=== PATIENT | female | born 1945 | race Caucasian/White ===

== ENCOUNTER 2018-10-17 18:51 | Inpatient (IN) | payer OTHER, MEDICARE ==
--- NOTE | 2018-10-17 19:03 | PDOC ---
Rapid Medical Evaluation Chief Complaint: Shortness of Breath Time Seen by Provider: 10/17/18 18:58 Medical Evaluation: Allergies Allergy/AdvReac Type Severity Reaction Status Date / Time buspirone HCl [From BuSpar] Allergy Verified 03/03/16 18:29 carbamazepine [From Tegretol] Allergy Verified 03/03/16 18:29 celecoxib [From Celebrex] Allergy Verified 03/03/16 18:29 hydralazine Allergy Verified 03/03/16 18:29 Penicillins Allergy Verified 03/03/16 18:29 valsartan [From Diovan] Allergy Verified 03/03/16 18:29 10/17/18 18:58 I have performed a brief in-person evaluation of this patient. The patient presents with a chief complaint of:worsening of SOBthis week, sent from Dr Ng office for admission baseline pulse Ox 94%, this week pulse ox 85%. Pertinent physical exam findings: Tachypneic, taking Zithromycin started yesterday Pale, . I have ordered the following: CXR, The patient will proceed to the ED for further evaluation. Discharge Disposition - Diagnosis SOB (shortness of breath) - Referrals Referrals: Ryan Grande MD [Primary Care Provider] - - Patient Instructions - Post Discharge Activity
--- NOTE | 2018-10-17 21:24 | PDOC ---
History of Present Illness - General Chief Complaint: Shortness of Breath Stated Complaint: Shortness of Breath Time Seen by Provider: 10/17/18 18:58 History Source: Patient Exam Limitations: No Limitations Past History - Past Medical History Allergies/Adverse Reactions: Allergies Allergy/AdvReac Type Severity Reaction Status Date / Time buspirone HCl [From BuSpar] Allergy Verified 03/03/16 18:29 carbamazepine [From Tegretol] Allergy Verified 03/03/16 18:29 celecoxib [From Celebrex] Allergy Verified 03/03/16 18:29 hydralazine Allergy Verified 03/03/16 18:29 Penicillins Allergy Verified 03/03/16 18:29 valsartan [From Diovan] Allergy Verified 03/03/16 18:29 Home Medications: Ambulatory Orders Acetaminophen/Caffeine/Butalb [Fioricet -] 1 tab PO Q4H PRN 03/03/16 Aspirin Coated [Ecotrin -] 325 mg PO DAILY 03/03/16 Atenolol [Tenormin -] 50 mg PO BID 03/03/16 Budesonide/Formeterol Fumarate [SYMBICORT 160/4.5mcg -] 1 inh PO BID 03/03/16 Citalopram Hydrobromide [Citalopram HBr] 20 mg PO TID 03/03/16 Codeine Sulfate - 30 mg PO Q6H PRN 03/03/16 Nortriptyline HCl [Pamelor -] 50 mg PO BID 03/03/16 Omeprazole [Prilosec] 40 mg PO DAILY 03/03/16 Rosuvastatin [Crestor -] 10 mg PO DAILY 03/03/16 Tiotropium [place] [Spiriva] 1 inh PO DAILY 03/03/16 Triamterene/Hydrochlorothiazid [Triamterene-Hctz 37.5-25 mg Tb] 1 each PO DAILY 03/03/16 Allopurinol [Zyloprim -] 100 mg PO DAILY 03/04/16 Levothyroxine [Synthroid -] 112 mcg PO DAILY 03/04/16 Enoxaparin [Lovenox -] 40 mg SQ DAILY disp.syrin 03/06/16 Lactulose (Oral Use) [Cephulac -] 20 gm PO DAILY udc 03/06/16 Polyethylene Glycol 3350 [Miralax 119 gm Btl -] 17 gm PO BID bottle 03/06/16 Cardiac Disorders: Yes (2005) COPD: Yes Dementia: No Diabetes: No Hypercholesterolemia: Yes Seizures: No Thyroid Disease: Yes (overactive goiter removed) - Surgical History Lung Surgery: Yes (rt pneumo thorax thoracotomy) - Immunization History Immunization Up to Date: Yes - Suicide/Smoking/Psychosocial Hx Smoking History: Former smoker Have you smoked in the past 12 months: No Information on smoking cessation initiated: No Hx Alcohol Use: No Drug/Substance Use Hx: No Substance Use Type: None Hx Substance Use Treatment: No *Physical Exam - Vital Signs Last Vital Signs Temp Pulse Resp BP Pulse Ox 97.9 F 68 20 136/73 93 L 10/17/18 18:58 10/17/18 18:58 10/17/18 18:58 10/17/18 18:58 10/17/18 18:58 - Physical Exam General Appearance: No: Apparent Distress Respiratory/Chest: positive: Lungs Clear, Decreased Breath Sounds (Slightly decreased breath sounds along R side compared to left). negative: Respiratory Distress, Rales, Rhonchi, Stridor, Wheezing Cardiovascular: positive: Regular Rhythm, Regular Rate, S1, S2. negative: Murmur Gastrointestinal/Abdominal: positive: Normal Bowel Sounds, Soft. negative: Tender, Distended, Guarding, Rebound Extremity: positive: Pedal Edema (Mild 1+ pedal edema noted), Erythema (Some erythema noted along dorsal surface of R foot and L saldana, slight skin tear to L saldana with slight weeping, no purulent drainage, no open wound, no warmth to site ). negative: Calf Tenderness Neurologic: positive: Fully Oriented, Alert, Normal Mood/Affect Moderate Sedation - Procedure Monitoring Vital Signs: Procedure Monitoring Vital Signs Temperature 97.9 F 10/17/18 18:58 Pulse Rate 68 10/17/18 18:58 Respiratory Rate 20 10/17/18 18:58 Blood Pressure 136/73 10/17/18 18:58 O2 Sat by Pulse Oximetry (%) 93 L 10/17/18 18:58 ED Treatment Course - LABORATORY CBC & Chemistry Diagram: 10/17/18 21:41 10/17/18 21:41 - RADIOLOGY Radiology Studies Ordered: Category Date Time Status CHEST X-RAY PORTABLE* [RAD] Stat Radiology 10/17/18 20:32 Taken Medical Decision Making - Medical Decision Making 72 y/o F hx of emphysema (former smoker, 20 pack year, quit 1983), R lung PTX s/ p RUL lobectomy 1983, [place] 2005 (on ASA, no PCI or CABG done), L femur fx 2015 s/ p ORIF, hypothyroidism, gout, depression presents due to worsening SOB over 2 weeks. Patient has pulse oximeter at home and states pulse ox has been ranging from 77-90% at times; usually she is around 95%. Patient is not oxygen dependent. Spoke to her PCP who advised her to come to ED for admission. Also mentions having chronic dry cough for years, which worsened last week for which her PCP started her on Azithromycin, which she started taking yesterday. Also mentions noting some redness along her lower legs 2 weeks ago for which her PCP started her on Clindamycin initially for concern for infection; however, the redness did not improve. She had an arterial ultrasound done of her lower legs yesterday, which she was told was normal. Denies fever, chest pain, abd pain, n/ v/d, recent travel. SOB Consider worsening emphysema, ?CHF (mild pedal edema on exam), ?PE, ?PNA, ACS EKG #1: NSR at 66 bpm, TWI lead III (unchanged from prior 02/2016) Plan: CBC, BMP, trop, BNP, coags, VBG, lactate, CXR, CTA chest (if normal creatinine) Patient placed on 2L oxygen 10/17/18 21:25 Labs reviewed Trop neg BNP elevated CT chest shows LLL PNA; no evidence of PE noted Though BNP elevated, no pleural or pericardial effusion noted on imaging; less likely acute CHF Patient with no recent hospital admissions so will treat as CAP Patient is penicillin allergic so will treat with Levaquin Will admit patient for further care. 10/18/18 01:41 *DC/Admit/Observation/Transfer Diagnosis at time of Disposition: SOB (shortness of breath) Pneumonia Qualifiers: Pneumonia type: due to unspecified organism Laterality: left Lung location: lower lobe of lung Qualified Code(s): J18.1 - Lobar pneumonia, unspecified organism - Discharge Dispostion Condition at time of disposition: Stable Decision to Admit order: Yes - Referrals Referrals: Ryan Grande MD [Primary Care Provider] - - Patient Instructions - Post Discharge Activity
[2018-10-17 21:51] LABS: BASO % 0.4 % (0-2.0); EOS % 1.3 % (0-4.5); HEMATOCRIT 35.5 % (32.4-45.2); HEMOGLOBIN 12.1 GM/dL (10.7-15.3); LYMPH % 9.6 % (8-40); MCH 28.2 pg (25.7-33.7); MEAN CELL VOLUME 82.9 fl (80-96); MONO % 6.9 % (3.8-10.2); NEUT % 81.8 % (42.8-82.8); PLATELET COUNT 310 K/MM3 (134-434); RBC 4.28 M/mm3 (3.60-5.2); WHITE BLOOD COUNT 9.7 K/mm3 (4.0-10.0)
[2018-10-17 21:52] LABS: VENOUS PC02 57.3 mmHg (38-52); VENOUS PH 7.37 (7.32-7.42); VENOUS PO2 23.1 mmHg (28-48)
[2018-10-17 22:06] LABS: INR 1.02 (0.83-1.09)
[2018-10-17 22:09] LABS: ACTIVATED PTT 28.1 SECONDS (25.2-36.5)
[2018-10-17] MEDS ORDERED: ACETAMINOPHEN 325 MG TABLET (FP) ONE (22:09)
[2018-10-17] MEDS ORDERED: ACETAMINOPHEN 325 MG TABLET (FP) PO ONE (22:09)
[2018-10-17 22:15] LABS: ANION GAP 10 MMOL/L (8-16); BLOOD UREA NITROGEN 16 mg/dL (7-18); CALCIUM 9.4 mg/dL (8.5-10.1); CHLORIDE 95 mmol/L (98-107); CO2 30 mmol/L (21-32); CREATININE 0.8 mg/dL (0.55-1.3); GLUCOSE,RANDOM 90 mg/dL (74-106); N-TERMINAL BNP 1100.5 pg/ml (5-125); POTASSIUM 3.9 mmol/L (3.5-5.1); SODIUM 135 mmol/L (136-145)
--- NOTE | 2018-10-17 22:39 | PDOC ---
*Physical Exam - Vital Signs Last Vital Signs Temp Pulse Resp BP Pulse Ox 97.9 F 68 20 136/73 93 L 10/17/18 18:58 10/17/18 18:58 10/17/18 18:58 10/17/18 18:58 10/17/18 18:58 ED Treatment Course - LABORATORY CBC & Chemistry Diagram: 10/17/18 21:41 10/17/18 21:41 - ADDITIONAL ORDERS Additional order review: Laboratory Results 10/17/18 10/17/18 10/17/18 21:41 21:41 21:41 PT with INR 12.00 INR 1.02 PTT (Actin FS) 28.1 VBG pH POC VBG pCO2 POC VBG pO2 Mixed VBG HCO3 Sodium 135 L Potassium 3.9 Chloride 95 L Carbon Dioxide 30 Anion Gap 10 BUN 16 Creatinine 0.8 Creat Clearance w eGFR > 60 Random Glucose 90 Lactic Acid 1.0 Calcium 9.4 Troponin I < 0.02 B-Natriuretic Peptide 1100.5 H 10/17/18 21:41 PT with INR INR PTT (Actin FS) VBG pH 7.37 POC VBG pCO2 57.3 H POC VBG pO2 23.1 L Mixed VBG HCO3 32.4 H Sodium Potassium Chloride Carbon Dioxide Anion Gap BUN Creatinine Creat Clearance w eGFR Random Glucose Lactic Acid Calcium Troponin I B-Natriuretic Peptide 10/17/18 21:41 RBC 4.28 MCV 82.9 MCHC 34.0 RDW 16.0 H MPV 7.0 L Neutrophils % 81.8 Lymphocytes % 9.6 D Monocytes % 6.9 Eosinophils % 1.3 Basophils % 0.4 - Medications Given in the ED: ED Medications Discontinued Medications Generic Name Dose Route Start Last Admin Trade Name Biq PRN Reason Stop Dose Admin Acetaminophen 650 mg 10/17/18 22:09 10/17/18 22:25 Tylenol - PO 10/17/18 22:10 650 mg ONCE ONE Administration Medical Decision Making - Medical Decision Making 10/17/18 22:34 Ms Samuels is a 72 yo F h/o emphysema h/o pneumothorax s/p RUL lobectomy She noted a decrease in he O2 (using a home pulse oximetry monitor) She was seen by her PMD yesterday and started on Azithromycin Pt continue to cough and is short of breath PMD recommended that she come to the ER due to persistent hypoxia EKG - NSR rate of 66 bpm, axis nml, intervals nml, no st elevation or depressions, t wave inversion III, aVF Pt seen by Midlevel Provider under my direct supervision Pt interviewed and examined Ancillary studies reviewed CTA - Will admit I agree with plan as outlined by Midlevel Provider *DC/Admit/Observation/Transfer Diagnosis at time of Disposition: SOB (shortness of breath) - Referrals Referrals: Ryan Grande MD [Primary Care Provider] - - Patient Instructions - Post Discharge Activity
[2018-10-18] MEDS ORDERED: AZITHROMYCIN 500 MG TABLET PO ONE (01:27)
[2018-10-18] MEDS ORDERED: levoFLOXacin 750 MG TABLET PO ONE (01:29)
[2018-10-18] MEDS ORDERED: ACETAMINOPHEN 325 MG TABLET (FP) PO PRN (03:09)
--- NOTE | 2018-10-18 03:09 | HP ---
CHIEF COMPLAINT: SOB PCP: Dr. Grande HISTORY OF PRESENT ILLNESS: The patient is a 72 yo f w/ PMH COPD (not on home O2), Right lung spontaneous pneumothorax s/p RUL lobectomy 1983, CAD who comes into the ED c/o a 2 week history of progressive SOB and cough. on Tuesday, the patient noted worsening nonproductive cough and went to see her PCP, who placed her on azithromycin 250mg daily, which she took daily since. The patient states that she has a pulse oximiter at home and noted tonight that her saturation has been ranging from 77% to 90%. Patient's baseline in 95%. The patient called her PCP, who sent her to the ED for evaluation. Patient denies CP, abdominal pain, fevers, chills or sick contacts. ER course was notable for: (1) levaquin 750mg, azithromycin 250 mg PO (2) Tylenol (3) CXR, CTA showing PRERNA consolidation Recent Travel: none PAST MEDICAL HISTORY: COPD right lung pneumo s/p RUL lobectomy [place] 2005 (on ASA, no stenting) LT femur fx s/p fall s/p ORIF Hypothyroidism gout depression PAST SURGICAL HISTORY: Lt femur ORIF RUL lobectomy Social History: Smoking: former smoker, quit in 1983 Alcohol: social Drugs: none Family History: non-contributory Allergies buspirone HCl [From BuSpar] Allergy (Verified 03/03/16 18:29) carbamazepine [From Tegretol] Allergy (Verified 03/03/16 18:29) celecoxib [From Celebrex] Allergy (Verified 03/03/16 18:29) hydralazine Allergy (Verified 03/03/16 18:29) Penicillins Allergy (Verified 03/03/16 18:29) valsartan [From Diovan] Allergy (Verified 03/03/16 18:29) HOME MEDICATIONS: Home Medications Medication Instructions Recorded Acetaminophen/Caffeine/Butalb 1 tab PO Q4H PRN 03/03/16 [Fioricet -] Aspirin Coated [Ecotrin -] 325 mg PO DAILY 03/03/16 Atenolol [Tenormin -] 50 mg PO BID 03/03/16 Budesonide/Formeterol Fumarate 1 inh PO BID 03/03/16 [SYMBICORT 160/4.5mcg -] Citalopram Hydrobromide 20 mg PO TID 03/03/16 [Citalopram HBr] Codeine Sulfate - 30 mg PO Q6H PRN 03/03/16 Nortriptyline HCl [Pamelor -] 50 mg PO BID 03/03/16 Omeprazole [Prilosec] 40 mg PO DAILY 03/03/16 Rosuvastatin [Crestor -] 10 mg PO DAILY 03/03/16 Tiotropium [place] [Spiriva] 1 inh PO DAILY 03/03/16 Triamterene/Hydrochlorothiazid 1 each PO DAILY 03/03/16 [Triamterene-Hctz 37.5-25 mg Tb] Allopurinol [Zyloprim -] 100 mg PO DAILY 03/04/16 Levothyroxine [Synthroid -] 112 mcg PO DAILY 03/04/16 Enoxaparin [Lovenox -] 40 mg SQ DAILY disp.syrin 03/06/16 Lactulose (Oral Use) [Cephulac -] 20 gm PO DAILY udc 03/06/16 Polyethylene Glycol 3350 [Miralax 17 gm PO BID bottle 03/06/16 119 gm Btl -] REVIEW OF SYSTEMS CONSTITUTIONAL: Absent: fever, chills, diaphoresis, generalized weakness, malaise, loss of appetite, weight change HEENT: Absent: rhinorrhea, nasal congestion, throat pain, throat swelling, difficulty swallowing, mouth swelling, ear pain, eye pain, visual changes CARDIOVASCULAR: Absent: chest pain, syncope, palpitations, irregular heart rate, lightheadedness , peripheral edema RESPIRATORY: Absent: orthopnea, stridor, hemoptysis GASTROINTESTINAL: Absent: abdominal pain, abdominal distension, nausea, vomiting, diarrhea, constipation, melena, hematochezia GENITOURINARY: Absent: dysuria, frequency, urgency, hesitancy, hematuria, flank pain, genital pain MUSCULOSKELETAL: Absent: myalgia, arthralgia, joint swelling, back pain, neck pain SKIN: Absent: rash, itching, pallor HEMATOLOGIC/IMMUNOLOGIC: Absent: easy bleeding, easy bruising, lymphadenopathy, frequent infections ENDOCRINE: Absent: unexplained weight gain, unexplained weight loss, heat intolerance, cold intolerance NEUROLOGIC: Absent: headache, focal weakness or paresthesias, dizziness, unsteady gait, seizure, mental status changes, bladder or bowel incontinence PSYCHIATRIC: Absent: anxiety, depression, suicidal or homicidal ideation, hallucinations. PHYSICAL EXAMINATION Vital Signs - 24 hr 10/17/18 18:58 Temperature 97.9 F Pulse Rate 68 Respiratory 20 Rate Blood Pressure 136/73 O2 Sat by Pulse 93 L Oximetry (%) GENERAL: Awake, alert, and fully oriented, in no acute distress. HEAD: Normal with no signs of trauma. EYES: Pupils equal, round and reactive to light, extraocular movements intact, sclera anicteric, conjunctiva clear. No lid lag. EARS, NOSE, THROAT: Ears normal, nares patent, oropharynx clear without exudates. Moist mucous membranes. NECK: Normal range of motion, supple without lymphadenopathy, JVD, or masses. LUNGS: decreased breath shounds on the left with ronchi at the bases b/l. No accessory muscle use. HEART: Regular rate and rhythm, normal S1 and S2 without murmur, rub or gallop. ABDOMEN: Soft, nontender, not distended, normoactive bowel sounds, no guarding, no rebound, no masses. No hepatomegaly or splenomegaly. LOWER EXTREMITIES: 2+ pulses, warm, well-perfused. No calf tenderness. 2+ peripheral edema. There is an area of erythema on the left lower extremity measuring approx. 4cm in diameter. the area is tender to palpation, but is not swolllen, indurated or warm to the touch. The patch of skin in the center of this lesion is slightly macerated. No drainage observed. center lesions are covered with bandages. NEUROLOGICAL: Cranial nerves II-X intact. Normal speech. PSYCHIATRIC: Cooperative. Good eye contact. Appropriate mood and affect. SKIN: Warm, dry, normal turgor, no rashes or lesions noted, normal capillary refill. Laboratory Results - last 24 hr 10/17/18 10/17/18 10/17/18 21:41 21:41 21:41 WBC 9.7 RBC 4.28 Hgb 12.1 Hct 35.5 MCV 82.9 MCH 28.2 MCHC 34.0 RDW 16.0 H Plt Count 310 MPV 7.0 L Absolute Neuts (auto) 7.9 Neutrophils % 81.8 Lymphocytes % 9.6 D Monocytes % 6.9 Eosinophils % 1.3 Basophils % 0.4 Nucleated RBC % 0 PT with INR 12.00 INR 1.02 PTT (Actin FS) 28.1 VBG pH 7.37 POC VBG pCO2 57.3 H POC VBG pO2 23.1 L Mixed VBG HCO3 32.4 H Sodium Potassium Chloride Carbon Dioxide Anion Gap BUN Creatinine Creat Clearance w eGFR Random Glucose Lactic Acid Calcium Troponin I B-Natriuretic Peptide 10/17/18 10/17/18 21:41 21:41 WBC RBC Hgb Hct MCV MCH MCHC RDW Plt Count MPV Absolute Neuts (auto) Neutrophils % Lymphocytes % Monocytes % Eosinophils % Basophils % Nucleated RBC % PT with INR INR PTT (Actin FS) VBG pH POC VBG pCO2 POC VBG pO2 Mixed VBG HCO3 Sodium 135 L Potassium 3.9 Chloride 95 L Carbon Dioxide 30 Anion Gap 10 BUN 16 Creatinine 0.8 Creat Clearance w eGFR > 60 Random Glucose 90 Lactic Acid 1.0 Calcium 9.4 Troponin I < 0.02 B-Natriuretic Peptide 1100.5 H ASSESSMENT/PLAN: The patient is a 72 yo f w/ PMH COPD who comes into the ED c/o SOB and cough found to have PRERNA PNA on CT. #SOB and cough 2/2 PRERNA CAP -s/p levaquin/ azithro in ED -c/w Levaquin and Azithro IV; QTc in 400's on admission EKG -Patient is on above medications and citalopram, all of which prolong QTc. Caution with further QT prolonging agents. -EKG in AM to monitor QTc -urine for PNA antigens -c/w home symbicort and spiriva -albuterol nebs PRN q4H -solu-medrol 40mg q8h IV -will resume the remainder of home medications -holding home narcotics to preserve respiratory drive -tylenol 650 PRN fever #FEN -no fluids indicated -lytes WNL -sodium controlled diet #prophy -lovenox 40mg SQ daily #dispo -admit med surg Visit type - Emergency Visit Emergency Visit: Yes Care time: The patient presented to the Emergency Department on the above date and was hospitalized for further evaluation of their emergent condition. - New Patient This patient is new to me today: Yes Date on this admission: 10/18/18 - Critical Care Critical Care patient: No
[2018-10-18] MEDS ORDERED: methylPREDNISolone NA SUCC 40 MG/1 ML VIAL ONE (03:32)
[2018-10-18] MEDS: methylPREDNISolone NA SUCC 40 MG/1 ML VIAL IVPUSH SCH ×3 (03:37→18:10)
[2018-10-18] MEDS ORDERED: AZITHROMYCIN IVPB 500 MG/250 ML BAG IVPB SCH (03:45)
[2018-10-18] MEDS ORDERED: AZITHROMYCIN IVPB 500 MG/250 ML BAG IVPB ONE (03:54)
[2018-10-18] MEDS ORDERED: ALBUTEROL SO4 0.042% IH SOL 1.25 MG/3 ML VIAL.NEB NEB PRN (04:25)
--- NOTE | 2018-10-18 04:32 | PN ---
Teaching Attending Note Name of Resident: Pravin Lucas ATTENDING PHYSICIAN STATEMENT I saw and evaluated the patient. I reviewed the resident's note and discussed the case with the resident. I agree with the resident's findings and plan as documented. SUBJECTIVE: Patient is a 72 year old woman with PMH of COPD (not on home O2), Right lung spontaneous pneumothorax s/p RUL lobectomy 1983, CAD who comes into the ED c/o a 2 week history of progressive SOB and cough. on Tuesday, the patient noted worsening nonproductive cough and went to see her PCP, who placed her on azithromycin 250mg daily, which she took daily since. The patient states that she has a pulse oximiter at home and noted tonight that her saturation has been ranging from 77% to 90%. Patient's baseline in 95%. The patient called her PCP, who sent her to the ED for evaluation. Patient denies CP, abdominal pain, fevers , chills or sick contacts. OBJECTIVE: Alert Vital Signs Period Temp Pulse Resp BP Sys/Miranda Pulse Ox Last 24 Hr 97.9 F-97.9 F 68-78 20-20 134-155/72-91 93-98 HEENT: No Jaundice, eye redness or discharge, PERRLA, EOMI. Normocephalic, atraumatic. External ears are normal and hearing is grossly intact. No nasal discharge. Neck: Supple, nontender. No palpable adenopathy or thyromegaly. No JVD Chest: Good effort. Diminished breath sounds. Heart: Regular. No S3, rub or murmur Abdomen: Not distended, soft, nontender and no HSM. No rebound or guarding. Normoactive bowel sounds. Ext: Peripheral pulses intact. No leg edema. Left saldana cellulitis. Skin: Warm and dry. No petechiae, rash or ecchymosis. Neuro: Alert. Oriented x3. CN 2-12 grossly intact. Sensation grossly intact in all four extremities and DTR are symmetric. Current Medications Generic Name Dose Route Start Last Admin Trade Name Freq PRN Reason Stop Dose Admin Acetaminophen 650 mg 10/18/18 03:09 Tylenol - PO Q6H PRN FEVER Albuterol Sulfate 1 amp 10/18/18 04:25 Ventolin 0.042trength) - NEB Q4H PRN SHORT OF BREATH/WHEEZING Allopurinol 100 mg 10/18/18 22:00 Zyloprim - PO HS [facility] Amlodipine Besylate 10 mg 10/18/18 10:00 Norvasc - PO DAILY [facility] Aspirin 325 mg 10/18/18 10:00 Ecotrin - PO DAILY [facility] Budesonide/Formoterol Fumarate 1 puff 10/18/18 10:00 Symbicort 160/4.5mcg - IH BID [facility] Citalopram Hydrobromide 20 mg 10/18/18 06:00 Celexa - PO TID [facility] Enoxaparin Sodium 40 mg 10/18/18 10:00 Lovenox - SQ DAILY [facility] Azithromycin 500 mg in 250 mls @ 250 mls/hr 10/18/18 03:45 10/18/18 03:55 Zithromax 500mg Ivpb (Pre-Docked) IVPB 250 mls/hr DAILY [facility] Administration Levofloxacin 500 mg in 100 mls @ 100 mls/hr 10/18/18 04:00 10/18/18 03:52 Levaquin 500 Mg Premixed Ivpb - IVPB Not Given DAILY [facility] Protocol Levothyroxine Sodium 112 mcg 10/18/18 07:00 Synthroid - PO DAILY@0700 [facility] Methylprednisolone Sodium Succinate 40 mg 10/18/18 03:30 10/18/18 03:37 Solu-Medrol - IVPUSH 40 mg Q8H-IV [facility] Administration Nortriptyline HCl 50 mg 10/18/18 22:00 Pamelor - PO HS [facility] Pantoprazole Sodium 40 mg 10/18/18 10:00 Protonix - PO DAILY [facility] Pramipexole Dihydrochloride 0.25 mg 10/18/18 06:00 Mirapex - PO TID [facility] Rosuvastatin Calcium 10 mg 10/18/18 22:00 Crestor - PO HS [facility] Tiotropium [place] 2 puff 10/18/18 10:00 Spiriva Respimat IH DAILY [facility] Triamterene/HCTZ 1 cap 10/18/18 10:00 Dyazide 25/37.5mg PO DAILY [facility] Home Medications Medication Instructions Recorded Acetaminophen/Caffeine/Butalb 1 tab PO Q4H PRN 03/03/16 [Fioricet -] Aspirin Coated [Ecotrin -] 325 mg PO DAILY 03/03/16 Budesonide/Formeterol Fumarate 1 inh PO BID 03/03/16 [SYMBICORT 160/4.5mcg -] Citalopram Hydrobromide 20 mg PO TID 03/03/16 [Citalopram HBr] Codeine Sulfate - 30 mg PO Q6H PRN 03/03/16 Nortriptyline HCl [Pamelor -] 50 mg PO HS 03/03/16 Omeprazole [Prilosec] 40 mg PO DAILY 03/03/16 Rosuvastatin [Crestor -] 10 mg PO DAILY 03/03/16 Tiotropium [place] [Spiriva] 1 inh PO DAILY 03/03/16 Triamterene/Hydrochlorothiazid 1 each PO DAILY 03/03/16 [Triamterene-Hctz 37.5-25 mg Tb] Allopurinol [Zyloprim -] 100 mg PO HS 03/04/16 Levothyroxine [Synthroid -] 112 mcg PO DAILY 03/04/16 Amlodipine Besylate 10 mg PO DAILY 10/18/18 Pramipexole Dihydrochloride 0.25 mg PO TID 10/18/18 [Mirapex -] Abnormal Lab Results 10/17/18 10/17/18 10/17/18 21:41 21:41 21:41 RDW 16.0 H MPV 7.0 L POC VBG pCO2 57.3 H POC VBG pO2 23.1 L Mixed VBG HCO3 32.4 H Sodium 135 L Chloride 95 L B-Natriuretic Peptide 1100.5 H ASSESSMENT AND PLAN: 1. Pneumonia/COPD exacerbation - CXR shows increased interstitial markings but CTA showed PRERNA infiltrate. Will treat with rocephin, azithromycin, solumedrol, duoneb and symbicort. Urine for legionella antigen. 2. DVT prophylaxis - Lovenox 40 mg SQ q 24 hours. 3. Advance directives - Full code
[2018-10-18 05:10] LABS: HEMATOCRIT 37.6 % (32.4-45.2); HEMOGLOBIN 12.1 GM/dL (10.7-15.3); MCH 26.8 pg (25.7-33.7); MCHC 32.1 g/dl (32.0-36.0); MEAN CELL VOLUME 83.4 fl (80-96); MEAN PLT VOLUME 6.8 fl (7.5-11.1); PLATELET COUNT 284 K/MM3 (134-434); RDW 15.9 % (11.6-15.6); WHITE BLOOD COUNT 8.8 K/mm3 (4.0-10.0)
[2018-10-18 05:26] LABS: INR 1.02 (0.83-1.09)
[2018-10-18 05:29] LABS: ACTIVATED PTT 29.4 SECONDS (25.2-36.5)
[2018-10-18 05:49] LABS: ANION GAP 10 MMOL/L (8-16); BLOOD UREA NITROGEN 11 mg/dL (7-18); CALCIUM 9.1 mg/dL (8.5-10.1); CHLORIDE 94 mmol/L (98-107); CO2 30 mmol/L (21-32); CREATININE 0.8 mg/dL (0.55-1.3); GLUCOSE,RANDOM 123 mg/dL (74-106); MAGNESIUM 2.1 mg/dL (1.8-2.4); PHOSPHOROUS 3.3 mg/dL (2.5-4.9); POTASSIUM 3.5 mmol/L (3.5-5.1); SODIUM 134 mmol/L (136-145)
[2018-10-18] MEDS: PRAMIPEXOLE DIHYDROCHLORIDE 0.25 MG TABLET PO SCH ×3 (06:15→22:11)
[2018-10-18] MEDS: CITALOPRAM HYDROBROMIDE 20 MG TABLET (FP) PO SCH ×3 (06:16→21:59)
[2018-10-18] MEDS: LEVOTHYROXINE NA 112 MCG TABLET (FP) PO SCH (06:16)
[2018-10-18] MEDS ORDERED: guaiFENesin/CODEINE 10 ML UNIT-DOSE CUPS PO PRN (08:13)
--- NOTE | 2018-10-18 08:13 | PN ---
Progress Note, Physician Chief Complaint: 72 y.o F WITH CHRONIC copd, rul LOBECTOMY IN 1983 FOR ptx, presented yesterday to the office with respiratory distress, hYPOXEMIA, o2sat ra 86% AND WAS SENT TO [facility] FOR FURTHER MANAGEMENT. 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 Severe COPD, chronic cough on codeine suppression 1983 RUUL lobectomy for spontaneous PTX [place] 2005 Left femoral fx 2015 Hypothyroidism Gout HTN Migraine Depression/anxiety A1C 6.2 this [id number]-MS - Current Medication List Current Medications: Active Medications Acetaminophen (Tylenol -) 650 mg PO Q6H PRN PRN Reason: FEVER Albuterol Sulfate (Ventolin 0.042trength) -) 1 amp NEB Q4H PRN PRN Reason: SHORT OF BREATH/WHEEZING Allopurinol (Zyloprim -) 100 mg PO HS [facility] Amlodipine Besylate (Norvasc -) 10 mg PO DAILY [facility] Aspirin (Ecotrin -) 325 mg PO DAILY [facility] Budesonide/Formoterol Fumarate (Symbicort 160/4.5mcg -) 1 puff IH BID [facility] Citalopram Hydrobromide (Celexa -) 20 mg PO TID [facility] Last Admin: 10/18/18 06:16 Dose: 20 mg Enoxaparin Sodium (Lovenox -) 40 mg SQ DAILY [facility] Levofloxacin (Levaquin 500 Mg Premixed Ivpb -) 500 mg in 100 mls @ 100 mls/hr IVPB DAILY [facility]; Protocol Last Admin: 10/18/18 03:52 Dose: Not Given Levothyroxine Sodium (Synthroid -) 112 mcg PO DAILY@0700 [facility] Last Admin: 10/18/18 06:16 Dose: 112 mcg Methylprednisolone Sodium Succinate (Solu-Medrol -) 40 mg IVPUSH Q8H-IV [facility] Last Admin: 10/18/18 03:37 Dose: 40 mg Metoprolol Tartrate (Lopressor -) 100 mg PO BID [facility] Nortriptyline HCl (Pamelor -) 50 mg PO HS [facility] Pantoprazole Sodium (Protonix -) 40 mg PO DAILY [facility] Pramipexole Dihydrochloride (Mirapex -) 0.25 mg PO TID [facility] Last Admin: 10/18/18 06:15 Dose: 0.25 mg Rosuvastatin Calcium (Crestor -) 10 mg PO HS [facility] Tiotropium [place] (Spiriva Respimat) 2 puff IH DAILY [facility] Triamterene/HCTZ (Dyazide 25/37.5mg) 1 cap PO DAILY [facility] - Objective Vital Signs: Vital Signs Temperature 98.4 F 10/18/18 05:45 Pulse Rate 85 10/18/18 05:45 Respiratory Rate 18 10/18/18 05:45 Blood Pressure 138/86 10/18/18 05:45 O2 Sat by Pulse Oximetry (%) 99 10/18/18 05:45 Constitutional: Yes: Anxious, Moderate Distress Eyes: Yes: Conjunctiva Clear HENT: Yes: Atraumatic, Normocephalic. No: Drooling Neck: Yes: Supple, Trachea Midline Cardiovascular: No: Other Respiratory: Yes: Regular, Cough, Diminished (RUL), On Nasal O2, Rhonchi, SOB, SOB on Exertion. No: Accessory Muscle Use, Stridor Gastrointestinal: Yes: Normal Bowel Sounds, Soft Genitourinary: No: Anuria Extremities: Yes: Erythema (both feet) Edema: No Peripheral Pulses WNL: No Wound/Incision: Yes: Clean/Dry (left anterior saldana) Neurological: Yes: Alert. No: Aphasia, Asterix[place] ...Motor Strength: WNL Psychiatric: Yes: WNL Labs: CBC, BMP 10/18/18 05:05 10/18/18 05:05 INR, PTT INR 1.02 (0.83-1.09) 10/18/18 05:05 - ....Imaging Chest X-ray: Image Reviewed Cat Scan: Image Reviewed Problem List - Problems (1) CAD (coronary artery disease), [place] coronary artery Assessment/Plan: Continue ASA, Statins Code(s): I25.10 - ATHSCL HEART DISEASE OF [place] CORONARY ARTERY W/O ANG PCTRS Qualifiers: [place] vs. transplanted heart: [place] heart Associated angina: without angina Qualified Code(s): I25.10 - Atherosclerotic heart disease of [place] coronary artery without angina pectoris (2) COPD (chronic obstructive pulmonary disease) with emphysema Assessment/Plan: Nebs with Proventyl, O2NC, IV Solumedrol Code(s): J43.9 - EMPHYSEMA, UNSPECIFIED Qualifiers: Emphysema type: other Qualified Code(s): J43.8 - Other emphysema (3) Pneumonia Assessment/Plan: IV Levaquin given to PT Code(s): J18.9 - PNEUMONIA, UNSPECIFIED ORGANISM Qualifiers: Pneumonia type: due to unspecified organism Laterality: left Lung location: lower lobe of lung Qualified Code(s): J18.1 - Lobar pneumonia, unspecified organism
[2018-10-18 09:43] LABS: ARTERIAL BLD GAS O2 SATURATION 90.7 % (90-98.9); ARTERIAL BLOOD GAS BASE EXCESS 4.9 meq/l (-2-2); ARTERIAL BLOOD GAS PCO2 37.2 mmHg (35-45); ARTERIAL BLOOD GAS PO2 58.9 mmHg (70-100); ARTERIAL BLOOD GAS pH 7.49 (7.35-7.45)
[2018-10-18 09:46] LABS: ALLENS TEST POSITIVE
[2018-10-18] MEDS ORDERED: PANTOPRAZOLE 40 MG TABLET (FP) PO SCH (10:00)
[2018-10-18] MEDS ORDERED: BUDESONIDE/FORMETEROL FUMARATE 160/4.5 mcg INHALER IH SCH (10:00)
[2018-10-18] MEDS ORDERED: PT OWN MED DRAWER 7, Y5N ONE ×4 (10:09→21:48)
[2018-10-18] MEDS: amLODIPine BESYLATE 10 MG TABLET (FP) PO SCH (10:17)
[2018-10-18] MEDS: TIOTROPIUM BROMIDE 2.5 MCG (SPIRIVA) RESPIMAT INHALER IH SCH (10:17)
[2018-10-18] MEDS: ENOXAPARIN NA (PORCINE) 40 MG/0.4 ML DISP.SYRIN SQ SCH (10:18)
[2018-10-18] MEDS: ASPIRIN 325 MG ENTERIC COATED TABLET (FP) PO SCH (10:18)
[2018-10-18] MEDS: METOPROLOL TARTRATE 50 MG TABLET (FP) PO SCH ×2 (10:18→22:01)
[2018-10-18] MEDS: TRIAMTERENE AND HCTZ - 37.5 MG/25 MG CAPSULE PO SCH (10:18)
[2018-10-18] MEDS: POLYETHYLENE GLYCOL 3350 119 GM BTL PO SCH ×2 (10:19→22:11)
--- NOTE | 2018-10-18 12:36 | EKG ---
Test Reason : Blood Pressure : / mmHG Vent. Rate : 066 BPM Atrial Rate : 066 BPM P-R Int : 168 ms QRS Dur : 100 ms QT Int : 408 ms P-R-T Axes : 034 030 000 degrees QTc Int : 427 ms NORMAL SINUS RHYTHM INFERIOR INFARCT (CITED ON OR BEFORE 26-AUG-2006) ABNORMAL ECG WHEN COMPARED WITH ECG OF 03-MAR-2016 21:17, NO SIGNIFICANT CHANGE WAS FOUND Confirmed by ELAINE QUINTANILLA, LESLIE ([id number]) on 10/18/2018 12:36:11 PM Referred By: Confirmed By:LESLIE HENRY MD
[2018-10-18] MEDS: RANITIDINE HCL 150 MG TABLET (FP) PO SCH ×2 (13:13→21:59)
[2018-10-18] MEDS: ONDANSETRON 4 MG TABLET PO PRN (13:13)
--- NOTE | 2018-10-18 13:18 | CONSULT ---
Consult - History of Present Illness History of Present Illness: 72 year old woman admitted with severe COPD. She has a 2 week history of redness in both lower legs and feet with some pain relieved by lowering her feet to the floor. She denies a history of PAD and is a former smoker. She has also developed a small wound on the left saldana which is draining serous fluid. No history of DVT. An arterial Doppler study was done on Tuesday which was normal. CTA of chest shows no aortic aneurysm or plaque to the diaphragm. There is a PRERNA mass. - History Source History Provided By: Patient, Medical Record Limitations to Obtaining History: No Limitations - Past Medical History MENTAL HEALTH PROFESSIONAL: Yes: Migraine Cardio/Vascular: Yes: CAD, HTN, AL (IWMI) Pulmonary: Yes: COPD, Other (RUL lobectomy after PTX). No: O2 Dependent Gastrointestinal: Yes: Constipation, Diverticulitis Renal/: Yes: Renal Inusuff ...: No Psych: Yes: Anxiety Rheumatology: Yes: Gout Endocrine: Yes: Hypothyroidism - Alcohol/Substance Use Hx Alcohol Use: No - Smoking History Smoking history: Former smoker Have you smoked in the past 12 months: No If you are a former smoker, when did you quit?: 1983 - Social History History of Recent Travel: No Home Medications - Allergies Allergies/Adverse Reactions: Allergies Allergy/AdvReac Type Severity Reaction Status Date / Time buspirone HCl [From BuSpar] Allergy Verified 10/18/18 04:45 carbamazepine [From Tegretol] Allergy Verified 10/18/18 04:45 celecoxib [From Celebrex] Allergy Verified 10/18/18 04:45 hydralazine Allergy Verified 10/18/18 04:45 Penicillins Allergy Verified 10/18/18 04:45 valsartan [From Diovan] Allergy Verified 10/18/18 04:45 - Home Medications Home Medications: Ambulatory Orders Acetaminophen/Caffeine/Butalb [Fioricet -] 1 tab PO Q4H PRN 03/03/16 Aspirin Coated [Ecotrin -] 325 mg PO DAILY 03/03/16 Budesonide/Formeterol Fumarate [SYMBICORT 160/4.5mcg -] 1 inh PO BID 03/03/16 Citalopram Hydrobromide [Citalopram HBr] 20 mg PO TID 03/03/16 Codeine Sulfate - 30 mg PO Q6H PRN 03/03/16 Nortriptyline HCl [Pamelor -] 50 mg PO HS 03/03/16 Omeprazole [Prilosec] 40 mg PO DAILY 03/03/16 Rosuvastatin [Crestor -] 10 mg PO DAILY 03/03/16 Tiotropium [place] [Spiriva] 1 inh PO DAILY 03/03/16 Triamterene/Hydrochlorothiazid [Triamterene-Hctz 37.5-25 mg Tb] 1 each PO DAILY 03/03/16 Allopurinol [Zyloprim -] 100 mg PO HS 03/04/16 Levothyroxine [Synthroid -] 112 mcg PO DAILY 03/04/16 Amlodipine Besylate 10 mg PO DAILY 10/18/18 Metoprolol Tartrate 100 mg PO BID 10/18/18 Pramipexole Dihydrochloride [Mirapex -] 0.25 mg PO TID 10/18/18 Family Disease History - Family Disease History Family Disease History: Other: Sister (Hip fx) Physical Exam Vital Signs: Vital Signs Temperature 98.6 F 10/18/18 09:06 Pulse Rate 98 H 10/18/18 09:06 Respiratory Rate 22 H 10/18/18 09:06 Blood Pressure 135/76 10/18/18 09:06 O2 Sat by Pulse Oximetry (%) 99 10/18/18 05:45 Constitutional: Yes: Thin Eyes: Yes: WNL HENT: Yes: WNL Gastrointestinal: Yes: Soft. No: Pulsatile Mass Extremities: Yes: Erythema (both distal calves, ankles and feet. Small excoriations on left saldana, small amount drainage.) Peripheral Pulses WNL: No (pedal pulses difficult to feel) Labs: CBC, BMP 10/18/18 05:05 10/18/18 05:05 Imaging - Results Other: Other (Arterial Doppler shows normal NUSRAT and PVR throughout both legs and feet.) Problem List - Problems (1) Dermatitis of lower extremity Assessment/Plan: Bilateral lower extremity erythema without evidence for venous stasis or arterial compromise. This would appear to be a dermatitis of unclear etiology. Local care with topical steroids and moisturizers for now. A Dermatology evaluation may be helpful as an outpatient. Code(s): L30.9 - DERMATITIS, UNSPECIFIED
--- NOTE | 2018-10-18 13:26 | PN ---
Progress Note (short form) - Note Progress Note: PULMONARY CONSULTATION DICTATED 10/18/18 IMP ACUTE HYPOXEMIC RESPIRATORY FAILURE COPD EXACERBATION L MID LUNG CONSOLIDATION ? PNEUMONIA,?ATELECTASIS,?NEOPLASM LIKELY PULMONARY HTN H/O RUL LOBECTOMY ASHD S/P TN HYPOTHYROID PLAN IV ABX INHALED BRONCHODILATORS MEDROL O2 F/U CHEST CT 4-6 WKS TO DOCUMENT RESOLUTION PRERNA PROCESS IF NO CHANGE CONSIDER PET AMBULATORY O2 SAT ON RA PRIOR TO DISCHARGE TO DETERMINE IF PT IS A CANDIDATE FOR HOME O2 ECHO DR PUENTE Problem List - Problems (1) Acute hypoxemic respiratory failure Code(s): J96.01 - ACUTE RESPIRATORY FAILURE WITH HYPOXIA (2) CAD (coronary artery disease), [place] coronary artery Code(s): I25.10 - ATHSCL HEART DISEASE OF [place] CORONARY ARTERY W/O ANG PCTRS Qualifiers: [place] vs. transplanted heart: [place] heart Associated angina: without angina Qualified Code(s): I25.10 - Atherosclerotic heart disease of [place] coronary artery without angina pectoris (3) COPD (chronic obstructive pulmonary disease) with emphysema Code(s): J43.9 - EMPHYSEMA, UNSPECIFIED Qualifiers: Emphysema type: other Qualified Code(s): J43.8 - Other emphysema (4) SOB (shortness of breath) Code(s): R06.02 - SHORTNESS OF BREATH (5) Lung consolidation Code(s): J18.1 - LOBAR PNEUMONIA, UNSPECIFIED ORGANISM (6) COPD exacerbation Code(s): J44.1 - CHRONIC OBSTRUCTIVE PULMONARY DISEASE W (ACUTE) EXACERBATION
--- NOTE | 2018-10-18 14:00 | CONS ---
DATE OF CONSULTATION: 10/18/2018 PULMONARY CONSULTATION REFERRING PHYSICIAN: Ryan Grande MD HISTORY OF PRESENT ILLNESS: Patient is a 72-year-old white female with past medical history of advanced COPD, not on home O2, history of right lung spontaneous pneumothorax, status post right upper lobe lobectomy in 1983, ASHD status post [place], history of left femoral fracture status post fall, status post ORIF, hypothyroidism, gout, depression, admitted to [facility] with complaint of 2- week history of progressive shortness of breath, dyspnea on exertion, and cough. Patient denied complaint of chest pain, nausea, vomiting, diaphoresis, denied any fever or chills. Apparently, the cough has been worsening over the past couple of weeks. She went to see her PMD who placed her on Zithromax. Despite these measures, she has persistent cough. She states that she normally takes her pulse oximetry at home and last night her O2 saturations were ranging between 77% and 90%, apparently her baseline is 95%, at which time she was advised to go to the emergency room. In the emergency room, she had a chest CT performed which revealed left upper lobe consolidation. She was admitted to the floor and started on antibiotic therapy, inhaled bronchodilators. Patient denies any history of recent travel. There is no history of DVT or PE in the past. There is no history of occupational exposure to chemicals or fumes. PAST MEDICAL HISTORY: Again includes advanced COPD, not on home O2, history of right upper lobe lobectomy secondary to pneumothorax, history of left femoral fracture , hypothyroidism, gout, depression. REVIEW OF SYSTEMS: Positive for dyspnea. Positive orthopnea. Positive cough, nonproductive. No hemoptysis. No chest pain. No palpitations. Bilateral lower foot pain. CURRENT MEDICATIONS: Include Zofran, Symbicort, Solu-Medrol, Tylenol, Mylanta, Levaquin, Lovenox, Celexa, Pamelor, Zyloprim, Spiriva, Robitussin AC, albuterol, Lopressor, MiraLAX, Norvasc, Mirapex, Crestor, Ecotrin, dioxide, Synthroid. PHYSICAL EXAMINATION: General: Patient is a thin, white female, wide awake, alert, in no acute distress. Vital Signs: She is currently afebrile, blood pressure is 135/76, respiratory rate is 22, and O2 saturation is 96% on 2 L. HEENT: Exam is normocephalic, atraumatic. Neck: Supple. Heart: Regular, S1, S2. Chest: Diminished breath sounds bilaterally. Abdomen: Soft. Bowel sounds positive. Extremities: Erythema bilateral lower extremities. LABORATORIES: Blood gas pH 7.49, PCO2 of 37, PO2 of 58, bicarbonate 28, saturation of 90. WBC is 8.8, hemoglobin 12.1, hematocrit 37.6, platelet count 284,000. Chemistry: BUN 11, creatinine 0.8. BNP is 1100. Chest CTA: No evidence of pulmonary emboli. There is a fully defined left mid lung mass possibly consolidation, atelectasis, and/or pneumonia possible neoplasm. IMPRESSION: Acute hypoxemic respiratory failure secondary to: 1. Chronic obstructive pulmonary disease exacerbation. 2. Left upper lobe consolidation, etiology to be determined and cannot exclude possible pneumonia, consider possible atelectasis and/or history of possible lung mass if she had longstanding history of tobacco use. 3. History of right thoracotomy with right upper lobe lobectomy secondary to pneumothorax. 4. Hypothyroidism. 5. Atherosclerotic heart disease status post myocardial infarction. PLAN: Antibiotic therapy. Supplemental O2. Inhaled bronchodilators. Short course of steroids. Would obtain followup chest CT in 4-6 weeks to document resolution of consolidations. If not improvement, consider PET scan.Ambulatory O2sat prior to discharge. ROLANDO PUENTE M.D. [id number] MTDD
--- NOTE | 2018-10-18 15:47 | EKG ---
Test Reason : Blood Pressure : / mmHG Vent. Rate : 074 BPM Atrial Rate : 074 BPM P-R Int : 144 ms QRS Dur : 102 ms QT Int : 392 ms P-R-T Axes : 009 020 -05 degrees QTc Int : 435 ms NORMAL SINUS RHYTHM MODERATE VOLTAGE CRITERIA FOR LVH, MAY BE NORMAL VARIANT INFERIOR INFARCT (CITED ON OR BEFORE 26-AUG-2006) ABNORMAL ECG WHEN COMPARED WITH ECG OF 17-OCT-2018 20:51, NO SIGNIFICANT CHANGE WAS FOUND Confirmed by LESLIE HENRY MD ([id number]) on 10/18/2018 3:47:08 PM Referred By: KELLEY YUEN DR Confirmed By:LESLIE HENRY MD
[2018-10-18] MEDS: AMMONIUM LACTATE 12% LOTION 225 GM BOTTLE TP SCH (16:54)
[2018-10-18] MEDS: MUPIROCIN 2% TOPICAL OINTMENT 22 GM TUBE TP SCH ×2 (16:54→21:59)
[2018-10-18] MEDS: FLUOCINONIDE 0.05% CREAM (15 GM TUBE) TP SCH ×2 (16:55→22:01)
[2018-10-18] MEDS: ARFORMOTEROL TARTRATE 15 MCG/2 ML VIAL NEB SCH (20:32)
[2018-10-18] MEDS: ALLOPURINOL 100 MG TABLET (FP) PO SCH (21:59)
[2018-10-18] MEDS: ROSUVASTATIN CA 10 MG TABLET (FP) PO SCH (21:59)
[2018-10-18] MEDS: NORTRIPTYLINE HCL 25 MG CAPSULE PO SCH (22:01)
[2018-10-18] MEDS: MAG HYDROX/AL HYDROX/SIMETH 30 ML UNIT-DOSE CUP PO PRN (22:11)
[2018-10-19] MEDS: methylPREDNISolone NA SUCC 40 MG/1 ML VIAL IVPUSH SCH ×3 (01:30→17:34)
[2018-10-19] MEDS: MAG HYDROX/AL HYDROX/SIMETH 30 ML UNIT-DOSE CUP PO PRN ×3 (03:29→22:09)
[2018-10-19] MEDS ORDERED: PT OWN MED DRAWER 7, Y5N ONE ×2 (06:07→09:48)
[2018-10-19] MEDS: CITALOPRAM HYDROBROMIDE 20 MG TABLET (FP) PO SCH ×3 (06:15→22:12)
[2018-10-19] MEDS: LEVOTHYROXINE NA 112 MCG TABLET (FP) PO SCH (06:15)
[2018-10-19] MEDS: PRAMIPEXOLE DIHYDROCHLORIDE 0.25 MG TABLET PO SCH ×3 (06:15→22:12)
[2018-10-19] MEDS: ARFORMOTEROL TARTRATE 15 MCG/2 ML VIAL NEB SCH ×2 (07:51→20:45)
[2018-10-19 08:05] LABS: BASO % 0.2 % (0-2.0); HEMATOCRIT 37.1 % (32.4-45.2); HEMOGLOBIN 11.7 GM/dL (10.7-15.3); LYMPH % 6.6 % (8-40); MCH 26.2 pg (25.7-33.7); MCHC 31.5 g/dl (32.0-36.0); MEAN CELL VOLUME 83.3 fl (80-96); MEAN PLT VOLUME 7.2 fl (7.5-11.1); MONO % 3.4 % (3.8-10.2); NEUT % 89.8 % (42.8-82.8); PLATELET COUNT 306 K/MM3 (134-434); RBC 4.46 M/mm3 (3.60-5.2); RDW 16.2 % (11.6-15.6); WHITE BLOOD COUNT 11.1 K/mm3 (4.0-10.0)
[2018-10-19 08:18] LABS: ALBUMIN 3.4 g/dl (3.4-5.0); ALK PHOS 257 U/L (45-117); ANION GAP 9 MMOL/L (8-16); BILIRUBIN,TOTAL 0.4 mg/dL (0.2-1); BLOOD UREA NITROGEN 16 mg/dL (7-18); CALCIUM 9.1 mg/dL (8.5-10.1); CHLORIDE 91 mmol/L (98-107); CO2 31 mmol/L (21-32); CREATININE 0.7 mg/dL (0.55-1.3); GLUCOSE,RANDOM 116 mg/dL (74-106); POTASSIUM 4.4 mmol/L (3.5-5.1); SGOT/AST 90 U/L (15-37); SGPT/ALT 63 U/L (13-61); SODIUM 131 mmol/L (136-145); TOT PROT 7.1 g/dl (6.4-8.2)
--- NOTE | 2018-10-19 08:24 | PN ---
Progress Note, Physician Chief Complaint: 72 y.o F WITH CHRONIC copd, rul LOBECTOMY IN 1983 FOR ptx, presented initially to the office with respiratory distress, hYPOXEMIA, o2sat ra 86% AND WAS SENT TO [facility] FOR FURTHER MANAGEMENT. More comfortable last night. Seen by Dr Rosario, Dr Davenport, consults read and appreciated. 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 Severe COPD, chronic cough on codeine suppression 1983 RUUL lobectomy for spontaneous PTX [place] 2005 Left femoral fx 2015 Hypothyroidism Gout HTN Migraine Depression/anxiety A1C 6.2 this pnyji-pun-UG - Current Medication List Current Medications: Active Medications Acetaminophen (Tylenol -) 650 mg PO Q6H PRN PRN Reason: FEVER Last Admin: 10/18/18 22:04 Dose: 650 mg Al Hydroxide/Mg Hydroxide (Mylanta Oral Suspension -) 5 ml PO Q4H PRN PRN Reason: INDIGESTION Last Admin: 10/19/18 03:29 Dose: 5 ml Albuterol Sulfate (Ventolin 0.042trength) -) 1 amp NEB Q4H PRN PRN Reason: SHORT OF BREATH/WHEEZING Last Admin: 10/18/18 16:56 Dose: 1 amp Allopurinol (Zyloprim -) 100 mg PO HS [facility] Last Admin: 10/18/18 21:59 Dose: 100 mg Amlodipine Besylate (Norvasc -) 10 mg PO DAILY [facility] Last Admin: 10/18/18 10:17 Dose: 10 mg Arformoterol Tartrate ([place] (Restricted To Pulmonology/Resp) -) 1 amp NEB RBID [facility] Last Admin: 10/18/18 20:32 Dose: 1 amp Aspirin (Ecotrin -) 325 mg PO DAILY [facility] Last Admin: 10/18/18 10:18 Dose: 325 mg Citalopram Hydrobromide (Celexa -) 20 mg PO TID [facility] Last Admin: 10/19/18 06:15 Dose: 20 mg Enoxaparin Sodium (Lovenox -) 40 mg SQ DAILY [facility] Last Admin: 10/18/18 10:18 Dose: 40 mg Fluocinonide (Lidex 0.05% Cream -) 1 applic TP BID [facility] Last Admin: 10/18/18 22:01 Dose: 1 applic Guaifenesin/Codeine Phosphate (Robitussin Ac -) 10 ml PO Q8H PRN PRN Reason: COUGH Last Admin: 10/18/18 22:11 Dose: 10 ml Levofloxacin (Levaquin 500 Mg Premixed Ivpb -) 500 mg in 100 mls @ 100 mls/hr IVPB DAILY [facility]; Protocol Last Admin: 10/18/18 03:52 Dose: Not Given Lactic Acid (Lac-Hydrin 12) 1 applic TP DAILY [facility] Last Admin: 10/18/18 16:54 Dose: 1 applic Levothyroxine Sodium (Synthroid -) 112 mcg PO DAILY@0700 [facility] Last Admin: 10/19/18 06:15 Dose: 112 mcg Methylprednisolone Sodium Succinate (Solu-Medrol -) 40 mg IVPUSH Q8H-IV [facility] Last Admin: 10/19/18 01:30 Dose: 40 mg Metoprolol Tartrate (Lopressor -) 100 mg PO BID [facility] Last Admin: 10/18/18 22:01 Dose: 100 mg Mupirocin (Bactroban 2% Ointment -) 1 applic TP BID [facility] Last Admin: 10/18/18 21:59 Dose: 1 applic Nortriptyline HCl (Pamelor -) 50 mg PO HS [facility] Last Admin: 10/18/18 22:01 Dose: 50 mg Ondansetron HCl (Zofran -) 4 mg PO BID PRN PRN Reason: NAUSEA AND/OR VOMITING Last Admin: 10/18/18 13:13 Dose: 4 mg Polyethylene Glycol (Miralax (For Daily Use) -) 17 gm PO BID [facility] Last Admin: 10/18/18 22:11 Dose: 17 gm Pramipexole Dihydrochloride (Mirapex -) 0.25 mg PO TID [facility] Last Admin: 10/19/18 06:15 Dose: 0.25 mg Ranitidine HCl (Zantac -) 150 mg PO BID [facility] Last Admin: 10/18/18 21:59 Dose: 150 mg Rosuvastatin Calcium (Crestor -) 10 mg PO HS [facility] Last Admin: 10/18/18 21:59 Dose: 10 mg Tiotropium [place] (Spiriva Respimat) 2 puff IH DAILY [facility] Last Admin: 10/18/18 10:17 Dose: 2 puff Triamterene/HCTZ (Dyazide 25/37.5mg) 1 cap PO DAILY [facility] Last Admin: 10/18/18 10:18 Dose: 1 cap - Objective Vital Signs: Vital Signs Temperature 98.7 F 10/19/18 06:00 Pulse Rate 68 10/19/18 06:00 Respiratory Rate 18 10/19/18 06:00 Blood Pressure 142/62 10/19/18 06:00 O2 Sat by Pulse Oximetry (%) 97 10/18/18 21:00 Constitutional: Yes: Anxious, Moderate Distress Eyes: Yes: Conjunctiva Clear, EOM Intact HENT: Yes: Atraumatic, Normocephalic. No: Drooling Neck: Yes: Supple, Trachea Midline. No: Decreased ROM, Lymphadenopathy Cardiovascular: Yes: Regular Rate and Rhythm, S1, S2 Respiratory: Yes: Diminished (RUL), On Nasal O2, Rhonchi, SOB, SOB on Exertion Gastrointestinal: Yes: Normal Bowel Sounds, Soft. No: Abdomen, Obese, Ascites, Palpable Mass, Pulsatile Mass ...Rectal Exam: Yes: Deferred Genitourinary: No: Anuria, Bladder Distention Breast(s): Yes: WNL Extremities: Yes: Erythema (Erythema both feet), Other (Anterior saldana wound with dressing) Peripheral Pulses WNL: Yes Neurological: Yes: Tingling (both feet) ...Motor Strength: WNL Psychiatric: Yes: WNL Labs: CBC, BMP 10/19/18 06:30 10/19/18 06:30 INR, PTT INR 1.02 (0.83-1.09) 10/18/18 05:05 Laboratory Results - last 24 hr 10/18/18 10/19/18 10/19/18 09:30 06:30 06:30 WBC 11.1 H RBC 4.46 Hgb 11.7 Hct 37.1 MCV 83.3 MCH 26.2 MCHC 31.5 L RDW 16.2 H Plt Count 306 MPV 7.2 L Absolute Neuts (auto) 10.0 H Neutrophils % 89.8 H Lymphocytes % 6.6 L D Monocytes % 3.4 L Eosinophils % 0.0 D Basophils % 0.2 Nucleated RBC % 0 Puncture Site Left radial ABG pH 7.49 H ABG pCO2 at Pt Temp 37.2 ABG pO2 at Pt Temp 58.9 L ABG HCO3 28.0 H ABG O2 Sat (Measured) 90.7 ABG O2 Content 15.2 ABG Base Excess 4.9 H Abebe Test Positive Oxygen Flow Rate No Sodium 131 L Potassium 4.4 Chloride 91 L Carbon Dioxide 31 Anion Gap 9 BUN 16 Creatinine 0.7 Creat Clearance w eGFR > 60 Random Glucose 116 H Calcium 9.1 Total Bilirubin 0.4 AST 90 H ALT 63 H Alkaline Phosphatase 257 H Total Protein 7.1 Albumin 3.4 - ....Imaging Cat Scan: Report Reviewed Problem List - Problems (1) CAD (coronary artery disease), [place] coronary artery Assessment/Plan: Continue ASA, Statins Code(s): I25.10 - ATHSCL HEART DISEASE OF [place] CORONARY ARTERY W/O ANG PCTRS Qualifiers: [place] vs. transplanted heart: [place] heart Associated angina: without angina Qualified Code(s): I25.10 - Atherosclerotic heart disease of [place] coronary artery without angina pectoris (2) COPD (chronic obstructive pulmonary disease) with emphysema Assessment/Plan: Nebs with Proventyl, O2NC, IV Solumedrol Code(s): J43.9 - EMPHYSEMA, UNSPECIFIED Qualifiers: Emphysema type: other Qualified Code(s): J43.8 - Other emphysema (3) Pneumonia Assessment/Plan: IV Levaquin given to PT Repeat chest CT re-poorly defined mass on CT PAH class 3 WHO Code(s): J18.9 - PNEUMONIA, UNSPECIFIED ORGANISM Qualifiers: Pneumonia type: due to unspecified organism Laterality: left Lung location: lower lobe of lung Qualified Code(s): J18.1 - Lobar pneumonia, unspecified organism
[2018-10-19] MEDS: AMMONIUM LACTATE 12% LOTION 225 GM BOTTLE TP SCH (10:12)
[2018-10-19] MEDS: ENOXAPARIN NA (PORCINE) 40 MG/0.4 ML DISP.SYRIN SQ SCH (10:16)
[2018-10-19] MEDS: FLUOCINONIDE 0.05% CREAM (15 GM TUBE) TP SCH ×2 (10:17→22:11)
[2018-10-19] MEDS: amLODIPine BESYLATE 10 MG TABLET (FP) PO SCH (10:17)
[2018-10-19] MEDS: MUPIROCIN 2% TOPICAL OINTMENT 22 GM TUBE TP SCH ×2 (10:17→22:11)
[2018-10-19] MEDS: METOPROLOL TARTRATE 50 MG TABLET (FP) PO SCH ×2 (10:17→22:12)
[2018-10-19] MEDS: RANITIDINE HCL 150 MG TABLET (FP) PO SCH ×2 (10:17→22:12)
[2018-10-19] MEDS: TRIAMTERENE AND HCTZ - 37.5 MG/25 MG CAPSULE PO SCH (10:19)
[2018-10-19] MEDS: POLYETHYLENE GLYCOL 3350 119 GM BTL PO SCH ×2 (10:19→22:13)
[2018-10-19] MEDS: ASPIRIN 325 MG ENTERIC COATED TABLET (FP) PO SCH (10:19)
[2018-10-19] MEDS: TIOTROPIUM BROMIDE 2.5 MCG (SPIRIVA) RESPIMAT INHALER IH SCH (10:20)
[2018-10-19] MEDS: ONDANSETRON 4 MG TABLET PO PRN ×2 (10:38→23:06)
[2018-10-19 12:26] VITALS: BMI 19.5
--- NOTE | 2018-10-19 12:42 | PN ---
Progress Note (short form) - Note Progress Note: PULMONARY Still with shortness of breath, nonproductive cough and wheezing. Feels slightly looser though. Vital Signs Period Temp Pulse Resp BP Sys/Miranda Pulse Ox Last 24 Hr 97.8 F-98.7 F 66-80 18-19 138-142/62-88 97-97 Gen: NAD at rest Heart: RRR Lung: scattered rhonchi, wheezes, distant breath sounds Abd: soft, nontender Ext: no edema CBC, BMP 10/19/18 06:30 10/19/18 06:30 Active Medications Acetaminophen (Tylenol -) 650 mg PO Q6H PRN PRN Reason: FEVER Last Admin: 10/18/18 22:04 Dose: 650 mg Al Hydroxide/Mg Hydroxide (Mylanta Oral Suspension -) 5 ml PO Q4H PRN PRN Reason: INDIGESTION Last Admin: 10/19/18 03:29 Dose: 5 ml Albuterol Sulfate (Ventolin 0.042trength) -) 1 amp NEB Q4H PRN PRN Reason: SHORT OF BREATH/WHEEZING Last Admin: 10/18/18 16:56 Dose: 1 amp Allopurinol (Zyloprim -) 100 mg PO HS [facility] Last Admin: 10/18/18 21:59 Dose: 100 mg Amlodipine Besylate (Norvasc -) 10 mg PO DAILY [facility] Last Admin: 10/19/18 10:17 Dose: 10 mg Arformoterol Tartrate (Brovana (Restricted To Pulmonology/Resp) -) 1 amp NEB RBID [facility] Last Admin: 10/19/18 07:51 Dose: 1 amp Aspirin (Ecotrin -) 325 mg PO DAILY [facility] Last Admin: 10/19/18 10:19 Dose: 325 mg Citalopram Hydrobromide (Celexa -) 20 mg PO TID [facility] Last Admin: 10/19/18 06:15 Dose: 20 mg Enoxaparin Sodium (Lovenox -) 40 mg SQ DAILY [facility] Last Admin: 10/19/18 10:16 Dose: 40 mg Fluocinonide (Lidex 0.05% Cream -) 1 applic TP BID [facility] Last Admin: 10/19/18 10:17 Dose: 1 applic Guaifenesin/Codeine Phosphate (Robitussin Ac -) 10 ml PO Q8H PRN PRN Reason: COUGH Last Admin: 10/18/18 22:11 Dose: 10 ml Levofloxacin (Levaquin 500 Mg Premixed Ivpb -) 500 mg in 100 mls @ 100 mls/hr IVPB DAILY [facility]; Protocol Last Admin: 10/19/18 10:18 Dose: 100 mls/hr Lactic Acid (Lac-Hydrin 12) 1 applic TP DAILY [facility] Last Admin: 10/19/18 10:12 Dose: 1 applic Levothyroxine Sodium (Synthroid -) 112 mcg PO DAILY@0700 [facility] Last Admin: 10/19/18 06:15 Dose: 112 mcg Methylprednisolone Sodium Succinate (Solu-Medrol -) 40 mg IVPUSH Q8H-IV [facility] Last Admin: 10/19/18 10:17 Dose: 40 mg Metoprolol Tartrate (Lopressor -) 100 mg PO BID [facility] Last Admin: 10/19/18 10:17 Dose: 100 mg Mupirocin (Bactroban 2% Ointment -) 1 applic TP BID [facility] Last Admin: 10/19/18 10:17 Dose: 1 applic Nortriptyline HCl (Pamelor -) 50 mg PO HS [facility] Last Admin: 10/18/18 22:01 Dose: 50 mg Ondansetron HCl (Zofran -) 4 mg PO BID PRN PRN Reason: NAUSEA AND/OR VOMITING Last Admin: 10/19/18 10:38 Dose: 4 mg Polyethylene Glycol (Miralax (For Daily Use) -) 17 gm PO BID [facility] Last Admin: 10/19/18 10:19 Dose: 17 gm Pramipexole Dihydrochloride (Mirapex -) 0.25 mg PO TID [facility] Last Admin: 10/19/18 06:15 Dose: 0.25 mg Ranitidine HCl (Zantac -) 150 mg PO BID [facility] Last Admin: 10/19/18 10:17 Dose: 150 mg Rosuvastatin Calcium (Crestor -) 10 mg PO HS [facility] Last Admin: 10/18/18 21:59 Dose: 10 mg Tiotropium [place] (Spiriva Respimat) 2 puff IH DAILY [facility] Last Admin: 10/19/18 10:20 Dose: 2 puff Triamterene/HCTZ (Dyazide 25/37.5mg) 1 cap PO DAILY [facility] Last Admin: 10/19/18 10:19 Dose: 1 cap A/P Acute COPD Exacerbation Left Lung Nodule r/o Pneumonia CAD h/o RUL lobectomy - continue antibiotics - continue medrol at current dose - inhaled bronchodilators standing and PRN - O2 to keep SpO2 >90% - will need to check ambulatory SpO2 on room air to assess for home O2 when ready for discharge - outpt f/u of chest imaging in 4-6 weeks and PET scan if nodule persists - outpt PFTs and f/u - DVT prophylaxis
[2018-10-19] MEDS: ACETAMINOPHEN/CAFFEINE/BUTALBITAL 1 TAB PO PRN ×2 (14:14→23:06)
[2018-10-19] MEDS: ALLOPURINOL 100 MG TABLET (FP) PO SCH (22:12)
[2018-10-19] MEDS: ROSUVASTATIN CA 10 MG TABLET (FP) PO SCH (22:12)
[2018-10-19] MEDS: NORTRIPTYLINE HCL 25 MG CAPSULE PO SCH (22:15)
[2018-10-20] MEDS: methylPREDNISolone NA SUCC 40 MG/1 ML VIAL IVPUSH SCH ×4 (03:02→21:30)
[2018-10-20] MEDS: MAG HYDROX/AL HYDROX/SIMETH 30 ML UNIT-DOSE CUP PO PRN ×5 (03:02→21:30)
[2018-10-20] MEDS: PRAMIPEXOLE DIHYDROCHLORIDE 0.25 MG TABLET PO SCH ×3 (07:01→21:32)
[2018-10-20] MEDS: CITALOPRAM HYDROBROMIDE 20 MG TABLET (FP) PO SCH ×3 (07:01→21:31)
[2018-10-20] MEDS: LEVOTHYROXINE NA 112 MCG TABLET (FP) PO SCH (07:01)
[2018-10-20] MEDS: ARFORMOTEROL TARTRATE 15 MCG/2 ML VIAL NEB SCH ×2 (07:10→20:30)
[2018-10-20] MEDS ORDERED: PT OWN MED DRAWER 7, Y5N ONE (08:55)
[2018-10-20] MEDS: ACETAMINOPHEN/CAFFEINE/BUTALBITAL 1 TAB PO PRN ×2 (09:04→21:31)
[2018-10-20] MEDS: METOPROLOL TARTRATE 50 MG TABLET (FP) PO SCH ×2 (09:05→21:31)
[2018-10-20] MEDS: ONDANSETRON 4 MG TABLET PO PRN ×2 (09:05→21:31)
[2018-10-20] MEDS: RANITIDINE HCL 150 MG TABLET (FP) PO SCH ×2 (09:05→21:31)
[2018-10-20] MEDS: amLODIPine BESYLATE 10 MG TABLET (FP) PO SCH (09:05)
[2018-10-20] MEDS: TRIAMTERENE AND HCTZ - 37.5 MG/25 MG CAPSULE PO SCH (09:06)
[2018-10-20] MEDS: FLUOCINONIDE 0.05% CREAM (15 GM TUBE) TP SCH ×2 (09:06→21:30)
[2018-10-20] MEDS: MUPIROCIN 2% TOPICAL OINTMENT 22 GM TUBE TP SCH ×2 (09:06→21:30)
[2018-10-20] MEDS: ASPIRIN 325 MG ENTERIC COATED TABLET (FP) PO SCH (09:06)
[2018-10-20] MEDS: POLYETHYLENE GLYCOL 3350 119 GM BTL PO SCH ×2 (09:07→21:33)
[2018-10-20] MEDS: TIOTROPIUM BROMIDE 2.5 MCG (SPIRIVA) RESPIMAT INHALER IH SCH (09:07)
[2018-10-20] MEDS: ENOXAPARIN NA (PORCINE) 40 MG/0.4 ML DISP.SYRIN SQ SCH (09:07)
[2018-10-20] MEDS: AMMONIUM LACTATE 12% LOTION 225 GM BOTTLE TP SCH (09:08)
--- NOTE | 2018-10-20 09:57 | PN ---
Progress Note, Physician Chief Complaint: Desaturation during walking to 86% noted, Pt had severe epigastric dyscomfort, "reflux" Elevation of LFT noted. 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 Severe COPD, chronic cough on codeine suppression 1983 RUUL lobectomy for spontaneous PTX [place] 2006 Left femoral fx 2015 Hypothyroidism Gout HTN Migraine Depression/anxiety A1C 6.2 this [id number] - Current Medication List Current Medications: Active Medications Acetaminophen (Tylenol -) 650 mg PO Q6H PRN PRN Reason: FEVER Last Admin: 10/18/18 22:04 Dose: 650 mg Acetaminophen/Butalbital/Caffeine (Fioricet -) 1 tablet PO TID PRN PRN Reason: PAIN SCALE 5-10 Last Admin: 10/20/18 09:04 Dose: 1 tablet Al Hydroxide/Mg Hydroxide (Mylanta Oral Suspension -) 5 ml PO Q4H PRN PRN Reason: INDIGESTION Last Admin: 10/20/18 09:05 Dose: 5 ml Albuterol Sulfate (Ventolin 0.042trength) -) 1 amp NEB Q4H PRN PRN Reason: SHORT OF BREATH/WHEEZING Last Admin: 10/18/18 16:56 Dose: 1 amp Allopurinol (Zyloprim -) 100 mg PO HS [facility] Last Admin: 10/19/18 22:12 Dose: 100 mg Amlodipine Besylate (Norvasc -) 10 mg PO DAILY [facility] Last Admin: 10/20/18 09:05 Dose: 10 mg Arformoterol Tartrate (Brovana (Restricted To Pulmonology/Resp) -) 1 amp NEB RBID [facility] Last Admin: 10/20/18 07:10 Dose: 1 amp Aspirin (Ecotrin -) 325 mg PO DAILY [facility] Last Admin: 10/20/18 09:06 Dose: 325 mg Citalopram Hydrobromide (Celexa -) 20 mg PO TID [facility] Last Admin: 10/20/18 07:01 Dose: 20 mg Enoxaparin Sodium (Lovenox -) 40 mg SQ DAILY [facility] Last Admin: 10/20/18 09:07 Dose: 40 mg Fluocinonide (Lidex 0.05% Cream -) 1 applic TP BID [facility] Last Admin: 10/20/18 09:06 Dose: 1 applic Levofloxacin (Levaquin 500 Mg Premixed Ivpb -) 500 mg in 100 mls @ 100 mls/hr IVPB DAILY [facility]; Protocol Last Admin: 10/20/18 09:05 Dose: 100 mls/hr Lactic Acid (Lac-Hydrin 12) 1 applic TP DAILY [facility] Last Admin: 10/20/18 09:08 Dose: 1 applic Levothyroxine Sodium (Synthroid -) 112 mcg PO DAILY@0700 [facility] Last Admin: 10/20/18 07:01 Dose: 112 mcg Methylprednisolone Sodium Succinate (Solu-Medrol -) 40 mg IVPUSH BID [facility] Metoprolol Tartrate (Lopressor -) 100 mg PO BID [facility] Last Admin: 10/20/18 09:05 Dose: 100 mg Mupirocin (Bactroban 2% Ointment -) 1 applic TP BID [facility] Last Admin: 10/20/18 09:06 Dose: 1 applic Nortriptyline HCl (Pamelor -) [address] [facility] Last Admin: 10/19/18 22:15 Dose: 50 mg Ondansetron HCl (Zofran -) 4 mg PO BID PRN PRN Reason: NAUSEA AND/OR VOMITING Last Admin: 10/20/18 09:05 Dose: 4 mg Polyethylene Glycol (Miralax (For Daily Use) -) 17 gm PO BID [facility] Last Admin: 10/20/18 09:07 Dose: Not Given Pramipexole Dihydrochloride (Mirapex -) 0.25 mg PO TID [facility] Last Admin: 10/20/18 07:01 Dose: 0.25 mg Ranitidine HCl (Zantac -) 150 mg PO BID [facility] Last Admin: 10/20/18 09:05 Dose: 150 mg Rosuvastatin Calcium (Crestor -) 10 mg PO HS [facility] Last Admin: 10/19/18 22:12 Dose: 10 mg Tiotropium [place] (Spiriva Respimat) 2 puff IH DAILY [facility] Last Admin: 10/20/18 09:07 Dose: 2 puff Triamterene/HCTZ (Dyazide 25/37.5mg) 1 cap PO DAILY [facility] Last Admin: 10/20/18 09:06 Dose: 1 cap - Objective Vital Signs: Vital Signs Temperature 98.3 F 10/20/18 06:07 Pulse Rate 67 10/20/18 06:07 Respiratory Rate 20 10/20/18 06:07 Blood Pressure 147/87 10/20/18 06:07 O2 Sat by Pulse Oximetry (%) 97 10/19/18 21:00 Constitutional: Yes: Anxious, Moderate Distress Eyes: Yes: Conjunctiva Clear, EOM Intact HENT: Yes: Atraumatic, Normocephalic Neck: Yes: Supple, Trachea Midline. No: Decreased ROM, Lymphadenopathy Cardiovascular: Yes: Regular Rate and Rhythm, S1, S2. No: Tachycardia, Bruit, JVD, Gallop, Rub Respiratory: Yes: Diminished (RUL), On Nasal O2, Rales (LLL), Rhonchi (LLL), SOB , SOB on Exertion. No: Stridor, Tachypnea Gastrointestinal: Yes: Normal Bowel Sounds, Soft. No: Abdomen, Obese, Ascites ...Rectal Exam: Yes: Deferred Genitourinary: No: Anuria, Bladder Distention, CVA Tenderness - Left, CVA Tenderness - Right Breast(s): Yes: WNL Extremities: Yes: Erythema (feet) Edema: No Peripheral Pulses WNL: No Integumentary: Yes: Other (eruthema LE) Neurological: Yes: Tingling (both feet) Psychiatric: Yes: Alert, Oriented. No: Agitated, Suicidal Ideation Labs: CBC, BMP 10/19/18 06:30 10/19/18 06:30 INR, PTT INR 1.02 (0.83-1.09) 10/18/18 05:05 Problem List - Problems (1) CAD (coronary artery disease), [place] coronary artery Assessment/Plan: Continue ASA, Statins Code(s): I25.10 - ATHSCL HEART DISEASE OF [place] CORONARY ARTERY W/O ANG PCTRS Qualifiers: [place] vs. transplanted heart: [place] heart Associated angina: without angina Qualified Code(s): I25.10 - Atherosclerotic heart disease of [place] coronary artery without angina pectoris (2) COPD (chronic obstructive pulmonary disease) with emphysema Assessment/Plan: Nebs with Proventyl, O2NC, IV Solumedrol Code(s): J43.9 - EMPHYSEMA, UNSPECIFIED Qualifiers: Emphysema type: other Qualified Code(s): J43.8 - Other emphysema (3) Pneumonia Assessment/Plan: IV Levaquin given to PT Repeat chest CT re-poorly defined mass on CT PAH class 3 WHO Code(s): J18.9 - PNEUMONIA, UNSPECIFIED ORGANISM Qualifiers: Pneumonia type: due to unspecified organism Laterality: left Lung location: lower lobe of lung Qualified Code(s): J18.1 - Lobar pneumonia, unspecified organism (4) LFT elevation Assessment/Plan: R/O acute [place]olin, gallstones Continue Levaquin [facility] [place], [place] Code(s): R94.5 - ABNORMAL RESULTS OF LIVER FUNCTION STUDIES (5) Dermatitis of lower extremity Code(s): L30.9 - DERMATITIS, UNSPECIFIED
--- NOTE | 2018-10-20 14:05 | PN ---
Progress Note, Physician History of Present Illness: PULMONARY ALERT,FEELING BETTER,LESS DYSPNEIC - Current Medication List Current Medications: Active Medications Acetaminophen (Tylenol -) 650 mg PO Q6H PRN PRN Reason: FEVER Last Admin: 10/18/18 22:04 Dose: 650 mg Acetaminophen/Butalbital/Caffeine (Fioricet -) 1 tablet PO TID PRN PRN Reason: PAIN SCALE 5-10 Last Admin: 10/20/18 09:04 Dose: 1 tablet Al Hydroxide/Mg Hydroxide (Mylanta Oral Suspension -) 30 ml PO Q4H PRN PRN Reason: INDIGESTION Last Admin: 10/20/18 13:00 Dose: 30 ml Albuterol Sulfate (Ventolin 0.042trength) -) 1 amp NEB Q4H PRN PRN Reason: SHORT OF BREATH/WHEEZING Last Admin: 10/18/18 16:56 Dose: 1 amp Allopurinol (Zyloprim -) 100 mg PO HS [facility] Last Admin: 10/19/18 22:12 Dose: 100 mg Amlodipine Besylate (Norvasc -) 10 mg PO DAILY [facility] Last Admin: 10/20/18 09:05 Dose: 10 mg Arformoterol Tartrate (Brovana (Restricted To Pulmonology/Resp) -) 1 amp NEB RBID [facility] Last Admin: 10/20/18 07:10 Dose: 1 amp Aspirin (Ecotrin -) 325 mg PO DAILY [facility] Last Admin: 10/20/18 09:06 Dose: 325 mg Citalopram Hydrobromide (Celexa -) 20 mg PO TID [facility] Last Admin: 10/20/18 07:01 Dose: 20 mg Enoxaparin Sodium (Lovenox -) 40 mg SQ DAILY [facility] Last Admin: 10/20/18 09:07 Dose: 40 mg Fluocinonide (Lidex 0.05% Cream -) 1 applic TP BID [facility] Last Admin: 10/20/18 09:06 Dose: 1 applic Levofloxacin (Levaquin 500 Mg Premixed Ivpb -) 500 mg in 100 mls @ 100 mls/hr IVPB DAILY [facility]; Protocol Last Admin: 10/20/18 09:05 Dose: 100 mls/hr Lactic Acid (Lac-Hydrin 12) 1 applic TP DAILY [facility] Last Admin: 10/20/18 09:08 Dose: 1 applic Levothyroxine Sodium (Synthroid -) 112 mcg PO DAILY@0700 [facility] Last Admin: 10/20/18 07:01 Dose: 112 mcg Methylprednisolone Sodium Succinate (Solu-Medrol -) 40 mg IVPUSH BID [facility] Last Admin: 10/20/18 09:06 Dose: 40 mg Metoprolol Tartrate (Lopressor -) 100 mg PO BID [facility] Last Admin: 10/20/18 09:05 Dose: 100 mg Mupirocin (Bactroban 2% Ointment -) 1 applic TP BID [facility] Last Admin: 10/20/18 09:06 Dose: 1 applic Nortriptyline HCl (Pamelor -) 50 mg PO [facility] Last Admin: 10/19/18 22:15 Dose: 50 mg Ondansetron HCl (Zofran -) 4 mg PO BID PRN PRN Reason: NAUSEA AND/OR VOMITING Last Admin: 10/20/18 09:05 Dose: 4 mg Polyethylene Glycol (Miralax (For Daily Use) -) 17 gm PO BID [facility] Last Admin: 10/20/18 09:07 Dose: Not Given Pramipexole Dihydrochloride (Mirapex -) 0.25 mg PO TID [facility] Last Admin: 10/20/18 07:01 Dose: 0.25 mg Ranitidine HCl (Zantac -) 150 mg PO BID [facility] Last Admin: 10/20/18 09:05 Dose: 150 mg Rosuvastatin Calcium (Crestor -) 10 mg PO HS [facility] Last Admin: 10/19/18 22:12 Dose: 10 mg Tiotropium [place] (Spiriva Respimat) 2 puff IH DAILY [facility] Last Admin: 10/20/18 09:07 Dose: 2 puff Triamterene/HCTZ (Dyazide 25/37.5mg) 1 cap PO DAILY [facility] Last Admin: 10/20/18 09:06 Dose: 1 cap - Objective Vital Signs: Vital Signs Temperature 98.0 F 10/20/18 09:00 Pulse Rate 79 10/20/18 09:00 Respiratory Rate 18 10/20/18 09:00 Blood Pressure 126/83 10/20/18 09:00 O2 Sat by Pulse Oximetry (%) 97 10/19/18 21:00 Constitutional: Yes: Calm, Thin Eyes: Yes: WNL HENT: Yes: WNL Neck: Yes: WNL Cardiovascular: Yes: Regular Rate and Rhythm, S1, S2 Respiratory: Yes: Diminished, Rhonchi, Wheezes (FEW SCATTERED WHHEZES AND RHONCHI) Gastrointestinal: Yes: Normal Bowel Sounds, Soft Extremities: Yes: WNL Edema: No Problem List - Problems (1) Acute hypoxemic respiratory failure Code(s): J96.01 - ACUTE RESPIRATORY FAILURE WITH HYPOXIA (2) CAD (coronary artery disease), [place] coronary artery Code(s): I25.10 - ATHSCL HEART DISEASE OF [place] CORONARY ARTERY W/O ANG PCTRS Qualifiers: [place] vs. transplanted heart: [place] heart Associated angina: without angina Qualified Code(s): I25.10 - Atherosclerotic heart disease of [place] coronary artery without angina pectoris (3) COPD (chronic obstructive pulmonary disease) with emphysema Code(s): J43.9 - EMPHYSEMA, UNSPECIFIED Qualifiers: Emphysema type: other Qualified Code(s): J43.8 - Other emphysema (4) SOB (shortness of breath) Code(s): R06.02 - SHORTNESS OF BREATH (5) Lung consolidation Code(s): J18.1 - LOBAR PNEUMONIA, UNSPECIFIED ORGANISM (6) COPD exacerbation Code(s): J44.1 - CHRONIC OBSTRUCTIVE PULMONARY DISEASE W (ACUTE) EXACERBATION Assessment/Plan IMP ACUTE HYPOXEMIC RESPIRATORY FAILURE COPD EXACERBATION L MID LUNG CONSOLIDATION ? PNEUMONIA,?ATELECTASIS,?NEOPLASM LIKELY PULMONARY HTN H/O RUL LOBECTOMY ASHD S/P [place] HYPOTHYROID PLAN IV ABX INHALED BRONCHODILATORS MEDROL O2 F/U CHEST CT 4-6 WKS TO DOCUMENT RESOLUTION PRERNA PROCESS IF NO CHANGE CONSIDER PET AMBULATORY O2 SAT ON RA PRIOR TO DISCHARGE TO DETERMINE IF PT IS A CANDIDATE FOR HOME O2 ECHO DR PUENTE Problem List - Problems (1) Acute hypoxemic respiratory failure Code(s): J96.01 - ACUTE RESPIRATORY FAILURE WITH HYPOXIA (2) CAD (coronary artery disease), [place] coronary artery Code(s): I25.10 - ATHSCL HEART DISEASE OF [place] CORONARY ARTERY W/O ANG PCTRS Qualifiers: [place] vs. transplanted heart: [place] heart Associated angina: without angina Qualified Code(s): I25.10 - Atherosclerotic heart disease of [place] coronary artery without angina pectoris (3) COPD (chronic obstructive pulmonary disease) with emphysema Code(s): J43.9 - EMPHYSEMA, UNSPECIFIED Qualifiers: Emphysema type: other Qualified Code(s): J43.8 - Other emphysema (4) SOB (shortness of breath) Code(s): R06.02 - SHORTNESS OF BREATH (5) Lung consolidation Code(s): J18.1 - LOBAR PNEUMONIA, UNSPECIFIED ORGANISM (6) COPD exacerbation Code(s): J44.1 - CHRONIC OBSTRUCTIVE PULMONARY DISEASE W (ACUTE) EXACERBATION
[2018-10-20] MEDS: ROSUVASTATIN CA 10 MG TABLET (FP) PO SCH (21:31)
[2018-10-20] MEDS: ALLOPURINOL 100 MG TABLET (FP) PO SCH (21:31)
[2018-10-20] MEDS: NORTRIPTYLINE HCL 25 MG CAPSULE PO SCH (21:33)
[2018-10-21] MEDS: LEVOTHYROXINE NA 112 MCG TABLET (FP) PO SCH (06:51)
[2018-10-21] MEDS: PRAMIPEXOLE DIHYDROCHLORIDE 0.25 MG TABLET PO SCH ×3 (06:51→22:47)
[2018-10-21] MEDS: CITALOPRAM HYDROBROMIDE 20 MG TABLET (FP) PO SCH ×3 (06:51→22:45)
[2018-10-21] MEDS ORDERED: INSULIN (LEVEMIR) 100 UNITS/ML UNITS SQ ONE (07:20)
[2018-10-21] MEDS ORDERED: INSULIN (NOVOLOG) ASPART 100 UNITS/ML 10ML VIAL ONE (07:20)
[2018-10-21 08:42] LABS: BASO % 0.2 % (0-2.0); HEMATOCRIT 39.1 % (32.4-45.2); HEMOGLOBIN 13.3 GM/dL (10.7-15.3); MEAN CELL VOLUME 82.4 fl (80-96); MEAN PLT VOLUME 7.6 fl (7.5-11.1); MONO % 7.4 % (3.8-10.2); NEUT % 83.4 % (42.8-82.8); PLATELET COUNT 352 K/MM3 (134-434); RBC 4.75 M/mm3 (3.60-5.2); RDW 15.4 % (11.6-15.6); WHITE BLOOD COUNT 13.9 K/mm3 (4.0-10.0)
[2018-10-21] MEDS: ARFORMOTEROL TARTRATE 15 MCG/2 ML VIAL NEB SCH ×2 (08:50→20:40)
[2018-10-21] MEDS ORDERED: PT OWN MED DRAWER 7, Y5N ONE ×2 (09:56→13:54)
[2018-10-21] MEDS: ASPIRIN 325 MG ENTERIC COATED TABLET (FP) PO SCH (10:06)
[2018-10-21] MEDS: TRIAMTERENE AND HCTZ - 37.5 MG/25 MG CAPSULE PO SCH (10:07)
[2018-10-21] MEDS: METOPROLOL TARTRATE 50 MG TABLET (FP) PO SCH ×2 (10:07→22:44)
[2018-10-21] MEDS: ENOXAPARIN NA (PORCINE) 40 MG/0.4 ML DISP.SYRIN SQ SCH (10:07)
[2018-10-21] MEDS: RANITIDINE HCL 150 MG TABLET (FP) PO SCH ×2 (10:08→22:45)
[2018-10-21] MEDS: ONDANSETRON 4 MG TABLET PO PRN ×2 (10:08→17:43)
[2018-10-21] MEDS: MAG HYDROX/AL HYDROX/SIMETH 30 ML UNIT-DOSE CUP PO PRN (10:08)
[2018-10-21] MEDS: amLODIPine BESYLATE 10 MG TABLET (FP) PO SCH (10:08)
[2018-10-21] MEDS: TIOTROPIUM BROMIDE 2.5 MCG (SPIRIVA) RESPIMAT INHALER IH SCH (10:09)
[2018-10-21] MEDS: methylPREDNISolone NA SUCC 40 MG/1 ML VIAL IVPUSH SCH ×2 (10:09→22:45)
[2018-10-21] MEDS: MUPIROCIN 2% TOPICAL OINTMENT 22 GM TUBE TP SCH ×2 (10:18→22:35)
[2018-10-21] MEDS: FLUOCINONIDE 0.05% CREAM (15 GM TUBE) TP SCH ×2 (10:19→22:40)
[2018-10-21] MEDS: AMMONIUM LACTATE 12% LOTION 225 GM BOTTLE TP SCH (10:19)
[2018-10-21] MEDS: POLYETHYLENE GLYCOL 3350 119 GM BTL PO SCH ×2 (10:19→22:38)
[2018-10-21] MEDS: ACETAMINOPHEN/CAFFEINE/BUTALBITAL 1 TAB PO PRN ×3 (10:22→22:44)
[2018-10-21 11:11] LABS: ALBUMIN 3.8 g/dl (3.4-5.0); ALK PHOS 248 U/L (45-117); ANION GAP 16 MMOL/L (8-16); BILIRUBIN,TOTAL 0.3 mg/dL (0.2-1); BLOOD UREA NITROGEN 37 mg/dL (7-18); CALCIUM 9.2 mg/dL (8.5-10.1); CHLORIDE 88 mmol/L (98-107); CO2 26 mmol/L (21-32); GLUCOSE,RANDOM 96 mg/dL (74-106); POTASSIUM 4.8 mmol/L (3.5-5.1); SGOT/AST 100 U/L (15-37); SGPT/ALT 81 U/L (13-61); SODIUM 129 mmol/L (136-145); TOT PROT 7.6 g/dl (6.4-8.2)
--- NOTE | 2018-10-21 11:46 | PN ---
Progress Note (short form) - Note Progress Note: Breathing feels a little better. Dry cough. No CP. No hemoptysis. Intake & Output 10/18/18 10/19/18 10/20/18 10/21/18 23:59 23:59 23:59 23:59 Intake Total 100 500 Output Total 2 Balance 100 498 Weight 114 lb 12.8 oz 114 lb Last Vital Signs Temp Pulse Resp BP Pulse Ox 98.7 F 65 20 130/75 96 10/21/18 06:00 10/21/18 06:00 10/21/18 06:00 10/21/18 06:00 10/20/18 21:00 Active Medications Acetaminophen (Tylenol -) 650 mg PO Q6H PRN PRN Reason: FEVER Last Admin: 10/18/18 22:04 Dose: 650 mg Acetaminophen/Butalbital/Caffeine (Fioricet -) 1 tablet PO TID PRN PRN Reason: PAIN SCALE 5-10 Last Admin: 10/21/18 10:22 Dose: 1 tablet Al Hydroxide/Mg Hydroxide (Mylanta Oral Suspension -) 30 ml PO Q4H PRN PRN Reason: INDIGESTION Last Admin: 10/21/18 10:08 Dose: 30 ml Albuterol Sulfate (Ventolin 0.042trength) -) 1 amp NEB Q4H PRN PRN Reason: SHORT OF BREATH/WHEEZING Last Admin: 10/18/18 16:56 Dose: 1 amp Allopurinol (Zyloprim -) 100 mg PO HS [facility] Last Admin: 10/20/18 21:31 Dose: 100 mg Amlodipine Besylate (Norvasc -) 10 mg PO DAILY [facility] Last Admin: 10/21/18 10:08 Dose: 10 mg Arformoterol Tartrate (Brovana (Restricted To Pulmonology/Resp) -) 1 amp NEB RBID [facility] Last Admin: 10/21/18 08:50 Dose: 1 amp Aspirin (Ecotrin -) 325 mg PO DAILY [facility] Last Admin: 10/21/18 10:06 Dose: 325 mg Citalopram Hydrobromide (Celexa -) 20 mg PO TID [facility] Last Admin: 10/21/18 06:51 Dose: 20 mg Enoxaparin Sodium (Lovenox -) 40 mg SQ DAILY [facility] Last Admin: 10/21/18 10:07 Dose: 40 mg Fluocinonide (Lidex 0.05% Cream -) 1 applic TP BID [facility] Last Admin: 10/21/18 10:19 Dose: 1 applic Levofloxacin (Levaquin 500 Mg Premixed Ivpb -) 500 mg in 100 mls @ 100 mls/hr IVPB DAILY [facility]; Protocol Last Admin: 10/21/18 10:06 Dose: 100 mls/hr Lactic Acid (Lac-Hydrin 12) 1 applic TP DAILY [facility] Last Admin: 10/21/18 10:19 Dose: 1 applic Levothyroxine Sodium (Synthroid -) 112 mcg PO DAILY@0700 [facility] Last Admin: 10/21/18 06:51 Dose: 112 mcg Methylprednisolone Sodium Succinate (Solu-Medrol -) 40 mg IVPUSH BID [facility] Last Admin: 10/21/18 10:09 Dose: 40 mg Metoprolol Tartrate (Lopressor -) 100 mg PO BID [facility] Last Admin: 10/21/18 10:07 Dose: 100 mg Mupirocin (Bactroban 2% Ointment -) 1 applic TP BID [facility] Last Admin: 10/21/18 10:18 Dose: 1 applic Nortriptyline HCl (Pamelor -) [address] [facility] Last Admin: 10/20/18 21:33 Dose: 50 mg Ondansetron HCl (Zofran -) 4 mg PO BID PRN PRN Reason: NAUSEA AND/OR VOMITING Last Admin: 10/21/18 10:08 Dose: 4 mg Polyethylene Glycol (Miralax (For Daily Use) -) 17 gm PO BID [facility] Last Admin: 10/21/18 10:19 Dose: Not Given Pramipexole Dihydrochloride (Mirapex -) 0.25 mg PO TID [facility] Last Admin: 10/21/18 06:51 Dose: 0.25 mg Ranitidine HCl (Zantac -) 150 mg PO BID [facility] Last Admin: 10/21/18 10:08 Dose: 150 mg Rosuvastatin Calcium (Crestor -) 10 mg PO HS [facility] Last Admin: 10/20/18 21:31 Dose: 10 mg Tiotropium [place] (Spiriva Respimat) 2 puff IH DAILY [facility] Last Admin: 10/21/18 10:09 Dose: 2 puff Triamterene/HCTZ (Dyazide 25/37.5mg) 1 cap PO DAILY [facility] Last Admin: 10/21/18 10:07 Dose: 1 cap Constitutional: Yes: Calm, Thin Eyes: Yes: WNL HENT: Yes: WNL Neck: Yes: WNL Cardiovascular: Yes: Regular Rate and Rhythm, S1, S2 Respiratory: Yes: Diminished, Rhonchi, Few scattered Wheezes Gastrointestinal: Yes: Normal Bowel Sounds, Soft Extremities: Yes: WNL Edema: No Laboratory Results - last 24 hr 10/21/18 10/21/18 07:00 07:00 WBC 13.9 H RBC 4.75 Hgb 13.3 Hct 39.1 MCV 82.4 MCH 28.0 MCHC 34.0 RDW 15.4 Plt Count 352 MPV 7.6 Absolute Neuts (auto) 11.6 H Neutrophils % 83.4 H Lymphocytes % 9.0 D Monocytes % 7.4 D Eosinophils % 0.0 Basophils % 0.2 Nucleated RBC % 0 Sodium 129 L Potassium 4.8 Chloride 88 L Carbon Dioxide 26 Anion Gap 16 BUN 37 H Creatinine 1.0 Creat Clearance w eGFR 54.50 Random Glucose 96 Calcium 9.2 Total Bilirubin 0.3 AST 100 H ALT 81 H Alkaline Phosphatase 248 H Total Protein 7.6 Albumin 3.8 Problem List - Problems (1) Acute hypoxemic respiratory failure Code(s): J96.01 - ACUTE RESPIRATORY FAILURE WITH HYPOXIA (2) CAD (coronary artery disease), [place] coronary artery Code(s): I25.10 - ATHSCL HEART DISEASE OF [place] CORONARY ARTERY W/O ANG PCTRS Qualifiers: [place] vs. transplanted heart: [place] heart Associated angina: without angina Qualified Code(s): I25.10 - Atherosclerotic heart disease of [place] coronary artery without angina pectoris (3) COPD (chronic obstructive pulmonary disease) with emphysema Code(s): J43.9 - EMPHYSEMA, UNSPECIFIED Qualifiers: Emphysema type: other Qualified Code(s): J43.8 - Other emphysema (4) SOB (shortness of breath) Code(s): R06.02 - SHORTNESS OF BREATH (5) Lung consolidation Code(s): J18.1 - LOBAR PNEUMONIA, UNSPECIFIED ORGANISM (6) COPD exacerbation Code(s): J44.1 - CHRONIC OBSTRUCTIVE PULMONARY DISEASE W (ACUTE) EXACERBATION Assessment/Plan IMP ACUTE HYPOXEMIC RESPIRATORY FAILURE COPD EXACERBATION L MID LUNG CONSOLIDATION ? PNEUMONIA,?ATELECTASIS,?NEOPLASM LIKELY PULMONARY HTN H/O RUL LOBECTOMY ASHD S/P [place] HYPOTHYROID PLAN IV ABX INHALED BRONCHODILATORS MEDROL O2 F/U CHEST CT 4-6 WKS TO DOCUMENT RESOLUTION PRERNA PROCESS IF NO CHANGE CONSIDER PET AMBULATORY O2 SAT ON RA PRIOR TO DISCHARGE TO DETERMINE IF PT IS A CANDIDATE FOR HOME O2 Dr Chaves
--- NOTE | 2018-10-21 13:00 | PN ---
Physical Exam: SUBJECTIVE: Patient seen and examined. She reports continued GERD symptoms, difficulty sleeping, constipation and cough. OBJECTIVE: Vital Signs Period Temp Pulse Resp BP Sys/Miranda Pulse Ox Last 24 Hr 98.0 F-98.7 F 65-77 20-20 122-152/64-83 96 GENERAL: The patient is awake, alert, and fully oriented, in no acute distress. HEAD: Normal with no signs of trauma. EYES: PERRL, extraocular movements intact, sclera anicteric, conjunctiva clear. No ptosis. ENT: Ears normal, nares patent, oropharynx clear without exudates, moist mucous membranes. NECK: Trachea midline, full range of motion, supple. LUNGS: Diminished breath sounds, expiratory wheeze, normal respiratory effort accessory muscle use. HEART: Regular rate and rhythm, S1, S2 without murmur, rub or gallop. ABDOMEN: Soft, nontender, nondistended, normoactive bowel sounds, no guarding, no rebound, no hepatosplenomegaly, no masses. EXTREMITIES: 2+ pulses, warm, well-perfused, no edema. NEUROLOGICAL: Cranial nerves II through XII grossly intact. Normal speech, gait not observed. PSYCH: Normal mood, normal affect. SKIN: Warm, dry, normal turgor, no rashes or lesions noted Laboratory Results - last 24 hr 10/21/18 10/21/18 07:00 07:00 WBC 13.9 H RBC 4.75 Hgb 13.3 Hct 39.1 MCV 82.4 MCH 28.0 MCHC 34.0 RDW 15.4 Plt Count 352 MPV 7.6 Absolute Neuts (auto) 11.6 H Neutrophils % 83.4 H Lymphocytes % 9.0 D Monocytes % 7.4 D Eosinophils % 0.0 Basophils % 0.2 Nucleated RBC % 0 Sodium 129 L Potassium 4.8 Chloride 88 L Carbon Dioxide 26 Anion Gap 16 BUN 37 H Creatinine 1.0 Creat Clearance w eGFR 54.50 Random Glucose 96 Calcium 9.2 Total Bilirubin 0.3 AST 100 H ALT 81 H Alkaline Phosphatase 248 H Total Protein 7.6 Albumin 3.8 Active Medications Generic Name Dose Route Start Last Admin Trade Name Freq PRN Reason Stop Dose Admin Acetaminophen 650 mg 10/18/18 03:09 10/18/18 22:04 Tylenol - PO 650 mg Q6H PRN Administration FEVER Acetaminophen/Butalbital/Caffeine 1 tablet 12/06/18 12:52 10/21/18 10:22 Fioricet - PO 1 tablet TID PRN Administration PAIN SCALE 5-10 Al Hydroxide/Mg Hydroxide 30 ml 10/20/18 12:40 10/21/18 10:08 Mylanta Oral Suspension - PO 30 ml Q4H PRN Administration INDIGESTION Albuterol Sulfate 1 amp 10/18/18 04:25 10/18/18 16:56 Ventolin 0.042trength) - NEB 1 amp Q4H PRN Administration SHORT OF BREATH/WHEEZING Allopurinol 100 mg 10/18/18 22:00 10/20/18 21:31 Zyloprim - PO 100 mg HS MASSIEL Administration Amlodipine Besylate 10 mg 10/18/18 10:00 10/21/18 10:08 Norvasc - PO 10 mg DAILY MASSIEL Administration Arformoterol Tartrate 1 amp 10/18/18 20:00 10/21/18 08:50 Brovana (Restricted To Pulmonology/Resp) - NEB 1 amp RBID MASSIEL Administration Aspirin 325 mg 10/18/18 10:00 10/21/18 10:06 Ecotrin - PO 325 mg DAILY MASSIEL Administration Citalopram Hydrobromide 20 mg 10/18/18 06:00 10/21/18 06:51 Celexa - PO 20 mg TID MASSIEL Administration Enoxaparin Sodium 40 mg 10/18/18 10:00 10/21/18 10:07 Lovenox - SQ 40 mg DAILY MASSIEL Administration Fluocinonide 1 applic 10/18/18 13:30 10/21/18 10:19 Lidex 0.05% Cream - TP 1 applic BID MASSIEL Administration Levofloxacin 500 mg in 100 mls @ 100 mls/hr 10/18/18 04:00 10/21/18 10:06 Levaquin 500 Mg Premixed Ivpb - IVPB 100 mls/hr DAILY MASSIEL Administration Protocol Lactic Acid 1 applic 10/18/18 13:30 10/21/18 10:19 Lac-Hydrin 12 TP 1 applic DAILY MASSIEL Administration Levothyroxine Sodium 112 mcg 10/18/18 07:00 10/21/18 06:51 Synthroid - PO 112 mcg DAILY@0700 MASSIEL Administration Methylprednisolone Sodium Succinate 40 mg 10/20/18 10:00 10/21/18 10:09 Solu-Medrol - IVPUSH 40 mg BID MASSIEL Administration Metoprolol Tartrate 100 mg 10/18/18 10:00 10/21/18 10:07 Lopressor - PO 100 mg BID MASSIEL Administration Mupirocin 1 applic 10/18/18 13:30 10/21/18 10:18 Bactroban 2% Ointment - TP 1 applic BID MASSIEL Administration Nortriptyline HCl 50 mg 10/18/18 22:00 10/20/18 21:33 Pamelor - PO 50 mg HS MASSIEL Administration Ondansetron HCl 4 mg 10/18/18 12:52 10/21/18 10:08 Zofran - PO 4 mg BID PRN Administration NAUSEA AND/OR VOMITING Polyethylene Glycol 17 gm 10/18/18 10:00 10/21/18 10:19 Miralax (For Daily Use) - PO Not Given BID MASSIEL Pramipexole Dihydrochloride 0.25 mg 10/18/18 06:00 10/21/18 06:51 Mirapex - PO 0.25 mg TID MASSIEL Administration Ranitidine HCl 150 mg 10/18/18 13:00 10/21/18 10:08 Zantac - PO 150 mg BID MASSIEL Administration Rosuvastatin Calcium 10 mg 10/18/18 22:00 10/20/18 21:31 Crestor - PO 10 mg HS MASSIEL Administration Tiotropium [place] 2 puff 10/18/18 10:00 10/21/18 10:09 Spiriva Respimat IH 2 puff DAILY MASSIEL Administration Triamterene/HCTZ 1 cap 10/18/18 10:00 10/21/18 10:07 Dyazide 25/37.5mg PO 1 cap DAILY MASSIEL Administration ASSESSMENT/PLAN: 72 year old female with a PMH significant for COPD presented to the ED c/o SOB and cough found to have PRERNA PNA on CT. She was admitted and started on IV Levaquin and Solu-medrol. COPD - Exacerbated/Acute hypoxemic repiratory failure - CTA showing PRERNA consolidation - Right lung spontaneous pneumothorax s/p RUL lobectomy 1983 - Increased leukocytosis to 11.1 -> 13.9 today, afebrile - Will order ID consult - Levaquin 500 mg IV qday - Solu-Medrol 40 mg IV BID - Spiriva and Symbicort qday - Ventolin nebs PRN - O2 via NC - Followed by pulmonology - Recommends f/u chest CT in 4-6 weeks to document resolution to PRERNA process - If no change, consider PET - Evaluate patient for home O2 prior to DC CAD - S/P SD 2005 - Asa 325 PO qday Gout - Allopurinol 100 mg PO QHS Migraine - Fioricet PRN Hypothyroidism - Synthroid 112 mcg qday HTN - Metoprolol Tartrate 100 mg PO BID - HCZT/Triamterene 25/37.7 mg PO qday HLD - Crestor 10 mg PO QHS Transaminitis - LFTs AST: 100, ALT: 81, Alk phos 248 - Abdominal US from yesterday - cholelithiasis without cholecystitis, mild CBD dilation of 0.9 - GI consult ordered - Start Carfate 1 g PO BID as patient does not like mint flavor of Mylanta - Miralax BID - Mylanta PRN - Zofran 4 mg PO PRN Depression/anxiety - Celexa 20 mg PO qday - Nortriptylie 50 mg PO QHS A1C 6.2 this [id number] Prophylaxis - DVT: Lovenox 40 mg SQ qday - GI: Zantac 150 mg PO BID FEN - PO intake adequate - Replete as needed - Sodium restricted diet Disp: Patient requires further inpatient monitoring Visit type - Emergency Visit Emergency Visit: No - New Patient This patient is new to me today: Yes Date on this admission: 10/22/18 - Critical Care Critical Care patient: No
[2018-10-21] MEDS: SUCRALFATE 1 GM/10 ML UNIT DOSE CUPS PO SCH ×2 (14:01→22:44)
--- NOTE | 2018-10-21 15:37 | CON.ID ---
Consult - History of Present Illness History of Present Illness: 72 y.o. female with PMH of COPD, an ex-smoker, hypothyroidism, spontaneous pneumothorax s/p thoracotomy and RUL lobectomy, ASHD s/p IN, Lt femur fracture s /p ORIF presented with progressive SOB and dry cough over a 2 wk period. As an outpatient pt was started on Zithromax but symptoms did not improve. In the ER she was noted to be tachypneic with 85 % O2 saturation. Chest CT revealed a PRERNA consolidation. She has been on Levaquin and reports some improvement in shortness of breath, able to walk to the bathroom, but still with a dry cough with deep inhalation. She remains afebrile. Also with chronic LLE erythema > 1 month but denies specific tenderness or warmth. Pt denies other complaints. 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 No: O2 Dependent Gastrointestinal: Yes: Constipation, Diverticulitis Renal/: Yes: Renal Inusuff ...: No Psych: Yes: Anxiety Rheumatology: Yes: Gout Endocrine: Yes: Hypothyroidism - Past Surgical History Past Surgical History: Yes: Thoracotomy - Alcohol/Substance Use Hx Alcohol Use: No - Smoking History Smoking history: Former smoker Have you smoked in the past 12 months: No If you are a former smoker, when did you quit?: 1983 - Social History History of Recent Travel: No Home Medications - Allergies Allergies/Adverse Reactions: Allergies Allergy/AdvReac Type Severity Reaction Status Date / Time buspirone HCl [From BuSpar] Allergy Verified 10/18/18 04:45 carbamazepine [From Tegretol] Allergy Verified 10/18/18 04:45 celecoxib [From Celebrex] Allergy Verified 10/18/18 04:45 hydralazine Allergy Verified 10/18/18 04:45 Penicillins Allergy Verified 10/18/18 04:45 valsartan [From Diovan] Allergy Verified 10/18/18 04:45 - Home Medications Home Medications: Ambulatory Orders Acetaminophen/Caffeine/Butalb [Fioricet -] 1 tab PO Q4H PRN 03/03/16 Aspirin Coated [Ecotrin -] 325 mg PO DAILY 03/03/16 Budesonide/Formeterol Fumarate [SYMBICORT 160/4.5mcg -] 1 inh PO BID 03/03/16 Citalopram Hydrobromide [Citalopram HBr] 20 mg PO TID 03/03/16 Codeine Sulfate - 30 mg PO Q6H PRN 03/03/16 Nortriptyline HCl [Pamelor -] 50 mg PO HS 03/03/16 Omeprazole [Prilosec] 40 mg PO DAILY 03/03/16 Rosuvastatin [Crestor -] 10 mg PO DAILY 03/03/16 Tiotropium [place] [Spiriva] 1 inh PO DAILY 03/03/16 Triamterene/Hydrochlorothiazid [Triamterene-Hctz 37.5-25 mg Tb] 1 each PO DAILY 03/03/16 Allopurinol [Zyloprim -] 100 mg PO HS 03/04/16 Levothyroxine [Synthroid -] 112 mcg PO DAILY 03/04/16 Amlodipine Besylate 10 mg PO DAILY 10/18/18 Metoprolol Tartrate 100 mg PO BID 10/18/18 Pramipexole Dihydrochloride [Mirapex -] 0.25 mg PO TID 10/18/18 Family Disease History - Family Disease History Family Disease History: Other: Sister (Hip fx) Review of Systems - Review of Systems Constitutional: reports: No Symptoms. denies: Chills, Diaphoresis, Fever, Lethargy, Loss of Appetite, Malaise, Night Sweats, Unintentional Wgt. Loss, Weakness, Other Eyes: reports: No Symptoms. denies: Blind Spots, Blurred Vision, Double Vision , Eye Pain, Floaters, Photophobia, Recent Change in Vision, Other HENT: reports: No Symptoms. denies: Difficult Swallowing, Ear Discharge, Ear Pain, Epistaxis, Gingival Bleeding, Hearing Loss, Mouth Swelling, Nasal Congestion, Ocular Prosthesis, Throat Pain, Toothache, Ringing in Ears, Other Neck: reports: No Symptoms. denies: Decreased ROM, Lumps, Pain on Movement, Stiffness, Swollen Glands, Tenderness, Other Cardiovascular: reports: No Symptoms. denies: Chest Pain, Edema, Palpitations, Shortness of Breath, Other Respiratory: reports: Cough, SOB on Exertion. denies: No Symptoms, Exercise Intolerance, Hemoptysis, Orthopnea, PND, Snoring, SOB, Wheezing, Other Gastrointestinal: reports: Constipation. denies: No Symptoms, Abdominal Pain, Bloating, Diarrhea, Dysphagia, Indigestion, Melena, Nausea, Rectal Bleeding, Vomiting, Vomiting Blood, Other Genitourinary: reports: No Symptoms. denies: Burning, Discharge, Dysuria, Flank Pain, Frequency, Hematuria, Incontinence, Lesions, Menses, Pain, Testicular Mass, Testicular Pain, Testicular Swelling, Urgency, Vaginal Bleeding , Other Musculoskeletal: reports: No Symptoms. denies: Back Pain, Crepitus, Decreased ROM, Extremity Pain, Joint Pain, Joint Swelling, Muscle Pain, Muscle Cramps, Muscle Weakness, Other Integumentary: reports: Erythema (chronic RLE) Neurological: denies: No Symptoms, Change in LOC, Change in Speech, Confusion, Dizziness, Headache, Incoordination, Numbness, Parasthesia, Pre-Existing Deficit , Seizure, Syncope, Tremors, Unsteady Gait, Weakness, Other Endocrine: reports: No Symptoms. denies: Excessive Sweating, Flushing, Increased Hunger, Increased Thirst, Intolerance to Cold, Intolerance to Heat, Unexplained Weight Gain, Unexplained Weight Loss, Other Psychiatric: reports: No Symptoms. denies: Altered Sleep Pattern, Anxiety, Depression, Hallucinations, Panic, Paranoia, Suicidal, Other Physical Exam Vital Signs: Vital Signs Temperature 98.1 F 10/21/18 13:39 Pulse Rate 71 10/21/18 13:39 Respiratory Rate 19 10/21/18 13:39 Blood Pressure 93/57 L 10/21/18 13:39 O2 Sat by Pulse Oximetry (%) 96 10/20/18 21:00 Constitutional: Yes: No Distress, Calm Eyes: Yes: Conjunctiva Clear HENT: Yes: Atraumatic Neck: Yes: Supple Cardiovascular: Yes: Regular Rate and Rhythm Respiratory: Yes: Wheezes (inspiratory) Gastrointestinal: Yes: Normal Bowel Sounds, Soft Renal/: Yes: WNL Musculoskeletal: Yes: WNL Extremities: Yes: Erythema (LLE, no warmth/edema/tenderness) Edema: No Neurological: Yes: Alert Labs: CBC, BMP 10/21/18 07:00 10/21/18 07:00 Microbiology 10/18/18 03:35 Urine For Antigen Detection Legionella Antigen - Final 10/18/18 03:35 Urine For Antigen Detection Streptococcus pneumoniae Antigen (M - Final Laboratory Tests 10/17/18 10/17/18 10/17/18 21:41 21:41 21:41 WBC 9.7 RBC 4.28 Hgb 12.1 Hct 35.5 MCV 82.9 MCH 28.2 MCHC 34.0 RDW 16.0 H Plt Count 310 MPV 7.0 L Absolute Neuts (auto) 7.9 Neutrophils % 81.8 Lymphocytes % 9.6 D Monocytes % 6.9 Eosinophils % 1.3 Basophils % 0.4 Nucleated RBC % 0 PT with INR 12.00 INR 1.02 PTT (Actin FS) 28.1 Puncture Site ABG pH ABG pCO2 at Pt Temp ABG pO2 at Pt Temp ABG HCO3 ABG O2 Sat (Measured) ABG O2 Content ABG Base Excess Abebe Test VBG pH 7.37 POC VBG pCO2 57.3 H POC VBG pO2 23.1 L Mixed VBG HCO3 32.4 H Oxygen Flow Rate Sodium Potassium Chloride Carbon Dioxide Anion Gap BUN Creatinine Creat Clearance w eGFR Random Glucose Lactic Acid Calcium Phosphorus Magnesium Total Bilirubin AST ALT Alkaline Phosphatase Troponin I B-Natriuretic Peptide Total Protein Albumin 10/17/18 10/17/18 10/18/18 21:41 21:41 05:05 WBC 8.8 RBC 4.50 Hgb 12.1 Hct 37.6 MCV 83.4 MCH 26.8 MCHC 32.1 RDW 15.9 H Plt Count 284 MPV 6.8 L Absolute Neuts (auto) Neutrophils % Lymphocytes % Monocytes % Eosinophils % Basophils % Nucleated RBC % PT with INR INR PTT (Actin FS) Puncture Site ABG pH ABG pCO2 at Pt Temp ABG pO2 at Pt Temp ABG HCO3 ABG O2 Sat (Measured) ABG O2 Content ABG Base Excess [place]be Test VBG pH POC VBG pCO2 POC VBG pO2 Mixed VBG HCO3 Oxygen Flow Rate Sodium 135 L Potassium 3.9 Chloride 95 L Carbon Dioxide 30 Anion Gap 10 BUN 16 Creatinine 0.8 Creat Clearance w eGFR > 60 Random Glucose 90 Lactic Acid 1.0 Calcium 9.4 Phosphorus Magnesium Total Bilirubin AST ALT Alkaline Phosphatase Troponin I < 0.02 B-Natriuretic Peptide 1100.5 H Total Protein Albumin 10/18/18 10/18/18 10/18/18 05:05 05:05 09:30 WBC RBC Hgb Hct MCV MCH MCHC RDW Plt Count MPV Absolute Neuts (auto) Neutrophils % Lymphocytes % Monocytes % Eosinophils % Basophils % Nucleated RBC % PT with INR 12.00 INR 1.02 PTT (Actin FS) 29.4 Puncture Site Left radial ABG pH 7.49 H ABG pCO2 at Pt Temp 37.2 ABG pO2 at Pt Temp 58.9 L ABG HCO3 28.0 H ABG O2 Sat (Measured) 90.7 ABG O2 Content 15.2 ABG Base Excess 4.9 H Abebe Test Positive VBG pH POC VBG pCO2 POC VBG pO2 Mixed VBG HCO3 Oxygen Flow Rate No Sodium 134 L Potassium 3.5 Chloride 94 L Carbon Dioxide 30 Anion Gap 10 BUN 11 Creatinine 0.8 Creat Clearance w eGFR > 60 Random Glucose 123 H Lactic Acid Calcium 9.1 Phosphorus 3.3 Magnesium 2.1 Total Bilirubin AST ALT Alkaline Phosphatase Troponin I B-Natriuretic Peptide Total Protein Albumin 10/19/18 10/19/18 10/21/18 06:30 06:30 07:00 WBC 11.1 H 13.9 H RBC 4.46 4.75 Hgb 11.7 13.3 Hct 37.1 39.1 MCV 83.3 82.4 MCH 26.2 28.0 MCHC 31.5 L 34.0 RDW 16.2 H 15.4 Plt Count 306 352 MPV 7.2 L 7.6 Absolute Neuts (auto) 10.0 H 11.6 H Neutrophils % 89.8 H 83.4 H Lymphocytes % 6.6 L D 9.0 D Monocytes % 3.4 L 7.4 D Eosinophils % 0.0 D 0.0 Basophils % 0.2 0.2 Nucleated RBC % 0 0 PT with INR INR PTT (Actin FS) Puncture Site ABG pH ABG pCO2 at Pt Temp ABG pO2 at Pt Temp ABG HCO3 ABG O2 Sat (Measured) ABG O2 Content ABG Base Excess [place]be Test VBG pH POC VBG pCO2 POC VBG pO2 Mixed VBG HCO3 Oxygen Flow Rate Sodium 131 L Potassium 4.4 Chloride 91 L Carbon Dioxide 31 Anion Gap 9 BUN 16 Creatinine 0.7 Creat Clearance w eGFR > 60 Random Glucose 116 H Lactic Acid Calcium 9.1 Phosphorus Magnesium Total Bilirubin 0.4 AST 90 H ALT 63 H Alkaline Phosphatase 257 H Troponin I B-Natriuretic Peptide Total Protein 7.1 Albumin 3.4 10/21/18 07:00 WBC RBC Hgb Hct MCV MCH MCHC RDW Plt Count MPV Absolute Neuts (auto) Neutrophils % Lymphocytes % Monocytes % Eosinophils % Basophils % Nucleated RBC % PT with INR INR PTT (Actin FS) Puncture Site ABG pH ABG pCO2 at Pt Temp ABG pO2 at Pt Temp ABG HCO3 ABG O2 Sat (Measured) ABG O2 Content ABG Base Excess [place] Test VBG pH POC VBG pCO2 POC VBG pO2 Mixed VBG HCO3 Oxygen Flow Rate Sodium 129 L Potassium 4.8 Chloride 88 L Carbon Dioxide 26 Anion Gap 16 BUN 37 H Creatinine 1.0 Creat Clearance w eGFR 54.50 Random Glucose 96 Lactic Acid Calcium 9.2 Phosphorus Magnesium Total Bilirubin 0.3 AST 100 H ALT 81 H Alkaline Phosphatase 248 H Troponin I B-Natriuretic Peptide Total Protein 7.6 Albumin 3.8 Imaging - Results Chest X-ray: Report Reviewed Cat Scan: Report Reviewed Problem List - Problems (1) Acute hypoxemic respiratory failure Code(s): J96.01 - ACUTE RESPIRATORY FAILURE WITH HYPOXIA (2) COPD exacerbation Code(s): J44.1 - CHRONIC OBSTRUCTIVE PULMONARY DISEASE W (ACUTE) EXACERBATION (3) Dermatitis of lower extremity Code(s): L30.9 - DERMATITIS, UNSPECIFIED (4) LFT elevation Code(s): R94.5 - ABNORMAL RESULTS OF LIVER FUNCTION STUDIES (5) Lung consolidation Code(s): J18.1 - LOBAR PNEUMONIA, UNSPECIFIED ORGANISM (6) CAD (coronary artery disease), [place] coronary artery Code(s): I25.10 - ATHSCL HEART DISEASE OF [place] CORONARY ARTERY W/O ANG PCTRS Qualifiers: [place] vs. transplanted heart: [place] heart Associated angina: without angina Qualified Code(s): I25.10 - Atherosclerotic heart disease of [place] coronary artery without angina pectoris (7) Closed left hip fracture Code(s): S72.002A - FRACTURE OF UNSP PART OF NECK OF LEFT FEMUR, INIT Qualifiers: Encounter type: initial encounter Qualified Code(s): S72.002A - Fracture of unspecified part of neck of left femur, initial encounter for closed fracture (8) SOB (shortness of breath) Code(s): R06.02 - SHORTNESS OF BREATH Assessment/Plan 72 y.o. female with COPD, former smoker, ASHD s/p IN, Lt femur fracture s/p ORIF , spontaneous pneumothorax s/p RUL lobectomy presenting with progressive SOB and dry cough x 2 wks PRERNA consolidation - possible PNA, r/o mass Acute hypoxemic Respiratory failure COPD s/p RUL lobectomy Chronic LLE erythema/dermatitis -- cont. current antibiotic -- wbc elevated, pt on steroids -- monitor electrolytes/LFT trend -- Pulmonary following pt currently afebrile, reports improvement in SOB will follow Thank you
[2018-10-21] MEDS: ALLOPURINOL 100 MG TABLET (FP) PO SCH (22:44)
[2018-10-21] MEDS: ROSUVASTATIN CA 10 MG TABLET (FP) PO SCH (22:46)
[2018-10-21] MEDS: NORTRIPTYLINE HCL 25 MG CAPSULE PO SCH (22:46)
[2018-10-22] MEDS: PRAMIPEXOLE DIHYDROCHLORIDE 0.25 MG TABLET PO SCH ×3 (06:06→22:12)
[2018-10-22] MEDS: CITALOPRAM HYDROBROMIDE 20 MG TABLET (FP) PO SCH ×3 (06:06→22:11)
[2018-10-22] MEDS: LEVOTHYROXINE NA 112 MCG TABLET (FP) PO SCH (06:06)
[2018-10-22 07:52] LABS: HEMATOCRIT 37.5 % (32.4-45.2); HEMOGLOBIN 12.7 GM/dL (10.7-15.3); MCH 27.7 pg (25.7-33.7); MCHC 33.8 g/dl (32.0-36.0); MEAN CELL VOLUME 82.1 fl (80-96); MEAN PLT VOLUME 7.6 fl (7.5-11.1); PLATELET COUNT 356 K/MM3 (134-434); RBC 4.56 M/mm3 (3.60-5.2); RDW 15.2 % (11.6-15.6); WHITE BLOOD COUNT 11.7 K/mm3 (4.0-10.0)
[2018-10-22] MEDS ORDERED: BENZOCAINE/MENTH/CETYLPYRD CL 1 EACH LOZENGE MM PRN (08:33)
[2018-10-22] MEDS: ARFORMOTEROL TARTRATE 15 MCG/2 ML VIAL NEB SCH ×2 (08:35→20:45)
[2018-10-22 08:37] LABS: ALBUMIN 3.8 g/dl (3.4-5.0); ALK PHOS 224 U/L (45-117); ANION GAP 12 MMOL/L (8-16); BILIRUBIN,TOTAL 0.3 mg/dL (0.2-1); BLOOD UREA NITROGEN 40 mg/dL (7-18); CALCIUM 9.2 mg/dL (8.5-10.1); CHLORIDE 88 mmol/L (98-107); CO2 28 mmol/L (21-32); CREATININE 1.1 mg/dL (0.55-1.3); GLUCOSE,RANDOM 97 mg/dL (74-106); POTASSIUM 5.1 mmol/L (3.5-5.1); SGOT/AST 78 U/L (15-37); SGPT/ALT 76 U/L (13-61); SODIUM 128 mmol/L (136-145); TOT PROT 7.1 g/dl (6.4-8.2)
[2018-10-22 08:52] LABS: AMYLASE 142 U/L (25-115); LIPASE 436 U/L (73-393)
[2018-10-22] MEDS ORDERED: PANTOPRAZOLE SODIUM 80 MG in SODIUM CHLORIDE 100 ML IVPB SCH (09:00)
[2018-10-22] MEDS ORDERED: PT OWN MED DRAWER 7, Y5N ONE ×4 (09:47→21:04)
[2018-10-22] MEDS: SUCRALFATE 1 GM/10 ML UNIT DOSE CUPS PO SCH ×2 (09:53→22:11)
[2018-10-22] MEDS: RANITIDINE HCL 150 MG TABLET (FP) PO SCH (09:54)
[2018-10-22] MEDS: ASPIRIN 325 MG ENTERIC COATED TABLET (FP) PO SCH (09:54)
[2018-10-22] MEDS: amLODIPine BESYLATE 10 MG TABLET (FP) PO SCH (09:54)
[2018-10-22] MEDS: TRIAMTERENE AND HCTZ - 37.5 MG/25 MG CAPSULE PO SCH (09:54)
[2018-10-22] MEDS: METOPROLOL TARTRATE 50 MG TABLET (FP) PO SCH ×2 (09:54→22:10)
[2018-10-22] MEDS: methylPREDNISolone NA SUCC 40 MG/1 ML VIAL IVPUSH SCH (09:55)
[2018-10-22] MEDS: ENOXAPARIN NA (PORCINE) 40 MG/0.4 ML DISP.SYRIN SQ SCH (09:55)
[2018-10-22] MEDS: AMMONIUM LACTATE 12% LOTION 225 GM BOTTLE TP SCH (09:59)
[2018-10-22] MEDS: FLUOCINONIDE 0.05% CREAM (15 GM TUBE) TP SCH ×2 (09:59→22:13)
[2018-10-22] MEDS: POLYETHYLENE GLYCOL 3350 119 GM BTL PO SCH ×2 (09:59→22:11)
[2018-10-22] MEDS: MUPIROCIN 2% TOPICAL OINTMENT 22 GM TUBE TP SCH ×2 (09:59→22:13)
[2018-10-22] MEDS ORDERED: PANTOPRAZOLE SODIUM 40 MG VIAL IVPUSH SCH (10:00)
[2018-10-22] MEDS: ACETAMINOPHEN/CAFFEINE/BUTALBITAL 1 TAB PO PRN ×2 (10:05→17:49)
[2018-10-22] MEDS: TIOTROPIUM BROMIDE 2.5 MCG (SPIRIVA) RESPIMAT INHALER IH SCH (10:05)
[2018-10-22] MEDS ORDERED: SODIUM CHLORIDE 1,000 ML IV SCH (12:00)
--- NOTE | 2018-10-22 12:46 | PN ---
Physical Exam: SUBJECTIVE: Patient seen and examined. Still c/o gerd and cough. C/o left foot pain and tingling which has been going on for several months. OBJECTIVE: Vital Signs Period Temp Pulse Resp BP Sys/Miranda Pulse Ox Last 24 Hr 97.5 F-98.5 F 65-84 18-19 93-125/43-73 100 GENERAL: The patient is awake, alert, and fully oriented, in no acute distress. HEAD: Normal with no signs of trauma. EYES: PERRL, extraocular movements intact, sclera anicteric, conjunctiva clear. No ptosis. ENT: Ears normal, nares patent, oropharynx clear without exudates, moist mucous membranes. NECK: Trachea midline, full range of motion, supple. LUNGS: Diminished breath sounds, expiratory wheeze, normal respiratory effort accessory muscle use. HEART: Regular rate and rhythm, S1, S2 without murmur, rub or gallop. ABDOMEN: Soft, nontender, nondistended, normoactive bowel sounds, no guarding, no rebound, no hepatosplenomegaly, no masses. EXTREMITIES: Erythema to LLE with cluster of scabbed lesion to anterior ankle. 2 + pulses, warm, well-perfused, no edema. NEUROLOGICAL: No facial droop, tongue midline, normal speech, gait not observed. PSYCH: Normal mood, normal affect. SKIN: Warm, dry, normal turgor, no rashes or lesions noted Laboratory Results - last 24 hr 10/22/18 10/22/18 10/22/18 05:30 05:30 05:30 WBC 11.7 H RBC 4.56 Hgb 12.7 Hct 37.5 MCV 82.1 MCH 27.7 MCHC 33.8 RDW 15.2 Plt Count 356 MPV 7.6 Sodium 128 L Potassium 5.1 Chloride 88 L Carbon Dioxide 28 Anion Gap 12 BUN 40 H Creatinine 1.1 Creat Clearance w eGFR 48.82 Random Glucose 97 Calcium 9.2 Magnesium 3.0 H Total Bilirubin 0.3 AST 78 H ALT 76 H Alkaline Phosphatase 224 H Total Protein 7.1 Albumin 3.8 Total Amylase 142 H Lipase 436 H Active Medications Generic Name Dose Route Start Last Admin Trade Name Freq PRN Reason Stop Dose Admin Acetaminophen 650 mg 10/18/18 03:09 10/18/18 22:04 Tylenol - PO 650 mg Q6H PRN Administration FEVER Acetaminophen/Butalbital/Caffeine 1 tablet 10/19/18 12:52 10/22/18 10:05 Fioricet - PO 1 tablet TID PRN Administration PAIN SCALE 5-10 Al Hydroxide/Mg Hydroxide 30 ml 10/20/18 12:40 10/21/18 10:08 Mylanta Oral Suspension - PO 30 ml Q4H PRN Administration INDIGESTION Albuterol Sulfate 1 amp 10/18/18 04:25 10/18/18 16:56 Ventolin 0.042trength) - NEB 1 amp Q4H PRN Administration SHORT OF BREATH/WHEEZING Allopurinol 100 mg 10/18/18 22:00 10/21/18 22:44 Zyloprim - PO 100 mg HS MASSIEL Administration Amlodipine Besylate 10 mg 10/18/18 10:00 10/22/18 09:54 Norvasc - PO 10 mg DAILY MASSIEL Administration Arformoterol Tartrate 1 amp 10/18/18 20:00 10/22/18 08:35 Brovana (Restricted To Pulmonology/Resp) - NEB 1 amp RBID MASSIEL Administration Aspirin 325 mg 10/18/18 10:00 10/22/18 09:54 Ecotrin - PO 325 mg DAILY MASSIEL Administration Benzocaine/Menthol 1 each 10/22/18 08:33 Cepacol Lozenge - MM PRN PRN SORE THROAT Citalopram Hydrobromide 20 mg 10/18/18 06:00 10/22/18 06:06 Celexa - PO 20 mg TID MASSIEL Administration Enoxaparin Sodium 40 mg 10/18/18 10:00 10/22/18 09:55 Lovenox - SQ 40 mg DAILY MASSIEL Administration Fluocinonide 1 applic 10/18/18 13:30 10/22/18 09:59 Lidex 0.05% Cream - TP 1 applic BID MASSIEL Administration Levofloxacin 500 mg in 100 mls @ 100 mls/hr 10/18/18 04:00 10/22/18 09:56 Levaquin 500 Mg Premixed Ivpb - IVPB 100 mls/hr DAILY MASSIEL Administration Protocol Sodium Chloride 1,000 mls @ 75 mls/hr 10/22/18 12:00 Normal Saline - IV ASDIR MASSIEL Lactic Acid 1 applic 10/18/18 13:30 10/22/18 09:59 Lac-Hydrin 12 TP 1 applic DAILY MASSIEL Administration Levothyroxine Sodium 112 mcg 10/18/18 07:00 10/22/18 06:06 Synthroid - PO 112 mcg DAILY@0700 MASSIEL Administration Methylprednisolone Sodium Succinate 40 mg 10/20/18 10:00 10/22/18 09:55 Solu-Medrol - IVPUSH 40 mg BID MASSIEL Administration Metoprolol Tartrate 100 mg 10/18/18 10:00 10/22/18 09:54 Lopressor - PO 100 mg BID MASSIEL Administration Mupirocin 1 applic 10/18/18 13:30 10/22/18 09:59 Bactroban 2% Ointment - TP 1 applic BID MASSIEL Administration Nortriptyline HCl 50 mg 10/18/18 22:00 10/21/18 22:46 Pamelor - PO 50 mg HS MASSIEL Administration Ondansetron HCl 4 mg 10/18/18 12:52 10/21/18 17:43 Zofran - PO 4 mg BID PRN Administration NAUSEA AND/OR VOMITING Pantoprazole Sodium 40 mg 10/22/18 10:00 10/22/18 09:55 Protonix Iv IVPUSH 40 mg BID MASSIEL Administration Polyethylene Glycol 17 gm 10/18/18 10:00 10/22/18 09:59 Miralax (For Daily Use) - PO Not Given BID [facility] Pramipexole Dihydrochloride 0.25 mg 10/18/18 06:00 10/22/18 06:06 Mirapex - PO 0.25 mg TID MASSIEL Administration Ranitidine HCl 150 mg 10/18/18 13:00 10/22/18 09:54 Zantac - PO 150 mg BID MASSIEL Administration Rosuvastatin Calcium 10 mg 10/18/18 22:00 10/21/18 22:46 Crestor - PO 10 mg HS MASSIEL Administration Sucralfate 1 gm 10/21/18 13:00 10/22/18 09:53 Carafate Oral Suspension - PO 1 gm BID [facility] Administration Tiotropium [place] 2 puff 10/18/18 10:00 10/22/18 10:05 Spiriva Respimat IH 2 puff DAILY MASSIEL Administration Triamterene/HCTZ 1 cap 10/18/18 10:00 10/22/18 09:54 Dyazide 25/37.5mg PO 1 cap DAILY MASSIEL Administration ASSESSMENT/PLAN: 72 year old female with a PMH significant for COPD presented to the ED c/o SOB and cough found to have PRERNA PNA on CT. She was admitted and started on IV Levaquin and Solu-medrol. COPD - Exacerbated/Acute hypoxemic repiratory failure - CTA showing PRERNA consolidation - Right lung spontaneous pneumothorax s/p RUL lobectomy 1983 - Leukocytosis to 11.1 -> 13.9 -> 11.7 today, afebrile - Seen by ID -Likely due to steriod use, continue current plan of care - Levaquin 500 mg IV qday - Solu-Medrol 40 mg IV BID - Spiriva and Symbicort qday - Ventolin nebs PRN - O2 via NC - Followed by pulmonology - Recommends f/u chest CT in 4-6 weeks to document resolution to PRERNA process - If no change, consider PET - Evaluate patient for home O2 prior to DC Hyponatremia - 128 today - Start IV NS - Change Na restricted diet to regular diet - Monitor BMP Left foot erythema and pain - Patient reports this has been on-going for several months - Left foot and ankle x-ray ordered - Possibly d/t gout, uric acid level ordered CAD - S/P CA 2005 - Asa 325 PO qday Gout - Allopurinol 100 mg PO QHS Migraine - Fioricet PRN Hypothyroidism - Synthroid 112 mcg qday HTN - Well-controlled - Metoprolol Tartrate 100 mg PO BID - HCZT/Triamterene 25/37.7 mg PO qday HLD - Crestor 10 mg PO QHS Transaminitis - Trending down today LFTs AST: 100 -> 78, ALT: 81 -> 76, Alk phos 248 -> 224 - Abdominal US - cholelithiasis without cholecystitis, mild CBD dilation of 0.9 - GI consult ordered GERD/GI upset - Start Protonix 40 mg IVP BID - Carfate 1 g PO BID - Miralax BID - Mylanta PRN - Zofran 4 mg PO PRN Depression/anxiety - Celexa 20 mg PO qday - Nortriptylie 50 mg PO QHS A1C 6.2 this [id number] Prophylaxis - DVT: Lovenox 40 mg SQ qday - GI: Protonix 40 mg IVP BID FEN - PO intake adequate - Replete as needed - Regular diet Disp: Patient requires further inpatient monitoring Visit type - Emergency Visit Emergency Visit: No - New Patient This patient is new to me today: No - Critical Care Critical Care patient: No
--- NOTE | 2018-10-22 13:54 | PN ---
Progress Note, Physician History of Present Illness: Pt seen and examined. Reports overall improvement in shortness of breath, coughing less. Remains afebrile. Has chronic Lt ankle pain, stating she has a shooting pain from back to LLE. No other complaints. - Current Medication List Current Medications: Active Medications Acetaminophen (Tylenol -) 650 mg PO Q6H PRN PRN Reason: FEVER Last Admin: 10/18/18 22:04 Dose: 650 mg Al Hydroxide/Mg Hydroxide (Mylanta Oral Suspension -) 30 ml PO Q4H PRN PRN Reason: INDIGESTION Last Admin: 10/21/18 10:08 Dose: 30 ml Albuterol Sulfate (Ventolin 0.042trength) -) 1 amp NEB Q4H PRN PRN Reason: SHORT OF BREATH/WHEEZING Last Admin: 10/18/18 16:56 Dose: 1 amp Allopurinol (Zyloprim -) 100 mg PO HS [facility] Last Admin: 10/21/18 22:44 Dose: 100 mg Amlodipine Besylate (Norvasc -) 10 mg PO DAILY [facility] Last Admin: 10/22/18 09:54 Dose: 10 mg Arformoterol Tartrate (Brovana (Restricted To Pulmonology/Resp) -) 1 amp NEB RBID [facility] Last Admin: 10/22/18 08:35 Dose: 1 amp Aspirin (Ecotrin -) 325 mg PO DAILY [facility] Last Admin: 10/22/18 09:54 Dose: 325 mg Benzocaine/Menthol (Cepacol Lozenge -) 1 each MM PRN PRN PRN Reason: SORE THROAT Citalopram Hydrobromide (Celexa -) 20 mg PO TID [facility] Last Admin: 10/22/18 06:06 Dose: 20 mg Enoxaparin Sodium (Lovenox -) 40 mg SQ DAILY [facility] Last Admin: 10/22/18 09:55 Dose: 40 mg Fluocinonide (Lidex 0.05% Cream -) 1 applic TP BID [facility] Last Admin: 10/22/18 09:59 Dose: 1 applic Levofloxacin (Levaquin 500 Mg Premixed Ivpb -) 500 mg in 100 mls @ 100 mls/hr IVPB DAILY [facility]; Protocol Last Admin: 10/22/18 09:56 Dose: 100 mls/hr Sodium Chloride (Normal Saline -) 1,000 mls @ 75 mls/hr IV ASDIR [facility] Lactic Acid (Lac-Hydrin 12) 1 applic TP DAILY [facility] Last Admin: 10/22/18 09:59 Dose: 1 applic Levothyroxine Sodium (Synthroid -) 112 mcg PO DAILY@0700 [facility] Last Admin: 10/22/18 06:06 Dose: 112 mcg Methylprednisolone Sodium Succinate (Solu-Medrol -) 40 mg IVPUSH BID [facility] Last Admin: 10/22/18 09:55 Dose: 40 mg Metoprolol Tartrate (Lopressor -) 100 mg PO BID [facility] Last Admin: 10/22/18 09:54 Dose: 100 mg Mupirocin (Bactroban 2% Ointment -) 1 applic TP BID [facility] Last Admin: 10/22/18 09:59 Dose: 1 applic Nortriptyline HCl (Pamelor -) 50 mg PO [facility] Last Admin: 10/21/18 22:46 Dose: 50 mg Ondansetron HCl (Zofran -) 4 mg PO BID PRN PRN Reason: NAUSEA AND/OR VOMITING Last Admin: 10/21/18 17:43 Dose: 4 mg Pantoprazole Sodium (Protonix Iv) 40 mg IVPUSH BID [facility] Last Admin: 10/22/18 09:55 Dose: 40 mg Polyethylene Glycol (Miralax (For Daily Use) -) 17 gm PO BID [facility] Last Admin: 10/22/18 09:59 Dose: Not Given Pramipexole Dihydrochloride (Mirapex -) 0.25 mg PO TID [facility] Last Admin: 10/22/18 06:06 Dose: 0.25 mg Rosuvastatin Calcium (Crestor -) 10 mg PO [facility] Last Admin: 10/21/18 22:46 Dose: 10 mg Sucralfate (Carafate Oral Suspension -) 1 gm PO BID [facility] Last Admin: 10/22/18 09:53 Dose: 1 gm Tiotropium [place] (Spiriva Respimat) 2 puff IH DAILY [facility] Last Admin: 10/22/18 10:05 Dose: 2 puff Triamterene/HCTZ (Dyazide 25/37.5mg) 1 cap PO DAILY [facility] Last Admin: 10/22/18 09:54 Dose: 1 cap - Objective Vital Signs: Vital Signs Temperature 98.5 F 12/09/18 09:51 Pulse Rate 84 10/22/18 09:51 Respiratory Rate 18 10/22/18 09:51 Blood Pressure 116/73 10/22/18 09:51 O2 Sat by Pulse Oximetry (%) 98 10/22/18 09:00 Constitutional: Yes: No Distress, Calm Cardiovascular: Yes: Regular Rate and Rhythm Respiratory: Yes: Wheezes (mild expiratory) Gastrointestinal: Yes: Normal Bowel Sounds, Soft Musculoskeletal: Yes: WNL Extremities: Yes: WNL, Erythema (chronic LLE erythema, no warmth/edema/ tenderness) Integumentary: Yes: WNL Neurological: Yes: Alert, Oriented Labs: CBC, BMP 10/22/18 05:30 10/22/18 05:30 INR, PTT INR 1.02 (0.83-1.09) 10/18/18 05:05 - ....Imaging X-ray: Report Reviewed (Lt foot/ankle: no fracture or soft tissue swelling) Problem List - Problems (1) Acute hypoxemic respiratory failure Code(s): J96.01 - ACUTE RESPIRATORY FAILURE WITH HYPOXIA (2) COPD exacerbation Code(s): J44.1 - CHRONIC OBSTRUCTIVE PULMONARY DISEASE W (ACUTE) EXACERBATION (3) Dermatitis of lower extremity Code(s): L30.9 - DERMATITIS, UNSPECIFIED (4) LFT elevation Code(s): R94.5 - ABNORMAL RESULTS OF LIVER FUNCTION STUDIES (5) Lung consolidation Code(s): J18.1 - LOBAR PNEUMONIA, UNSPECIFIED ORGANISM (6) CAD (coronary artery disease), [place] coronary artery Code(s): I25.10 - ATHSCL HEART DISEASE OF [place] CORONARY ARTERY W/O ANG PCTRS Qualifiers: [place] vs. transplanted heart: [place] heart Associated angina: without angina Qualified Code(s): I25.10 - Atherosclerotic heart disease of [place] coronary artery without angina pectoris (7) Closed left hip fracture Code(s): S72.002A - FRACTURE OF UNSP PART OF NECK OF LEFT FEMUR, INIT Qualifiers: Encounter type: initial encounter Qualified Code(s): S72.002A - Fracture of unspecified part of neck of left femur, initial encounter for closed fracture (8) SOB (shortness of breath) Code(s): R06.02 - SHORTNESS OF BREATH Assessment/Plan 72 y.o. female with COPD, former smoker, ASHD s/p [place], Lt femur fracture s/p ORIF , spontaneous pneumothorax s/p RUL lobectomy presenting with progressive SOB and dry cough x 2 wks PRERNA consolidation - possible PNA Acute hypoxemic Respiratory failure COPD s/p RUL lobectomy Chronic LLE erythema/dermatitis LFT elevation -- cont. Levaquin -- LFTs trending down from yesterday, GI consult requested -- Pulmonary following pt reports respiratory symptoms improving
--- NOTE | 2018-10-22 13:58 | PN ---
Progress Note (short form) - Note Progress Note: Breathing feels a little better. Dry cough. No CP. No hemoptysis. Intake & Output 10/19/18 10/20/18 10/21/18 10/22/18 23:59 23:59 23:59 23:59 Intake Total 100 500 100 100 Output Total 2 Balance 100 498 100 100 Weight 114 lb Last Vital Signs Temp Pulse Resp BP Pulse Ox 98.5 F 84 18 116/73 98 10/22/18 09:51 10/22/18 09:51 10/22/18 09:51 10/22/18 09:51 10/22/18 09:00 Active Medications Acetaminophen (Tylenol -) 650 mg PO Q6H PRN PRN Reason: FEVER Last Admin: 10/18/18 22:04 Dose: 650 mg Al Hydroxide/Mg Hydroxide (Mylanta Oral Suspension -) 30 ml PO Q4H PRN PRN Reason: INDIGESTION Last Admin: 10/21/18 10:08 Dose: 30 ml Albuterol Sulfate (Ventolin 0.042trength) -) 1 amp NEB Q4H PRN PRN Reason: SHORT OF BREATH/WHEEZING Last Admin: 10/18/18 16:56 Dose: 1 amp Allopurinol (Zyloprim -) 100 mg PO HS [facility] Last Admin: 10/21/18 22:44 Dose: 100 mg Amlodipine Besylate (Norvasc -) 10 mg PO DAILY [facility] Last Admin: 10/22/18 09:54 Dose: 10 mg Arformoterol Tartrate (Brovana (Restricted To Pulmonology/Resp) -) 1 amp NEB RBID [facility] Last Admin: 10/22/18 08:35 Dose: 1 amp Aspirin (Ecotrin -) 325 mg PO DAILY [facility] Last Admin: 10/22/18 09:54 Dose: 325 mg Benzocaine/Menthol (Cepacol Lozenge -) 1 each MM PRN PRN PRN Reason: SORE THROAT Citalopram Hydrobromide (Celexa -) 20 mg PO TID [facility] Last Admin: 10/22/18 06:06 Dose: 20 mg Enoxaparin Sodium (Lovenox -) 40 mg SQ DAILY [facility] Last Admin: 10/22/18 09:55 Dose: 40 mg Fluocinonide (Lidex 0.05% Cream -) 1 applic TP BID [facility] Last Admin: 10/22/18 09:59 Dose: 1 applic Levofloxacin (Levaquin 500 Mg Premixed Ivpb -) 500 mg in 100 mls @ 100 mls/hr IVPB DAILY [facility]; Protocol Last Admin: 10/22/18 09:56 Dose: 100 mls/hr Sodium Chloride (Normal Saline -) 1,000 mls @ 75 mls/hr IV ASDIR [facility] Lactic Acid (Lac-Hydrin 12) 1 applic TP DAILY [facility] Last Admin: 10/22/18 09:59 Dose: 1 applic Levothyroxine Sodium (Synthroid -) 112 mcg PO DAILY@0700 [facility] Last Admin: 10/22/18 06:06 Dose: 112 mcg Methylprednisolone Sodium Succinate (Solu-Medrol -) 40 mg IVPUSH BID [facility] Last Admin: 10/22/18 09:55 Dose: 40 mg Metoprolol Tartrate (Lopressor -) 100 mg PO BID [facility] Last Admin: 10/22/18 09:54 Dose: 100 mg Mupirocin (Bactroban 2% Ointment -) 1 applic TP BID [facility] Last Admin: 10/22/18 09:59 Dose: 1 applic Nortriptyline HCl (Pamelor -) 50 mg PO [facility] Last Admin: 10/21/18 22:46 Dose: 50 mg Ondansetron HCl (Zofran -) 4 mg PO BID PRN PRN Reason: NAUSEA AND/OR VOMITING Last Admin: 10/21/18 17:43 Dose: 4 mg Pantoprazole Sodium (Protonix Iv) 40 mg IVPUSH BID [facility] Last Admin: 10/22/18 09:55 Dose: 40 mg Polyethylene Glycol (Miralax (For Daily Use) -) 17 gm PO BID [facility] Last Admin: 10/22/18 09:59 Dose: Not Given Pramipexole Dihydrochloride (Mirapex -) 0.25 mg PO TID [facility] Last Admin: 10/22/18 06:06 Dose: 0.25 mg Rosuvastatin Calcium (Crestor -) 10 mg PO HS [facility] Last Admin: 10/21/18 22:46 Dose: 10 mg Sucralfate (Carafate Oral Suspension -) 1 gm PO BID [facility] Last Admin: 10/22/18 09:53 Dose: 1 gm Tiotropium [place] (Spiriva Respimat) 2 puff IH DAILY [facility] Last Admin: 10/22/18 10:05 Dose: 2 puff Triamterene/HCTZ (Dyazide 25/37.5mg) 1 cap PO DAILY [facility] Last Admin: 10/22/18 09:54 Dose: 1 cap Constitutional: Yes: Calm, Thin Eyes: Yes: WNL HENT: Yes: WNL Neck: Yes: WNL Cardiovascular: Yes: Regular Rate and Rhythm, S1, S2 Respiratory: Yes: Diminished, Rhonchi, Few scattered Wheezes Gastrointestinal: Yes: Normal Bowel Sounds, Soft Extremities: Yes: WNL Edema: No Laboratory Results - last 24 hr 10/22/18 10/22/18 10/22/18 05:30 05:30 05:30 WBC 11.7 H RBC 4.56 Hgb 12.7 Hct 37.5 MCV 82.1 MCH 27.7 MCHC 33.8 RDW 15.2 Plt Count 356 MPV 7.6 Sodium 128 L Potassium 5.1 Chloride 88 L Carbon Dioxide 28 Anion Gap 12 BUN 40 H Creatinine 1.1 Creat Clearance w eGFR 48.82 Random Glucose 97 Calcium 9.2 Magnesium 3.0 H Total Bilirubin 0.3 AST 78 H ALT 76 H Alkaline Phosphatase 224 H Total Protein 7.1 Albumin 3.8 Total Amylase 142 H Lipase 436 H Problem List - Problems (1) Acute hypoxemic respiratory failure Code(s): J96.01 - ACUTE RESPIRATORY FAILURE WITH HYPOXIA (2) CAD (coronary artery disease), [place] coronary artery Code(s): I25.10 - ATHSCL HEART DISEASE OF [place] CORONARY ARTERY W/O ANG PCTRS Qualifiers: [place] vs. transplanted heart: [place] heart Associated angina: without angina Qualified Code(s): I25.10 - Atherosclerotic heart disease of [place] coronary artery without angina pectoris (3) COPD (chronic obstructive pulmonary disease) with emphysema Code(s): J43.9 - EMPHYSEMA, UNSPECIFIED Qualifiers: Emphysema type: other Qualified Code(s): J43.8 - Other emphysema (4) SOB (shortness of breath) Code(s): R06.02 - SHORTNESS OF BREATH (5) Lung consolidation Code(s): J18.1 - LOBAR PNEUMONIA, UNSPECIFIED ORGANISM (6) COPD exacerbation Code(s): J44.1 - CHRONIC OBSTRUCTIVE PULMONARY DISEASE W (ACUTE) EXACERBATION Assessment/Plan IMP ACUTE HYPOXEMIC RESPIRATORY FAILURE COPD EXACERBATION L MID LUNG CONSOLIDATION ? PNEUMONIA,?ATELECTASIS,?NEOPLASM LIKELY PULMONARY HTN H/O RUL LOBECTOMY ASHD S/P [place] HYPOTHYROID PLAN IV ABX INHALED BRONCHODILATORS CAN LIKELY CHANGE MEDROL TO PREDNISONE IN AM O2 F/U CHEST CT 4-6 WKS TO DOCUMENT RESOLUTION PRERNA PROCESS IF NO CHANGE CONSIDER PET AMBULATORY O2 SAT ON RA PRIOR TO DISCHARGE TO DETERMINE IF PT IS A CANDIDATE FOR HOME O2 Dr Chaves
[2018-10-22] MEDS: MAG HYDROX/AL HYDROX/SIMETH 30 ML UNIT-DOSE CUP PO PRN (14:51)
--- NOTE | 2018-10-22 17:40 | CONS ---
DATE OF CONSULTATION: DATE OF DICTATION: 10/22/2018 The patient is a 72-year-old female, past medical history of COPD, not on home O2, right upper lobe lobectomy for spontaneous pneumothorax, [place] in 2005, left femur fracture status post repair, hypothyroidism, gout, and depression, who presents to the hospital with complaints of progressive shortness of breath and cough. She was on azithromycin as an outpatient; however, she was sent to the hospital for further evaluation of her symptoms. During the course, she was noted to have abnormal liver tests. She denies a history of liver disease, jaundice, new medications, or herbal supplements as an outpatient. She claims to have been on antibiotics intermittently during the past couple of months. She denies any abdominal pain, nausea, vomiting, melena, hematochezia, change in her bowel color or caliber. She states her last upper endoscopy was in the , at which time she was told she had a hiatus hernia. Colonoscopy also in the early also she reports to be within normal limits. PAST MEDICAL AND SURGICAL HISTORY: As listed in the history of present illness. ALLERGIES: CARBAMAZEPINE, HYDRALAZINE, PENICILLIN, VALSARTAN, BUSPIRONE. SOCIAL HISTORY: Does not drink or use intravenous drugs. FAMILY HISTORY: No history of GI or gynecologic malignancy. She is a former smoker, quit in 1983. Home medications were reviewed. PHYSICAL EXAMINATION: Vital Signs: Temperature 98, pulse 72, blood pressure 113/71, pulse oximetry 98% on room air, respiratory rate 12. General: No acute distress. Pleasant female. HEENT: Anicteric sclerae. Cardiovascular: S1, S2, regular rate and rhythm. Lungs: Bilaterally clear to auscultation with scattered wheeze. Abdomen: Soft, nontender. Extremities: No edema. LABORATORY DATA: White blood cell count 11.7, hematocrit 12, hematocrit 37, MCV 82, platelet count 356, INR 1.02, sodium 128, potassium 5.1, chloride 88, BUN 40, creatinine 1.1, total bilirubin 0.3, AST 78, ALT 76, alkaline phosphatase 224. Amylase 142, lipase 436. Abdominal ultrasound revealed slightly course echo texture of the liver that may represent fatty infiltration, atrophic right kidney, left renal simple cyst, multiple small gallstones, and likely sludge again seen layering posteriorly and extending to the gallbladder neck region without wall thickening or pericholecystic fluid, minimal dilation of the CBD. IMPRESSION: Transaminitis, hepatocellular pattern, imaging findings of sludge, and a mildly dilated common bile duct. I doubt she has an obstructive process at this time. She will need to have serology done to exclude chronic and inherited liver disease. Also potentially antibiotics may have led to her transaminitis. RECOMMENDATION: MRCP to further evaluate the biliary tree and rule out choledocholithiasis, serologies for chronic and inherited liver disease should be ordered, including a viral hepatitis panel, CALE, smooth vessel antibody, [id number], iron studies, and ceruloplasmin, avoid hepatotoxic medications, antibiotics, and care of her COPD as per primary medical team. DO SAI DIGGS/[id number]
[2018-10-22] MEDS ORDERED: HYDROCORTISONE 2.5% TOPICAL CREAM 30 GM TUBE PR SCH (22:00)
[2018-10-22] MEDS: ONDANSETRON 4 MG TABLET PO PRN (22:10)
[2018-10-22] MEDS: ROSUVASTATIN CA 10 MG TABLET (FP) PO SCH (22:11)
[2018-10-22] MEDS: PANTOPRAZOLE 40 MG TABLET (FP) PO SCH (22:11)
[2018-10-22] MEDS: NORTRIPTYLINE HCL 25 MG CAPSULE PO SCH (22:12)
[2018-10-22] MEDS: ALLOPURINOL 100 MG TABLET (FP) PO SCH (22:13)
[2018-10-22] MEDS: SODIUM CHLORIDE 1 GM TABLET PO SCH (22:13)
[2018-10-23] MEDS: MAG HYDROX/AL HYDROX/SIMETH 30 ML UNIT-DOSE CUP PO PRN (00:17)
[2018-10-23] MEDS: CITALOPRAM HYDROBROMIDE 20 MG TABLET (FP) PO SCH ×2 (06:13→13:53)
[2018-10-23] MEDS: PRAMIPEXOLE DIHYDROCHLORIDE 0.25 MG TABLET PO SCH ×2 (06:13→13:54)
[2018-10-23] MEDS: LEVOTHYROXINE NA 112 MCG TABLET (FP) PO SCH (06:13)
[2018-10-23 07:44] LABS: ALBUMIN 3.5 g/dl (3.4-5.0); ALK PHOS 213 U/L (45-117); ANION GAP 8 MMOL/L (8-16); BILIRUBIN,TOTAL 0.3 mg/dL (0.2-1); BLOOD UREA NITROGEN 40 mg/dL (7-18); CALCIUM 9.1 mg/dL (8.5-10.1); CHLORIDE 90 mmol/L (98-107); CO2 31 mmol/L (21-32); CREATININE 1.2 mg/dL (0.55-1.3); GLUCOSE,RANDOM 92 mg/dL (74-106); HEMATOCRIT 39.6 % (32.4-45.2); HEMOGLOBIN 12.5 GM/dL (10.7-15.3); MAGNESIUM 3.2 mg/dL (1.8-2.4); MCH 26.3 pg (25.7-33.7); MCHC 31.7 g/dl (32.0-36.0); MEAN CELL VOLUME 82.9 fl (80-96); MEAN PLT VOLUME 7.5 fl (7.5-11.1); PLATELET COUNT 317 K/MM3 (134-434); POTASSIUM 4.3 mmol/L (3.5-5.1); RBC 4.77 M/mm3 (3.60-5.2); RDW 15.3 % (11.6-15.6); SGOT/AST 68 U/L (15-37); SGPT/ALT 71 U/L (13-61); SODIUM 129 mmol/L (136-145); TOT PROT 7.1 g/dl (6.4-8.2); URIC ACID 3.8 mg/dL (2.6-7.2); WHITE BLOOD COUNT 12.1 K/mm3 (4.0-10.0)
--- NOTE | 2018-10-23 08:05 | PN ---
Progress Note, Physician Chief Complaint: C/o dry cough, SOB Abdominal US- galltones, MRCP-P. 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 Severe COPD, chronic cough on codeine suppression 1983 RUUL lobectomy for spontaneous PTX OR 2006 Left femoral fx 2016 Hypothyroidism Gout HTN Migraine Depression/anxiety A1C 6.2 this [id number] - Current Medication List Current Medications: Active Medications Acetaminophen (Tylenol -) 650 mg PO Q6H PRN PRN Reason: FEVER Last Admin: 10/18/18 22:04 Dose: 650 mg Acetaminophen/Butalbital/Caffeine (Fioricet -) 1 tablet PO Q6H PRN PRN Reason: HEADACHE Last Admin: 10/22/18 17:49 Dose: 1 tablet Al Hydroxide/Mg Hydroxide (Mylanta Oral Suspension -) 30 ml PO Q4H PRN PRN Reason: INDIGESTION Last Admin: 10/23/18 00:17 Dose: 30 ml Allopurinol (Zyloprim -) 100 mg PO HS [facility] Last Admin: 10/22/18 22:13 Dose: 100 mg Amlodipine Besylate (Norvasc -) 10 mg PO DAILY [facility] Last Admin: 10/22/18 09:54 Dose: 10 mg Arformoterol Tartrate (Brovana (Restricted To Pulmonology/Resp) -) 1 amp NEB RBID [facility] Last Admin: 10/22/18 20:45 Dose: 1 amp Aspirin (Ecotrin -) 325 mg PO DAILY [facility] Last Admin: 10/22/18 09:54 Dose: 325 mg Benzocaine/Menthol (Cepacol Lozenge -) 1 each MM PRN PRN PRN Reason: SORE THROAT Citalopram Hydrobromide (Celexa -) 20 mg PO TID [facility] Last Admin: 10/23/18 06:13 Dose: 20 mg Enoxaparin Sodium (Lovenox -) 40 mg SQ DAILY [facility] Last Admin: 10/22/18 09:55 Dose: 40 mg Fluocinonide (Lidex 0.05% Cream -) 1 applic TP BID [facility] Last Admin: 10/22/18 22:13 Dose: 1 applic Hydrocortisone (Anusol 2.5% Hc Cream -) 1 applic [place] HS [facility] Last Admin: 10/22/18 22:10 Dose: 1 applic Lactic Acid (Lac-Hydrin 12) 1 applic TP DAILY [facility] Last Admin: 10/22/18 09:59 Dose: 1 applic Levofloxacin (Levaquin -) 250 mg PO DAILY@0600 [facility] Levothyroxine Sodium (Synthroid -) 112 mcg PO DAILY@0700 [facility] Last Admin: 10/23/18 06:13 Dose: 112 mcg Metoprolol Tartrate (Lopressor -) 100 mg PO BID [facility] Last Admin: 10/22/18 22:10 Dose: 100 mg Mupirocin (Bactroban 2% Ointment -) 1 applic TP BID [facility] Last Admin: 10/22/18 22:13 Dose: 1 applic Nortriptyline HCl (Pamelor -) 50 mg PO HS [facility] Last Admin: 10/22/18 22:12 Dose: 50 mg Ondansetron HCl (Zofran -) 4 mg PO BID PRN PRN Reason: NAUSEA AND/OR VOMITING Last Admin: 10/22/18 22:10 Dose: 4 mg Pantoprazole Sodium (Protonix -) 40 mg PO BID [facility] Last Admin: 10/22/18 22:11 Dose: 40 mg Polyethylene Glycol (Miralax (For Daily Use) -) 17 gm PO BID [facility] Last Admin: 10/22/18 22:11 Dose: Not Given Pramipexole Dihydrochloride (Mirapex -) 0.25 mg PO TID [facility] Last Admin: 10/23/18 06:13 Dose: 0.25 mg Prednisone (Deltasone -) 40 mg PO DAILY [facility] Rosuvastatin Calcium (Crestor -) 10 mg PO HS [facility] Last Admin: 10/22/18 22:11 Dose: 10 mg Sodium Chloride (Sodium Chloride Tablet -) 1 gm PO BID [facility] Last Admin: 10/22/18 22:13 Dose: 1 gm Sucralfate (Carafate Oral Suspension -) 1 gm PO BID [facility] Last Admin: 10/22/18 22:11 Dose: 1 gm Tiotropium [place] (Spiriva Respimat) 2 puff IH DAILY [facility] Last Admin: 10/22/18 10:05 Dose: 2 puff Triamterene/HCTZ (Dyazide 25/37.5mg) 1 cap PO DAILY [facility] Last Admin: 10/22/18 09:54 Dose: 1 cap - Objective Vital Signs: Vital Signs Temperature 97.4 F L 10/23/18 06:00 Pulse Rate 62 10/23/18 06:00 Respiratory Rate 20 10/23/18 06:00 Blood Pressure 105/74 10/23/18 06:00 O2 Sat by Pulse Oximetry (%) 98 10/22/18 21:00 Constitutional: Yes: Anxious, Mild Distress Eyes: Yes: Conjunctiva Clear, EOM Intact HENT: Yes: Atraumatic, Normocephalic Neck: Yes: Supple, Trachea Midline Cardiovascular: Yes: Regular Rate and Rhythm, S1, S2. No: Bradycardia, Tachycardia Respiratory: Yes: Regular, Cough, On Nasal O2. No: Accessory Muscle Use Gastrointestinal: Yes: Normal Bowel Sounds, Soft. No: Abdomen, Obese, Ascites ...Rectal Exam: Yes: Deferred Genitourinary: Yes: Other (Atrophic kidney onh US). No: Anuria Musculoskeletal: Yes: WNL, Back Pain Extremities: Yes: Erythema. No: Cold, Cyanosis Peripheral Pulses WNL: No Integumentary: Yes: Erythema Wound/Incision: Yes: Clean/Dry (anterir saldana left) Neurological: Yes: Alert, Oriented. No: Aphasia, Dysarthria ...Motor Strength: WNL Psychiatric: Yes: WNL Labs: CBC, BMP 10/23/18 06:30 INR, PTT INR 1.02 (0.83-1.09) 10/18/18 05:05 Problem List - Problems (1) CAD (coronary artery disease), [place] coronary artery Assessment/Plan: Continue ASA, Statins Code(s): I25.10 - ATHSCL HEART DISEASE OF [place] CORONARY ARTERY W/O ANG PCTRS Qualifiers: [place] vs. transplanted heart: [place] heart Associated angina: without angina Qualified Code(s): I25.10 - Atherosclerotic heart disease of [place] coronary artery without angina pectoris (2) COPD (chronic obstructive pulmonary disease) with emphysema Assessment/Plan: Nebs with Proventyl, O2NC, PO Prednisone Code(s): J43.9 - EMPHYSEMA, UNSPECIFIED Qualifiers: Emphysema type: other Qualified Code(s): J43.8 - Other emphysema (3) Pneumonia Assessment/Plan: PO Levaquin to complete Repeat chest CT re-poorly defined mass on CT in 4-6 wks PAH class 3 WHO Code(s): J18.9 - PNEUMONIA, UNSPECIFIED ORGANISM Qualifiers: Pneumonia type: due to unspecified organism Laterality: left Lung location: lower lobe of lung Qualified Code(s): J18.1 - Lobar pneumonia, unspecified organism (4) LFT elevation Assessment/Plan: Gallstones, fatty liver MRCP-P Code(s): R94.5 - ABNORMAL RESULTS OF LIVER FUNCTION STUDIES (5) Dermatitis of lower extremity Code(s): L30.9 - DERMATITIS, UNSPECIFIED
--- NOTE | 2018-10-23 08:09 | DS ---
Physical Examination Vital Signs: Vital Signs Temperature 97.4 F L 10/23/18 06:00 Pulse Rate 62 10/23/18 06:00 Respiratory Rate 20 10/23/18 06:00 Blood Pressure 105/74 10/23/18 06:00 O2 Sat by Pulse Oximetry (%) 98 10/22/18 21:00 Constitutional: Yes: Anxious, Mild Distress Eyes: Yes: Conjunctiva Clear, EOM Intact HENT: Yes: Atraumatic, Normocephalic Neck: Yes: Supple, Trachea Midline Cardiovascular: Yes: Regular Rate and Rhythm. No: Bradycardia, Tachycardia Respiratory: Yes: Regular, CTA Bilaterally. No: Accessory Muscle Use Gastrointestinal: Yes: Normal Bowel Sounds, Soft. No: Abdomen, Obese ...Rectal Exam: Yes: Deferred Renal/: Yes: Other (right renal atrophy). No: Anuria, Bladder Distention Breast(s): Yes: WNL Musculoskeletal: Yes: Muscle Weakness Extremities: No: Amputation, Calf Tenderness, Cold, Cyanosis Edema: Yes Edema: LLE: Trace, RLE: Trace Peripheral Pulses WNL: No Integumentary: Yes: Erythema (feet) Neurological: Yes: Alert, Oriented. No: Aphasia, Ataxia, Dysarthria ...Motor Strength: WNL Psychiatric: Yes: WNL Labs: CBC, BMP 10/23/18 06:30 Discharge Summary Reason For Visit: PNEUMONIA, COPD, resp failure Current Active Problems Acute hypoxemic respiratory failure (Acute) COPD exacerbation (Acute) Dermatitis of lower extremity (Acute) LFT elevation (Acute) Lung consolidation (Acute) Condition: Stable - Instructions Referrals: Ryan Grande MD [Primary Care Provider] - Disposition: [facility]NS/HOME HEALTH CARE - Home Medications Comprehensive Discharge Medication List: Ambulatory Orders Acetaminophen/Caffeine/Butalb [Fioricet -] 1 tab PO Q4H PRN 03/03/16 Aspirin Coated [Ecotrin -] 325 mg PO DAILY 03/03/16 Budesonide/Formeterol Fumarate [SYMBICORT 160/4.5mcg -] 1 inh PO BID 03/03/16 Citalopram Hydrobromide [Citalopram HBr] 20 mg PO TID 03/03/16 Codeine Sulfate - 30 mg PO Q6H PRN 03/03/16 Nortriptyline HCl [Pamelor -] 50 mg PO HS 03/03/16 Omeprazole [Prilosec] 40 mg PO DAILY 03/03/16 Rosuvastatin [Crestor -] 10 mg PO DAILY 03/03/16 Tiotropium [place] [Spiriva] 1 inh PO DAILY 03/03/16 Triamterene/Hydrochlorothiazid [Triamterene-Hctz 37.5-25 mg Tb] 1 each PO DAILY 03/03/16 Allopurinol [Zyloprim -] 100 mg PO HS 03/04/16 Levothyroxine [Synthroid -] 112 mcg PO DAILY 03/04/16 Amlodipine Besylate 10 mg PO DAILY 10/18/18 Metoprolol Tartrate 100 mg PO BID 10/18/18 Pramipexole Dihydrochloride [Mirapex -] 0.25 mg PO TID 10/18/18
[2018-10-23] MEDS: ARFORMOTEROL TARTRATE 15 MCG/2 ML VIAL NEB SCH (08:20)
[2018-10-23] MEDS: ACETAMINOPHEN/CAFFEINE/BUTALBITAL 1 TAB PO PRN ×2 (09:22→16:16)
[2018-10-23] MEDS: PANTOPRAZOLE 40 MG TABLET (FP) PO SCH (09:24)
[2018-10-23] MEDS: SUCRALFATE 1 GM/10 ML UNIT DOSE CUPS PO SCH (09:24)
[2018-10-23] MEDS: METOPROLOL TARTRATE 50 MG TABLET (FP) PO SCH (09:24)
[2018-10-23] MEDS: amLODIPine BESYLATE 10 MG TABLET (FP) PO SCH (09:24)
[2018-10-23] MEDS: SODIUM CHLORIDE 1 GM TABLET PO SCH (09:25)
[2018-10-23] MEDS: TRIAMTERENE AND HCTZ - 37.5 MG/25 MG CAPSULE PO SCH (09:26)
[2018-10-23] MEDS: ASPIRIN 325 MG ENTERIC COATED TABLET (FP) PO SCH (09:26)
[2018-10-23] MEDS: TIOTROPIUM BROMIDE 2.5 MCG (SPIRIVA) RESPIMAT INHALER IH SCH (09:27)
[2018-10-23] MEDS: POLYETHYLENE GLYCOL 3350 119 GM BTL PO SCH (09:27)
[2018-10-23] MEDS: ENOXAPARIN NA (PORCINE) 40 MG/0.4 ML DISP.SYRIN SQ SCH (09:27)
[2018-10-23] MEDS ORDERED: predniSONE 20 MG TABLET (UD) PO SCH (10:00)
--- NOTE | 2018-10-23 11:57 | PN ---
Progress Note, Physician History of Present Illness: PULMONARY ALERT,NO DISTRESS,-SOB,-COUGH - Current Medication List Current Medications: Active Medications Acetaminophen (Tylenol -) 650 mg PO Q6H PRN PRN Reason: FEVER Last Admin: 10/18/18 22:04 Dose: 650 mg Acetaminophen/Butalbital/Caffeine (Fioricet -) 1 tablet PO Q6H PRN PRN Reason: HEADACHE Last Admin: 10/23/18 09:22 Dose: 1 tablet Al Hydroxide/Mg Hydroxide (Mylanta Oral Suspension -) 30 ml PO Q4H PRN PRN Reason: INDIGESTION Last Admin: 10/23/18 00:17 Dose: 30 ml Allopurinol (Zyloprim -) 100 mg PO HS [facility] Last Admin: 10/22/18 22:13 Dose: 100 mg Amlodipine Besylate (Norvasc -) 10 mg PO DAILY [facility] Last Admin: 10/23/18 09:24 Dose: 10 mg Arformoterol Tartrate (Brovana (Restricted To Pulmonology/Resp) -) 1 amp NEB RBID [facility] Last Admin: 10/23/18 08:20 Dose: 1 amp Aspirin (Ecotrin -) 325 mg PO DAILY [facility] Last Admin: 10/23/18 09:26 Dose: 325 mg Benzocaine/Menthol (Cepacol Lozenge -) 1 each MM PRN PRN PRN Reason: SORE THROAT Citalopram Hydrobromide (Celexa -) 20 mg PO TID [facility] Last Admin: 10/23/18 06:13 Dose: 20 mg Enoxaparin Sodium (Lovenox -) 40 mg SQ DAILY [facility] Last Admin: 10/23/18 09:27 Dose: 40 mg Fluocinonide (Lidex 0.05% Cream -) 1 applic TP BID [facility] Last Admin: 10/22/18 22:13 Dose: 1 applic Hydrocortisone (Anusol 2.5% Hc Cream -) 1 applic [place] HS [facility] Last Admin: 10/22/18 22:10 Dose: 1 applic Lactic Acid (Lac-Hydrin 12) 1 applic TP DAILY [facility] Last Admin: 10/22/18 09:59 Dose: 1 applic Levofloxacin (Levaquin -) 250 mg PO DAILY@0600 [facility] Levothyroxine Sodium (Synthroid -) 112 mcg PO DAILY@0700 [facility] Last Admin: 10/23/18 06:13 Dose: 112 mcg Metoprolol Tartrate (Lopressor -) 100 mg PO BID [facility] Last Admin: 10/23/18 09:24 Dose: 100 mg Mupirocin (Bactroban 2% Ointment -) 1 applic TP BID [facility] Last Admin: 10/22/18 22:13 Dose: 1 applic Nortriptyline HCl (Pamelor -) 50 mg PO HS [facility] Last Admin: 10/22/18 22:12 Dose: 50 mg Ondansetron HCl (Zofran -) 4 mg PO BID PRN PRN Reason: NAUSEA AND/OR VOMITING Last Admin: 10/22/18 22:10 Dose: 4 mg Pantoprazole Sodium (Protonix -) 40 mg PO BID [facility] Last Admin: 10/23/18 09:24 Dose: 40 mg Polyethylene Glycol (Miralax (For Daily Use) -) 17 gm PO BID [facility] Last Admin: 10/23/18 09:27 Dose: Not Given Pramipexole Dihydrochloride (Mirapex -) 0.25 mg PO TID [facility] Last Admin: 10/23/18 06:13 Dose: 0.25 mg Prednisone (Deltasone -) 40 mg PO DAILY [facility] Last Admin: 10/23/18 09:23 Dose: 40 mg Rosuvastatin Calcium (Crestor -) 10 mg PO HS [facility] Last Admin: 10/22/18 22:11 Dose: 10 mg Sodium Chloride (Sodium Chloride Tablet -) 1 gm PO BID [facility] Last Admin: 10/23/18 09:25 Dose: 1 gm Sucralfate (Carafate Oral Suspension -) 1 gm PO BID [facility] Last Admin: 10/23/18 09:24 Dose: 1 gm Tiotropium [place] (Spiriva Respimat) 2 puff IH DAILY [facility] Last Admin: 10/23/18 09:27 Dose: 2 puff Triamterene/HCTZ (Dyazide 25/37.5mg) 1 cap PO DAILY [facility] Last Admin: 10/23/18 09:26 Dose: 1 cap - Objective Vital Signs: Vital Signs Temperature 97.3 F L 10/23/18 10:00 Pulse Rate 78 10/23/18 10:00 Respiratory Rate 20 10/23/18 10:00 Blood Pressure 130/68 10/23/18 10:00 O2 Sat by Pulse Oximetry (%) 90 L 10/23/18 08:11 Constitutional: Yes: Calm, Thin Eyes: Yes: WNL HENT: Yes: WNL Neck: Yes: WNL Cardiovascular: Yes: Regular Rate and Rhythm, S1, S2 Respiratory: Yes: Diminished Gastrointestinal: Yes: Normal Bowel Sounds, Soft Extremities: Yes: WNL Edema: No Labs: CBC, BMP 10/23/18 06:30 10/23/18 06:30 INR, PTT INR 1.02 (0.83-1.09) 10/18/18 05:05 Problem List - Problems (1) Acute hypoxemic respiratory failure Code(s): J96.01 - ACUTE RESPIRATORY FAILURE WITH HYPOXIA (2) CAD (coronary artery disease), [place] coronary artery Code(s): I25.10 - ATHSCL HEART DISEASE OF [place] CORONARY ARTERY W/O ANG PCTRS Qualifiers: [place] vs. transplanted heart: [place] heart Associated angina: without angina Qualified Code(s): I25.10 - Atherosclerotic heart disease of [place] coronary artery without angina pectoris (3) COPD (chronic obstructive pulmonary disease) with emphysema Code(s): J43.9 - EMPHYSEMA, UNSPECIFIED Qualifiers: Emphysema type: other Qualified Code(s): J43.8 - Other emphysema (4) SOB (shortness of breath) Code(s): R06.02 - SHORTNESS OF BREATH (5) Lung consolidation Code(s): J18.1 - LOBAR PNEUMONIA, UNSPECIFIED ORGANISM (6) COPD exacerbation Code(s): J44.1 - CHRONIC OBSTRUCTIVE PULMONARY DISEASE W (ACUTE) EXACERBATION Assessment/Plan IMP ACUTE HYPOXEMIC RESPIRATORY FAILURE IMPROVED COPD EXACERBATIONIMPROVED L MID LUNG CONSOLIDATION ? PNEUMONIA,?ATELECTASIS,?NEOPLASM LIKELY PULMONARY HTN H/O RUL LOBECTOMY ASHD S/P DC HYPOTHYROID PLAN ABX INHALED BRONCHODILATORS PREDNISONE O2 F/U CHEST CT 4-6 WKS TO DOCUMENT RESOLUTION PRERNA PROCESS IF NO CHANGE CONSIDER PET AMBULATORY O2 SAT ON RA PRIOR TO DISCHARGE TO DETERMINE IF PT IS A CANDIDATE FOR HOME O2 DR PUENTE Problem List - Problems (1) Acute hypoxemic respiratory failure Code(s): J96.01 - ACUTE RESPIRATORY FAILURE WITH HYPOXIA (2) CAD (coronary artery disease), [place] coronary artery Code(s): I25.10 - ATHSCL HEART DISEASE OF [place] CORONARY ARTERY W/O ANG PCTRS Qualifiers: [place] vs. transplanted heart: [place] heart Associated angina: without angina Qualified Code(s): I25.10 - Atherosclerotic heart disease of [place] coronary artery without angina pectoris (3) COPD (chronic obstructive pulmonary disease) with emphysema Code(s): J43.9 - EMPHYSEMA, UNSPECIFIED Qualifiers: Emphysema type: other Qualified Code(s): J43.8 - Other emphysema (4) SOB (shortness of breath) Code(s): R06.02 - SHORTNESS OF BREATH (5) Lung consolidation Code(s): J18.1 - LOBAR PNEUMONIA, UNSPECIFIED ORGANISM (6) COPD exacerbation Code(s): J44.1 - CHRONIC OBSTRUCTIVE PULMONARY DISEASE W (ACUTE) EXACERBATION
--- NOTE | 2018-10-23 12:45 | PN ---
Progress Note (short form) - Note Progress Note: GI follow up LFTs improving Patient denies abdominal pain Vitals unremarkable NAD, abdomen benign Labs reviewed, of note, AP 213, AST 68, ALT 71, all improving Serologies pending Impression: mild elevation in transaminases, possibly from suspected pulmonary HTN/right heart failure Follow up MRCP to definitively rule out CBD stone Continue to trend LFTs Marleen Jung MD
[2018-10-23] MEDS: MUPIROCIN 2% TOPICAL OINTMENT 22 GM TUBE TP SCH (13:27)
[2018-10-23] MEDS: AMMONIUM LACTATE 12% LOTION 225 GM BOTTLE TP SCH (13:28)
[2018-10-23] MEDS: FLUOCINONIDE 0.05% CREAM (15 GM TUBE) TP SCH (13:28)
--- NOTE | 2018-10-23 15:25 | PN ---
Progress Note, Physician - Current Medication List Current Medications: Active Medications Acetaminophen (Tylenol -) 650 mg PO Q6H PRN PRN Reason: FEVER Last Admin: 10/18/18 22:04 Dose: 650 mg Acetaminophen/Butalbital/Caffeine (Fioricet -) 1 tablet PO Q6H PRN PRN Reason: HEADACHE Last Admin: 10/23/18 09:22 Dose: 1 tablet Al Hydroxide/Mg Hydroxide (Mylanta Oral Suspension -) 30 ml PO Q4H PRN PRN Reason: INDIGESTION Last Admin: 10/23/18 00:17 Dose: 30 ml Allopurinol (Zyloprim -) 100 mg PO HS [facility] Last Admin: 10/22/18 22:13 Dose: 100 mg Amlodipine Besylate (Norvasc -) 10 mg PO DAILY [facility] Last Admin: 10/23/18 09:24 Dose: 10 mg Arformoterol Tartrate (Brovana (Restricted To Pulmonology/Resp) -) 1 amp NEB RBID [facility] Last Admin: 10/23/18 08:20 Dose: 1 amp Aspirin (Ecotrin -) 325 mg PO DAILY [facility] Last Admin: 10/23/18 09:26 Dose: 325 mg Benzocaine/Menthol (Cepacol Lozenge -) 1 each MM PRN PRN PRN Reason: SORE THROAT Citalopram Hydrobromide (Celexa -) 20 mg PO TID [facility] Last Admin: 10/23/18 13:53 Dose: 20 mg Enoxaparin Sodium (Lovenox -) 40 mg SQ DAILY [facility] Last Admin: 10/23/18 09:27 Dose: 40 mg Fluocinonide (Lidex 0.05% Cream -) 1 applic TP BID [facility] Last Admin: 10/23/18 13:28 Dose: 1 applic Hydrocortisone (Anusol 2.5% Hc Cream -) 1 applic IN HS [facility] Last Admin: 10/22/18 22:10 Dose: 1 applic Lactic Acid (Lac-Hydrin 12) 1 applic TP DAILY [facility] Last Admin: 10/23/18 13:28 Dose: Not Given Levofloxacin (Levaquin -) 250 mg PO DAILY@0600 [facility] Levothyroxine Sodium (Synthroid -) 112 mcg PO DAILY@0700 [facility] Last Admin: 10/23/18 06:13 Dose: 112 mcg Metoprolol Tartrate (Lopressor -) 100 mg PO BID [facility] Last Admin: 10/23/18 09:24 Dose: 100 mg Mupirocin (Bactroban 2% Ointment -) 1 applic TP BID [facility] Last Admin: 10/23/18 13:27 Dose: 1 applic Nortriptyline HCl (Pamelor -) 50 mg PO HS [facility] Last Admin: 10/22/18 22:12 Dose: 50 mg Ondansetron HCl (Zofran -) 4 mg PO BID PRN PRN Reason: NAUSEA AND/OR VOMITING Last Admin: 10/22/18 22:10 Dose: 4 mg Pantoprazole Sodium (Protonix -) 40 mg PO BID [facility] Last Admin: 10/23/18 09:24 Dose: 40 mg Polyethylene Glycol (Miralax (For Daily Use) -) 17 gm PO BID [facility] Last Admin: 10/23/18 09:27 Dose: Not Given Pramipexole Dihydrochloride (Mirapex -) 0.25 mg PO TID [facility] Last Admin: 10/23/18 13:54 Dose: 0.25 mg Prednisone (Deltasone -) 40 mg PO DAILY [facility] Last Admin: 10/23/18 09:23 Dose: 40 mg Rosuvastatin Calcium (Crestor -) 10 mg PO HS [facility] Last Admin: 10/22/18 22:11 Dose: 10 mg Sodium Chloride (Sodium Chloride Tablet -) 1 gm PO BID [facility] Last Admin: 10/23/18 09:25 Dose: 1 gm Sucralfate (Carafate Oral Suspension -) 1 gm PO BID [facility] Last Admin: 10/23/18 09:24 Dose: 1 gm Tiotropium [place] (Spiriva Respimat) 2 puff IH DAILY [facility] Last Admin: 10/23/18 09:27 Dose: 2 puff Triamterene/HCTZ (Dyazide 25/37.5mg) 1 cap PO DAILY [facility] Last Admin: 10/23/18 09:26 Dose: 1 cap - Objective Vital Signs: Vital Signs Temperature 97.3 F L 10/23/18 10:00 Pulse Rate 78 10/23/18 10:00 Respiratory Rate 20 10/23/18 10:00 Blood Pressure 130/68 10/23/18 10:00 O2 Sat by Pulse Oximetry (%) 90 L 10/23/18 08:11 Labs: CBC, BMP 10/23/18 06:30 10/23/18 06:30 INR, PTT INR 1.02 (0.83-1.09) 10/18/18 05:05
[2018-10-23 16:04] VITALS: BP 118/75; PULSE 88; TEMP 98.4
[2018-10-23] MEDS ORDERED: PT OWN MED DRAWER 7, Y5N ONE (16:15)
[2018-10-23] MEDS: ONDANSETRON 4 MG TABLET PO PRN (16:16)
[2018-10-24 04:15] LABS: HEP.C VIRUS AB 0.1 s/co ratio (0.0-0.9)
== END 2018-10-23 17:40 | disposition home health service (06) | DRG 193 ==
LOC: JER 18:51 → JERBED 10-18 01:44 → J5S 10-18 05:33
PROVIDERS: ADMIT Internal Medicine; ATTEND Internal Medicine
DX: J18.9 Pneumonia, unspecified organism (principal); J96.21 Acute and chronic respiratory failure with hypoxia; E87.1 Hypo-osmolality and hyponatremia; M25.572 Pain in left ankle and joints of left foot; J43.9 Emphysema, unspecified; I10 Essential (primary) hypertension; I25.2 Old myocardial infarction; I25.10 Atherosclerotic heart disease of native coronary artery without angina pectoris; Z87.891 Personal history of nicotine dependence; Z88.0 Allergy status to penicillin; Z90.2 Acquired absence of lung [part of]; E89.0 Postprocedural hypothyroidism; M10.9 Gout, unspecified; F32.9 Major depressive disorder, single episode, unspecified; R73.03 Prediabetes; G43.909 Migraine, unspecified, not intractable, without status migrainosus; F41.9 Anxiety disorder, unspecified; R91.8 Other nonspecific abnormal finding of lung field; L30.9 Dermatitis, unspecified; I27.20 Pulmonary hypertension, unspecified; R74.0 Nonspecific elevation of levels of transaminase and lactic acid dehydrogenase [LDH]
CPT/HCPCS: 36415; 36600; 71045-TC-FY; 71275-TC; 73610-TC-LT-FY; 73630-TC-LT; 74181-TC; 76700-TC; 76705-TC; 80048; 80053; 80061; 80074; 82150; 82803; 83036; 83516; 83605; 83690; 83721; 83735; 83880; 84100; 84439; 84443; 84484; 84550; 85025; 85027; 85610; 85730; 86038; 86705; 87899; 93005; 93010; 93923; 94640; 94761; 97116-GP; 97161-GP; 99285-25

== ENCOUNTER 2019-08-04 05:47 | Inpatient (IN) | payer OTHER, MEDICARE ==
--- NOTE | 2019-08-04 05:54 | PDOC ---
History of Present Illness - General Chief Complaint: Shortness of Breath Stated Complaint: SOB,FEVER Time Seen by Provider: 08/04/19 05:53 - History of Present Illness Initial Comments: 08/04/19 06:17 The patient is a 73 year old female with a history of HTN, HLD, CAD, COPD who presents for evaluation of shortness of breath and fever. She is accompanied by family who assist in providing the history. The patient reports that she recent had a URI 1 week ago and awoke this morning experiencing worsening shortness of breath. She notes that she was experiencing chills and "shaking" and reports subjective fever prompting her presentation to the ED for further evaluation. She otherwise denies chest pain, nausea, vomiting, abdominal pain, or changes with urination or bowel movements. Past History - Past Medical History Allergies/Adverse Reactions: Allergies Allergy/AdvReac Type Severity Reaction Status Date / Time buspirone HCl [From BuSpar] Allergy Verified 08/04/19 06:09 carbamazepine [From Tegretol] Allergy Verified 08/04/19 06:09 celecoxib [From Celebrex] Allergy Verified 08/04/19 06:09 hydralazine Allergy Verified 08/04/19 06:09 Penicillins Allergy Verified 08/04/19 06:09 valsartan [From Diovan] Allergy Verified 08/04/19 06:09 Home Medications: Ambulatory Orders Acetaminophen/Caffeine/Butalb [Fioricet -] 1 tab PO Q4H PRN 03/03/16 Aspirin Coated [Ecotrin -] 325 mg PO DAILY 03/03/16 Budesonide/Formeterol Fumarate [SYMBICORT 160/4.5mcg -] 1 inh PO BID 03/03/16 Citalopram Hydrobromide [Citalopram HBr] 20 mg PO TID 03/03/16 Codeine Sulfate - 30 mg PO Q6H PRN 03/03/16 Nortriptyline HCl [Pamelor -] 50 mg PO HS 03/03/16 Omeprazole [Prilosec] 40 mg PO DAILY 03/03/16 Rosuvastatin [Crestor -] 10 mg PO DAILY 03/03/16 Tiotropium [place] [Spiriva] 1 inh PO DAILY 03/03/16 Triamterene/Hydrochlorothiazid [Triamterene-Hctz 37.5-25 mg Tb] 1 each PO DAILY 03/03/16 Allopurinol [Zyloprim -] 100 mg PO HS 03/04/16 Levothyroxine [Synthroid -] 112 mcg PO DAILY 03/04/16 Amlodipine Besylate 10 mg PO DAILY 10/18/18 Metoprolol Tartrate 100 mg PO BID 10/18/18 Pramipexole Dihydrochloride [Mirapex -] 0.25 mg PO TID 10/18/18 levoFLOXacin [Levaquin -] 250 mg PO DAILY@0600 #5 tablet 10/23/18 predniSONE [Deltasone -] 40 mg PO DAILY #60 tablet 10/23/18 Cardiac Disorders: Yes (2005) COPD: Yes Dementia: No Diabetes: No HTN: Yes Hypercholesterolemia: Yes Seizures: No Thyroid Disease: Yes (overactive goiter removed) - Surgical History Lung Surgery: Yes (rt pneumo thorax thoracotomy) - Immunization History Immunization Up to Date: Yes - Suicide/Smoking/Psychosocial Hx Smoking History: Former smoker Have you smoked in the past 12 months: No If you are a former smoker, when did you quit?: 1983 Hx Alcohol Use: No Drug/Substance Use Hx: No Substance Use Type: None Hx Substance Use Treatment: No Review of Systems - Review of Systems Comments:: 08/04/19 06:20 Constitutional: Fevers, Chills, No fatigue, malaise HEENT: No Rhinorrhea, nasal congestion, visual changes Cardiovascular: No chest pain, syncope, palpitations, lightheadedness Respiratory: SOB. No Hemoptysis, Gastrointestinal: No Abdominal pain, Nausea, Vomiting, Constipation, Diarrhea, Melena Genitourinary: No Dysuria, Frequency, Urgency, Hesitancy, Hematuria, Flank pain Musculoskeletal: No Myalgia, arthralgia Skin: No rashes, itching, bruising, pallor Neurologic: Headache. No Dizziness, Numbness, Weakness, or Tingling Psychiatric: No Hallucinations. No SI or HI *Physical Exam - Physical Exam Comments: 08/04/19 06:20 General Appearance: Nourished. No Apparent Distress HEENT: EOMI, ROBERT. No Pharyngeal Erythema, Tonsillar Exudate, Tonsillar Erythema Neck: No Cervical Lymphadenopathy Respiratory/Chest: Poor air movement with diffuse wheezing noted on exam. No Crackles, Rales, Rhonchi, Cardiovascular: Regular Rhythm, Regular Rate. No Murmur, Gallops, Rubs Gastrointestinal/Abdominal: Normal Bowel Sounds, Soft. No Guarding, Rebound, Tenderness Musculoskeletal: No CVA Tenderness Extremity: Normal Capillary Refill Integumentary: Normal Color, Dry, Warm Neurologic: Fully Oriented, Alert, Normal Mood/Affect, Normal Response, Medical Decision Making - Medical Decision Making 08/04/19 06:21 The patient is a 73 year old female with a history of HTN, HLD, CAD, COPD who presents for evaluation of shortness of breath and fever. Differential includes but is not limited to: Sepsis, Pneumonia, COPD exacerbation, Infectious , Metabolic Derangement. Given the patient's history and physical exam, we will obtain a cbc, cmp, troponin, ekg, ua, urine culture, chest plain film, blood culture to evaluate further. We will treat with iv fluids, tylenol, duonebs, solu-medrol and continue to monitor and reassess while here in the ED. We will defer antibiotic treatment at this time until a source is identified. 08/04/19 06:49 The patient signed out to Dr. Tobin with the day team pending lab results and dispo. *DC/Admit/Observation/Transfer Diagnosis at time of Disposition: SOB (shortness of breath) - Referrals Referrals: Ryan Grande MD [Primary Care Provider] - - Patient Instructions - Post Discharge Activity
[2019-08-04] MEDS ORDERED: SODIUM CHLORIDE 1,000 ML IV STA (06:05)
[2019-08-04] MEDS ORDERED: methylPREDNISolone NA SUCC 125 MG/2 ML VIAL IVPUSH ONE (06:05)
[2019-08-04] MEDS ORDERED: ALBUTEROL SO4 2.5/IPRATROPIUM 0.5 INH SOL 3 ML VIAL.NEB. NEB ONE ×2 (06:05→06:44)
[2019-08-04] MEDS ORDERED: ACETAMINOPHEN 1000 MG/100 ML VIAL (NON FORMULARY) IVPB ONE (06:05)
--- NOTE | 2019-08-04 06:29 | PDOC ---
Attending Attestation - Resident Resident Name: Harsha Barakat - ED Attending Attestation I have performed the following: I have examined & evaluated the patient, The case was reviewed & discussed with the resident, I agree w/resident's findings & plan - HPI HPI: 08/04/19 20:10 73 year old female with a history of HTN, HLD, CAD, COPD who presents for evaluation of shortness of breath and fever. She recent had a URI 1 week ago and awoke this morning experiencing worsening shortness of breath, chills tremors subjective fever, so she came to the ED for evaluation. No chest pain, nausea, vomiting, abdominal pain, or changes with urination or bowel movements. /family at bedside. - Physicial Exam PE: 08/04/19 20:12 Agree with resident exam. Pt appears well on oxygen NC 2L; she is able to ambulate to and from the bathroom Afebrile in the ER> Pt is thin and appears somewhat dehydrated. Abd soft NT ND; Heart and lungs clear. - Medical Decision Making 08/04/19 20:13 Pt signed out to the day team; they will follow all results and imaging and EKG and they will disposition the patient.
[2019-08-04] MEDS ORDERED: methylPREDNISolone NA SUCC 125 MG/2 ML VIAL ONE (06:44)
--- NOTE | 2019-08-04 07:21 | PDOC ---
*Physical Exam - Vital Signs Last Vital Signs Temp Pulse Resp BP Pulse Ox 99.2 F 87 18 141/78 100 08/04/19 06:02 08/04/19 06:02 08/04/19 06:02 08/04/19 06:02 08/04/19 06:02 ED Treatment Course - LABORATORY CBC & Chemistry Diagram: 08/04/19 07:05 08/04/19 07:05 - Medications Given in the ED: ED Medications Discontinued Medications Generic Name Dose Route Start Last Admin Trade Name Gutierrez PRN Reason Stop Dose Admin Albuterol/Ipratropium 3 amp 08/04/19 06:05 08/04/19 06:55 Duoneb - NEB 08/04/19 06:06 3 amp ONCE ONE Administration Medical Decision Making - Medical Decision Making 08/04/19 07:20 Patient signed out by Dr. Barakat (PGY-3) and Dr. Estrada (Attending) @ 0639 73 y/o female h/o COPD, HTN, HLD, CAD presents for dyspnea and subjective fever. H/o recent viral URI s/p Zithromax + Predisone for presumptive COPD exacerbation. Labs, CXR pending - ? COPD exacerbation vs. PNA, also consider r/ o ACS Patient reassessed @ bedside, on Duo-Nebs, speaking full sentences comfortably, ambulatory to bathroom. 08/04/19 08:28 Reassessed @ bedside s/p Duo-Neb x3, continues to have bibasilar wheezing 08/04/19 08:29 K+ 3.2 - PO replacement CBC significant for Hb 8.9 - FOBT pending My read of CXR shows no infiltrate At this time, I believe patient requires admission for further evaluation of new onset anemia. Patient and patient's at bedside counseled on plan of care - amenable to admission 08/04/19 10:20 Case d/w KELLY Dorantes will admit for anemia w/u in addition to observation for possible COPD exacerbation OTD of Levaquin *DC/Admit/Observation/Transfer Diagnosis at time of Disposition: SOB (shortness of breath) - Referrals - Patient Instructions - Post Discharge Activity
[2019-08-04 07:33] LABS: VENOUS PH 7.36 (7.31-7.41)
[2019-08-04 07:36] LABS: BASO % 0.3 % (0-2.0); HEMOGLOBIN 8.9 GM/dL (10.7-15.3); LYMPH % 4.6 % (8-40); MCH 25.6 pg (25.7-33.7); MCHC 31.9 g/dl (32.0-36.0); MEAN CELL VOLUME 80.3 fl (80-96); MEAN PLT VOLUME 7.2 fl (7.5-11.1); MONO % 8.6 % (3.8-10.2); NEUT % 85.5 % (42.8-82.8); PLATELET COUNT 215 K/MM3 (134-434); RBC 3.49 M/mm3 (3.60-5.2); RDW 18.9 % (11.6-15.6); WHITE BLOOD COUNT 8.2 K/mm3 (4.0-10.0)
[2019-08-04 07:38] LABS: VENOUS PO2 < 49 mmHg (28-48)
[2019-08-04 07:50] LABS: INR 1.16 (0.83-1.09); PROTHROMBIN TIME (PATIENT) 13.7 SEC (9.7-13.0)
[2019-08-04 08:04] LABS: ALBUMIN 3.2 g/dl (3.4-5.0); BILIRUBIN,TOTAL 0.4 mg/dL (0.2-1); BLOOD UREA NITROGEN 20.4 mg/dL (7-18); CREATININE 0.8 mg/dL (0.55-1.3); POTASSIUM 3.2 mmol/L (3.5-5.1); TOT PROT 6.3 g/dl (6.4-8.2)
[2019-08-04] MEDS ORDERED: POTASSIUM CHLORIDE ORAL LIQUID 20 MEQ/15 ML PO ONE (08:29)
[2019-08-04] MEDS ORDERED: POTASSIUM CHLORIDE ORAL LIQUID 20 MEQ/15 ML ONE (09:11)
[2019-08-04 09:22] LABS: HYALINE CASTS 0 /lpf (0-8); PH,URINE 7.5 (5.0-8.0); URINE APPEARANCE CLEAR; URINE BACTERIA 35.9 /hpf (NEGATIVE); URINE BILIRUBIN NEGATIVE (NEGATIVE); URINE COLOR YELLOW; URINE GLUCOSE (UA) NEGATIVE (NEGATIVE); URINE KETONE NEGATIVE (NEGATIVE); URINE LEUK ESTERASE 1+ (NEGATIVE); URINE NITRITE NEGATIVE (NEGATIVE); URINE PROTEIN 1+ (NEGATIVE); URINE RBC 1 /hpf (0-4); URINE UROBILINOGEN 0.2 mg/dL (0.2-1.0); URINE WBC 11 /hpf (0-5)
--- NOTE | 2019-08-04 15:32 | HP ---
CHIEF COMPLAINT: shortness of breath, weakness PCP: Dr. Grande, PCP Dr. Tyler, cardiology HISTORY OF PRESENT ILLNESS: Patient is a 73 year old female with a significant past medical history of COPD (home oxygen dependent at 2 liters), emphysema, right lung spontaneous pneumothorax s/p RUL lobectomy 1983, hypertension, HLD and CAD. She presents for dyspnea for one week with subjective fever and chills. Today her noted that she had worsening non productive cough and shortness of breath which prompted an ED visit. Patient reports recently completed PO antibiotics and prednisone for COPD exacerbation as an outpatient. She is home oxygen dependent at 2 -3 liters and wears it continuously. She has home inhalers for her COPD but did not get any relief from them. She noted that she found herself wheezing more and unable to tolerate any physical activity. Patient denies CP, abdominal pain, or sick contacts. ED labs shows anemia with a hemaglobin of 8.9, on 10/2018, hemaglogin was 12.5. Attempted to draw a guiac, but no stool on vault. Stool for occult blood requested. Will start on protonix PO and consult GI. She is on full strength ASA 325mg daily for CAD. ER course was notable for: (1) levaquin 500mg (2) solumedrol (3) chest xray shows widened mediatinum on the right with clips and gomez, apical pleural thickening on the right, weak inspiration and some scarring or atelectasis in the left mid and lower lung golden. (4) hmg 8.9, decreased from 12.5 on labs 10/2018. Recent Travel: denies PAST MEDICAL HISTORY: COPD (home oxygen dependent at 2 liters), emphysema, right lung spontaneous pneumothorax s/p RUL lobectomy 1983, hypertension, HLD and CAD Social History: Smoking: quit 1984 Alcohol: denies Drugs: denies Allergies buspirone HCl [From BuSpar] Allergy (Verified 08/04/19 06:09) carbamazepine [From Tegretol] Allergy (Verified 08/04/19 06:09) celecoxib [From Celebrex] Allergy (Verified 08/04/19 06:09) hydralazine Allergy (Verified 08/04/19 06:09) Penicillins Allergy (Verified 08/04/19 06:09) valsartan [From Diovan] Allergy (Verified 08/04/19 06:09) HOME MEDICATIONS: Home Medications Medication Instructions Recorded Acetaminophen/Caffeine/Butalb 1 tab PO Q4H PRN 03/03/16 [Fioricet -] Aspirin Coated [Ecotrin -] 325 mg PO DAILY 03/03/16 Budesonide/Formeterol Fumarate 1 inh PO DAILY 03/03/16 [SYMBICORT 160/4.5mcg -] Citalopram Hydrobromide 20 mg PO TID 03/03/16 [Citalopram HBr] Codeine Sulfate - 30 mg PO Q6H PRN 03/03/16 Nortriptyline HCl [Pamelor -] 50 mg PO BID 03/03/16 Omeprazole [Prilosec] 40 mg PO BID 03/03/16 Allopurinol [Zyloprim -] 300 mg PO HS 03/04/16 Levothyroxine [Synthroid -] 112 mcg PO DAILY 03/04/16 Pramipexole Dihydrochloride 0.25 mg PO TID 10/18/18 [Mirapex -] Atorvastatin Ca [Lipitor] 40 mg PO HS 08/04/19 Citalopram Hydrobromide [Celexa -] 20 mg PO DAILY 08/04/19 Metoprolol Tartrate [Lopressor] 100 mg PO BID 08/04/19 Sumatriptan Succinate [Imitrex -] 100 mg PO PRN PRN 08/04/19 Tiotropium [place] [Spiriva 1.25 mg PO DAILY 08/04/19 Respimat] Vital Signs - 24 hr 08/04/19 08/04/19 08/04/19 06:02 06:45 07:49 Temperature 99.2 F Pulse Rate 87 Pulse Rate [ 102 H Right Radial] Respiratory 18 20 Rate Blood Pressure 141/78 Blood Pressure 120/65 [Left Arm] O2 Sat by Pulse 100 100 96 Oximetry (%) 08/04/19 08/04/19 08/04/19 10:00 10:17 11:40 Temperature 98.5 F Pulse Rate Pulse Rate [ 85 Right Radial] Respiratory 17 Rate Blood Pressure Blood Pressure 129/72 [Left Arm] O2 Sat by Pulse 95 98 Oximetry (%) GENERAL: Awake, alert, in mild respiratory distress. HEAD: Normal with no signs of trauma. EYES: Pupils equal, round and reactive to light, extraocular movements intact, sclera anicteric, conjunctiva clear. No lid lag. EARS, NOSE, THROAT: Ears normal, nares patent, oropharynx clear without exudates. Moist mucous membranes. NECK: Normal range of motion, supple without lymphadenopathy, JVD, or masses. LUNGS: wheezing, mild throughout lung golden. HEART: Regular rate and rhythm ABDOMEN: Soft, nontender, not distended, normoactive bowel sounds, no guarding, no rebound, no masses. No hepatomegaly or splenomegaly. MUSCULOSKELETAL: No CVA tenderness. UPPER EXTREMITIES: No peripheral edema. LOWER EXTREMITIES: No peripheral edema. NEUROLOGICAL: Normal speech. PSYCHIATRIC: Cooperative. Good eye contact. Appropriate mood and affect. SKIN: Warm, dry, normal turgor, no rashes or lesions noted, normal capillary refill. Laboratory Results - last 24 hr 08/04/19 08/04/19 08/04/19 07:05 07:05 07:05 WBC 8.2 RBC 3.49 L Hgb 8.9 L Hct 28.0 L D MCV 80.3 MCH 25.6 L MCHC 31.9 L RDW 18.9 H Plt Count 215 D MPV 7.2 L Absolute Neuts (auto) 7.0 Neutrophils % 85.5 H Lymphocytes % 4.6 L D Monocytes % 8.6 Eosinophils % 1.0 D Basophils % 0.3 Nucleated RBC % 0 PT with INR INR PTT (Actin FS) 29.6 VBG pH POC VBG pCO2 POC VBG pO2 VBG HCO3 VBG O2 Sat ([place]) VBG Base Excess Sodium 135 L Potassium 3.2 L Chloride 97 L Carbon Dioxide 31 Anion Gap 7 L BUN 20.4 H Creatinine 0.8 Est GFR (CKD-EPI)AfAm 84.77 Est GFR (CKD-EPI)NonAf 73.14 Random Glucose 93 Lactic Acid Calcium 9.0 Iron 19 L TIBC 349 Iron Saturation 5 L Unsaturated IBC 330 H Ferritin 19.8 Total Bilirubin 0.4 AST 59 H ALT 41 Alkaline Phosphatase 169 H Troponin I 0.03 B-Natriuretic Peptide Total Protein 6.3 L Albumin 3.2 L Urine Color Urine Appearance Urine pH Ur Specific [place] Urine Protein Urine Glucose (UA) Urine Ketones Urine Blood Urine Nitrite Urine Bilirubin Urine Urobilinogen Ur Leukocyte Esterase Urine WBC (Auto) Urine RBC (Auto) Urine Casts (Auto) U Epithel Cells (Auto) U Sm Round Cell (Auto) Urine Bacteria (Auto) 08/04/19 08/04/19 08/04/19 07:05 07:05 07:05 WBC RBC Hgb Hct MCV MCH MCHC RDW Plt Count MPV Absolute Neuts (auto) Neutrophils % Lymphocytes % Monocytes % Eosinophils % Basophils % Nucleated RBC % PT with INR 13.70 H INR 1.16 H PTT (Actin FS) VBG pH 7.36 POC VBG pCO2 56.0 H POC VBG pO2 < 49 H VBG HCO3 30.8 H VBG O2 Sat ([place]) 63.4 L VBG Base Excess 5.0 H Sodium Potassium Chloride Carbon Dioxide Anion Gap BUN Creatinine Est GFR (CKD-EPI)AfAm Est GFR (CKD-EPI)NonAf Random Glucose Lactic Acid Calcium Iron TIBC Iron Saturation Unsaturated IBC Ferritin Total Bilirubin AST ALT Alkaline Phosphatase Troponin I B-Natriuretic Peptide Cancelled Total Protein Albumin Urine Color Urine Appearance Urine pH Ur Specific [place] Urine Protein Urine Glucose (UA) Urine Ketones Urine Blood Urine Nitrite Urine Bilirubin Urine Urobilinogen Ur Leukocyte Esterase Urine WBC (Auto) Urine RBC (Auto) Urine Casts (Auto) U Epithel Cells (Auto) U Sm Round Cell (Auto) Urine Bacteria (Auto) 08/04/19 08/04/19 07:15 08:00 WBC RBC Hgb Hct MCV MCH MCHC RDW Plt Count MPV Absolute Neuts (auto) Neutrophils % Lymphocytes % Monocytes % Eosinophils % Basophils % Nucleated RBC % PT with INR INR PTT (Actin FS) VBG pH POC VBG pCO2 POC VBG pO2 VBG HCO3 VBG O2 Sat ([place]) VBG Base Excess Sodium Potassium Chloride Carbon Dioxide Anion Gap BUN Creatinine Est GFR (CKD-EPI)AfAm Est GFR (CKD-EPI)NonAf Random Glucose Lactic Acid 1.0 Calcium Iron TIBC Iron Saturation Unsaturated IBC Ferritin Total Bilirubin AST ALT Alkaline Phosphatase Troponin I B-Natriuretic Peptide Total Protein Albumin Urine Color Yellow Urine Appearance Clear Urine pH 7.5 D Ur Specific [place] 1.013 Urine Protein 1+ H Urine Glucose (UA) Negative Urine Ketones Negative Urine Blood Negative Urine Nitrite Negative Urine Bilirubin Negative Urine Urobilinogen 0.2 Ur Leukocyte Esterase 1+ H Urine WBC (Auto) 11 Urine RBC (Auto) 1 Urine Casts (Auto) 0 U Epithel Cells (Auto) 5.0 U Sm Round Cell (Auto) None seen Urine Bacteria (Auto) 35.9 ASSESSMENT/PLAN: Family Medical History Family History: Denies Problem List - Problem (1) Acute hypoxemic respiratory failure Assessment/Plan: History of COPD on 2 liters of nasal cannula a home she also has a history of emphysema, right lung spontaneous pneumothorax s/p RUL lobectomy 1983. Presents with worsening shortness of breath from baseline. will perform d dimer, if elevated, then will need a CTA to rule out PE Given Levaquin and solumedrol in the Ed. continue solumedrol, bronchodilators, protonix for GI protection. pulmonary consulted. Code(s): J96.01 - ACUTE RESPIRATORY FAILURE WITH HYPOXIA (2) SOB (shortness of breath) Assessment/Plan: secondary to COPD, but PE needs to be ruled out. Code(s): R06.02 - SHORTNESS OF BREATH (3) Chills with fever Assessment/Plan: subjective fever and chills at home. pancultured. given levaquin 500mg in the ED. consult ID - for further recommendations. blood and urine cultures pending lactic acid within normal limits. Code(s): R50.9 - FEVER, UNSPECIFIED (4) Anemia Assessment/Plan: hmg dropped significantly from 10/2018. Attempted to get guaiac, but no stool in vault. stool for occult blood ordered. She is on ASA 325mg daily (coated) for CAD. will hold ASA and start on protonix. iron studies show iron def anemia, GI consulted for further recommendations. monitor CBC daily Code(s): D64.9 - ANEMIA, UNSPECIFIED (5) CAD (coronary artery disease), [place] coronary artery Assessment/Plan: on ASA 325mg, holding ASA for anemia. consider cardiology consult. CAD w/o stents. Code(s): I25.10 - ATHSCL HEART DISEASE OF [place] CORONARY ARTERY W/O ANG PCTRS Qualifiers: [place] vs. transplanted heart: [place] heart Associated angina: without angina Qualified Code(s): I25.10 - Atherosclerotic heart disease of [place] coronary artery without angina pectoris (6) COPD exacerbation Assessment/Plan: pulmonary consulted. solumedrol oxygen therapy and bronchodilators. Code(s): J44.1 - CHRONIC OBSTRUCTIVE PULMONARY DISEASE W (ACUTE) EXACERBATION (7) Prophylactic measure Assessment/Plan: fen low salt diet monitor electrolytes full code DVT prophy: heparin bid with close monitoring of hmg/hct. Code(s): Z29.9 - ENCOUNTER FOR PROPHYLACTIC MEASURES, UNSPECIFIED Visit type - Emergency Visit Emergency Visit: Yes ED Registration Date: 08/04/19 Care time: The patient presented to the Emergency Department on the above date and was hospitalized for further evaluation of their emergent condition. - New Patient This patient is new to me today: Yes Date on this admission: 08/05/19 - Critical Care Critical Care patient: No
[2019-08-04] MEDS ORDERED: SUMAtriptan SUCCINATE 50 MG TABLET PO PRN (15:36)
[2019-08-04] MEDS ORDERED: PANTOPRAZOLE 40 MG TABLET (FP) PO ONE (16:59)
[2019-08-04] MEDS ORDERED: PANTOPRAZOLE 40 MG TABLET (FP) ONE (17:10)
[2019-08-04] MEDS ORDERED: ACETAMINOPHEN/CAFFEINE/BUTALBITAL 1 TAB ONE (17:15)
[2019-08-04] MEDS: ACETAMINOPHEN/CAFFEINE/BUTALBITAL 1 TAB PO PRN (17:18)
[2019-08-04] MEDS ORDERED: IRON SUCROSE INJECTION 100 MG in SODIUM CHLORIDE 95 ML IVPB ONE (17:59)
[2019-08-04] MEDS ORDERED: methylPREDNISolone NA SUCC 40 MG/1 ML VIAL ONE (18:14)
[2019-08-04] MEDS: methylPREDNISolone NA SUCC 40 MG/1 ML VIAL IVPUSH SCH (18:30)
[2019-08-04] MEDS ORDERED: MAG HYDROX/AL HYDROX/SIMETH 30 ML UNIT-DOSE CUP PO ONE (19:46)
[2019-08-04] MEDS ORDERED: MAG HYDROX/AL HYDROX/SIMETH 30 ML UNIT-DOSE CUP ONE (19:48)
[2019-08-04] MEDS ORDERED: ALBUTEROL SO4 2.5/IPRATROPIUM 0.5 INH SOL 3 ML VIAL.NEB. NEB SCH (20:00)
[2019-08-04] MEDS: ALLOPURINOL 300 MG TABLET (FP) PO SCH (22:00)
[2019-08-04] MEDS: METOPROLOL TARTRATE 50 MG TABLET (FP) PO SCH (22:00)
[2019-08-04] MEDS ORDERED: NORTRIPTYLINE HCL 50 MG CAPSULE PO SCH (22:00)
[2019-08-04] MEDS: NORTRIPTYLINE HCL 25 MG CAPSULE PO SCH (22:01)
[2019-08-04] MEDS: CITALOPRAM HYDROBROMIDE 20 MG TABLET (FP) PO SCH (22:01)
[2019-08-04] MEDS: ATORVASTATIN CA 40 MG TABLET (FP) PO SCH (22:01)
[2019-08-04] MEDS ORDERED: ALBUTEROL SO4 2.5/IPRATROPIUM 0.5 INH SOL 3 ML VIAL.NEB. NEB PRN (22:15)
[2019-08-04 22:39] LABS: ARTERIAL BLD GAS O2 SATURATION 98.1 % (95-98); ARTERIAL BLOOD GAS BASE EXCESS 3.4 meq/l (-2-2); ARTERIAL BLOOD GAS PCO2 44.3 mmHg (35-45); ARTERIAL BLOOD GAS PO2 103 mmHg (80-100); ARTERIAL BLOOD GAS pH 7.42 (7.35-7.45)
[2019-08-05] MEDS: ACETAMINOPHEN/CAFFEINE/BUTALBITAL 1 TAB PO PRN ×3 (00:13→21:23)
[2019-08-05] MEDS: MAG HYDROX/AL HYDROX/SIMETH 30 ML UNIT-DOSE CUP PO PRN (00:13)
[2019-08-05] MEDS: methylPREDNISolone NA SUCC 40 MG/1 ML VIAL IVPUSH SCH ×3 (01:32→17:48)
[2019-08-05] MEDS: LEVOTHYROXINE NA 112 MCG TABLET (FP) PO SCH (06:08)
[2019-08-05] MEDS: CITALOPRAM HYDROBROMIDE 20 MG TABLET (FP) PO SCH ×3 (06:08→21:05)
[2019-08-05 09:54] LABS: BASO % 0.1 % (0-2.0); HEMATOCRIT 29.1 % (32.4-45.2); HEMOGLOBIN 9.3 GM/dL (10.7-15.3); LYMPH % 6.3 % (8-40); MCH 25.6 pg (25.7-33.7); MCHC 31.9 g/dl (32.0-36.0); MEAN CELL VOLUME 80.3 fl (80-96); MEAN PLT VOLUME 7.1 fl (7.5-11.1); MONO % 5.4 % (3.8-10.2); NEUT % 88.2 % (42.8-82.8); PLATELET COUNT 239 K/MM3 (134-434); RBC 3.62 M/mm3 (3.60-5.2); RDW 19.4 % (11.6-15.6); WHITE BLOOD COUNT 9.7 K/mm3 (4.0-10.0)
[2019-08-05 10:19] LABS: ALBUMIN 3.3 g/dl (3.4-5.0); ALK PHOS 162 U/L (45-117); ANION GAP 6 MMOL/L (8-16); BILIRUBIN,TOTAL 0.2 mg/dL (0.2-1); BLOOD UREA NITROGEN 16.2 mg/dL (7-18); CALCIUM 9.3 mg/dL (8.5-10.1); CHLORIDE 102 mmol/L (98-107); CHOLESTEROL 174 mg/dL (50-200); CO2 30 mmol/L (21-32); CREATININE 0.7 mg/dL (0.55-1.3); GLUCOSE,RANDOM 119 mg/dL (74-106); HDL CHOLESTEROL 57 mg/dL (40-60); MAGNESIUM 2.5 mg/dL (1.8-2.4); SGOT/AST 72 U/L (15-37); SGPT/ALT 48 U/L (13-61); SODIUM 138 mmol/L (136-145); TOT PROT 6.5 g/dl (6.4-8.2); TRIGLYCERIDES 65 mg/dL (0-150)
--- NOTE | 2019-08-05 11:32 | PN ---
Progress Note (short form) - Note Progress Note: PULMONARY CONSULTATION DICTATED08/05/19 IMP ADVANCED COPD O2 DEPENDENT WITH ACUTE EXACERBATION BACTEREMIA LIKELY H/O RUL LOBECTOMY 1983 SECONDARY TO COLLAPSED LUNG ASHD S/P HI 1983 GOUT PRERNA CONSOLIDATION CHRONIC HYPOTHYROID ANEMIA PLAN ABX INHALED BRONCHODILATORS O2 CHECK CULTURES MEDROL MONITOR LYPARDEEP PUENTE Problem List - Problems (1) Bacteremia Code(s): R78.81 - BACTEREMIA (2) SOB (shortness of breath) Code(s): R06.02 - SHORTNESS OF BREATH (3) CAD (coronary artery disease), [place] coronary artery Code(s): I25.10 - ATHSCL HEART DISEASE OF [place] CORONARY ARTERY W/O ANG PCTRS Qualifiers: [place] vs. transplanted heart: [place] heart Associated angina: without angina Qualified Code(s): I25.10 - Atherosclerotic heart disease of [place] coronary artery without angina pectoris (4) COPD (chronic obstructive pulmonary disease) with emphysema Code(s): J43.9 - EMPHYSEMA, UNSPECIFIED Qualifiers: Emphysema type: other Qualified Code(s): J43.8 - Other emphysema (5) Lung consolidation Code(s): J18.1 - LOBAR PNEUMONIA, UNSPECIFIED ORGANISM (6) COPD exacerbation Code(s): J44.1 - CHRONIC OBSTRUCTIVE PULMONARY DISEASE W (ACUTE) EXACERBATION
--- NOTE | 2019-08-05 11:48 | CON.ID ---
Consult Consult Specialty:: infectious diseases Referred by:: Deirdre Reason for Consultation:: gm positive bactermia - History of Present Illness Chief Complaint: weak sob,cough,fever and chills History of Present Illness: 73 year old female with a significant past medical history of COPD (home oxygen dependent at 2 liters), emphysema, right lung spontaneous pneumothorax s/p RUL lobectomy 1983, hypertension, HLD and CAD. She presents for dyspnea for one week with subjective fever and chills. Today her noted that she had worsening non productive cough and shortness of breath which prompted an ED visit. Patient reports recently completed PO antibiotics and prednisone for COPD exacerbation as an outpatient. currently patient is feeling a little better patient was worked up and found to have bacteremia as well as uti - History Source History Provided By: Patient Limitations to Obtaining History: No Limitations - Past Medical History MILL OPERATOR: Yes: Migraine Cardio/Vascular: Yes: CAD, HTN, [place] (IWMI) Pulmonary: Yes: COPD, Other (RUL lobectomy after PTX). No: O2 Dependent Gastrointestinal: Yes: Constipation, Diverticulitis Renal/: Yes: Renal Inusuff Psych: Yes: Anxiety Rheumatology: Yes: Gout Endocrine: Yes: Hypothyroidism - Past Surgical History Past Surgical History: Yes: Thoracotomy - Alcohol/Substance Use Hx Alcohol Use: No - Smoking History Smoking history: Former smoker Have you smoked in the past 12 months: No If you are a former smoker, when did you quit?: 1983 - Social History History of Recent Travel: No Home Medications - Allergies Allergies/Adverse Reactions: Allergies Allergy/AdvReac Type Severity Reaction Status Date / Time buspirone HCl [From BuSpar] Allergy Verified 08/04/19 06:09 carbamazepine [From Tegretol] Allergy Verified 08/04/19 06:09 celecoxib [From Celebrex] Allergy Verified 08/04/19 06:09 hydralazine Allergy Verified 08/04/19 06:09 Penicillins Allergy Verified 08/04/19 06:09 valsartan [From Diovan] Allergy Verified 08/04/19 06:09 - Home Medications Home Medications: Ambulatory Orders Acetaminophen/Caffeine/Butalb [Fioricet -] 1 tab PO Q4H PRN 03/03/16 Aspirin Coated [Ecotrin -] 325 mg PO DAILY 03/03/16 Budesonide/Formeterol Fumarate [SYMBICORT 160/4.5mcg -] 1 inh PO DAILY 03/03/16 Citalopram Hydrobromide [Citalopram HBr] 20 mg PO TID 03/03/16 Codeine Sulfate - 30 mg PO Q6H PRN 03/03/16 Nortriptyline HCl [Pamelor -] 50 mg PO BID 03/03/16 Omeprazole [Prilosec] 40 mg PO BID 03/03/16 Allopurinol [Zyloprim -] 300 mg PO HS 03/04/16 Levothyroxine [Synthroid -] 112 mcg PO DAILY 03/04/16 Pramipexole Dihydrochloride [Mirapex -] 0.25 mg PO TID 10/18/18 Atorvastatin Ca [Lipitor] 40 mg PO HS 08/04/19 Citalopram Hydrobromide [Celexa -] 20 mg PO DAILY 08/04/19 Metoprolol Tartrate [Lopressor] 100 mg PO BID 08/04/19 Sumatriptan Succinate [Imitrex -] 100 mg PO PRN PRN 08/04/19 Tiotropium [place] [Spiriva Respimat] 1.25 mg PO DAILY 08/04/19 Review of Systems - Review of Systems Constitutional: reports: Chills, Fever Eyes: reports: No Symptoms HENT: reports: No Symptoms Neck: reports: No Symptoms Cardiovascular: reports: No Symptoms Respiratory: reports: Cough, SOB, SOB on Exertion Gastrointestinal: reports: No Symptoms Genitourinary: reports: No Symptoms Musculoskeletal: reports: No Symptoms Integumentary: reports: No Symptoms Neurological: reports: No Symptoms Endocrine: reports: No Symptoms Hematology/Lymphatic: reports: No Symptoms Psychiatric: reports: No Symptoms Physical Exam Vital Signs: Vital Signs Temperature 97.8 F 08/05/19 06:00 Pulse Rate 64 08/05/19 06:00 Respiratory Rate 20 08/05/19 09:00 Blood Pressure 137/73 08/05/19 06:00 O2 Sat by Pulse Oximetry (%) 99 08/05/19 09:00 Constitutional: Yes: No Distress, Calm, Thin Eyes: Yes: Conjunctiva Clear HENT: Yes: Atraumatic Neck: Yes: Supple, Trachea Midline Cardiovascular: Yes: Regular Rate and Rhythm Respiratory: Yes: On Nasal O2, Poor Air Entry (bases) Gastrointestinal: Yes: Normal Bowel Sounds, Soft Musculoskeletal: Yes: WNL Extremities: Yes: WNL Neurological: Yes: Alert, Oriented Psychiatric: Yes: Alert, Oriented Labs: CBC, BMP 08/05/19 09:33 08/05/19 07:45 Imaging - Results Chest X-ray: Report Reviewed, Image Reviewed Cat Scan: Report Reviewed, Image Reviewed Assessment/Plan Problem List - Problem (1) Anemia Code(s): D64.9 - ANEMIA, UNSPECIFIED (2) SOB (shortness of breath) Code(s): R06.02 - SHORTNESS OF BREATH (3) Acute hypoxemic respiratory failure Code(s): J96.01 - ACUTE RESPIRATORY FAILURE WITH HYPOXIA (4) CAD (coronary artery disease), [place] coronary artery Code(s): I25.10 - ATHSCL HEART DISEASE OF [place] CORONARY ARTERY W/O ANG PCTRS Qualifiers: [place] vs. transplanted heart: [place] heart Associated angina: without angina Qualified Code(s): I25.10 - Atherosclerotic heart disease of [place] coronary artery without angina pectoris (5) COPD exacerbation Code(s): J44.1 - CHRONIC OBSTRUCTIVE PULMONARY DISEASE W (ACUTE) EXACERBATION 6 uti 7 gm negative bacteremia plan will start patient on ceftriaxone await for cx reports rest as per the team repeat blood cx pending
[2019-08-05] MEDS ORDERED: cefTRIAXone SODIUM 1 GM VIAL ONE (12:14)
[2019-08-05] MEDS ORDERED: DEXTROSE 5%-WATER - 50 ML IVPB ONE (12:14)
[2019-08-05] MEDS: METOPROLOL TARTRATE 50 MG TABLET (FP) PO SCH ×2 (12:16→21:06)
[2019-08-05] MEDS: PANTOPRAZOLE 40 MG TABLET (FP) PO SCH (12:16)
[2019-08-05] MEDS: NORTRIPTYLINE HCL 25 MG CAPSULE PO SCH ×2 (12:18→21:10)
[2019-08-05] MEDS: CEFTRIAXONE 1 GM in DEXTROSE 5%-WATER - 50 ML IVPB SCH (12:20)
[2019-08-05] MEDS ORDERED: POLYETHYLENE GLYCOL 3350 119 GM BTL PO ONE (13:20)
[2019-08-05] MEDS ORDERED: CODEINE SO4 30 MG TABLET PO PRN (13:22)
--- NOTE | 2019-08-05 15:01 | PN ---
Progress Note, Physician Chief Complaint: cough History of Present Illness: [employer] coverage for Dr. Grande Patient is a 73 year old female with a significant past medical history of COPD (home oxygen dependent at 2 liters), emphysema, right lung spontaneous pneumothorax s/p RUL lobectomy 1983, hypertension, HLD and CAD. She presents for dyspnea for one week with subjective fever and chills. Today her noted that she had worsening non productive cough and shortness of breath which prompted an ED visit. Patient reports recently completed PO antibiotics and prednisone for COPD exacerbation as an outpatient. She is home oxygen dependent at 2 -3 liters and wears it continuously. She has home inhalers for her COPD but did not get any relief from them. She noted that she found herself wheezing more and unable to tolerate any physical activity. Patient denies CP, abdominal pain, or sick contacts. ED labs shows anemia with a hemaglobin of 8.9, on 10/2018, hemaglogin was 12.5. Attempted to draw a guiac, but no stool on vault. Stool for occult blood requested. Will start on protonix PO and consult GI. She is on full strength ASA 325mg daily for CAD. - Current Medication List Current Medications: Active Medications Acetaminophen/Butalbital/Caffeine (Fioricet -) 1 tablet PO Q6H PRN PRN Reason: HEADACHE Last Admin: 08/05/19 12:15 Dose: 1 tablet Al Hydroxide/Mg Hydroxide (Mylanta Oral Suspension -) 30 ml PO Q6H PRN PRN Reason: DYSPEPSIA Stop: 08/07/19 23:59 Last Admin: 08/05/19 00:13 Dose: 30 ml Allopurinol (Zyloprim -) 300 mg PO HS [facility]SIEL Last Admin: 08/04/19 22:00 Dose: 300 mg Atorvastatin Calcium (Lipitor -) 40 mg PO HS MASSIEL Last Admin: 08/04/19 22:01 Dose: 40 mg Budesonide/Formoterol Fumarate (Symbicort 160/4.5mcg -) 2 puff IH BID [facility] Citalopram Hydrobromide (Celexa -) 20 mg PO TID MASSIEL Last Admin: 08/05/19 06:08 Dose: 20 mg Codeine Sulfate (Codeine Sulfate -) 30 mg PO Q6H PRN PRN Reason: COUGH Heparin Sodium (Porcine) (Heparin -) 5,000 unit SQ BID [facility] Ceftriaxone Sodium 1 gm/ (Dextrose) 50 mls @ 100 mls/hr IVPB DAILY [facility]; Protocol Last Admin: 08/05/19 12:20 Dose: 100 mls/hr Levothyroxine Sodium (Synthroid -) 112 mcg PO AM [facility] Last Admin: 08/05/19 06:08 Dose: 112 mcg Methylprednisolone Sodium Succinate (Solu-Medrol -) 40 mg IVPUSH Q8H-IV [facility] Last Admin: 08/05/19 12:18 Dose: 40 mg Metoprolol Tartrate (Lopressor -) 100 mg PO BID [facility] Last Admin: 08/05/19 12:16 Dose: 100 mg Nortriptyline HCl (Pamelor -) 50 mg PO BID [facility] Last Admin: 08/05/19 12:18 Dose: 50 mg Pantoprazole Sodium (Protonix -) 40 mg PO DAILY [facility] Last Admin: 08/05/19 12:16 Dose: 40 mg Polyethylene Glycol (Miralax (For Daily Use) -) 17 gm PO DAILY [facility] Sumatriptan Succinate (Imitrex -) 100 mg PO PRN PRN PRN Reason: MIGRAINE Tiotropium [place] (Spiriva Respimat) 2 puff IH DAILY [facility] - Objective Vital Signs: Vital Signs Temperature 98 F 08/05/19 12:29 Pulse Rate 86 08/05/19 12:29 Respiratory Rate 20 08/05/19 12:29 Blood Pressure 151/73 08/05/19 12:29 O2 Sat by Pulse Oximetry (%) 99 08/05/19 09:00 Constitutional: Yes: No Distress, Calm Eyes: Yes: WNL HENT: Yes: Atraumatic Neck: Yes: Supple Cardiovascular: Yes: Regular Rate and Rhythm Respiratory: Yes: Diminished, On Nasal O2, Poor Air Entry, SOB, SOB on Exertion , Tachypnea Gastrointestinal: Yes: Normal Bowel Sounds, Soft Genitourinary: Yes: WNL Musculoskeletal: Yes: Other Extremities: Yes: WNL Edema: No Peripheral Pulses WNL: No Integumentary: Yes: WNL Neurological: Yes: Alert, Oriented ...Motor Strength: WNL Psychiatric: Yes: Alert, Oriented Labs: CBC, BMP 08/05/19 09:33 08/05/19 07:45 INR, PTT INR 1.16 (0.83-1.09) H 08/04/19 07:05 Problem List - Problems (1) Acute hypoxemic respiratory failure Assessment/Plan: History of COPD on 2 liters of nasal cannula a home she also has a history of emphysema, right lung spontaneous pneumothorax s/p RUL lobectomy 1983. Presents with worsening shortness of breath from baseline. She is improving with the solumedrol. d dimer in the 900s overnight, CT chest with contrast done and no PE seen. CT chest shows: right lobetomy with displacement of the proximal right pulmonary artery, tortuous dilated right pulmonary artery, air trapping in the lower lobes, mass like opacity seen in the left upper lobe without gross inteval change. pet scan recommended to rule out malignancy. continue solumedrol, bronchodilators, protonix for GI protection. pulmonary consulted and following maintain oxygen sats above 92%, codeine for cough. Code(s): J96.01 - ACUTE RESPIRATORY FAILURE WITH HYPOXIA (2) SOB (shortness of breath) Assessment/Plan: secondary to COPD, negative for PE. Code(s): R06.02 - SHORTNESS OF BREATH (3) Chills with fever Assessment/Plan: subjective fever and chills at home. pancultured. given levaquin 500mg in the ED. consult ID - for further recommendations. blood and urine cultures pending lactic acid within normal limits. Code(s): R50.9 - FEVER, UNSPECIFIED (4) Anemia Assessment/Plan: hmg dropped significantly from 10/2018. Attempted to get guaiac, but no stool in vault. stool for occult blood ordered. She is on ASA 325mg daily (coated) for CAD. will hold ASA and start on protonix. iron studies show iron def anemia, GI consulted for further recommendations. monitor CBC daily Code(s): D64.9 - ANEMIA, UNSPECIFIED (5) CAD (coronary artery disease), [place] coronary artery Assessment/Plan: on ASA 325mg, holding ASA for anemia. cardiology consulted. CAD w/o stents. Code(s): I25.10 - ATHSCL HEART DISEASE OF [place] CORONARY ARTERY W/O ANG PCTRS Qualifiers: [place] vs. transplanted heart: [place] heart Associated angina: without angina Qualified Code(s): I25.10 - Atherosclerotic heart disease of [place] coronary artery without angina pectoris (6) COPD exacerbation Assessment/Plan: pulmonary consulted. solumedrol oxygen therapy and bronchodilators. Code(s): J44.1 - CHRONIC OBSTRUCTIVE PULMONARY DISEASE W (ACUTE) EXACERBATION (7) Prophylactic measure Assessment/Plan: fen low salt diet monitor electrolytes full code DVT prophy: heparin bid with close monitoring of hmg/hct. Code(s): Z29.9 - ENCOUNTER FOR PROPHYLACTIC MEASURES, UNSPECIFIED Visit type - Emergency Visit Emergency Visit: Yes ED Registration Date: 08/04/19 Care time: The patient presented to the Emergency Department on the above date and was hospitalized for further evaluation of their emergent condition. - New Patient This patient is new to me today: No - Critical Care Critical Care patient: No - Discharge Referral Referred to [facility] Med P.C.: No
--- NOTE | 2019-08-05 16:04 | CONS ---
PULMONARY CONSULTATION DATE OF CONSULTATION: 08/05/2019 REFERRING PHYSICIAN: Grisel Bowman NP HISTORY: Patient is a 73-year-old white female known to me from previous hospitalization with past medical history of end-stage COPD, O2 dependent, history of right upper lobe lobectomy secondary to collapsed lung in 1983, ASHD, status post NE in 1983, hypertension, hyperlipidemia, hypothyroidism, gout. Admitted to [facility] on August 04 with shortness of breath, fever, and sweats. Patient had a recent viral URI. At the time, she was prescribed Zithromax and prednisone. Apparently early Tuesday morning, she was noted at nighttime to have night sweats. She woke up with a fever of 102-103 as well as shortness of breath and wheezing at which time she presented to the emergency room. Patient was admitted. She underwent a CTA of the chest, which revealed no evidence of acute PE. Noted to have a left upper lobe consolidation, which was chronic, which was unchanged from previous exam November 2018. She was admitted. Of note, blood cultures are currently positive, and UA is positive for gram negatives. Patient was placed on antibiotic therapy and steroids. Patient has a history of tobacco use. She quit in 1983. She states that since her previous hospitalization in November 2018 she has been maintained on home oxygen therapy. She is chronically short of breath with minimal exertion. She denies any chest pains or palpitations. Denies any hemoptysis. PAST MEDICAL HISTORY: Again includes advanced COPD O2 dependent, hypertension, hyperlipidemia, ASHD, status post NE 1983, gout, history of right upper lobe lobectomy secondary to collapsed lung. Migraines. REVIEW OF SYSTEMS: Positive shortness of breath, positive dyspnea. No chest pain, no palpitations, no cough, no hemoptysis, no abdominal pain. CURRENT MEDICATIONS: Include Symbicort, Solu-Medrol, Fioricet, Celexa, Pamelor, Zyloprim, DuoNeb, Lopressor, Lipitor, Protonix, Imitrex, and Synthroid. PHYSICAL EXAMINATION: General: Patient is a thin white female. Awake, alert in no acute distress. Vital Signs: She is afebrile. Blood pressure 137/73, respiratory rate is 20, O2 saturation is 99% on 2 L nasal cannula. HEENT: Normocephalic, atraumatic. Neck: Supple. Heart: Regular with S1, S2. Chest: A few scattered bilateral wheezes with diminished breath sounds bilaterally. Abdomen: Soft. Bowel sounds are positive. Extremities: No cyanosis or edema. LABORATORIES: WBC 9.7, hemoglobin 9.3, hematocrit 29.1 with a platelet count of 239,000. Blood gas: PH 7.42, PCO2 of 44, PO2 of 103, bicarbonate of 27, saturation of 98.1. BUN 16, creatinine 0.7. Chest CT as noted earlier. No evidence of pulmonary emboli. Chronic lung changes bilaterally. Left upper lobe consolidation that is unchanged from previous. IMPRESSION: 1. Advanced chronic obstructive pulmonary disease O2 dependent with acute exacerbation secondary to upper respiratory infection. 2. Bacteremia likely genitourinary as noted with positive urine cultures. 3. History of right upper lobe lobectomy 1983 secondary to collapsed lung. 4. Arteriosclerotic heart disease status post myocardial infarction in 1983. 5. Gout. 6. History of left upper lobe consolidation, chronic. 7. Hypothyroidism. 8. Anemia. PLAN: IV antibiotics. Inhaled bronchodilators. Supplemental O2. Short course of steroids. Check cultures. Monitor electrolytes. ROLANDO PUENTE M.D. [id number]
[2019-08-05] MEDS: BUDESONIDE/FORMETEROL FUMARATE 160/4.5 mcg INHALER IH SCH ×2 (16:45→21:12)
[2019-08-05] MEDS: TIOTROPIUM BROMIDE 2.5 MCG (SPIRIVA) RESPIMAT INHALER IH SCH (17:49)
--- NOTE | 2019-08-05 19:49 | CON.CARD ---
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 She had a URI 1 week ago and awoke this morning experiencing worsening shortness of breath, chills, tremors subjective fever, so she came to the ED for evaluation. No chest pain, nausea, vomiting, abdominal pain, or changes with urination or bowel movements. - - History Source History Provided By: Patient, Medical Record Limitations to Obtaining History: No Limitations - Past Medical History REGIONAL CRA: Yes: Migraine Cardio/Vascular: Yes: CAD, HTN, [place] (IWMI) Pulmonary: Yes: COPD, Other (RUL lobectomy after PTX). No: O2 Dependent Gastrointestinal: Yes: Constipation, Diverticulitis Renal/: Yes: Renal Inusuff Psych: Yes: Anxiety Rheumatology: Yes: Gout Endocrine: Yes: Hypothyroidism - Past Surgical History Past Surgical History: Yes: Thoracotomy - Alcohol/Substance Use Hx Alcohol Use: No - Smoking History Smoking history: Former smoker Have you smoked in the past 12 months: No If you are a former smoker, when did you quit?: 1983 - Social History Usual Living Arrangement: With Spouse History of Recent Travel: No Home Medications - Allergies Allergies/Adverse Reactions: Allergies Allergy/AdvReac Type Severity Reaction Status Date / Time buspirone HCl [From BuSpar] Allergy Verified 08/04/19 06:09 carbamazepine [From Tegretol] Allergy Verified 08/04/19 06:09 celecoxib [From Celebrex] Allergy Verified 08/04/19 06:09 hydralazine Allergy Verified 08/04/19 06:09 Penicillins Allergy Verified 08/04/19 06:09 valsartan [From Diovan] Allergy Verified 08/04/19 06:09 - Home Medications Home Medications: Ambulatory Orders Acetaminophen/Caffeine/Butalb [Fioricet -] 1 tab PO Q4H PRN 03/03/16 Aspirin Coated [Ecotrin -] 325 mg PO DAILY 03/03/16 Budesonide/Formeterol Fumarate [SYMBICORT 160/4.5mcg -] 1 inh PO DAILY 03/03/16 Citalopram Hydrobromide [Citalopram HBr] 20 mg PO TID 03/03/16 Codeine Sulfate - 30 mg PO Q6H PRN 03/03/16 Nortriptyline HCl [Pamelor -] 50 mg PO BID 03/03/16 Omeprazole [Prilosec] 40 mg PO BID 03/03/16 Allopurinol [Zyloprim -] 300 mg PO HS 03/04/16 Levothyroxine [Synthroid -] 112 mcg PO DAILY 03/04/16 Pramipexole Dihydrochloride [Mirapex -] 0.25 mg PO TID 10/18/18 Atorvastatin Ca [Lipitor] 40 mg PO HS 08/04/19 Citalopram Hydrobromide [Celexa -] 20 mg PO DAILY 08/04/19 Metoprolol Tartrate [Lopressor] 100 mg PO BID 08/04/19 Sumatriptan Succinate [Imitrex -] 100 mg PO PRN PRN 08/04/19 Tiotropium [place] [Spiriva Respimat] 1.25 mg PO DAILY 08/04/19 Family Medical History Family History: Denies Review of Systems - Review of Systems Constitutional: reports: Weakness Eyes: reports: No Symptoms HENT: reports: No Symptoms Neck: reports: No Symptoms Cardiovascular: reports: No Symptoms Respiratory: reports: SOB on Exertion Gastrointestinal: reports: No Symptoms Genitourinary: reports: Dysuria Breasts: reports: No Symptoms Reported Musculoskeletal: reports: Muscle Weakness Integumentary: reports: No Symptoms Neurological: reports: Weakness Endocrine: reports: No Symptoms Hematology/Lymphatic: reports: No Symptoms Psychiatric: reports: No Symptoms - Risk Factors Known Risk Factors: Yes: Age, Hypercholesterolemia, Hypertension, Physical Inactivity, Smoking (former) Vital Signs: Vital Signs Temperature 98.3 F 08/05/19 18:00 Pulse Rate 98 H 08/05/19 18:00 Respiratory Rate 20 08/05/19 18:00 Blood Pressure 150/77 08/05/19 18:00 O2 Sat by Pulse Oximetry (%) 99 08/05/19 09:00 Abnormal Lab Results 08/05/19 08/05/19 07:45 09:33 Hgb 9.3 L Hct 29.1 L MCH 25.6 L MCHC 31.9 L RDW 19.4 H MPV 7.1 L Absolute Neuts (auto) 8.6 H Neutrophils % 88.2 H Lymphocytes % 6.3 L D Anion Gap 6 L Random Glucose 119 H Magnesium 2.5 H AST 72 H Alkaline Phosphatase 162 H Albumin 3.3 L Constitutional: Yes: Calm Eyes: Yes: WNL HENT: Yes: WNL Neck: Yes: WNL Respiratory: Yes: Regular Gastrointestinal: Yes: Soft Renal/: No: Anuria JVD: No Carotid Bruit: No PMI: Non-Displaced Heart Sounds: Yes: S1, S2, S4 Murmur: Yes: Systolic Murmur, Grade 1 Musculoskeletal: Yes: Muscle Weakness Extremities: Yes: Erythema Edema: No Peripheral Pulses WNL: No Integumentary: Yes: WNL Neurological: Yes: Alert, Oriented, Weakness Psychiatric: Yes: Alert, Oriented - Other Data Labs, Other Data: CBC, BMP 08/05/19 09:33 08/05/19 07:45 INR, PTT INR 1.16 (0.83-1.09) H 08/04/19 07:05 Troponin, BNP 08/04/19 08/05/19 19:50 07:45 Troponin I < 0.02 < 0.02 Troponin, BNP 08/04/19 08/05/19 19:50 07:45 Troponin I < 0.02 < 0.02 Abnormal Lab Results 08/05/19 08/05/19 07:45 09:33 Hgb 9.3 L Hct 29.1 L MCH 25.6 L MCHC 31.9 L RDW 19.4 H MPV 7.1 L Absolute Neuts (auto) 8.6 H Neutrophils % 88.2 H Lymphocytes % 6.3 L D Anion Gap 6 L Random Glucose 119 H Magnesium 2.5 H AST 72 H Alkaline Phosphatase 162 H Albumin 3.3 L Echo: Pending Imaging - Results Chest X-ray: Image Reviewed Cat Scan: Report Reviewed (s/p lobectomy; left-sided mass (PET scan recommended) ; no PE; ?dilated pulmonary artery), Image Reviewed EKG: Image Reviewed (NSR; LVH) Problem List - Problems (1) Myocardial infarct, old Assessment/Plan: ?1987-->coronary angiogram at [facility] RCA disease treated medically, per pt) . Pt also [id number] had 2nd coronary angiofram at [facility] aboutr 2 yrs ago. No recent chest pain. TNI < 0.03-->0.02 x 2 Continue ASA (will give 81 mg daily, though pt says she was on 325 mg; hx anemia , "bad hemorrhoids" with intermitten bleeding). Continue atorvastatin. ECHO for LVEF, wall motion, chamber sizes, valve status. Pt's fitness specialist is Dr. Raffaele Tyler. Code(s): I25.2 - OLD MYOCARDIAL INFARCTION (2) Anemia Code(s): D64.9 - ANEMIA, UNSPECIFIED (3) Bacteremia Assessment/Plan: UTI; on antibiotics per ID. Code(s): R78.81 - BACTEREMIA (4) COPD exacerbation Assessment/Plan: F/u solumedrol, O2, bronchodilatorsw (held due to tachycardia) perp associate financial analyst. Code(s): J44.1 - CHRONIC OBSTRUCTIVE PULMONARY DISEASE W (ACUTE) EXACERBATION (5) Chills with fever Code(s): R50.9 - FEVER, UNSPECIFIED (6) History of lobectomy of lung Assessment/Plan: CT chest notes s/p lobectomy; mass in left side (PET scan "again recommended); no PE; ? dilated pulmonary artery. F/u ECHO. Code(s): Z90.2 - ACQUIRED ABSENCE OF LUNG [PART OF]
[2019-08-05] MEDS ORDERED: PT OWN MED DRAWER 7, Y5N ONE (21:04)
[2019-08-05] MEDS: ATORVASTATIN CA 40 MG TABLET (FP) PO SCH (21:07)
[2019-08-05] MEDS: ALLOPURINOL 300 MG TABLET (FP) PO SCH (21:08)
[2019-08-05] MEDS: HEPARIN NA (PORCINE) 5,000 UNITS/ML 1ML VIAL SQ SCH (21:09)
[2019-08-06] MEDS: methylPREDNISolone NA SUCC 40 MG/1 ML VIAL IVPUSH SCH ×2 (02:11→10:39)
[2019-08-06] MEDS: CITALOPRAM HYDROBROMIDE 20 MG TABLET (FP) PO SCH ×3 (06:30→21:53)
[2019-08-06] MEDS: LEVOTHYROXINE NA 112 MCG TABLET (FP) PO SCH (07:02)
--- NOTE | 2019-08-06 08:28 | PN ---
Progress Note, Physician History of Present Illness: stable no new issues - Current Medication List Current Medications: Active Medications Acetaminophen/Butalbital/Caffeine (Fioricet -) 1 tablet PO Q6H PRN PRN Reason: HEADACHE Last Admin: 08/05/19 21:23 Dose: 1 tablet Al Hydroxide/Mg Hydroxide (Mylanta Oral Suspension -) 30 ml PO Q6H PRN PRN Reason: DYSPEPSIA Stop: 08/07/19 23:59 Last Admin: 08/05/19 00:13 Dose: 30 ml Allopurinol (Zyloprim -) 300 mg PO HS [facility] Last Admin: 08/05/19 21:08 Dose: 300 mg Atorvastatin Calcium (Lipitor -) 40 mg PO HS [facility] Last Admin: 08/05/19 21:07 Dose: 40 mg Budesonide/Formoterol Fumarate (Symbicort 160/4.5mcg -) 2 puff IH BID [facility] Last Admin: 08/05/19 21:12 Dose: 2 puff Citalopram Hydrobromide (Celexa -) 20 mg PO TID [facility] Last Admin: 08/06/19 06:30 Dose: 20 mg Codeine Sulfate (Codeine Sulfate -) 30 mg PO Q6H PRN PRN Reason: COUGH Heparin Sodium (Porcine) (Heparin -) 5,000 unit SQ BID [facility] Last Admin: 08/05/19 21:09 Dose: 5,000 unit Ceftriaxone Sodium 1 gm/ (Dextrose) 50 mls @ 100 mls/hr IVPB DAILY [facility]; Protocol Last Admin: 08/05/19 12:20 Dose: 100 mls/hr Levothyroxine Sodium (Synthroid -) 112 mcg PO AM [facility] Last Admin: 08/06/19 07:02 Dose: 112 mcg Methylprednisolone Sodium Succinate (Solu-Medrol -) 40 mg IVPUSH Q8H-IV [facility] Last Admin: 08/06/19 02:11 Dose: 40 mg Metoprolol Tartrate (Lopressor -) 100 mg PO BID [facility] Last Admin: 08/05/19 21:06 Dose: 100 mg Nortriptyline HCl (Pamelor -) 50 mg PO BID [facility] Last Admin: 08/05/19 21:10 Dose: 50 mg Pantoprazole Sodium (Protonix -) 40 mg PO DAILY [facility] Last Admin: 08/05/19 12:16 Dose: 40 mg Polyethylene Glycol (Miralax (For Daily Use) -) 17 gm PO DAILY [facility] Sumatriptan Succinate (Imitrex -) 100 mg PO PRN PRN PRN Reason: MIGRAINE Tiotropium [place] (Spiriva Respimat) 2 puff IH DAILY [facility] Last Admin: 08/05/19 17:49 Dose: 2 puff - Objective Vital Signs: Vital Signs Temperature 98.6 F 08/06/19 05:36 Pulse Rate 59 L 08/06/19 05:36 Respiratory Rate 18 08/06/19 05:36 Blood Pressure 156/75 08/06/19 05:36 O2 Sat by Pulse Oximetry (%) 99 08/05/19 21:00 Constitutional: Yes: No Distress, Calm Cardiovascular: Yes: S1, S2 Respiratory: Yes: Regular, CTA Bilaterally, On Nasal O2 Gastrointestinal: Yes: Normal Bowel Sounds, Soft Musculoskeletal: Yes: Other Extremities: Yes: Other Neurological: Yes: Alert, Oriented Psychiatric: Yes: Alert, Oriented Labs: CBC, BMP 08/05/19 09:33 08/05/19 07:45 INR, PTT INR 1.16 (0.83-1.09) H 08/04/19 07:05 Assessment/Plan Problem List - Problem (1) Anemia Code(s): D64.9 - ANEMIA, UNSPECIFIED (2) SOB (shortness of breath) Code(s): R06.02 - SHORTNESS OF BREATH (3) Acute hypoxemic respiratory failure Code(s): J96.01 - ACUTE RESPIRATORY FAILURE WITH HYPOXIA (4) CAD (coronary artery disease), [place] coronary artery Code(s): I25.10 - ATHSCL HEART DISEASE OF [place] CORONARY ARTERY W/O ANG PCTRS Qualifiers: [place] vs. transplanted heart: [place] heart Associated angina: without angina Qualified Code(s): I25.10 - Atherosclerotic heart disease of [place] coronary artery without angina pectoris (5) COPD exacerbation Code(s): J44.1 - CHRONIC OBSTRUCTIVE PULMONARY DISEASE W (ACUTE) EXACERBATION 6 uti 7 gm negative bacteremia plan ceftriaxone await for cx reports rest as per the team repeat blood cx pending
--- NOTE | 2019-08-06 08:32 | PN ---
Progress Note, Physician Chief Complaint: 73 y.o F well known from the office. Admitted to [facility] after developing rigors, chills and fever up to 102-103F In [facility] UA Cx showed GNB and blood culture preliminary GNB - ID f/u. Started on Ceftriaxone IV and improved. History of Present Illness: Severe COPD, chronic cough on codeine suppression 1983 RUUL lobectomy for spontaneous PTX [place] 2005, cardiac cath x2 Left femoral fx 2015 Hypothyroidism Gout HTN Migraine Depression/anxiety pre-DM - Current Medication List Current Medications: Active Medications Acetaminophen/Butalbital/Caffeine (Fioricet -) 1 tablet PO Q6H PRN PRN Reason: HEADACHE Last Admin: 08/05/19 21:23 Dose: 1 tablet Al Hydroxide/Mg Hydroxide (Mylanta Oral Suspension -) 30 ml PO Q6H PRN PRN Reason: DYSPEPSIA Stop: 08/07/19 23:59 Last Admin: 08/05/19 00:13 Dose: 30 ml Allopurinol (Zyloprim -) 300 mg PO HS [facility] Last Admin: 08/05/19 21:08 Dose: 300 mg Atorvastatin Calcium (Lipitor -) 40 mg PO HS [facility] Last Admin: 08/05/19 21:07 Dose: 40 mg Budesonide/Formoterol Fumarate (Symbicort 160/4.5mcg -) 2 puff IH BID [facility] Last Admin: 08/05/19 21:12 Dose: 2 puff Citalopram Hydrobromide (Celexa -) 20 mg PO TID [facility] Last Admin: 08/06/19 06:30 Dose: 20 mg Codeine Sulfate (Codeine Sulfate -) 30 mg PO Q6H PRN PRN Reason: COUGH Ferrous Gluconate (Fergon -) 324 mg PO DAILY [facility] Heparin Sodium (Porcine) (Heparin -) 5,000 unit SQ BID [facility] Last Admin: 08/05/19 21:09 Dose: 5,000 unit Ceftriaxone Sodium 1 gm/ (Dextrose) 50 mls @ 100 mls/hr IVPB DAILY [facility]; Protocol Last Admin: 08/05/19 12:20 Dose: 100 mls/hr Levothyroxine Sodium (Synthroid -) 112 mcg PO AM [facility] Last Admin: 08/06/19 07:02 Dose: 112 mcg Methylprednisolone Sodium Succinate (Solu-Medrol -) 40 mg IVPUSH Q8H-IV [facility] Last Admin: 08/06/19 02:11 Dose: 40 mg Metoprolol Tartrate (Lopressor -) 100 mg PO BID [facility] Last Admin: 08/05/19 21:06 Dose: 100 mg Nortriptyline HCl (Pamelor -) 50 mg PO BID [facility] Last Admin: 08/05/19 21:10 Dose: 50 mg Pantoprazole Sodium (Protonix -) 40 mg PO DAILY [facility] Last Admin: 08/05/19 12:16 Dose: 40 mg Polyethylene Glycol (Miralax (For Daily Use) -) 17 gm PO DAILY [facility] Sumatriptan Succinate (Imitrex -) 100 mg PO PRN PRN PRN Reason: MIGRAINE Tiotropium [place] (Spiriva Respimat) 2 puff IH DAILY [facility] Last Admin: 08/05/19 17:49 Dose: 2 puff - Objective Vital Signs: Vital Signs Temperature 98.6 F 08/06/19 05:36 Pulse Rate 59 L 08/06/19 05:36 Respiratory Rate 18 08/06/19 05:36 Blood Pressure 156/75 08/06/19 05:36 O2 Sat by Pulse Oximetry (%) 99 08/05/19 21:00 Constitutional: Yes: Anxious, Pallor, Thin Eyes: Yes: Conjunctiva Clear, EOM Intact HENT: Yes: Atraumatic, Normocephalic Neck: Yes: Supple, Trachea Midline Cardiovascular: Yes: Regular Rate and Rhythm, S1, S2. No: Tachycardia, Bruit, JVD Respiratory: Yes: Cough, On Nasal O2, Rhonchi, SOB, SOB on Exertion Gastrointestinal: Yes: Normal Bowel Sounds, Soft. No: Abdomen, Obese ...Rectal Exam: Yes: Deferred Genitourinary: No: Anuria Breast(s): Yes: WNL Musculoskeletal: No: Joint Swelling, Muscle Weakness Extremities: No: Amputation, Calf Tenderness, Cold, Cyanosis Edema: No Integumentary: Yes: WNL Neurological: Yes: WNL ...Motor Strength: WNL Labs: CBC, BMP 08/05/19 09:33 08/05/19 07:45 INR, PTT INR 1.16 (0.83-1.09) H 08/04/19 07:05 Problem List - Problems (1) Anemia Assessment/Plan: Start Iron supplementation PO GI consult when stable. Code(s): D64.9 - ANEMIA, UNSPECIFIED Qualifiers: Anemia type: iron deficiency (2) Bacteremia Assessment/Plan: Ceftriaxone IV , follow final blood culture result Code(s): R78.81 - BACTEREMIA (3) COPD exacerbation Assessment/Plan: Continue [place] O2 LABA/LAMA Decrease Prednisone 40 mg QD Code(s): J44.1 - CHRONIC OBSTRUCTIVE PULMONARY DISEASE W (ACUTE) EXACERBATION (4) Myocardial infarct, old Assessment/Plan: Cardiology consult appreciated. Continue Lipitor, ASA. Code(s): I25.2 - OLD MYOCARDIAL INFARCTION
--- NOTE | 2019-08-06 08:47 | PN ---
Progress Note (short form) - Note Progress Note: Patient will be transferred to service.
[2019-08-06] MEDS ORDERED: cefTRIAXone SODIUM 1 GM VIAL ONE (10:02)
[2019-08-06] MEDS ORDERED: DEXTROSE 5%-WATER - 50 ML IVPB ONE (10:02)
[2019-08-06] MEDS: ACETAMINOPHEN/CAFFEINE/BUTALBITAL 1 TAB PO PRN ×2 (10:35→21:51)
[2019-08-06] MEDS: METOPROLOL TARTRATE 50 MG TABLET (FP) PO SCH ×2 (10:35→21:53)
[2019-08-06] MEDS: PANTOPRAZOLE 40 MG TABLET (FP) PO SCH (10:35)
[2019-08-06] MEDS: FERROUS GLUCONATE 324 MG TAB (FP) PO SCH (10:35)
[2019-08-06] MEDS: HEPARIN NA (PORCINE) 5,000 UNITS/ML 1ML VIAL SQ SCH ×2 (10:37→21:53)
[2019-08-06] MEDS: POLYETHYLENE GLYCOL 3350 119 GM BTL PO SCH (10:38)
[2019-08-06] MEDS: NORTRIPTYLINE HCL 25 MG CAPSULE PO SCH ×2 (10:39→21:54)
[2019-08-06] MEDS: CEFTRIAXONE 1 GM in DEXTROSE 5%-WATER - 50 ML IVPB SCH (10:40)
--- NOTE | 2019-08-06 10:52 | CON.GI ---
Consult Consult Specialty:: Gastroenterology Reason for Consultation:: Anemia - History of Present Illness Chief Complaint: Shortness of breath, fever History of Present Illness: 73yo female h/o appendectomy, COPD (home oxygen dependent at 2 liters), emphysema, right lung spontaneous pneumothorax s/p RUL lobectomy 1983, HTN presents with worsening shortness of breath and fever x 1 week asked to evaluate for anemia. Pt reports shortness of breath and fever prompting hospitalization, found to have gram negative bacteremia on antibiotics. Noted to have worsening anemia therefore GI consulted. Hb ~12 in 10/2018 now Hb 9.3. Pt denies abdominal pain or nausea/vomiting. Occasional heartburn takes omeprazole at home with good relief. Reports mild constipation for years takes miralax as needed, otherwise denies change in bowel pattern. Reports occasional blood on toilet paper when wiping usually associated with hard stools/straining. Denies weight loss. Has been taking ASA 325mg at home, held during hospitalization. Reports EGD and colonoscopy more than 5-10 years ago, details unclear, no recent GI follow up. No known family h/o colon ca. - History Source History Provided By: Patient, Medical Record - Past Medical History SHIRT CLOSER: Yes: Migraine Cardio/Vascular: Yes: CAD, HTN, CA (IWMI) Pulmonary: Yes: COPD, Other (RUL lobectomy after PTX). No: O2 Dependent Gastrointestinal: Yes: Constipation, Diverticulitis Renal/: Yes: Renal Inusuff Psych: Yes: Anxiety Rheumatology: Yes: Gout Endocrine: Yes: Hypothyroidism - Past Surgical History Past Surgical History: Yes: Thoracotomy - Alcohol/Substance Use Hx Alcohol Use: No - Smoking History Smoking history: Former smoker Have you smoked in the past 12 months: No If you are a former smoker, when did you quit?: 1983 - Social History Usual Living Arrangement: With Spouse History of Recent Travel: No Home Medications - Allergies Allergies/Adverse Reactions: Allergies Allergy/AdvReac Type Severity Reaction Status Date / Time buspirone HCl [From BuSpar] Allergy Verified 08/04/19 06:09 carbamazepine [From Tegretol] Allergy Verified 08/04/19 06:09 celecoxib [From Celebrex] Allergy Verified 08/04/19 06:09 hydralazine Allergy Verified 08/04/19 06:09 Penicillins Allergy Verified 08/04/19 06:09 valsartan [From Diovan] Allergy Verified 08/04/19 06:09 - Home Medications Home Medications: Ambulatory Orders Acetaminophen/Caffeine/Butalb [Fioricet -] 1 tab PO Q4H PRN 03/03/16 Aspirin Coated [Ecotrin -] 325 mg PO DAILY 03/03/16 Budesonide/Formeterol Fumarate [SYMBICORT 160/4.5mcg -] 1 inh PO DAILY 03/03/16 Citalopram Hydrobromide [Citalopram HBr] 20 mg PO TID 03/03/16 Codeine Sulfate - 30 mg PO Q6H PRN 03/03/16 Nortriptyline HCl [Pamelor -] 50 mg PO BID 03/03/16 Omeprazole [Prilosec] 40 mg PO BID 03/03/16 Allopurinol [Zyloprim -] 300 mg PO HS 03/04/16 Levothyroxine [Synthroid -] 112 mcg PO DAILY 03/04/16 Pramipexole Dihydrochloride [Mirapex -] 0.25 mg PO TID 10/18/18 Atorvastatin Ca [Lipitor] 40 mg PO HS 08/04/19 Citalopram Hydrobromide [Celexa -] 20 mg PO DAILY 08/04/19 Metoprolol Tartrate [Lopressor] 100 mg PO BID 08/04/19 Sumatriptan Succinate [Imitrex -] 100 mg PO PRN PRN 08/04/19 Tiotropium [place] [Spiriva Respimat] 1.25 mg PO DAILY 08/04/19 Review of Systems - Review of Systems Constitutional: reports: No Symptoms, Other (Fever/chills initially, now resolved) Cardiovascular: reports: No Symptoms Respiratory: reports: SOB, SOB on Exertion Gastrointestinal: reports: No Symptoms Physical Exam-GI Vital Signs: Vital Signs Temperature 98.6 F 08/06/19 05:36 Pulse Rate 59 L 08/06/19 05:36 Respiratory Rate 18 08/06/19 05:36 Blood Pressure 156/75 08/06/19 05:36 O2 Sat by Pulse Oximetry (%) 99 08/05/19 21:00 Constitutional: Yes: Well Nourished, Other (Slightly dyspneic on exertion) Cardiovascular: Yes: WNL, Regular Rate and Rhythm Respiratory: Yes: WNL, Regular, Diminished ...Palpate: Yes: Other (Abd soft, nt, nd +well healed incisional scar) ...Rectal Exam: Yes: Other (Brown stool, no obvious hemorrhoid, no blood) Labs: CBC, BMP 08/05/19 09:33 08/05/19 07:45 INR, PTT INR 1.16 (0.83-1.09) H 08/04/19 07:05 Problem List - Problems (1) Anemia Assessment/Plan: 73yo female h/o appendectomy, COPD (home oxygen dependent at 2 liters), emphysema, right lung spontaneous pneumothorax s/p RUL lobectomy 1983, HTN presents with worsening shortness of breath and fever x 1 week asked to evaluate for anemia with evidence of iron deficiency. No overt bleeding. Remote EGD and colonoscopy reported. FOBT negative. -Pt would require EGD/colonoscopy to further evaluate iron deficiency anemia however considering pts cardiorespiratory co-morbidities and tenuous respiratory status, the risks/benefits will need to be carefully weighed. I have discussed role of endoscopy to further investigate and potential for missed lesions if endoscopy not pursued including malignancy (though low suspicion), pt verbalized understanding and would like to think about it and discuss further with her if she would like to pursue even in near future -Considering underlying respiratory disease and bacteremia would defer endoscopy at this time in absence of overt bleeding and reassess once pt optimized. Would also request pulmonary and cardiac clearance prior to proceeding with endoscopy. -Recommend monitor Hb and for evidence of overt bleeding -PPI daily -Miralax daily/prn constipation -Avoid nonessential NSAIDs (advised asa 81mg daily per cardio) -Continue optimization from a respiratory standpoint -Antibiotics per ID -If overt bleeding with drop in Hb or hemodynamic instability please notify GI for possible more urgent intervention Code(s): D64.9 - ANEMIA, UNSPECIFIED Qualifiers: Anemia type: iron deficiency
[2019-08-06] MEDS ORDERED: PT OWN MED DRAWER 7, Y5N ONE ×3 (11:01→21:51)
--- NOTE | 2019-08-06 12:09 | ECHO ---
Name: RUBÉN CODY Exam:Adult Echocardiogram Study Date: 08/06/2019 07:54 AM Age: 73 yrs Reason For Study: SOB Height: 64 in Weight: 108 lb BSA: 1.5 m2 MMode/2D Measurements & Calculations IVSd: 1.00 cm Ao root diam: 2.4 cm LVIDd: 4.1 cm LA dimension: 2.2 cm LVIDs: 3.0 cm LVPWd: 0.82 cm EDV(Teich): 72.4 ml LVOT diam: 2.0 cm ESV(Teich): 34.6 ml LAV (MOD-bp): 64.7 ml Doppler Measurements & Calculations MV E max ty: 87.8 cm/sec Ao V2 max: 150.7 cm/sec MV A max ty: 102.8 cm/sec Ao max P.1 mmHg MV E/A: 0.85 MV dec time: 0.14 sec DEVI(V,D): 1.7 cm2 LV V1 max P.7 mmHg MR max ty: 483.9 cm/sec LV V1 max: 82.5 cm/sec MR max P.3 mmHg PA V2 max: 97.7 cm/sec Med Peak E' Ty: 7.4 cm/sec PA max P.8 mmHg Med E/e': 11.9 Lat Peak E' Ty: 12.6 cm/sec Lat E/e': 7.0 PI Vmax: 115.4 cm/sec Procedure A complete two-dimensional transthoracic echocardiogram was performed (2D, M-mode, Doppler and color flow Doppler). Technically limited study. Left Ventricle The left ventricle is normal in size. Left ventricular systolic function is low normal. Ejection Frac tion = 50-55%. No regional wall motion abnormalities noted. Right Ventricle The right ventricle is not well visualized. The right ventricular systolic function is normal. Atria LA appears mildly dilated on apical 4 chamber view. Right atrial size is normal. Mitral Valve There is mild mitral valve thickening. There is mild mitral regurgitation. Tricuspid Valve The tricuspid valve is normal in structure and function. There is mild tricuspid regurgitation. Aortic Valve There is mild aortic sclerosis.;. No aortic regurgitation is present. Pulmonic Valve The pulmonic valve is not well visualized. Great Vessels The aortic root is normal size. Pericardium/Pleura There is no pericardial effusion. Interpretation Summary Technically limited study The left ventricle is normal in size. Left ventricular systolic function is low normal. No regional wall motion abnormalities noted. Ejection Fraction = 50-55%. The right ventricular systolic function is normal. LA appears mildly dilated on apical 4 chamber view Right atrial size is normal. There is mild mitral valve thickening. There is mild mitral regurgitation. There is mild tricuspid regurgitation. There is mild aortic sclerosis. There is no pericardial effusion. Previous study is not available for comparison Khoi Zamarripa MD 08/06/2019 12:06 PM
[2019-08-06] MEDS: TIOTROPIUM BROMIDE 2.5 MCG (SPIRIVA) RESPIMAT INHALER IH SCH (12:35)
[2019-08-06] MEDS: BUDESONIDE/FORMETEROL FUMARATE 160/4.5 mcg INHALER IH SCH ×2 (12:36→21:55)
[2019-08-06] MEDS ORDERED: LEVALBUTEROL HCL 0.63 MG/3 ML VIAL.NEB. IH PRN (12:44)
--- NOTE | 2019-08-06 12:44 | PN ---
Progress Note (short form) - Note Progress Note: PULMONARY Breathing slightly better today. +nonproductive cough. Did not want albuterol treatments due to shakiness. Vital Signs Period Temp Pulse Resp BP Sys/Miranda Pulse Ox Last 24 Hr 97.8 F-98.8 F 59-98 18-20 150-156/75-86 95-99 Gen: mildly tachypneic with speaking Heart: RRR Lung: distant breath sounds, no wheezes Abd: soft, nontender Ext: no edema CBC, BMP 08/05/19 09:33 08/05/19 07:45 Active Medications Acetaminophen/Butalbital/Caffeine (Fioricet -) 1 tablet PO Q6H PRN PRN Reason: HEADACHE Last Admin: 08/06/19 10:35 Dose: 1 tablet Al Hydroxide/Mg Hydroxide (Mylanta Oral Suspension -) 30 ml PO Q6H PRN PRN Reason: DYSPEPSIA Stop: 08/07/19 23:59 Last Admin: 08/05/19 00:13 Dose: 30 ml Allopurinol (Zyloprim -) 300 mg PO HS [facility] Last Admin: 08/05/19 21:08 Dose: 300 mg Atorvastatin Calcium (Lipitor -) 40 mg PO HS [facility] Last Admin: 08/05/19 21:07 Dose: 40 mg Budesonide/Formoterol Fumarate (Symbicort 160/4.5mcg -) 2 puff IH BID [facility] Last Admin: 08/06/19 12:36 Dose: 2 puff Citalopram Hydrobromide (Celexa -) 20 mg PO TID [facility] Last Admin: 08/06/19 06:30 Dose: 20 mg Codeine Sulfate (Codeine Sulfate -) 30 mg PO Q6H PRN PRN Reason: COUGH Ferrous Gluconate (Fergon -) 324 mg PO DAILY [facility] Last Admin: 08/06/19 10:35 Dose: 324 mg Heparin Sodium (Porcine) (Heparin -) 5,000 unit SQ BID [facility] Last Admin: 08/06/19 10:37 Dose: 5,000 unit Ceftriaxone Sodium 1 gm/ (Dextrose) 50 mls @ 100 mls/hr IVPB DAILY [facility]; Protocol Last Admin: 08/06/19 10:40 Dose: 100 mls/hr Levothyroxine Sodium (Synthroid -) 112 mcg PO AM [facility] Last Admin: 08/06/19 07:02 Dose: 112 mcg Methylprednisolone Sodium Succinate (Solu-Medrol -) 40 mg IVPUSH DAILY [facility] Last Admin: 08/06/19 10:39 Dose: 40 mg Metoprolol Tartrate (Lopressor -) 100 mg PO BID [facility] Last Admin: 08/06/19 10:35 Dose: 100 mg Nortriptyline HCl (Pamelor -) 50 mg PO BID [facility] Last Admin: 08/06/19 10:39 Dose: 50 mg Pantoprazole Sodium (Protonix -) 40 mg PO DAILY [facility] Last Admin: 08/06/19 10:35 Dose: 40 mg Polyethylene Glycol (Miralax (For Daily Use) -) 17 gm PO DAILY [facility] Last Admin: 08/06/19 10:38 Dose: Not Given Sumatriptan Succinate (Imitrex -) 100 mg PO PRN PRN PRN Reason: MIGRAINE Tiotropium [place] (Spiriva Respimat) 2 puff IH DAILY [facility] Last Admin: 08/06/19 12:35 Dose: 2 puff A/P Acute COPD Exacerbation Chronic Hypoxic Respiratory Failure UTI Gram Negative Bacteremia CAD h/o RUL Lobectomy Hypothyroidism Anemia - continue antibiotics - f/u cultures - medrol daily - inhaled bronchodilators - will add xopenex as needed - O2 to keep SpO2 >90% - DVT prophylaxis
--- NOTE | 2019-08-06 12:53 | PN ---
Progress Note, Physician History of Present Illness: Dyspnea, cough and wheeze slowly improving. - Current Medication List Current Medications: Active Medications Acetaminophen/Butalbital/Caffeine (Fioricet -) 1 tablet PO Q6H PRN PRN Reason: HEADACHE Last Admin: 08/06/19 10:35 Dose: 1 tablet Al Hydroxide/Mg Hydroxide (Mylanta Oral Suspension -) 30 ml PO Q6H PRN PRN Reason: DYSPEPSIA Stop: 08/07/19 23:59 Last Admin: 08/05/19 00:13 Dose: 30 ml Allopurinol (Zyloprim -) 300 mg PO HS [facility] Last Admin: 08/05/19 21:08 Dose: 300 mg Atorvastatin Calcium (Lipitor -) 40 mg PO HS [facility] Last Admin: 08/05/19 21:07 Dose: 40 mg Budesonide/Formoterol Fumarate (Symbicort 160/4.5mcg -) 2 puff IH BID [facility] Last Admin: 08/06/19 12:36 Dose: 2 puff Citalopram Hydrobromide (Celexa -) 20 mg PO TID [facility] Last Admin: 08/06/19 06:30 Dose: 20 mg Codeine Sulfate (Codeine Sulfate -) 30 mg PO Q6H PRN PRN Reason: COUGH Ferrous Gluconate (Fergon -) 324 mg PO DAILY [facility] Last Admin: 08/06/19 10:35 Dose: 324 mg Heparin Sodium (Porcine) (Heparin -) 5,000 unit SQ BID [facility] Last Admin: 08/06/19 10:37 Dose: 5,000 unit Ceftriaxone Sodium 1 gm/ (Dextrose) 50 mls @ 100 mls/hr IVPB DAILY [facility]; Protocol Last Admin: 08/06/19 10:40 Dose: 100 mls/hr Levalbuterol HCl (Xopenex) 0.63 mg IH Q8H PRN PRN Reason: ASTHMA Levothyroxine Sodium (Synthroid -) 112 mcg PO AM [facility] Last Admin: 08/06/19 07:02 Dose: 112 mcg Methylprednisolone Sodium Succinate (Solu-Medrol -) 40 mg IVPUSH DAILY [facility] Last Admin: 08/06/19 10:39 Dose: 40 mg Metoprolol Tartrate (Lopressor -) 100 mg PO BID [facility] Last Admin: 08/06/19 10:35 Dose: 100 mg Nortriptyline HCl (Pamelor -) 50 mg PO BID [facility] Last Admin: 08/06/19 10:39 Dose: 50 mg Pantoprazole Sodium (Protonix -) 40 mg PO DAILY [facility] Last Admin: 08/06/19 10:35 Dose: 40 mg Polyethylene Glycol (Miralax (For Daily Use) -) 17 gm PO DAILY [facility] Last Admin: 08/06/19 10:38 Dose: Not Given Sumatriptan Succinate (Imitrex -) 100 mg PO PRN PRN PRN Reason: MIGRAINE Tiotropium [place] (Spiriva Respimat) 2 puff IH DAILY [facility] Last Admin: 08/06/19 12:35 Dose: 2 puff - Objective Vital Signs: Vital Signs Temperature 98.6 F 08/06/19 05:36 Pulse Rate 59 L 08/06/19 05:36 Respiratory Rate 18 08/06/19 05:36 Blood Pressure 156/75 08/06/19 05:36 O2 Sat by Pulse Oximetry (%) 95 08/06/19 09:00 Constitutional: Yes: No Distress, Calm, Thin Neck: Yes: Supple Cardiovascular: Yes: Regular Rate and Rhythm Respiratory: Yes: Regular, Cough, Diminished, On Nasal O2, SOB Gastrointestinal: Yes: Normal Bowel Sounds, Soft Edema: No Labs: CBC, BMP 08/05/19 09:33 08/05/19 07:45 INR, PTT INR 1.16 (0.83-1.09) H 08/04/19 07:05 Problem List - Problems (1) Anemia Code(s): D64.9 - ANEMIA, UNSPECIFIED Qualifiers: Anemia type: iron deficiency (2) COPD exacerbation Code(s): J44.1 - CHRONIC OBSTRUCTIVE PULMONARY DISEASE W (ACUTE) EXACERBATION (3) History of lobectomy of lung Code(s): Z90.2 - ACQUIRED ABSENCE OF LUNG [PART OF] (4) Myocardial infarct, old Code(s): I25.2 - OLD MYOCARDIAL INFARCTION (5) SOB (shortness of breath) Code(s): R06.02 - SHORTNESS OF BREATH (6) CAD (coronary artery disease), [place] coronary artery Code(s): I25.10 - ATHSCL HEART DISEASE OF [place] CORONARY ARTERY W/O ANG PCTRS Qualifiers: [place] vs. transplanted heart: [place] heart Associated angina: without angina Qualified Code(s): I25.10 - Atherosclerotic heart disease of [place] coronary artery without angina pectoris Assessment/Plan 08/06/2019 Echo: Normal LV size with low normal LV fxn, LVEF 50-55%, mild LAE, mild MR, TR 1. Acute COPD Exacerbation 2. Chronic Hypoxic Respiratory Failure 3. Gram Negative Bacteremia source 4. CAD h/o old ND medical management 5. h/o RUL Lobectomy 6. Hypothyroidism 7. Anemia P:1. Ruled out for ND 2. Continue ASA 81 qd, Lipitor 40 qhs, Lopressor 100 bid 3. IV steroids, O2 to keep SpO2 >90%, Xoponex, abx course, DVT and GI prophylaxis 4. CT chest notes s/p RUL lobectomy; mass in left side (PET scan "again recommended); no PE; ? dilated pulmonary artery. 5. EGD/colonoscopy once clinically stable 6. Thank you for consultative opportunity, F/u Dr. Raffaele Tyler as outpatient
[2019-08-06 13:57] VITALS: BMI 18.5
--- NOTE | 2019-08-06 18:24 | EKG ---
Test Reason : Blood Pressure : / mmHG Vent. Rate : 085 BPM Atrial Rate : 085 BPM P-R Int : 164 ms QRS Dur : 096 ms QT Int : 370 ms P-R-T Axes : 037 028 -07 degrees QTc Int : 440 ms NORMAL SINUS RHYTHM POSSIBLE INFERIOR INFARCT (CITED ON OR BEFORE 26-AUG-2006) ABNORMAL ECG WHEN COMPARED WITH ECG OF 18-OCT-2018 12:18, NO SIGNIFICANT CHANGE WAS FOUND Confirmed by NIELS QUINTANILLA, ALISHA ([id number]) on 08/06/2019 6:24:39 PM Referred By: Confirmed By:ALISHA BOWSER MD
[2019-08-06] MEDS: ATORVASTATIN CA 40 MG TABLET (FP) PO SCH (21:53)
[2019-08-06] MEDS: RANITIDINE HCL 150 MG TABLET (FP) PO SCH (21:54)
[2019-08-06] MEDS: ALLOPURINOL 300 MG TABLET (FP) PO SCH (21:54)
[2019-08-06] MEDS: MAG HYDROX/AL HYDROX/SIMETH 30 ML UNIT-DOSE CUP PO PRN (21:56)
[2019-08-07] MEDS: CITALOPRAM HYDROBROMIDE 20 MG TABLET (FP) PO SCH ×3 (06:33→21:46)
[2019-08-07] MEDS: LEVOTHYROXINE NA 112 MCG TABLET (FP) PO SCH (06:33)
[2019-08-07] MEDS ORDERED: cefTRIAXone SODIUM 1 GM VIAL ONE (09:17)
[2019-08-07] MEDS ORDERED: DEXTROSE 5%-WATER - 50 ML IVPB ONE (09:17)
[2019-08-07] MEDS: FERROUS GLUCONATE 324 MG TAB (FP) PO SCH (10:09)
[2019-08-07] MEDS: METOPROLOL TARTRATE 50 MG TABLET (FP) PO SCH ×2 (10:09→21:46)
[2019-08-07] MEDS: ACETAMINOPHEN/CAFFEINE/BUTALBITAL 1 TAB PO PRN ×2 (10:09→18:49)
[2019-08-07] MEDS: PANTOPRAZOLE 40 MG TABLET (FP) PO SCH (10:09)
[2019-08-07] MEDS: RANITIDINE HCL 150 MG TABLET (FP) PO SCH ×2 (10:09→21:48)
[2019-08-07] MEDS: methylPREDNISolone NA SUCC 40 MG/1 ML VIAL IVPUSH SCH (10:10)
[2019-08-07] MEDS: HEPARIN NA (PORCINE) 5,000 UNITS/ML 1ML VIAL SQ SCH ×2 (10:10→21:47)
[2019-08-07] MEDS: CEFTRIAXONE 1 GM in DEXTROSE 5%-WATER - 50 ML IVPB SCH (10:11)
[2019-08-07] MEDS: BUDESONIDE/FORMETEROL FUMARATE 160/4.5 mcg INHALER IH SCH ×2 (10:11→21:48)
[2019-08-07] MEDS: TIOTROPIUM BROMIDE 2.5 MCG (SPIRIVA) RESPIMAT INHALER IH SCH (10:11)
[2019-08-07] MEDS: POLYETHYLENE GLYCOL 3350 119 GM BTL PO SCH (10:12)
--- NOTE | 2019-08-07 10:44 | PN ---
Progress Note, Physician Chief Complaint: Events noted Not in distress History of Present Illness: Patient was seen and examined. Awake and alert. Chart was reviewed Denies chest pain. Less SOB and cough - Current Medication List Current Medications: Active Medications Acetaminophen/Butalbital/Caffeine (Fioricet -) 1 tablet PO Q6H PRN PRN Reason: HEADACHE Last Admin: 08/07/19 10:09 Dose: 1 tablet Al Hydroxide/Mg Hydroxide (Mylanta Oral Suspension -) 30 ml PO Q6H PRN PRN Reason: DYSPEPSIA Stop: 08/07/19 23:59 Last Admin: 08/06/19 21:56 Dose: 30 ml Allopurinol (Zyloprim -) 300 mg PO HS [facility] Last Admin: 08/06/19 21:54 Dose: 300 mg Aspirin (Asa -) 81 mg PO DAILY [facility] Atorvastatin Calcium (Lipitor -) 40 mg PO HS [facility] Last Admin: 08/06/19 21:53 Dose: 40 mg Budesonide/Formoterol Fumarate (Symbicort 160/4.5mcg -) 2 puff IH BID [facility] Last Admin: 08/07/19 10:11 Dose: 2 puff Citalopram Hydrobromide (Celexa -) 20 mg PO TID [facility] Last Admin: 08/07/19 06:33 Dose: 20 mg Codeine Sulfate (Codeine Sulfate -) 30 mg PO Q6H PRN PRN Reason: COUGH Ferrous Gluconate (Fergon -) 324 mg PO DAILY [facility] Last Admin: 08/07/19 10:09 Dose: 324 mg Heparin Sodium (Porcine) (Heparin -) 5,000 unit SQ BID [facility] Last Admin: 08/07/19 10:10 Dose: 5,000 unit Ceftriaxone Sodium 1 gm/ (Dextrose) 50 mls @ 100 mls/hr IVPB DAILY [facility]; Protocol Last Admin: 08/07/19 10:11 Dose: 100 mls/hr Levalbuterol HCl (Xopenex) 0.63 mg IH Q8H PRN PRN Reason: ASTHMA Levothyroxine Sodium (Synthroid -) 112 mcg PO AM [facility] Last Admin: 08/07/19 06:33 Dose: 112 mcg Methylprednisolone Sodium Succinate (Solu-Medrol -) 40 mg IVPUSH DAILY [facility] Last Admin: 08/07/19 10:10 Dose: 40 mg Metoprolol Tartrate (Lopressor -) 100 mg PO BID [facility] Last Admin: 08/07/19 10:09 Dose: 100 mg Nortriptyline HCl (Pamelor -) 50 mg PO BID [facility] Last Admin: 08/06/19 21:54 Dose: 50 mg Pantoprazole Sodium (Protonix -) 40 mg PO DAILY [facility] Last Admin: 08/07/19 10:09 Dose: 40 mg Polyethylene Glycol (Miralax (For Daily Use) -) 17 gm PO DAILY [facility] Last Admin: 08/07/19 10:12 Dose: Not Given Ranitidine HCl (Zantac -) 150 mg PO BID [facility] Last Admin: 08/07/19 10:09 Dose: 150 mg Sumatriptan Succinate (Imitrex -) 100 mg PO PRN PRN PRN Reason: MIGRAINE Tiotropium [place] (Spiriva Respimat) 2 puff IH DAILY [facility] Last Admin: 08/07/19 10:11 Dose: 2 puff - Objective Vital Signs: Vital Signs Temperature 98.4 F 08/07/19 06:00 Pulse Rate 65 08/07/19 06:00 Respiratory Rate 20 08/07/19 06:00 Blood Pressure 127/68 08/07/19 06:00 O2 Sat by Pulse Oximetry (%) 99 08/06/19 21:00 Eyes: Yes: PERRL HENT: Yes: Atraumatic Neck: Yes: Supple Cardiovascular: Yes: Regular Rate and Rhythm Respiratory: Yes: Cough, Diminished, SOB Gastrointestinal: Yes: Normal Bowel Sounds, Soft. No: Tenderness Edema: No Problem List - Problems (1) Anemia Code(s): D64.9 - ANEMIA, UNSPECIFIED Qualifiers: Anemia type: iron deficiency (2) COPD exacerbation Code(s): J44.1 - CHRONIC OBSTRUCTIVE PULMONARY DISEASE W (ACUTE) EXACERBATION (3) History of lobectomy of lung Code(s): Z90.2 - ACQUIRED ABSENCE OF LUNG [PART OF] (4) Myocardial infarct, old Code(s): I25.2 - OLD MYOCARDIAL INFARCTION (5) SOB (shortness of breath) Code(s): R06.02 - SHORTNESS OF BREATH (6) Acute hypoxemic respiratory failure Code(s): J96.01 - ACUTE RESPIRATORY FAILURE WITH HYPOXIA (7) CAD (coronary artery disease), [place] coronary artery Code(s): I25.10 - ATHSCL HEART DISEASE OF [place] CORONARY ARTERY W/O ANG PCTRS Qualifiers: [place] vs. transplanted heart: [place] heart Associated angina: without angina Qualified Code(s): I25.10 - Atherosclerotic heart disease of [place] coronary artery without angina pectoris Assessment/Plan 1. Acute COPD Exacerbation 2. Chronic Hypoxic Respiratory Failure 3. Gram Negative Bacteremia source 4. CAD history of old [place] 5. History of RUL Lobectomy 6. Hypothyroidism 7. Anemia PLAN: 1. Continue ASA 81 mg QD, Lipitor 40 mg QHS and Lopressor 100 mg BID 2. IV steroids, O2, bronchodilator, antibiotic coverage and DVT and GI prophylaxis 3. Further pulmonary evaluation 4. EGD/colonoscopy once clinically stable Further plans are to follow Khoi Zamarripa MD
--- NOTE | 2019-08-07 11:50 | PN ---
Progress Note (short form) - Note Progress Note: PULMONARY Breathing slightly better today. +nonproductive cough. Vital Signs Period Temp Pulse Resp BP Sys/Miranda Pulse Ox Last 24 Hr 97.9 F-98.8 F 65-75 20-22 127-150/68-84 99 Gen: less tachypneic with speaking Heart: RRR Lung: better air movement, scattered rales Abd: soft, nontender Ext: no edema CBC, BMP 08/05/19 09:33 08/05/19 07:45 Active Medications Acetaminophen/Butalbital/Caffeine (Fioricet -) 1 tablet PO Q6H PRN PRN Reason: HEADACHE Last Admin: 08/07/19 10:09 Dose: 1 tablet Al Hydroxide/Mg Hydroxide (Mylanta Oral Suspension -) 30 ml PO Q6H PRN PRN Reason: DYSPEPSIA Stop: 08/07/19 23:59 Last Admin: 08/06/19 21:56 Dose: 30 ml Allopurinol (Zyloprim -) 300 mg PO HS [facility] Last Admin: 08/06/19 21:54 Dose: 300 mg Aspirin (Asa -) 81 mg PO DAILY [facility] Atorvastatin Calcium (Lipitor -) 40 mg PO HS [facility] Last Admin: 08/06/19 21:53 Dose: 40 mg Budesonide/Formoterol Fumarate (Symbicort 160/4.5mcg -) 2 puff IH BID [facility] Last Admin: 08/07/19 10:11 Dose: 2 puff Citalopram Hydrobromide (Celexa -) 20 mg PO TID [facility] Last Admin: 08/07/19 06:33 Dose: 20 mg Codeine Sulfate (Codeine Sulfate -) 30 mg PO Q6H PRN PRN Reason: COUGH Ferrous Gluconate (Fergon -) 324 mg PO DAILY [facility] Last Admin: 08/07/19 10:09 Dose: 324 mg Heparin Sodium (Porcine) (Heparin -) 5,000 unit SQ BID [facility] Last Admin: 08/07/19 10:10 Dose: 5,000 unit Ceftriaxone Sodium 1 gm/ (Dextrose) 50 mls @ 100 mls/hr IVPB DAILY [facility]; Protocol Last Admin: 08/07/19 10:11 Dose: 100 mls/hr Levalbuterol HCl (Xopenex) 0.63 mg IH Q8H PRN PRN Reason: ASTHMA Levothyroxine Sodium (Synthroid -) 112 mcg PO AM [facility] Last Admin: 08/07/19 06:33 Dose: 112 mcg Methylprednisolone Sodium Succinate (Solu-Medrol -) 40 mg IVPUSH DAILY [facility] Last Admin: 08/07/19 10:10 Dose: 40 mg Metoprolol Tartrate (Lopressor -) 100 mg PO BID [facility] Last Admin: 08/07/19 10:09 Dose: 100 mg Nortriptyline HCl (Pamelor -) 50 mg PO BID [facility] Last Admin: 08/06/19 21:54 Dose: 50 mg Pantoprazole Sodium (Protonix -) 40 mg PO DAILY [facility] Last Admin: 08/07/19 10:09 Dose: 40 mg Polyethylene Glycol (Miralax (For Daily Use) -) 17 gm PO DAILY [facility] Last Admin: 08/07/19 10:12 Dose: Not Given Ranitidine HCl (Zantac -) 150 mg PO BID [facility] Last Admin: 08/07/19 10:09 Dose: 150 mg Sumatriptan Succinate (Imitrex -) 100 mg PO PRN PRN PRN Reason: MIGRAINE Tiotropium [place] (Spiriva Respimat) 2 puff IH DAILY [facility] Last Admin: 08/07/19 10:11 Dose: 2 puff A/P Acute COPD Exacerbation Chronic Hypoxic Respiratory Failure UTI Gram Negative Bacteremia CAD h/o RUL Lobectomy Hypothyroidism Anemia - continue antibiotics - f/u cultures - medrol daily - inhaled bronchodilators - xopenex as needed - O2 to keep SpO2 >90% - DVT prophylaxis
[2019-08-07] MEDS ORDERED: PT OWN MED DRAWER 7, Y5N ONE ×2 (12:14→21:41)
[2019-08-07] MEDS: ASPIRIN 81 MG CHEWABLE TABLETS PO SCH (12:23)
[2019-08-07] MEDS: NORTRIPTYLINE HCL 25 MG CAPSULE PO SCH ×2 (12:23→23:08)
[2019-08-07 12:33] LABS: BASO % 0.5 % (0-2.0); EOS % 0.3 % (0-4.5); HEMATOCRIT 29.4 % (32.4-45.2); HEMOGLOBIN 9.6 GM/dL (10.7-15.3); LYMPH % 7.5 % (8-40); MCH 25.9 pg (25.7-33.7); MCHC 32.5 g/dl (32.0-36.0); MEAN CELL VOLUME 79.7 fl (80-96); MEAN PLT VOLUME 7.2 fl (7.5-11.1); MONO % 4.3 % (3.8-10.2); NEUT % 87.4 % (42.8-82.8); PLATELET COUNT 267 K/MM3 (134-434); RBC 3.69 M/mm3 (3.60-5.2); RDW 19.2 % (11.6-15.6); WHITE BLOOD COUNT 7.2 K/mm3 (4.0-10.0)
--- NOTE | 2019-08-07 12:39 | PN ---
Progress Note, Physician History of Present Illness: stable no new issues - Current Medication List Current Medications: Active Medications Acetaminophen/Butalbital/Caffeine (Fioricet -) 1 tablet PO Q6H PRN PRN Reason: HEADACHE Last Admin: 08/07/19 10:09 Dose: 1 tablet Al Hydroxide/Mg Hydroxide (Mylanta Oral Suspension -) 30 ml PO Q6H PRN PRN Reason: DYSPEPSIA Stop: 08/07/19 23:59 Last Admin: 08/06/19 21:56 Dose: 30 ml Allopurinol (Zyloprim -) 300 mg PO HS [facility] Last Admin: 08/06/19 21:54 Dose: 300 mg Aspirin (Asa -) 81 mg PO DAILY [facility] Last Admin: 08/07/19 12:23 Dose: 81 mg Atorvastatin Calcium (Lipitor -) 40 mg PO HS [facility] Last Admin: 08/06/19 21:53 Dose: 40 mg Budesonide/Formoterol Fumarate (Symbicort 160/4.5mcg -) 2 puff IH BID [facility] Last Admin: 08/07/19 10:11 Dose: 2 puff Citalopram Hydrobromide (Celexa -) 20 mg PO TID [facility] Last Admin: 08/07/19 06:33 Dose: 20 mg Codeine Sulfate (Codeine Sulfate -) 30 mg PO Q6H PRN PRN Reason: COUGH Ferrous Gluconate (Fergon -) 324 mg PO DAILY [facility] Last Admin: 08/07/19 10:09 Dose: 324 mg Heparin Sodium (Porcine) (Heparin -) 5,000 unit SQ BID [facility] Last Admin: 08/07/19 10:10 Dose: 5,000 unit Ceftriaxone Sodium 1 gm/ (Dextrose) 50 mls @ 100 mls/hr IVPB DAILY [facility]; Protocol Last Admin: 08/07/19 10:11 Dose: 100 mls/hr Levalbuterol HCl (Xopenex) 0.63 mg IH Q8H PRN PRN Reason: ASTHMA Levothyroxine Sodium (Synthroid -) 112 mcg PO AM [facility] Last Admin: 08/07/19 06:33 Dose: 112 mcg Methylprednisolone Sodium Succinate (Solu-Medrol -) 40 mg IVPUSH DAILY [facility] Last Admin: 08/07/19 10:10 Dose: 40 mg Metoprolol Tartrate (Lopressor -) 100 mg PO BID [facility] Last Admin: 08/07/19 10:09 Dose: 100 mg Nortriptyline HCl (Pamelor -) 50 mg PO BID [facility] Last Admin: 08/07/19 12:23 Dose: 50 mg Pantoprazole Sodium (Protonix -) 40 mg PO DAILY [facility] Last Admin: 08/07/19 10:09 Dose: 40 mg Polyethylene Glycol (Miralax (For Daily Use) -) 17 gm PO DAILY [facility] Last Admin: 08/07/19 10:12 Dose: Not Given Ranitidine HCl (Zantac -) 150 mg PO BID [facility] Last Admin: 08/07/19 10:09 Dose: 150 mg Sumatriptan Succinate (Imitrex -) 100 mg PO PRN PRN PRN Reason: MIGRAINE Tiotropium [place] (Spiriva Respimat) 2 puff IH DAILY [facility] Last Admin: 08/07/19 10:11 Dose: 2 puff - Objective Vital Signs: Vital Signs Temperature 98.4 F 08/07/19 06:00 Pulse Rate 65 08/07/19 06:00 Respiratory Rate 20 08/07/19 06:00 Blood Pressure 127/68 08/07/19 06:00 O2 Sat by Pulse Oximetry (%) 99 08/06/19 21:00 Constitutional: Yes: No Distress, Calm Cardiovascular: Yes: S1, S2 Respiratory: Yes: Regular, CTA Bilaterally Gastrointestinal: Yes: Normal Bowel Sounds, Soft Musculoskeletal: Yes: WNL Extremities: Yes: WNL Neurological: Yes: Alert, Oriented Psychiatric: Yes: Alert, Oriented Labs: INR, PTT INR 1.16 (0.83-1.09) H 08/04/19 07:05 Assessment/Plan Problem List - Problem (1) Anemia Code(s): D64.9 - ANEMIA, UNSPECIFIED (2) SOB (shortness of breath) Code(s): R06.02 - SHORTNESS OF BREATH (3) Acute hypoxemic respiratory failure Code(s): J96.01 - ACUTE RESPIRATORY FAILURE WITH HYPOXIA (4) CAD (coronary artery disease), [place] coronary artery Code(s): I25.10 - ATHSCL HEART DISEASE OF [place] CORONARY ARTERY W/O ANG PCTRS Qualifiers: [place] vs. transplanted heart: [place] heart Associated angina: without angina Qualified Code(s): I25.10 - Atherosclerotic heart disease of [place] coronary artery without angina pectoris (5) COPD exacerbation Code(s): J44.1 - CHRONIC OBSTRUCTIVE PULMONARY DISEASE W (ACUTE) EXACERBATION 6 uti 7 gm negative bacteremia plan ceftriaxone await for cx reports rest as per the team
--- NOTE | 2019-08-07 12:58 | PN ---
Progress Note, Physician Chief Complaint: C/o heart burn, Blood culture barros S E.Coli History of Present Illness: Severe COPD, chronic cough on codeine suppression 1983 RUUL lobectomy for spontaneous PTX [place] 2005, cardiac cath x2 Left femoral fx 2015 Hypothyroidism Gout HTN Migraine Depression/anxiety pre-DM - Current Medication List Current Medications: Active Medications Acetaminophen/Butalbital/Caffeine (Fioricet -) 1 tablet PO Q6H PRN PRN Reason: HEADACHE Last Admin: 08/07/19 10:09 Dose: 1 tablet Al Hydroxide/Mg Hydroxide (Mylanta Oral Suspension -) 30 ml PO Q6H PRN PRN Reason: DYSPEPSIA Stop: 08/07/19 23:59 Last Admin: 08/06/19 21:56 Dose: 30 ml Allopurinol (Zyloprim -) 300 mg PO HS [facility] Last Admin: 08/06/19 21:54 Dose: 300 mg Aspirin (Asa -) 81 mg PO DAILY [facility] Last Admin: 08/07/19 12:23 Dose: 81 mg Atorvastatin Calcium (Lipitor -) 40 mg PO HS [facility] Last Admin: 08/06/19 21:53 Dose: 40 mg Budesonide/Formoterol Fumarate (Symbicort 160/4.5mcg -) 2 puff IH BID [facility] Last Admin: 08/07/19 10:11 Dose: 2 puff Citalopram Hydrobromide (Celexa -) 20 mg PO TID [facility] Last Admin: 08/07/19 06:33 Dose: 20 mg Codeine Sulfate (Codeine Sulfate -) 30 mg PO Q6H PRN PRN Reason: COUGH Ferrous Gluconate (Fergon -) 324 mg PO DAILY [facility] Last Admin: 08/07/19 10:09 Dose: 324 mg Heparin Sodium (Porcine) (Heparin -) 5,000 unit SQ BID [facility] Last Admin: 08/07/19 10:10 Dose: 5,000 unit Ceftriaxone Sodium 1 gm/ (Dextrose) 50 mls @ 100 mls/hr IVPB DAILY [facility]; Protocol Last Admin: 08/07/19 10:11 Dose: 100 mls/hr Levalbuterol HCl (Xopenex) 0.63 mg IH Q8H PRN PRN Reason: ASTHMA Levothyroxine Sodium (Synthroid -) 112 mcg PO AM [facility] Last Admin: 08/07/19 06:33 Dose: 112 mcg Methylprednisolone Sodium Succinate (Solu-Medrol -) 40 mg IVPUSH DAILY [facility] Last Admin: 08/07/19 10:10 Dose: 40 mg Metoprolol Tartrate (Lopressor -) 100 mg PO BID [facility] Last Admin: 08/07/19 10:09 Dose: 100 mg Nortriptyline HCl (Pamelor -) 50 mg PO BID [facility] Last Admin: 08/07/19 12:23 Dose: 50 mg Pantoprazole Sodium (Protonix -) 40 mg PO DAILY [facility] Last Admin: 08/07/19 10:09 Dose: 40 mg Polyethylene Glycol (Miralax (For Daily Use) -) 17 gm PO DAILY [facility] Last Admin: 08/07/19 10:12 Dose: Not Given Ranitidine HCl (Zantac -) 150 mg PO BID [facility] Last Admin: 08/07/19 10:09 Dose: 150 mg Sumatriptan Succinate (Imitrex -) 100 mg PO PRN PRN PRN Reason: MIGRAINE Tiotropium [place] (Spiriva Respimat) 2 puff IH DAILY [facility] Last Admin: 08/07/19 10:11 Dose: 2 puff - Objective Vital Signs: Vital Signs Temperature 98.4 F 08/07/19 06:00 Pulse Rate 65 08/07/19 06:00 Respiratory Rate 20 08/07/19 06:00 Blood Pressure 127/68 08/07/19 06:00 O2 Sat by Pulse Oximetry (%) 99 08/06/19 21:00 Constitutional: Yes: Anxious, Moderate Distress Eyes: Yes: Conjunctiva Clear, EOM Intact HENT: Yes: Atraumatic, Normocephalic Neck: Yes: Supple, Trachea Midline Cardiovascular: Yes: Regular Rate and Rhythm, S1, S2 Respiratory: Yes: Cough, On Nasal O2, Rhonchi, SOB, SOB on Exertion Gastrointestinal: Yes: Normal Bowel Sounds, Soft. No: Abdomen, Obese, Tenderness ...Rectal Exam: Yes: Deferred Genitourinary: No: Anuria Breast(s): Yes: WNL Musculoskeletal: No: Back Pain, Joint Stiffness Extremities: Yes: WNL Edema: No Integumentary: Yes: WNL Neurological: Yes: Alert, Oriented. No: Aphasia, Dysarthria ...Motor Strength: WNL Psychiatric: Yes: WNL Labs: CBC, BMP 08/07/19 12:00 INR, PTT INR 1.16 (0.83-1.09) H 08/04/19 07:05 Problem List - Problems (1) Anemia Assessment/Plan: Start Iron supplementation PO GI consult when stable. Code(s): D64.9 - ANEMIA, UNSPECIFIED Qualifiers: Anemia type: iron deficiency (2) Bacteremia Assessment/Plan: Ceftriaxone IV , 5 days total Code(s): R78.81 - BACTEREMIA (3) COPD exacerbation Assessment/Plan: Continue [place] O2 LABA/LAMA Decrease Prednisone 40 mg QD Code(s): J44.1 - CHRONIC OBSTRUCTIVE PULMONARY DISEASE W (ACUTE) EXACERBATION (4) Myocardial infarct, old Assessment/Plan: Cardiology consult appreciated. Continue Lipitor, ASA. Code(s): I25.2 - OLD MYOCARDIAL INFARCTION
[2019-08-07 13:00] LABS: BILIRUBIN,TOTAL 0.2 mg/dL (0.2-1); BLOOD UREA NITROGEN 21.8 mg/dL (7-18); CREATININE 0.7 mg/dL (0.55-1.3); MAGNESIUM 2.3 mg/dL (1.8-2.4); POTASSIUM 3.7 mmol/L (3.5-5.1); TOT PROT 6.1 g/dl (6.4-8.2)
[2019-08-07] MEDS: ATORVASTATIN CA 40 MG TABLET (FP) PO SCH (21:46)
[2019-08-07] MEDS: ALLOPURINOL 300 MG TABLET (FP) PO SCH (21:47)
[2019-08-08] MEDS: LEVOTHYROXINE NA 112 MCG TABLET (FP) PO SCH (07:01)
[2019-08-08] MEDS: CITALOPRAM HYDROBROMIDE 20 MG TABLET (FP) PO SCH ×3 (07:01→21:59)
[2019-08-08] MEDS: ACETAMINOPHEN/CAFFEINE/BUTALBITAL 1 TAB PO PRN ×3 (07:04→22:04)
--- NOTE | 2019-08-08 08:00 | PN ---
Progress Note, Physician Chief Complaint: Comfortable in bed, on O2NC, afebrile. History of Present Illness: Severe COPD, chronic cough on codeine suppression 1983 RUUL lobectomy for spontaneous PTX [place] 2005, cardiac cath x2 Left femoral fx 2016 Hypothyroidism Gout HTN Migraine Depression/anxiety pre-DM - Current Medication List Current Medications: Active Medications Acetaminophen/Butalbital/Caffeine (Fioricet -) 1 tablet PO Q6H PRN PRN Reason: HEADACHE Last Admin: 08/08/19 07:04 Dose: 1 tablet Allopurinol (Zyloprim -) 300 mg PO HS [facility] Last Admin: 08/07/19 21:47 Dose: 300 mg Aspirin (Asa -) 81 mg PO DAILY [facility] Last Admin: 08/07/19 12:23 Dose: 81 mg Atorvastatin Calcium (Lipitor -) 40 mg PO HS [facility] Last Admin: 08/07/19 21:46 Dose: 40 mg Budesonide/Formoterol Fumarate (Symbicort 160/4.5mcg -) 2 puff IH BID [facility] Last Admin: 08/07/19 21:48 Dose: 2 puff Citalopram Hydrobromide (Celexa -) 20 mg PO TID [facility] Last Admin: 08/08/19 07:01 Dose: 20 mg Codeine Sulfate (Codeine Sulfate -) 30 mg PO Q6H PRN PRN Reason: COUGH Ferrous Gluconate (Fergon -) 324 mg PO DAILY [facility] Last Admin: 08/07/19 10:09 Dose: 324 mg Heparin Sodium (Porcine) (Heparin -) 5,000 unit SQ BID [facility] Last Admin: 08/07/19 21:47 Dose: 5,000 unit Ceftriaxone Sodium 1 gm/ (Dextrose) 50 mls @ 100 mls/hr IVPB DAILY [facility]; Protocol Last Admin: 08/07/19 10:11 Dose: 100 mls/hr Levalbuterol HCl (Xopenex) 0.63 mg IH Q8H PRN PRN Reason: ASTHMA Levothyroxine Sodium (Synthroid -) 112 mcg PO AM [facility] Last Admin: 08/08/19 07:01 Dose: 112 mcg Methylprednisolone Sodium Succinate (Solu-Medrol -) 40 mg IVPUSH DAILY [facility] Last Admin: 08/07/19 10:10 Dose: 40 mg Metoprolol Tartrate (Lopressor -) 100 mg PO BID [facility] Last Admin: 08/07/19 21:46 Dose: 100 mg Nortriptyline HCl (Pamelor -) 50 mg PO BID [facility] Last Admin: 08/07/19 23:08 Dose: 50 mg Pantoprazole Sodium (Protonix -) 40 mg PO DAILY [facility] Last Admin: 08/07/19 10:09 Dose: 40 mg Polyethylene Glycol (Miralax (For Daily Use) -) 17 gm PO DAILY [facility] Last Admin: 08/07/19 10:12 Dose: Not Given Ranitidine HCl (Zantac -) 150 mg PO BID [facility] Last Admin: 08/07/19 21:48 Dose: 150 mg Sumatriptan Succinate (Imitrex -) 100 mg PO PRN PRN PRN Reason: MIGRAINE Tiotropium [place] (Spiriva Respimat) 2 puff IH DAILY [facility] Last Admin: 08/07/19 10:11 Dose: 2 puff - Objective Vital Signs: Vital Signs Temperature 98.4 F 08/08/19 05:47 Pulse Rate 67 08/08/19 05:47 Respiratory Rate 20 08/08/19 05:47 Blood Pressure 143/76 08/08/19 05:47 O2 Sat by Pulse Oximetry (%) 100 08/07/19 21:00 Constitutional: Yes: Anxious, Mild Distress Eyes: Yes: Conjunctiva Clear, EOM Intact HENT: Yes: Atraumatic, Normocephalic Neck: Yes: Supple, Trachea Midline Cardiovascular: Yes: Regular Rate and Rhythm. No: Bradycardia, Tachycardia Respiratory: Yes: Regular, On Nasal O2, Rhonchi, SOB, SOB on Exertion Gastrointestinal: Yes: Normal Bowel Sounds, Soft. No: Abdomen, Obese ...Rectal Exam: Yes: Deferred Genitourinary: No: Anuria, Bladder Distention, CVA Tenderness - Left, CVA Tenderness - Right Musculoskeletal: Yes: WNL Extremities: Yes: WNL Edema: No Integumentary: Yes: WNL Neurological: Yes: Alert, Oriented, Cran Nerves II-XII Intact. No: Aphasia, Confusion, Dysarthria, Facial Droop, Lethargy ...Motor Strength: WNL Psychiatric: Yes: WNL Labs: CBC, BMP 08/07/19 12:00 08/07/19 12:00 INR, PTT INR 1.16 (0.83-1.09) H 08/04/19 07:05 Problem List - Problems (1) Anemia Assessment/Plan: Iron supplementation PO GI f/u when stable. Code(s): D64.9 - ANEMIA, UNSPECIFIED Qualifiers: Anemia type: iron deficiency (2) Bacteremia Assessment/Plan: Ceftriaxone IV , 5 days total Today day 4 Code(s): R78.81 - BACTEREMIA (3) COPD exacerbation Assessment/Plan: Continue [place] O2 Nebulizer therapy, CTA noted Pulm consult appreciated D/C Prednisone Code(s): J44.1 - CHRONIC OBSTRUCTIVE PULMONARY DISEASE W (ACUTE) EXACERBATION (4) Myocardial infarct, old Assessment/Plan: Cardiology consult appreciated. Continue Lipitor, ASA. Code(s): I25.2 - OLD MYOCARDIAL INFARCTION
[2019-08-08 08:33] LABS: BASO % 0.5 % (0-2.0); EOS % 0.7 % (0-4.5); HEMATOCRIT 33.1 % (32.4-45.2); HEMOGLOBIN 10.6 GM/dL (10.7-15.3); LYMPH % 16.7 % (8-40); MCH 25.5 pg (25.7-33.7); MCHC 32.1 g/dl (32.0-36.0); MEAN CELL VOLUME 79.6 fl (80-96); MONO % 7.9 % (3.8-10.2); NEUT % 74.2 % (42.8-82.8); PLATELET COUNT 309 K/MM3 (134-434); RBC 4.16 M/mm3 (3.60-5.2); RDW 18.9 % (11.6-15.6); WHITE BLOOD COUNT 7.7 K/mm3 (4.0-10.0)
[2019-08-08 09:00] LABS: ALBUMIN 3.4 g/dl (3.4-5.0); BILIRUBIN,TOTAL 0.2 mg/dL (0.2-1); BLOOD UREA NITROGEN 21.6 mg/dL (7-18); CALCIUM 9.4 mg/dL (8.5-10.1); CREATININE 0.8 mg/dL (0.55-1.3); MAGNESIUM 2.4 mg/dL (1.8-2.4); POTASSIUM 3.6 mmol/L (3.5-5.1); TOT PROT 6.7 g/dl (6.4-8.2)
[2019-08-08] MEDS ORDERED: PT OWN MED DRAWER 7, Y5N ONE ×2 (09:54→21:29)
[2019-08-08] MEDS ORDERED: cefTRIAXone SODIUM 1 GM VIAL ONE (09:54)
[2019-08-08] MEDS ORDERED: DEXTROSE 5%-WATER - 50 ML IVPB ONE (09:54)
[2019-08-08] MEDS: METOPROLOL TARTRATE 50 MG TABLET (FP) PO SCH ×2 (10:00→21:59)
[2019-08-08] MEDS: RANITIDINE HCL 150 MG TABLET (FP) PO SCH ×2 (10:00→21:59)
[2019-08-08] MEDS: FERROUS GLUCONATE 324 MG TAB (FP) PO SCH (10:00)
[2019-08-08] MEDS: HEPARIN NA (PORCINE) 5,000 UNITS/ML 1ML VIAL SQ SCH ×2 (10:00→22:00)
[2019-08-08] MEDS: ASPIRIN 81 MG CHEWABLE TABLETS PO SCH (10:00)
[2019-08-08] MEDS: PANTOPRAZOLE 40 MG TABLET (FP) PO SCH (10:00)
[2019-08-08] MEDS: CEFTRIAXONE 1 GM in DEXTROSE 5%-WATER - 50 ML IVPB SCH (10:02)
[2019-08-08] MEDS: NORTRIPTYLINE HCL 25 MG CAPSULE PO SCH ×2 (10:02→22:00)
[2019-08-08] MEDS: TIOTROPIUM BROMIDE 2.5 MCG (SPIRIVA) RESPIMAT INHALER IH SCH (10:03)
[2019-08-08] MEDS: BUDESONIDE/FORMETEROL FUMARATE 160/4.5 mcg INHALER IH SCH ×2 (10:03→22:01)
[2019-08-08] MEDS: POLYETHYLENE GLYCOL 3350 119 GM BTL PO SCH (10:54)
--- NOTE | 2019-08-08 12:29 | PN ---
Progress Note, Physician History of Present Illness: stable no new issues - Current Medication List Current Medications: Active Medications Acetaminophen/Butalbital/Caffeine (Fioricet -) 1 tablet PO Q6H PRN PRN Reason: HEADACHE Last Admin: 08/08/19 07:04 Dose: 1 tablet Allopurinol (Zyloprim -) 300 mg PO HS [facility] Last Admin: 08/07/19 21:47 Dose: 300 mg Aspirin (Asa -) 81 mg PO DAILY [facility] Last Admin: 08/08/19 10:00 Dose: 81 mg Atorvastatin Calcium (Lipitor -) 40 mg PO HS [facility] Last Admin: 08/07/19 21:46 Dose: 40 mg Budesonide/Formoterol Fumarate (Symbicort 160/4.5mcg -) 2 puff IH BID [facility] Last Admin: 08/08/19 10:03 Dose: 2 puff Citalopram Hydrobromide (Celexa -) 20 mg PO TID [facility] Last Admin: 08/08/19 07:01 Dose: 20 mg Codeine Sulfate (Codeine Sulfate -) 30 mg PO Q6H PRN PRN Reason: COUGH Ferrous Gluconate (Fergon -) 324 mg PO DAILY [facility] Last Admin: 08/08/19 10:00 Dose: 324 mg Heparin Sodium (Porcine) (Heparin -) 5,000 unit SQ BID [facility] Last Admin: 08/08/19 10:00 Dose: 5,000 unit Ceftriaxone Sodium 1 gm/ (Dextrose) 50 mls @ 100 mls/hr IVPB DAILY [facility]; Protocol Last Admin: 08/08/19 10:02 Dose: 100 mls/hr Levalbuterol HCl (Xopenex) 0.63 mg IH Q8H PRN PRN Reason: ASTHMA Levothyroxine Sodium (Synthroid -) 112 mcg PO AM [facility] Last Admin: 08/08/19 07:01 Dose: 112 mcg Metoprolol Tartrate (Lopressor -) 100 mg PO BID [facility] Last Admin: 08/08/19 10:00 Dose: 100 mg Nortriptyline HCl (Pamelor -) 50 mg PO BID [facility] Last Admin: 08/08/19 10:02 Dose: 50 mg Pantoprazole Sodium (Protonix -) 40 mg PO DAILY [facility] Last Admin: 08/08/19 10:00 Dose: 40 mg Polyethylene Glycol (Miralax (For Daily Use) -) 17 gm PO DAILY [facility] Last Admin: 08/08/19 10:54 Dose: 17 gm Ranitidine HCl (Zantac -) 150 mg PO BID [facility] Last Admin: 08/08/19 10:00 Dose: 150 mg Sumatriptan Succinate (Imitrex -) 100 mg PO PRN PRN PRN Reason: MIGRAINE Tiotropium [place] (Spiriva Respimat) 2 puff IH DAILY [facility] Last Admin: 08/08/19 10:03 Dose: 2 puff - Objective Vital Signs: Vital Signs Temperature 98.4 F 08/08/19 10:00 Pulse Rate 95 H 08/08/19 10:00 Respiratory Rate 20 08/08/19 10:00 Blood Pressure 111/60 08/08/19 10:00 O2 Sat by Pulse Oximetry (%) 100 08/07/19 21:00 Constitutional: Yes: No Distress, Calm Cardiovascular: Yes: S1, S2 Respiratory: Yes: Regular, On Nasal O2, Poor Air Entry Gastrointestinal: Yes: Normal Bowel Sounds, Soft Musculoskeletal: Yes: WNL Extremities: Yes: WNL Neurological: Yes: Alert, Oriented Psychiatric: Yes: Alert, Oriented Labs: CBC, BMP 08/08/19 07:52 08/08/19 07:52 INR, PTT INR 1.16 (0.83-1.09) H 08/04/19 07:05 Assessment/Plan Problem List - Problem (1) Anemia Code(s): D64.9 - ANEMIA, UNSPECIFIED (2) SOB (shortness of breath) Code(s): R06.02 - SHORTNESS OF BREATH (3) Acute hypoxemic respiratory failure Code(s): J96.01 - ACUTE RESPIRATORY FAILURE WITH HYPOXIA (4) CAD (coronary artery disease), [place] coronary artery Code(s): I25.10 - ATHSCL HEART DISEASE OF [place] CORONARY ARTERY W/O ANG PCTRS Qualifiers: [place] vs. transplanted heart: [place] heart Associated angina: without angina Qualified Code(s): I25.10 - Atherosclerotic heart disease of [place] coronary artery without angina pectoris (5) COPD exacerbation Code(s): J44.1 - CHRONIC OBSTRUCTIVE PULMONARY DISEASE W (ACUTE) EXACERBATION 6 uti 7 gm negative bacteremia plan ceftriaxone doing well
--- NOTE | 2019-08-08 12:44 | PN ---
Progress Note, Physician History of Present Illness: Dyspnea, cough and resolved, off steroids, reports heartburn in context of hiatal hernia. - Current Medication List Current Medications: Active Medications Acetaminophen/Butalbital/Caffeine (Fioricet -) 1 tablet PO Q6H PRN PRN Reason: HEADACHE Last Admin: 08/08/19 07:04 Dose: 1 tablet Allopurinol (Zyloprim -) 300 mg PO HS [facility] Last Admin: 08/07/19 21:47 Dose: 300 mg Aspirin (Asa -) 81 mg PO DAILY [facility] Last Admin: 08/08/19 10:00 Dose: 81 mg Atorvastatin Calcium (Lipitor -) 40 mg PO HS [facility] Last Admin: 08/07/19 21:46 Dose: 40 mg Budesonide/Formoterol Fumarate (Symbicort 160/4.5mcg -) 2 puff IH BID [facility] Last Admin: 08/08/19 10:03 Dose: 2 puff Citalopram Hydrobromide (Celexa -) 20 mg PO TID [facility] Last Admin: 08/08/19 07:01 Dose: 20 mg Codeine Sulfate (Codeine Sulfate -) 30 mg PO Q6H PRN PRN Reason: COUGH Ferrous Gluconate (Fergon -) 324 mg PO DAILY [facility] Last Admin: 08/08/19 10:00 Dose: 324 mg Heparin Sodium (Porcine) (Heparin -) 5,000 unit SQ BID [facility] Last Admin: 08/08/19 10:00 Dose: 5,000 unit Ceftriaxone Sodium 1 gm/ (Dextrose) 50 mls @ 100 mls/hr IVPB DAILY [facility]; Protocol Last Admin: 08/08/19 10:02 Dose: 100 mls/hr Levalbuterol HCl (Xopenex) 0.63 mg IH Q8H PRN PRN Reason: ASTHMA Levothyroxine Sodium (Synthroid -) 112 mcg PO AM [facility] Last Admin: 08/08/19 07:01 Dose: 112 mcg Metoprolol Tartrate (Lopressor -) 100 mg PO BID [facility] Last Admin: 08/08/19 10:00 Dose: 100 mg Nortriptyline HCl (Pamelor -) 50 mg PO BID [facility] Last Admin: 08/08/19 10:02 Dose: 50 mg Pantoprazole Sodium (Protonix -) 40 mg PO DAILY [facility] Last Admin: 08/08/19 10:00 Dose: 40 mg Polyethylene Glycol (Miralax (For Daily Use) -) 17 gm PO DAILY [facility] Last Admin: 08/08/19 10:54 Dose: 17 gm Ranitidine HCl (Zantac -) 150 mg PO BID [facility] Last Admin: 08/08/19 10:00 Dose: 150 mg Sumatriptan Succinate (Imitrex -) 100 mg PO PRN PRN PRN Reason: MIGRAINE Tiotropium [place] (Spiriva Respimat) 2 puff IH DAILY [facility] Last Admin: 08/08/19 10:03 Dose: 2 puff - Objective Vital Signs: Vital Signs Temperature 98.4 F 08/08/19 10:00 Pulse Rate 95 H 08/08/19 10:00 Respiratory Rate 20 08/08/19 10:00 Blood Pressure 111/60 08/08/19 10:00 O2 Sat by Pulse Oximetry (%) 100 08/07/19 21:00 Constitutional: Yes: No Distress, Calm, Thin Neck: Yes: Supple Cardiovascular: Yes: Regular Rate and Rhythm Respiratory: Yes: Regular, Diminished, On Nasal O2 Gastrointestinal: Yes: Normal Bowel Sounds, Soft Edema: No Labs: CBC, BMP 08/08/19 07:52 08/08/19 07:52 INR, PTT INR 1.16 (0.83-1.09) H 08/04/19 07:05 Problem List - Problems (1) Anemia Code(s): D64.9 - ANEMIA, UNSPECIFIED Qualifiers: Anemia type: iron deficiency (2) COPD exacerbation Code(s): J44.1 - CHRONIC OBSTRUCTIVE PULMONARY DISEASE W (ACUTE) EXACERBATION (3) History of lobectomy of lung Code(s): Z90.2 - ACQUIRED ABSENCE OF LUNG [PART OF] (4) Myocardial infarct, old Code(s): I25.2 - OLD MYOCARDIAL INFARCTION (5) SOB (shortness of breath) Code(s): R06.02 - SHORTNESS OF BREATH (6) CAD (coronary artery disease), [place] coronary artery Code(s): I25.10 - ATHSCL HEART DISEASE OF [place] CORONARY ARTERY W/O ANG PCTRS Qualifiers: [place] vs. transplanted heart: [place] heart Associated angina: without angina Qualified Code(s): I25.10 - Atherosclerotic heart disease of [place] coronary artery without angina pectoris (7) Bacteremia Code(s): R78.81 - BACTEREMIA Assessment/Plan 08/06/2019 Echo: Normal LV size with low normal LV fxn, LVEF 50-55%, mild LAE, mild MR, TR 1. Acute COPD Exacerbation 2. Chronic Hypoxic Respiratory Failure 3. E. coli bacteremia source 4. CAD history of old CO 5. History of RUL Lobectomy 6. Hypothyroidism 7. Anemia 8. GERD with hiatal hernia PLAN: 1. Continue ASA 81 mg QD, Lipitor 40 mg QHS and Lopressor 100 mg BID 2. D/c steroids, O2, bronchodilator, antibiotic coverage and DVT and GI prophylaxis 3. EGD/colonoscopy once clinically stable, antacids as needed
--- NOTE | 2019-08-08 12:51 | PN ---
Progress Note, Physician History of Present Illness: pulmonary alert,sitting up in bed dyspnea improving - Current Medication List Current Medications: Active Medications Acetaminophen/Butalbital/Caffeine (Fioricet -) 1 tablet PO Q6H PRN PRN Reason: HEADACHE Last Admin: 08/08/19 07:04 Dose: 1 tablet Allopurinol (Zyloprim -) 300 mg PO HS [facility] Last Admin: 08/07/19 21:47 Dose: 300 mg Aspirin (Asa -) 81 mg PO DAILY [facility] Last Admin: 08/08/19 10:00 Dose: 81 mg Atorvastatin Calcium (Lipitor -) 40 mg PO HS [facility] Last Admin: 08/07/19 21:46 Dose: 40 mg Budesonide/Formoterol Fumarate (Symbicort 160/4.5mcg -) 2 puff IH BID [facility] Last Admin: 08/08/19 10:03 Dose: 2 puff Citalopram Hydrobromide (Celexa -) 20 mg PO TID [facility] Last Admin: 08/08/19 07:01 Dose: 20 mg Codeine Sulfate (Codeine Sulfate -) 30 mg PO Q6H PRN PRN Reason: COUGH Ferrous Gluconate (Fergon -) 324 mg PO DAILY [facility] Last Admin: 08/08/19 10:00 Dose: 324 mg Heparin Sodium (Porcine) (Heparin -) 5,000 unit SQ BID [facility] Last Admin: 08/08/19 10:00 Dose: 5,000 unit Ceftriaxone Sodium 1 gm/ (Dextrose) 50 mls @ 100 mls/hr IVPB DAILY [facility]; Protocol Last Admin: 08/08/19 10:02 Dose: 100 mls/hr Levalbuterol HCl (Xopenex) 0.63 mg IH Q8H PRN PRN Reason: ASTHMA Levothyroxine Sodium (Synthroid -) 112 mcg PO AM [facility] Last Admin: 08/08/19 07:01 Dose: 112 mcg Metoprolol Tartrate (Lopressor -) 100 mg PO BID [facility] Last Admin: 08/08/19 10:00 Dose: 100 mg Nortriptyline HCl (Pamelor -) 50 mg PO BID [facility] Last Admin: 08/08/19 10:02 Dose: 50 mg Pantoprazole Sodium (Protonix -) 40 mg PO DAILY [facility] Last Admin: 08/08/19 10:00 Dose: 40 mg Polyethylene Glycol (Miralax (For Daily Use) -) 17 gm PO DAILY [facility] Last Admin: 08/08/19 10:54 Dose: 17 gm Ranitidine HCl (Zantac -) 150 mg PO BID [facility] Last Admin: 08/08/19 10:00 Dose: 150 mg Sumatriptan Succinate (Imitrex -) 100 mg PO PRN PRN PRN Reason: MIGRAINE Tiotropium [place] (Spiriva Respimat) 2 puff IH DAILY [facility] Last Admin: 08/08/19 10:03 Dose: 2 puff - Objective Vital Signs: Vital Signs Temperature 98.4 F 08/08/19 10:00 Pulse Rate 95 H 08/08/19 10:00 Respiratory Rate 20 08/08/19 10:00 Blood Pressure 111/60 08/08/19 10:00 O2 Sat by Pulse Oximetry (%) 100 08/07/19 21:00 Constitutional: Yes: Calm, Thin Eyes: Yes: WNL HENT: Yes: WNL Neck: Yes: WNL Cardiovascular: Yes: Regular Rate and Rhythm, S1, S2 Respiratory: Yes: Diminished Gastrointestinal: Yes: Normal Bowel Sounds, Soft Extremities: Yes: WNL Edema: No Labs: CBC, BMP 08/08/19 07:52 08/08/19 07:52 INR, PTT INR 1.16 (0.83-1.09) H 08/04/19 07:05 Problem List - Problems (1) Bacteremia Code(s): R78.81 - BACTEREMIA (2) SOB (shortness of breath) Code(s): R06.02 - SHORTNESS OF BREATH (3) CAD (coronary artery disease), [place] coronary artery Code(s): I25.10 - ATHSCL HEART DISEASE OF [place] CORONARY ARTERY W/O ANG PCTRS Qualifiers: [place] vs. transplanted heart: [place] heart Associated angina: without angina Qualified Code(s): I25.10 - Atherosclerotic heart disease of [place] coronary artery without angina pectoris (4) COPD (chronic obstructive pulmonary disease) with emphysema Code(s): J43.9 - EMPHYSEMA, UNSPECIFIED Qualifiers: Emphysema type: other Qualified Code(s): J43.8 - Other emphysema (5) Lung consolidation Code(s): J18.1 - LOBAR PNEUMONIA, UNSPECIFIED ORGANISM (6) COPD exacerbation Code(s): J44.1 - CHRONIC OBSTRUCTIVE PULMONARY DISEASE W (ACUTE) EXACERBATION Assessment/Plan IMP ADVANCED COPD O2 DEPENDENT WITH ACUTE EXACERBATION BACTEREMIA E-COLI H/O RUL LOBECTOMY 1983 SECONDARY TO COLLAPSED LUNG ASHD S/P MT 1983 GOUT PRERNA CONSOLIDATION CHRONIC HYPOTHYROID ANEMIA PLAN ABX INHALED BRONCHODILATORS O2 MONITOR [place] Problem List - Problems (1) Bacteremia Code(s): R78.81 - BACTEREMIA (2) SOB (shortness of breath) Code(s): R06.02 - SHORTNESS OF BREATH (3) CAD (coronary artery disease), [place] coronary artery Code(s): I25.10 - ATHSCL HEART DISEASE OF [place] CORONARY ARTERY W/O ANG PCTRS Qualifiers: [place] vs. transplanted heart: [place] heart Associated angina: without angina Qualified Code(s): I25.10 - Atherosclerotic heart disease of [place] coronary artery without angina pectoris (4) COPD (chronic obstructive pulmonary disease) with emphysema Code(s): J43.9 - EMPHYSEMA, UNSPECIFIED Qualifiers: Emphysema type: other Qualified Code(s): J43.8 - Other emphysema (5) Lung consolidation Code(s): J18.1 - LOBAR PNEUMONIA, UNSPECIFIED ORGANISM (6) COPD exacerbation Code(s): J44.1 - CHRONIC OBSTRUCTIVE PULMONARY DISEASE W (ACUTE) EXACERBATION
--- NOTE | 2019-08-08 13:45 | EKG ---
Test Reason : Blood Pressure : / mmHG Vent. Rate : 064 BPM Atrial Rate : 064 BPM P-R Int : 142 ms QRS Dur : 098 ms QT Int : 406 ms P-R-T Axes : 008 025 -03 degrees QTc Int : 418 ms NORMAL SINUS RHYTHM MINIMAL VOLTAGE CRITERIA FOR LVH, MAY BE NORMAL VARIANT INFERIOR INFARCT (CITED ON OR BEFORE 26-AUG-2006) ABNORMAL ECG WHEN COMPARED WITH ECG OF 04-AUG-2019 06:39, NO SIGNIFICANT CHANGE WAS FOUND Confirmed by LESLIE HENRY MD ([id number]) on 08/08/2019 1:45:34 PM Referred By: Liza MARTINEZ Confirmed By:LESLIE HENRY MD
[2019-08-08] MEDS: MAG HYDROX/AL HYDROX/SIMETH 30 ML UNIT-DOSE CUP PO PRN ×2 (13:55→21:59)
[2019-08-08] MEDS: ALLOPURINOL 300 MG TABLET (FP) PO SCH (21:59)
[2019-08-08] MEDS: ATORVASTATIN CA 40 MG TABLET (FP) PO SCH (21:59)
[2019-08-09] MEDS: CITALOPRAM HYDROBROMIDE 20 MG TABLET (FP) PO SCH (06:37)
[2019-08-09] MEDS: LEVOTHYROXINE NA 112 MCG TABLET (FP) PO SCH (06:37)
[2019-08-09 07:18] VITALS: BP 119/68; PULSE 67; TEMP 98.6
[2019-08-09 08:15] LABS: BASO % 0.4 % (0-2.0); EOS % 1.2 % (0-4.5); HEMATOCRIT 32.6 % (32.4-45.2); HEMOGLOBIN 10.5 GM/dL (10.7-15.3); LYMPH % 12.2 % (8-40); MCH 25.7 pg (25.7-33.7); MCHC 32.2 g/dl (32.0-36.0); MEAN CELL VOLUME 79.8 fl (80-96); MEAN PLT VOLUME 7.2 fl (7.5-11.1); MONO % 8.4 % (3.8-10.2); NEUT % 77.8 % (42.8-82.8); PLATELET COUNT 267 K/MM3 (134-434); RBC 4.08 M/mm3 (3.60-5.2); RDW 18.6 % (11.6-15.6); WHITE BLOOD COUNT 5.7 K/mm3 (4.0-10.0)
[2019-08-09 08:18] LABS: ALBUMIN 3.1 g/dl (3.4-5.0); BILIRUBIN,TOTAL 0.2 mg/dL (0.2-1); CALCIUM 8.9 mg/dL (8.5-10.1); CREATININE 0.8 mg/dL (0.55-1.3); MAGNESIUM 2.7 mg/dL (1.8-2.4); POTASSIUM 3.8 mmol/L (3.5-5.1); TOT PROT 6.1 g/dl (6.4-8.2)
--- NOTE | 2019-08-09 08:21 | PN ---
Progress Note, Physician Chief Complaint: Afebrile, feels well History of Present Illness: Severe COPD, chronic cough on codeine suppression 1984 RUUL lobectomy for spontaneous PTX MD 2005, cardiac cath x2 Left femoral fx 2015 Hypothyroidism Gout HTN Migraine Depression/anxiety pre-DM - Current Medication List Current Medications: Active Medications Acetaminophen/Butalbital/Caffeine (Fioricet -) 1 tablet PO Q6H PRN PRN Reason: HEADACHE Last Admin: 08/08/19 22:04 Dose: 1 tablet Al Hydroxide/Mg Hydroxide (Mylanta Oral Suspension -) 30 ml PO Q6H PRN PRN Reason: INDIGESTION Last Admin: 08/08/19 21:59 Dose: 30 ml Allopurinol (Zyloprim -) 300 mg PO HS [facility] Last Admin: 08/08/19 21:59 Dose: 300 mg Aspirin (Asa -) 81 mg PO DAILY [facility] Last Admin: 08/08/19 10:00 Dose: 81 mg Atorvastatin Calcium (Lipitor -) 40 mg PO HS [facility] Last Admin: 08/08/19 21:59 Dose: 40 mg Budesonide/Formoterol Fumarate (Symbicort 160/4.5mcg -) 2 puff IH BID [facility] Last Admin: 08/08/19 22:01 Dose: 2 puff Citalopram Hydrobromide (Celexa -) 20 mg PO TID [facility] Last Admin: 08/09/19 06:37 Dose: 20 mg Codeine Sulfate (Codeine Sulfate -) 30 mg PO Q6H PRN PRN Reason: COUGH Ferrous Gluconate (Fergon -) 324 mg PO DAILY [facility] Last Admin: 08/08/19 10:00 Dose: 324 mg Heparin Sodium (Porcine) (Heparin -) 5,000 unit SQ BID [facility] Last Admin: 08/08/19 22:00 Dose: 5,000 unit Ceftriaxone Sodium 1 gm/ (Dextrose) 50 mls @ 100 mls/hr IVPB DAILY [facility]; Protocol Last Admin: 08/08/19 10:02 Dose: 100 mls/hr Levalbuterol HCl (Xopenex) 0.63 mg IH Q8H PRN PRN Reason: ASTHMA Levothyroxine Sodium (Synthroid -) 112 mcg PO AM [facility] Last Admin: 08/09/19 06:37 Dose: 112 mcg Metoprolol Tartrate (Lopressor -) 100 mg PO BID [facility] Last Admin: 08/08/19 21:59 Dose: 100 mg Nortriptyline HCl (Pamelor -) 50 mg PO BID [facility] Last Admin: 08/08/19 22:00 Dose: 50 mg Pantoprazole Sodium (Protonix -) 40 mg PO DAILY [facility] Last Admin: 08/08/19 10:00 Dose: 40 mg Polyethylene Glycol (Miralax (For Daily Use) -) 17 gm PO DAILY [facility] Last Admin: 08/08/19 10:54 Dose: 17 gm Ranitidine HCl (Zantac -) 150 mg PO BID [facility] Last Admin: 08/08/19 21:59 Dose: 150 mg Sumatriptan Succinate (Imitrex -) 100 mg PO PRN PRN PRN Reason: MIGRAINE Tiotropium [place] (Spiriva Respimat) 2 puff IH DAILY [facility] Last Admin: 08/08/19 10:03 Dose: 2 puff - Objective Vital Signs: Vital Signs Temperature 98.6 F 08/09/19 06:00 Pulse Rate 67 08/09/19 06:00 Respiratory Rate 20 08/09/19 06:00 Blood Pressure 119/68 08/09/19 06:00 O2 Sat by Pulse Oximetry (%) 98 08/08/19 21:00 Constitutional: Yes: Anxious, Mild Distress Eyes: Yes: Conjunctiva Clear, EOM Intact HENT: Yes: Atraumatic, Normocephalic Neck: Yes: Supple, Trachea Midline Cardiovascular: Yes: Regular Rate and Rhythm Respiratory: Yes: Regular, On Nasal O2, SOB, SOB on Exertion Gastrointestinal: Yes: Soft ...Rectal Exam: Yes: Deferred Genitourinary: No: Anuria Breast(s): Yes: WNL Musculoskeletal: Yes: WNL Extremities: Yes: WNL Edema: No Neurological: Yes: WNL ...Motor Strength: WNL Psychiatric: Yes: WNL Labs: INR, PTT INR 1.16 (0.83-1.09) H 08/04/19 07:05 Problem List - Problems (1) Anemia Assessment/Plan: Iron supplementation PO GI f/u when stable. Code(s): D64.9 - ANEMIA, UNSPECIFIED Qualifiers: Anemia type: iron deficiency (2) Bacteremia Assessment/Plan: Ceftriaxone IV , 5 days total Today day 5 Code(s): R78.81 - BACTEREMIA (3) COPD exacerbation Assessment/Plan: Continue [place] O2 Symbicort/Spiriva, CTA noted Pulm consult appreciated Code(s): J44.1 - CHRONIC OBSTRUCTIVE PULMONARY DISEASE W (ACUTE) EXACERBATION (4) Myocardial infarct, old Assessment/Plan: Cardiology consult appreciated. Continue Lipitor, ASA. Code(s): I25.2 - OLD MYOCARDIAL INFARCTION (5) Elevated liver function tests Assessment/Plan: Will follow as outpatient Problems reviewed: Yes Code(s): R94.5 - ABNORMAL RESULTS OF LIVER FUNCTION STUDIES
--- NOTE | 2019-08-09 08:23 | DS ---
Physical Examination Vital Signs: Vital Signs Temperature 98.6 F 08/09/19 06:00 Pulse Rate 67 08/09/19 06:00 Respiratory Rate 20 08/09/19 06:00 Blood Pressure 119/68 08/09/19 06:00 O2 Sat by Pulse Oximetry (%) 98 08/08/19 21:00 Constitutional: Yes: Anxious, Mild Distress Eyes: Yes: Conjunctiva Clear, EOM Intact HENT: Yes: Atraumatic, Normocephalic Neck: Yes: Supple, Trachea Midline Cardiovascular: Yes: Regular Rate and Rhythm Respiratory: Yes: Regular, On Nasal O2, SOB, SOB on Exertion Gastrointestinal: Yes: Normal Bowel Sounds, Soft ...Rectal Exam: Yes: Deferred Renal/: No: Anuria, Bladder Distention Breast(s): Yes: WNL Musculoskeletal: No: Joint Stiffness, Joint Swelling Extremities: No: Amputation, Calf Tenderness Edema: No Peripheral Pulses WNL: No Integumentary: Yes: WNL Neurological: Yes: WNL ...Motor Strength: WNL Psychiatric: Yes: WNL Labs: CBC, BMP 08/09/19 07:28 Discharge Summary Reason For Visit: E.Coli Bacteremia Current Active Problems Anemia (Acute) Bacteremia (Acute) COPD exacerbation (Acute) Chills with fever (Acute) Elevated liver function tests (Acute) History of lobectomy of lung (Acute) Myocardial infarct, old (Acute) Prophylactic measure (Acute) SOB (shortness of breath) (Acute) Condition: Improved - Instructions Disposition: HOME - Home Medications Comprehensive Discharge Medication List: Ambulatory Orders Acetaminophen/Caffeine/Butalb [Fioricet -] 1 tab PO Q4H PRN 03/03/16 Aspirin Coated [Ecotrin -] 325 mg PO DAILY 03/03/16 Budesonide/Formeterol Fumarate [SYMBICORT 160/4.5mcg -] 1 inh PO DAILY 03/03/16 Citalopram Hydrobromide [Citalopram HBr] 20 mg PO TID 03/03/16 Codeine Sulfate - 30 mg PO Q6H PRN 03/03/16 Nortriptyline HCl [Pamelor -] 50 mg PO BID 03/03/16 Omeprazole [Prilosec] 40 mg PO BID 03/03/16 Allopurinol [Zyloprim -] 300 mg PO HS 03/04/16 Levothyroxine [Synthroid -] 112 mcg PO DAILY 03/04/16 Pramipexole Dihydrochloride [Mirapex -] 0.25 mg PO TID 10/18/18 Atorvastatin [place] [Lipitor] 40 mg PO HS 08/04/19 Citalopram Hydrobromide [Celexa -] 20 mg PO DAILY 08/04/19 Metoprolol Tartrate [Lopressor] 100 mg PO BID 08/04/19 Sumatriptan Succinate [Imitrex -] 100 mg PO PRN PRN 08/04/19 Tiotropium [place] [Spiriva Respimat] 1.25 mg PO DAILY 08/04/19 Prescription Drug Monitoring Program (I-STOP) results: I-STOP reviewed and no issues identified (OFFICE)
[2019-08-09] MEDS ORDERED: cefTRIAXone SODIUM 1 GM VIAL ONE (10:04)
[2019-08-09] MEDS ORDERED: DEXTROSE 5%-WATER - 50 ML IVPB ONE (10:04)
[2019-08-09] MEDS: CEFTRIAXONE 1 GM in DEXTROSE 5%-WATER - 50 ML IVPB SCH (10:11)
[2019-08-09] MEDS: BUDESONIDE/FORMETEROL FUMARATE 160/4.5 mcg INHALER IH SCH (10:11)
[2019-08-09] MEDS: HEPARIN NA (PORCINE) 5,000 UNITS/ML 1ML VIAL SQ SCH (10:12)
[2019-08-09] MEDS: TIOTROPIUM BROMIDE 2.5 MCG (SPIRIVA) RESPIMAT INHALER IH SCH (10:12)
[2019-08-09] MEDS: RANITIDINE HCL 150 MG TABLET (FP) PO SCH (10:12)
[2019-08-09] MEDS: ASPIRIN 81 MG CHEWABLE TABLETS PO SCH (10:12)
[2019-08-09] MEDS: METOPROLOL TARTRATE 50 MG TABLET (FP) PO SCH (10:12)
[2019-08-09] MEDS: PANTOPRAZOLE 40 MG TABLET (FP) PO SCH (10:12)
[2019-08-09] MEDS: FERROUS GLUCONATE 324 MG TAB (FP) PO SCH (10:12)
[2019-08-09] MEDS: ACETAMINOPHEN/CAFFEINE/BUTALBITAL 1 TAB PO PRN (10:13)
[2019-08-09] MEDS: NORTRIPTYLINE HCL 25 MG CAPSULE PO SCH (10:14)
[2019-08-09] MEDS: POLYETHYLENE GLYCOL 3350 119 GM BTL PO SCH ×2 (10:15→10:19)
[2019-08-09] MEDS: MAG HYDROX/AL HYDROX/SIMETH 30 ML UNIT-DOSE CUP PO PRN (10:19)
--- NOTE | 2019-08-09 11:02 | PN ---
Progress Note (short form) - Note Progress Note: PULMONARY Breathing better today. +nonproductive cough. Vital Signs Period Temp Pulse Resp BP Sys/Miranda Pulse Ox Last 24 Hr 97.7 F-98.8 F 65-73 20-20 119-147/68-75 98 Gen: less tachypneic with speaking Heart: RRR Lung: better air movement, scattered rales Abd: soft, nontender Ext: no edema CBC, BMP 08/09/19 07:28 08/09/19 07:28 Active Medications Acetaminophen/Butalbital/Caffeine (Fioricet -) 1 tablet PO Q6H PRN PRN Reason: HEADACHE Last Admin: 08/09/19 10:13 Dose: 1 tablet Al Hydroxide/Mg Hydroxide (Mylanta Oral Suspension -) 30 ml PO Q6H PRN PRN Reason: INDIGESTION Last Admin: 08/09/19 10:19 Dose: 30 ml Allopurinol (Zyloprim -) 300 mg PO HS [facility] Last Admin: 08/08/19 21:59 Dose: 300 mg Aspirin (Asa -) 81 mg PO DAILY [facility] Last Admin: 08/09/19 10:12 Dose: 81 mg Atorvastatin Calcium (Lipitor -) 40 mg PO HS [facility] Last Admin: 08/08/19 21:59 Dose: 40 mg Budesonide/Formoterol Fumarate (Symbicort 160/4.5mcg -) 2 puff IH BID [facility] Last Admin: 08/09/19 10:11 Dose: 2 puff Citalopram Hydrobromide (Celexa -) 20 mg PO TID [facility] Last Admin: 08/09/19 06:37 Dose: 20 mg Codeine Sulfate (Codeine Sulfate -) 30 mg PO Q6H PRN PRN Reason: COUGH Ferrous Gluconate (Fergon -) 324 mg PO DAILY [facility] Last Admin: 08/09/19 10:12 Dose: 324 mg Heparin Sodium (Porcine) (Heparin -) 5,000 unit SQ BID [facility] Last Admin: 08/09/19 10:12 Dose: 5,000 unit Ceftriaxone Sodium 1 gm/ (Dextrose) 50 mls @ 100 mls/hr IVPB DAILY [facility]; Protocol Last Admin: 08/09/19 10:11 Dose: 100 mls/hr Levalbuterol HCl (Xopenex) 0.63 mg IH Q8H PRN PRN Reason: ASTHMA Levothyroxine Sodium (Synthroid -) 112 mcg PO AM [facility] Last Admin: 08/09/19 06:37 Dose: 112 mcg Metoprolol Tartrate (Lopressor -) 100 mg PO BID [facility] Last Admin: 08/09/19 10:12 Dose: 100 mg Nortriptyline HCl (Pamelor -) 50 mg PO BID [facility] Last Admin: 08/09/19 10:14 Dose: 50 mg Pantoprazole Sodium (Protonix -) 40 mg PO DAILY [facility] Last Admin: 08/09/19 10:12 Dose: 40 mg Polyethylene Glycol (Miralax (For Daily Use) -) 17 gm PO DAILY [facility] Last Admin: 08/09/19 10:19 Dose: Not Given Ranitidine HCl (Zantac -) 150 mg PO BID [facility] Last Admin: 08/09/19 10:12 Dose: 150 mg Sumatriptan Succinate (Imitrex -) 100 mg PO PRN PRN PRN Reason: MIGRAINE Tiotropium [place] (Spiriva Respimat) 2 puff IH DAILY [facility] Last Admin: 08/09/19 10:12 Dose: 2 puff A/P Acute COPD Exacerbation Chronic Hypoxic Respiratory Failure UTI Gram Negative Bacteremia CAD h/o RUL Lobectomy Hypothyroidism Anemia - complete antibiotics - inhaled bronchodilators - xopenex as needed - O2 to keep SpO2 >90% - outpt PFTs and f/u - DVT prophylaxis
--- NOTE | 2019-08-09 12:24 | PN ---
Progress Note, Physician History of Present Illness: D/marco antonio home prior to being seen and evaluated. - Current Medication List Current Medications: Active Medications Acetaminophen/Butalbital/Caffeine (Fioricet -) 1 tablet PO Q6H PRN PRN Reason: HEADACHE Last Admin: 08/09/19 10:13 Dose: 1 tablet Al Hydroxide/Mg Hydroxide (Mylanta Oral Suspension -) 30 ml PO Q6H PRN PRN Reason: INDIGESTION Last Admin: 08/09/19 10:19 Dose: 30 ml Allopurinol (Zyloprim -) 300 mg PO HS [facility] Last Admin: 08/08/19 21:59 Dose: 300 mg Aspirin (Asa -) 81 mg PO DAILY [facility] Last Admin: 08/09/19 10:12 Dose: 81 mg Atorvastatin Calcium (Lipitor -) 40 mg PO HS [facility] Last Admin: 08/08/19 21:59 Dose: 40 mg Budesonide/Formoterol Fumarate (Symbicort 160/4.5mcg -) 2 puff IH BID [facility] Last Admin: 08/09/19 10:11 Dose: 2 puff Citalopram Hydrobromide (Celexa -) 20 mg PO TID [facility] Last Admin: 08/09/19 06:37 Dose: 20 mg Codeine Sulfate (Codeine Sulfate -) 30 mg PO Q6H PRN PRN Reason: COUGH Ferrous Gluconate (Fergon -) 324 mg PO DAILY [facility] Last Admin: 08/09/19 10:12 Dose: 324 mg Heparin Sodium (Porcine) (Heparin -) 5,000 unit SQ BID [facility] Last Admin: 08/09/19 10:12 Dose: 5,000 unit Ceftriaxone Sodium 1 gm/ (Dextrose) 50 mls @ 100 mls/hr IVPB DAILY [facility]; Protocol Last Admin: 08/09/19 10:11 Dose: 100 mls/hr Levalbuterol HCl (Xopenex) 0.63 mg IH Q8H PRN PRN Reason: ASTHMA Levothyroxine Sodium (Synthroid -) 112 mcg PO AM [facility] Last Admin: 08/09/19 06:37 Dose: 112 mcg Metoprolol Tartrate (Lopressor -) 100 mg PO BID [facility] Last Admin: 08/09/19 10:12 Dose: 100 mg Nortriptyline HCl (Pamelor -) 50 mg PO BID [facility] Last Admin: 08/09/19 10:14 Dose: 50 mg Pantoprazole Sodium (Protonix -) 40 mg PO DAILY [facility] Last Admin: 08/09/19 10:12 Dose: 40 mg Polyethylene Glycol (Miralax (For Daily Use) -) 17 gm PO DAILY [facility] Last Admin: 08/09/19 10:19 Dose: Not Given Ranitidine HCl (Zantac -) 150 mg PO BID [facility] Last Admin: 08/09/19 10:12 Dose: 150 mg Sumatriptan Succinate (Imitrex -) 100 mg PO PRN PRN PRN Reason: MIGRAINE Tiotropium [place] (Spiriva Respimat) 2 puff IH DAILY [facility] Last Admin: 08/09/19 10:12 Dose: 2 puff - Objective Vital Signs: Vital Signs Temperature 98.6 F 08/09/19 06:00 Pulse Rate 67 08/09/19 06:00 Respiratory Rate 20 08/09/19 06:00 Blood Pressure 119/68 08/09/19 06:00 O2 Sat by Pulse Oximetry (%) 98 08/08/19 21:00 Labs: CBC, BMP 08/09/19 07:28 08/09/19 07:28 INR, PTT INR 1.16 (0.83-1.09) H 08/04/19 07:05 Problem List - Problems (1) Anemia Code(s): D64.9 - ANEMIA, UNSPECIFIED Qualifiers: Anemia type: iron deficiency (2) COPD exacerbation Code(s): J44.1 - CHRONIC OBSTRUCTIVE PULMONARY DISEASE W (ACUTE) EXACERBATION (3) History of lobectomy of lung Code(s): Z90.2 - ACQUIRED ABSENCE OF LUNG [PART OF] (4) Myocardial infarct, old Code(s): I25.2 - OLD MYOCARDIAL INFARCTION (5) SOB (shortness of breath) Code(s): R06.02 - SHORTNESS OF BREATH (6) CAD (coronary artery disease), [place] coronary artery Code(s): I25.10 - ATHSCL HEART DISEASE OF [place] CORONARY ARTERY W/O ANG PCTRS Qualifiers: [place] vs. transplanted heart: [place] heart Associated angina: without angina Qualified Code(s): I25.10 - Atherosclerotic heart disease of [place] coronary artery without angina pectoris (7) Bacteremia Code(s): R78.81 - BACTEREMIA Assessment/Plan 08/06/2019 Echo: Normal LV size with low normal LV fxn, LVEF 50-55%, mild LAE, mild MR, TR 1. Acute COPD Exacerbation 2. Chronic Hypoxic Respiratory Failure 3. E. coli bacteremia source 4. CAD history of old PA 5. History of RUL Lobectomy 6. Hypothyroidism 7. Anemia 8. GERD with hiatal hernia PLAN: 1. Continue ASA 81 mg QD, Lipitor 40 mg QHS and Lopressor 100 mg BID 2. D/c steroids, O2 to keep SpO2 >90% , bronchodilator, antibiotic coverage, outpt PFTs and DVT and GI prophylaxis 3. EGD/colonoscopy once clinically stable, antacids as needed
== END 2019-08-09 14:05 | disposition home or self-care (01) | DRG 191 ==
LOC: JER 05:47 → JERBED 09:43 → J5S 20:43
PROVIDERS: ADMIT Internal Medicine; ATTEND Internal Medicine
DX: J44.1 Chronic obstructive pulmonary disease with (acute) exacerbation (principal); R78.81 Bacteremia; N39.0 Urinary tract infection, site not specified; J96.11 Chronic respiratory failure with hypoxia; I25.10 Atherosclerotic heart disease of native coronary artery without angina pectoris; I10 Essential (primary) hypertension; E78.5 Hyperlipidemia, unspecified; J44.9 Chronic obstructive pulmonary disease, unspecified; R50.9 Fever, unspecified; D64.9 Anemia, unspecified; I25.2 Old myocardial infarction; E03.9 Hypothyroidism, unspecified; M10.9 Gout, unspecified; F41.8 Other specified anxiety disorders; R73.03 Prediabetes; G43.909 Migraine, unspecified, not intractable, without status migrainosus; K59.09 Other constipation; B96.20 Unspecified Escherichia coli [E. coli] as the cause of diseases classified elsewhere; K44.9 Diaphragmatic hernia without obstruction or gangrene; K21.9 Gastro-esophageal reflux disease without esophagitis; F41.9 Anxiety disorder, unspecified; Z90.2 Acquired absence of lung [part of]; Z29.9 Encounter for prophylactic measures, unspecified
CPT/HCPCS: 36415; 36600; 71045-TC-FY; 71260-TC; 80053; 80061; 81003; 82272; 82728; 82803; 83036; 83540; 83550; 83605; 83721; 83735; 84484; 85025; 85379; 85610; 85730; 87040; 87086; 87186; 93005; 93010; 93306-TC; 94640; 97116-GP; 97162-GP; 99284-25; J0131; J1644; J7030

== ENCOUNTER 2021-04-09 05:16 | Observation (INO) | payer OTHER, MEDICARE ==
[2021-04-09 06:20] LABS: BASO % 0.6 % (0-2.0); EOS % 1.8 % (0-4.5); HEMATOCRIT 37.3 % (32.4-45.2); HEMOGLOBIN 12.3 GM/dL (10.7-15.3); LYMPH % 7.7 % (8-40); MCH 31.4 pg (25.7-33.7); MEAN CELL VOLUME 95.3 fl (80-96); MEAN PLT VOLUME 7.8 fl (7.5-11.1); MONO % 6.4 % (3.8-10.2); NEUT % 83.5 % (42.8-82.8); PLATELET COUNT 188 K/MM3 (134-434); RBC 3.92 M/mm3 (3.60-5.2); RDW 14.8 % (11.6-15.6); WHITE BLOOD COUNT 8.5 K/mm3 (4.0-10.0)
[2021-04-09 06:29] LABS: INR 0.94 (0.83-1.09); PROTHROMBIN TIME (PATIENT) 11.6 SEC (9.7-13.0)
[2021-04-09 06:31] LABS: ACTIVATED PTT 27.9 SECONDS (25.2-36.5)
[2021-04-09 06:42] LABS: CHLORIDE 100 mmol/L (98-107); SODIUM 135 mmol/L (136-145)
[2021-04-09 06:44] LABS: ALBUMIN 3.6 g/dl (3.4-5.0); BLOOD UREA NITROGEN 21.3 mg/dL (7-18); CALCIUM 8.6 mg/dL (8.5-10.1); CO2 31 mmol/L (21-32); GLUCOSE,RANDOM 102 mg/dL (74-106)
[2021-04-09 06:47] LABS: SGOT/AST 115 U/L (15-37)
[2021-04-09 06:48] LABS: SGPT/ALT 43 U/L (13-61)
[2021-04-09 06:49] LABS: BILIRUBIN,TOTAL 0.3 mg/dL (0.2-1); TOT PROT 7.1 g/dl (6.4-8.2)
[2021-04-09 06:50] LABS: ALK PHOS 150 U/L (45-117)
[2021-04-09 06:53] LABS: ANION GAP 3 MMOL/L (8-16)
[2021-04-09 07:57] LABS: CALCIUM 8.9 mg/dL (8.5-10.1)
[2021-04-09 07:58] LABS: BLOOD UREA NITROGEN 20.9 mg/dL (7-18)
[2021-04-09 08:01] LABS: CREATININE 0.9 mg/dL (0.55-1.3)
[2021-04-09] MEDS ORDERED: ALBUTEROL SO4 2.5/IPRATROPIUM 0.5 INH SOL 3 ML VIAL.NEB. NEB PRN (12:52)
[2021-04-09 13:11] VITALS: BMI 19.3
[2021-04-09] MEDS ORDERED: PT OWN MED DRAWER 7, Y5N ONE ×3 (14:00→21:30)
[2021-04-09] MEDS ORDERED: ACETAMINOPHEN/CAFFEINE/BUTALBITAL 1 TAB PO ONE ×2 (14:25→20:21)
[2021-04-09] MEDS: LEVOTHYROXINE NA 112 MCG TABLET (FP) PO SCH (15:13)
[2021-04-09] MEDS: PRAMIPEXOLE DIHYDROCHLORIDE 0.25 MG TABLET PO SCH ×2 (15:13→21:33)
[2021-04-09] MEDS: NORTRIPTYLINE HCL 25 MG CAPSULE PO SCH ×2 (15:13→21:33)
[2021-04-09] MEDS ORDERED: FAMOTIDINE 20 MG TABLET PO ONE (20:21)
[2021-04-09] MEDS: BUDESONIDE/FORMETEROL FUMARATE 160/4.5 mcg INHALER IH SCH (21:34)
[2021-04-09] MEDS: CITALOPRAM HYDROBROMIDE 20 MG TABLET PO SCH (21:34)
[2021-04-09] MEDS: PANTOPRAZOLE 40 MG TABLET PO SCH (21:34)
[2021-04-09] MEDS: METOPROLOL TARTRATE 50 MG TABLET (FP) PO SCH (21:34)
[2021-04-09] MEDS ORDERED: ATORVASTATIN CA 40 MG TABLET (FP) PO SCH (22:00)
[2021-04-09] MEDS ORDERED: ALLOPURINOL 300 MG TABLET (FP) PO SCH (22:00)
[2021-04-10] MEDS ORDERED: PT OWN MED DRAWER 7, Y5N ONE ×2 (05:28→13:32)
[2021-04-10] MEDS: PRAMIPEXOLE DIHYDROCHLORIDE 0.25 MG TABLET PO SCH ×2 (05:36→13:45)
[2021-04-10] MEDS: NORTRIPTYLINE HCL 25 MG CAPSULE PO SCH ×2 (05:36→13:45)
[2021-04-10 06:53] LABS: BASO % 0.2 % (0-2.0); EOS % 2.1 % (0-4.5); HEMATOCRIT 35.9 % (32.4-45.2); HEMOGLOBIN 12.2 GM/dL (10.7-15.3); LYMPH % 11.4 % (8-40); MCH 32.1 pg (25.7-33.7); MCHC 33.9 g/dl (32.0-36.0); MEAN CELL VOLUME 94.7 fl (80-96); MEAN PLT VOLUME 7.4 fl (7.5-11.1); MONO % 8.5 % (3.8-10.2); NEUT % 77.8 % (42.8-82.8); PLATELET COUNT 170 K/MM3 (134-434); RBC 3.79 M/mm3 (3.60-5.2); RDW 14.4 % (11.6-15.6); WHITE BLOOD COUNT 6.7 K/mm3 (4.0-10.0)
[2021-04-10 07:07] LABS: CALCIUM 8.6 mg/dL (8.5-10.1)
[2021-04-10 07:08] LABS: ALBUMIN 3.4 g/dl (3.4-5.0); BLOOD UREA NITROGEN 16.6 mg/dL (7-18); MAGNESIUM 2.1 mg/dL (1.8-2.4)
[2021-04-10 07:11] LABS: CREATININE 0.7 mg/dL (0.55-1.3); PHOSPHOROUS 3.9 mg/dL (2.5-4.9)
[2021-04-10 07:12] LABS: BILIRUBIN,TOTAL 0.3 mg/dL (0.2-1); TOT PROT 6.1 g/dl (6.4-8.2)
[2021-04-10] MEDS: PANTOPRAZOLE 40 MG TABLET PO SCH (09:23)
[2021-04-10] MEDS: METOPROLOL TARTRATE 50 MG TABLET (FP) PO SCH (09:23)
[2021-04-10] MEDS: CITALOPRAM HYDROBROMIDE 20 MG TABLET PO SCH (09:23)
[2021-04-10] MEDS: LEVOTHYROXINE NA 112 MCG TABLET (FP) PO SCH (09:24)
[2021-04-10] MEDS: BUDESONIDE/FORMETEROL FUMARATE 160/4.5 mcg INHALER IH SCH (09:24)
[2021-04-10] MEDS ORDERED: ASPIRIN COATED 81 MG TABLET.EC PO SCH (10:00)
[2021-04-10] MEDS ORDERED: ENOXAPARIN NA (PORCINE) 40 MG/0.4 ML DISP.SYRIN SQ SCH (10:00)
[2021-04-10] MEDS ORDERED: FAMOTIDINE 20 MG TABLET PO ONE (10:30)
[2021-04-10] MEDS ORDERED: ACETAMINOPHEN/CAFFEINE/BUTALBITAL 1 TAB PO ONE (10:38)
[2021-04-10 18:39] VITALS: BP 149/85; PULSE 75; TEMP 98.5
== END 2021-04-10 18:55 | disposition home or self-care (01) ==
LOC: JER 05:16 → INTOOBSV 08:41 → JERBED 08:41 → J4S 12:53
PROVIDERS: ATTEND Internal Medicine
PROC: 3E023GC Introduction of Other Therapeutic Substance into Muscle, Percutaneous Approach (ICD-10-PCS; principal; 2021-04-09)
DX: I25.10 Atherosclerotic heart disease of native coronary artery without angina pectoris (principal); E03.9 Hypothyroidism, unspecified; I11.9 Hypertensive heart disease without heart failure; F39 Unspecified mood [affective] disorder; R74.01 Elevation of levels of liver transaminase levels; Z29.9 Encounter for prophylactic measures, unspecified; I21.4 Non-ST elevation (NSTEMI) myocardial infarction; R07.9 Chest pain, unspecified; Z87.891 Personal history of nicotine dependence; R06.2 Wheezing; Z95.5 Presence of coronary angioplasty implant and graft; I25.2 Old myocardial infarction; Z99.81 Dependence on supplemental oxygen; K59.00 Constipation, unspecified; F41.9 Anxiety disorder, unspecified; M10.9 Gout, unspecified; J43.9 Emphysema, unspecified; Z90.2 Acquired absence of lung [part of]; Z88.8 Allergy status to other drugs, medicaments and biological substances
CPT/HCPCS: 36415; 71045-TC-FY; 80048; 80053; 80061; 80074; 82962; 83036; 83721; 83735; 84100; 84443; 84484; 85025; 85379; 85610; 85730; 87804; 87807; 93005; 93010; 94010; 96372; 99285-25; C9803; G0378; U0003; U0005

== ENCOUNTER 2021-08-11 08:59 | Inpatient (IN) | payer OTHER, MEDICARE ==
[2021-08-11] MEDS ORDERED: ALBUTEROL SO4 2.5/IPRATROPIUM 0.5 INH SOL 3 ML VIAL.NEB. NEB ONE (09:38)
[2021-08-11] MEDS: ALBUTEROL SO4 2.5/IPRATROPIUM 0.5 INH SOL 3 ML VIAL.NEB. NEB SCH ×2 (10:05→10:42)
[2021-08-11 10:28] LABS: BASO % 0.8 % (0-2.0); EOS % 1.7 % (0-4.5); HEMATOCRIT 35.6 % (32.4-45.2); HEMOGLOBIN 11.9 GM/dL (10.7-15.3); LYMPH % 7.1 % (8-40); MCH 30.8 pg (25.7-33.7); MCHC 33.5 g/dl (32.0-36.0); MEAN PLT VOLUME 7.3 fl (7.5-11.1); MONO % 7.6 % (3.8-10.2); NEUT % 82.8 % (42.8-82.8); PLATELET COUNT 282 10^3/uL (134-434); RBC 3.87 M/mm3 (3.60-5.2); RDW 15.3 % (11.6-15.6); WHITE BLOOD COUNT 10.5 K/mm3 (4.0-10.0)
[2021-08-11] MEDS ORDERED: methylPREDNISolone NA SUCC 125 MG/2 ML VIAL IVPUSH ONE (10:42)
[2021-08-11 10:43] LABS: CHLORIDE 97 mmol/L (98-107); SODIUM 132 mmol/L (136-145)
[2021-08-11 10:46] LABS: CALCIUM 8.7 mg/dL (8.5-10.1)
[2021-08-11] MEDS ORDERED: methylPREDNISolone NA SUCC 125 MG/2 ML VIAL ONE (10:46)
[2021-08-11 10:47] LABS: ALBUMIN 3.2 g/dl (3.4-5.0); BLOOD UREA NITROGEN 16.1 mg/dL (7-18); CO2 35 mmol/L (21-32); GLUCOSE,RANDOM 91 mg/dL (74-106)
[2021-08-11 10:50] LABS: CREATININE 0.8 mg/dL (0.55-1.3); SGOT/AST 137 U/L (15-37)
[2021-08-11 10:52] LABS: BILIRUBIN,TOTAL 0.3 mg/dL (0.2-1); TOT PROT 7.4 g/dl (6.4-8.2)
[2021-08-11 10:53] LABS: ALK PHOS 110 U/L (45-117)
[2021-08-11 11:04] LABS: ANION GAP 0 MMOL/L (8-16); SGPT/ALT 38 U/L (13-61)
[2021-08-11] MEDS ORDERED: AZITHROMYCIN IVPB 500 MG in DEXTROSE 5%-WATER - 250 ML IVPB ONE (12:03)
[2021-08-11] MEDS ORDERED: AZITHROMYCIN IVPB 500 MG/250 ML BAG IVPB ONE (12:32)
[2021-08-11 12:58] LABS: CALCIUM 8.6 mg/dL (8.5-10.1)
[2021-08-11 12:59] LABS: BLOOD UREA NITROGEN 14.2 mg/dL (7-18)
[2021-08-11] MEDS ORDERED: ACETAMINOPHEN/CAFFEINE/BUTALBITAL 1 TAB PO ONE (13:01)
[2021-08-11 13:02] LABS: CREATININE 0.7 mg/dL (0.55-1.3)
[2021-08-11] MEDS ORDERED: ACETAMINOPHEN/CAFFEINE/BUTALBITAL 1 TAB ONE (13:21)
[2021-08-11] MEDS ORDERED: PANTOPRAZOLE 40 MG TABLET ONE (17:02)
[2021-08-11] MEDS ORDERED: ENOXAPARIN NA (PORCINE) 40 MG/0.4 ML DISP.SYRIN SQ ONE (17:02)
[2021-08-11] MEDS: ENOXAPARIN NA (PORCINE) 40 MG/0.4 ML DISP.SYRIN SQ SCH (17:07)
[2021-08-11] MEDS: PANTOPRAZOLE 40 MG TABLET PO SCH (17:07)
[2021-08-11] MEDS ORDERED: POTASSIUM CHLORIDE TABS 20 MEQ TABLET.ER (FP) PO ONE (20:39)
[2021-08-11] MEDS ORDERED: ATORVASTATIN CA 40 MG TABLET (FP) ONE (21:20)
[2021-08-11] MEDS ORDERED: POTASSIUM CHLORIDE TABS 10 MEQ TABLET.ER (FP) ONE (21:20)
[2021-08-11] MEDS: ATORVASTATIN CA 40 MG TABLET (FP) PO SCH (21:30)
[2021-08-11] MEDS: ALLOPURINOL 100 MG TABLET (FP) PO SCH (22:37)
[2021-08-11] MEDS: METOPROLOL TARTRATE 50 MG TABLET (FP) PO SCH (22:37)
[2021-08-11] MEDS: BUDESONIDE/FORMETEROL FUMARATE 160/4.5 mcg INHALER IH SCH (22:59)
[2021-08-11] MEDS: NORTRIPTYLINE HCL 25 MG CAPSULE PO SCH (22:59)
[2021-08-12 00:16] VITALS: BMI 19.1
[2021-08-12] MEDS: methylPREDNISolone NA SUCC 40 MG/1 ML VIAL IVPUSH SCH ×3 (01:27→17:06)
[2021-08-12] MEDS ORDERED: PT OWN MED DRAWER 7, Y5N ONE ×7 (04:25→22:55)
[2021-08-12] MEDS: NORTRIPTYLINE HCL 25 MG CAPSULE PO SCH ×3 (05:47→23:04)
[2021-08-12] MEDS: LEVOTHYROXINE NA 112 MCG TABLET (FP) PO SCH (06:14)
[2021-08-12 09:53] LABS: HEMATOCRIT 34.6 % (32.4-45.2); HEMOGLOBIN 11.6 GM/dL (10.7-15.3); MCH 30.8 pg (25.7-33.7); MCHC 33.7 g/dl (32.0-36.0); MEAN CELL VOLUME 91.4 fl (80-96); MEAN PLT VOLUME 6.7 fl (7.5-11.1); PLATELET COUNT 301 10^3/uL (134-434); RBC 3.78 M/mm3 (3.60-5.2); RDW 14.8 % (11.6-15.6); WHITE BLOOD COUNT 10.4 K/mm3 (4.0-10.0)
[2021-08-12] MEDS ORDERED: AZITHROMYCIN IVPB 250 MG in DEXTROSE 5%-WATER - 250 ML IVPB SCH (10:00)
[2021-08-12] MEDS ORDERED: AZITHROMYCIN 250 MG TABLET PO SCH (10:00)
[2021-08-12] MEDS ORDERED: CEFTRIAXONE 1 GM in DEXTROSE 5%-WATER - 50 ML IVPB SCH (10:00)
[2021-08-12] MEDS ORDERED: cefTRIAXone SODIUM 1 GM VIAL ONE (10:18)
[2021-08-12] MEDS ORDERED: DEXTROSE 5%-WATER - 50 ML IVPB ONE (10:18)
[2021-08-12] MEDS: amLODIPine BESYLATE 5 MG TABLET (FP) PO SCH (10:22)
[2021-08-12] MEDS: CITALOPRAM HYDROBROMIDE 20 MG TABLET PO SCH (10:22)
[2021-08-12] MEDS: METOPROLOL TARTRATE 50 MG TABLET (FP) PO SCH ×2 (10:22→23:04)
[2021-08-12] MEDS: PANTOPRAZOLE 40 MG TABLET PO SCH (10:22)
[2021-08-12] MEDS: ENOXAPARIN NA (PORCINE) 40 MG/0.4 ML DISP.SYRIN SQ SCH (10:26)
[2021-08-12] MEDS: BUDESONIDE/FORMETEROL FUMARATE 160/4.5 mcg INHALER IH SCH ×2 (10:28→23:05)
[2021-08-12 10:40] LABS: ALBUMIN 3.3 g/dl (3.4-5.0); BLOOD UREA NITROGEN 15.2 mg/dL (7-18); CALCIUM 9.1 mg/dL (8.5-10.1); MAGNESIUM 2.2 mg/dL (1.8-2.4)
[2021-08-12 10:43] LABS: PHOSPHOROUS 3.6 mg/dL (2.5-4.9)
[2021-08-12 10:44] LABS: CREATININE 0.7 mg/dL (0.55-1.3)
[2021-08-12] MEDS: ACETAMINOPHEN/CAFFEINE/BUTALBITAL 1 TAB PO PRN (10:44)
[2021-08-12 10:45] LABS: BILIRUBIN,TOTAL 0.8 mg/dL (0.2-1); TOT PROT 6.4 g/dl (6.4-8.2)
[2021-08-12] MEDS ORDERED: BUDESONIDE/FORMETEROL FUMARATE 160/4.5 mcg INHALER IH SCH (11:00)
[2021-08-12] MEDS ORDERED: SODIUM CHLORIDE NASAL SPRAY 44 ML BOTTLE NS PRN (11:24)
[2021-08-12] MEDS ORDERED: guaiFENesin/D-METHORPHAN TAB.ER.12H PO ONE (12:15)
[2021-08-12] MEDS: TIOTROPIUM BROMIDE 2.5 MCG (SPIRIVA) RESPIMAT INHALER IH SCH (12:47)
[2021-08-12] MEDS ORDERED: SUMAtriptan SUCCINATE 50 MG TABLET PO PRN (18:00)
[2021-08-12] MEDS ORDERED: PATIENT'S OWN MEDICATION (NON-FORMULARY) (Sumatriptan Succinate [Sumatriptan Succinate] 10 PO SCH (22:00)
[2021-08-12] MEDS: ATORVASTATIN CA 40 MG TABLET (FP) PO SCH (23:03)
[2021-08-12] MEDS: ALLOPURINOL 100 MG TABLET (FP) PO SCH (23:03)
[2021-08-13] MEDS: PRAMIPEXOLE DIHYDROCHLORIDE 0.5 MG TABLET PO SCH ×4 (00:31→21:23)
[2021-08-13] MEDS: methylPREDNISolone NA SUCC 40 MG/1 ML VIAL IVPUSH SCH (01:29)
[2021-08-13] MEDS ORDERED: PT OWN MED DRAWER 7, Y5N ONE ×6 (05:45→21:14)
[2021-08-13] MEDS: NORTRIPTYLINE HCL 25 MG CAPSULE PO SCH ×3 (06:22→21:23)
[2021-08-13] MEDS: LEVOTHYROXINE NA 112 MCG TABLET (FP) PO SCH (06:22)
[2021-08-13 08:11] LABS: HEMATOCRIT 33.1 % (32.4-45.2); MCH 30.5 pg (25.7-33.7); MCHC 33.3 g/dl (32.0-36.0); MEAN CELL VOLUME 91.6 fl (80-96); MEAN PLT VOLUME 7.2 fl (7.5-11.1); PLATELET COUNT 311 10^3/uL (134-434); RBC 3.61 M/mm3 (3.60-5.2); WHITE BLOOD COUNT 10.8 K/mm3 (4.0-10.0)
[2021-08-13 08:55] LABS: ALBUMIN 3.1 g/dl (3.4-5.0); CALCIUM 8.9 mg/dL (8.5-10.1)
[2021-08-13 08:56] LABS: BLOOD UREA NITROGEN 20.6 mg/dL (7-18); MAGNESIUM 2.2 mg/dL (1.8-2.4)
[2021-08-13 08:59] LABS: CREATININE 0.8 mg/dL (0.55-1.3); PHOSPHOROUS 3.4 mg/dL (2.5-4.9)
[2021-08-13 09:00] LABS: BILIRUBIN,TOTAL 0.2 mg/dL (0.2-1)
[2021-08-13] MEDS ORDERED: methylPREDNISolone NA SUCC 40 MG/1 ML VIAL IVPUSH SCH (10:00)
[2021-08-13] MEDS: METOPROLOL TARTRATE 50 MG TABLET (FP) PO SCH ×2 (10:04→21:22)
[2021-08-13] MEDS: DOXYCYCLINE HYCLATE 100 MG CAPSULE PO SCH ×2 (10:04→17:27)
[2021-08-13] MEDS: CITALOPRAM HYDROBROMIDE 20 MG TABLET PO SCH (10:04)
[2021-08-13] MEDS: ENOXAPARIN NA (PORCINE) 40 MG/0.4 ML DISP.SYRIN SQ SCH (10:04)
[2021-08-13] MEDS: amLODIPine BESYLATE 5 MG TABLET (FP) PO SCH (10:05)
[2021-08-13] MEDS: BUDESONIDE/FORMETEROL FUMARATE 160/4.5 mcg INHALER IH SCH ×2 (10:05→21:29)
[2021-08-13] MEDS: TIOTROPIUM BROMIDE 2.5 MCG (SPIRIVA) RESPIMAT INHALER IH SCH (10:05)
[2021-08-13] MEDS: PANTOPRAZOLE 40 MG TABLET PO SCH (10:05)
[2021-08-13] MEDS: ACETAMINOPHEN/CAFFEINE/BUTALBITAL 1 TAB PO PRN ×2 (10:07→21:24)
[2021-08-13] MEDS: predniSONE 20 MG TABLET (UD) PO SCH (13:44)
[2021-08-13 16:39] LABS: EPI CELLS 10 /uL (0-25.1); HYALINE CASTS 0 /uL (0-3.1); URINE APPEARANCE CLEAR; URINE BACTERIA 1 /uL (0-1359); URINE BILIRUBIN NEGATIVE (NEGATIVE); URINE COLOR YELLOW; URINE GLUCOSE (UA) NEGATIVE (NEGATIVE); URINE KETONE NEGATIVE (NEGATIVE); URINE LEUK ESTERASE 1+ (NEGATIVE); URINE NITRITE NEGATIVE (NEGATIVE); URINE PROTEIN NEGATIVE (NEGATIVE); URINE RBC 3 /uL (0-23.9); URINE UROBILINOGEN 0.2 mg/dL (0.2-1.0); URINE WBC 29 /uL (0-25.8)
[2021-08-13] MEDS: ALLOPURINOL 100 MG TABLET (FP) PO SCH (21:22)
[2021-08-13] MEDS: ATORVASTATIN CA 40 MG TABLET (FP) PO SCH (21:22)
[2021-08-14] MEDS ORDERED: FAMOTIDINE 20 MG TABLET PO ONE (03:01)
[2021-08-14] MEDS: NORTRIPTYLINE HCL 25 MG CAPSULE PO SCH ×3 (06:05→21:15)
[2021-08-14] MEDS: LEVOTHYROXINE NA 112 MCG TABLET (FP) PO SCH (06:05)
[2021-08-14] MEDS: PRAMIPEXOLE DIHYDROCHLORIDE 0.5 MG TABLET PO SCH ×3 (06:05→21:16)
[2021-08-14] MEDS ORDERED: FAMOTIDINE 10 MG TABLET PO ONE ×2 (07:36→20:43)
[2021-08-14 08:50] LABS: HEMATOCRIT 33.6 % (32.4-45.2); HEMOGLOBIN 11.4 GM/dL (10.7-15.3); MCH 31.1 pg (25.7-33.7); MCHC 33.9 g/dl (32.0-36.0); MEAN CELL VOLUME 91.7 fl (80-96); MEAN PLT VOLUME 6.8 fl (7.5-11.1); PLATELET COUNT 310 10^3/uL (134-434); RBC 3.66 M/mm3 (3.60-5.2); WHITE BLOOD COUNT 9.5 K/mm3 (4.0-10.0)
[2021-08-14 09:40] LABS: BLOOD UREA NITROGEN 23.2 mg/dL (7-18); CALCIUM 9.1 mg/dL (8.5-10.1); MAGNESIUM 2.1 mg/dL (1.8-2.4)
[2021-08-14 09:43] LABS: CREATININE 0.7 mg/dL (0.55-1.3); PHOSPHOROUS 3.7 mg/dL (2.5-4.9)
[2021-08-14 09:45] LABS: BILIRUBIN,TOTAL 0.4 mg/dL (0.2-1); TOT PROT 5.9 g/dl (6.4-8.2)
[2021-08-14] MEDS: CITALOPRAM HYDROBROMIDE 20 MG TABLET PO SCH (09:49)
[2021-08-14] MEDS: ENOXAPARIN NA (PORCINE) 40 MG/0.4 ML DISP.SYRIN SQ SCH (09:49)
[2021-08-14] MEDS: predniSONE 20 MG TABLET (UD) PO SCH (09:49)
[2021-08-14] MEDS: DOXYCYCLINE HYCLATE 100 MG CAPSULE PO SCH ×2 (09:49→18:13)
[2021-08-14] MEDS: METOPROLOL TARTRATE 50 MG TABLET (FP) PO SCH ×2 (09:49→21:15)
[2021-08-14] MEDS: TIOTROPIUM BROMIDE 2.5 MCG (SPIRIVA) RESPIMAT INHALER IH SCH (09:49)
[2021-08-14] MEDS: amLODIPine BESYLATE 5 MG TABLET (FP) PO SCH (09:49)
[2021-08-14] MEDS: PANTOPRAZOLE 40 MG TABLET PO SCH (09:49)
[2021-08-14] MEDS: BUDESONIDE/FORMETEROL FUMARATE 160/4.5 mcg INHALER IH SCH ×2 (09:50→21:13)
[2021-08-14] MEDS: ACETAMINOPHEN/CAFFEINE/BUTALBITAL 1 TAB PO PRN ×2 (11:10→21:21)
[2021-08-14] MEDS ORDERED: PT OWN MED DRAWER 7, Y5N ONE ×2 (14:03→21:09)
[2021-08-14] MEDS: ATORVASTATIN CA 40 MG TABLET (FP) PO SCH (21:15)
[2021-08-14] MEDS: ALLOPURINOL 100 MG TABLET (FP) PO SCH (21:16)
[2021-08-15] MEDS ORDERED: PT OWN MED DRAWER 7, Y5N ONE (05:29)
[2021-08-15] MEDS: ACETAMINOPHEN/CAFFEINE/BUTALBITAL 1 TAB PO PRN (05:47)
[2021-08-15] MEDS: NORTRIPTYLINE HCL 25 MG CAPSULE PO SCH (05:47)
[2021-08-15] MEDS: PRAMIPEXOLE DIHYDROCHLORIDE 0.5 MG TABLET PO SCH (05:47)
[2021-08-15] MEDS: LEVOTHYROXINE NA 112 MCG TABLET (FP) PO SCH (06:01)
[2021-08-15 09:29] VITALS: BP 145/83; PULSE 76; TEMP 98.8
[2021-08-15] MEDS: PANTOPRAZOLE 40 MG TABLET PO SCH (09:37)
[2021-08-15] MEDS: predniSONE 20 MG TABLET (UD) PO SCH (09:37)
[2021-08-15] MEDS: DOXYCYCLINE HYCLATE 100 MG CAPSULE PO SCH (09:37)
[2021-08-15] MEDS: CITALOPRAM HYDROBROMIDE 20 MG TABLET PO SCH (09:37)
[2021-08-15] MEDS: METOPROLOL TARTRATE 50 MG TABLET (FP) PO SCH (09:37)
[2021-08-15] MEDS: amLODIPine BESYLATE 5 MG TABLET (FP) PO SCH (09:38)
[2021-08-15] MEDS: ENOXAPARIN NA (PORCINE) 40 MG/0.4 ML DISP.SYRIN SQ SCH (09:38)
[2021-08-15] MEDS: BUDESONIDE/FORMETEROL FUMARATE 160/4.5 mcg INHALER IH SCH (09:39)
[2021-08-15] MEDS: TIOTROPIUM BROMIDE 2.5 MCG (SPIRIVA) RESPIMAT INHALER IH SCH (09:39)
[2021-08-15] MEDS ORDERED: FAMOTIDINE 10 MG TABLET PO SCH (10:00)
== END 2021-08-15 10:54 | DRG 191 ==
LOC: JER 08:59 → JERBED 12:41 → J5S 22:24
PROVIDERS: ADMIT Internal Medicine; ATTEND Internal Medicine
DX: J43.9 Emphysema, unspecified (principal); J96.11 Chronic respiratory failure with hypoxia; F39 Unspecified mood [affective] disorder; E03.9 Hypothyroidism, unspecified; J32.9 Chronic sinusitis, unspecified; I10 Essential (primary) hypertension; I25.10 Atherosclerotic heart disease of native coronary artery without angina pectoris; E78.5 Hyperlipidemia, unspecified; M10.9 Gout, unspecified
CPT/HCPCS: 36415; 71045-TC-FY; 80048; 80053; 81003; 82550; 82553; 83735; 84100; 84484; 85025; 85027; 87040; 93005; 93010; 97116-GP; 97162-GP; 99285-25; C9803; U0003; U0005

== ENCOUNTER 2021-10-12 14:53 | Emergency (ER) | payer OTHER, MEDICARE ==
[2021-10-12 15:07] VITALS: TEMP 98.1; BMI 18.0
[2021-10-12] MEDS ORDERED: MINERAL OIL ENEMA 133 ML ENEMA PR ONE (16:19)
[2021-10-12] MEDS ORDERED: LACTULOSE 20 GM/30 ML UDC (FOR ORAL USE ONLY) PO ONE (16:20)
[2021-10-12] MEDS ORDERED: LACTULOSE 20 GM/30 ML UDC (FOR ORAL USE ONLY) ONE (16:24)
[2021-10-12] MEDS ORDERED: SODIUM CHLORIDE 500 ML IV STA (17:36)
[2021-10-12 18:28] LABS: BASO % 0.4 % (0-2.0); EOS % 0.7 % (0-4.5); HEMATOCRIT 36.3 % (32.4-45.2); HEMOGLOBIN 12.1 GM/dL (10.7-15.3); MCH 30.2 pg (25.7-33.7); MCHC 33.3 g/dl (32.0-36.0); MEAN CELL VOLUME 90.7 fl (80-96); MEAN PLT VOLUME 7.2 fl (7.5-11.1); MONO % 7.4 % (3.8-10.2); NEUT % 80.5 % (42.8-82.8); PLATELET COUNT 358 10^3/uL (134-434); RDW 14.8 % (11.6-15.6); WHITE BLOOD COUNT 9.7 K/mm3 (4.0-10.0)
[2021-10-12 19:14] LABS: CALCIUM 9.2 mg/dL (8.5-10.1)
[2021-10-12 19:15] LABS: ALBUMIN 3.5 g/dl (3.4-5.0); BLOOD UREA NITROGEN 15.3 mg/dL (7-18)
[2021-10-12 19:17] LABS: CREATININE 0.9 mg/dL (0.55-1.3)
[2021-10-12 19:19] LABS: BILIRUBIN,TOTAL 0.2 mg/dL (0.2-1); TOT PROT 6.8 g/dl (6.4-8.2)
[2021-10-12 20:30] VITALS: BP 128/76; PULSE 76
== END 2021-10-13 | disposition home or self-care (01) ==
LOC: JER 14:53
PROC: 3E0337Z Introduction of Electrolytic and Water Balance Substance into Peripheral Vein, Percutaneous Approach (ICD-10-PCS; principal; 2021-10-12)
DX: K62.3 Rectal prolapse (principal); K59.00 Constipation, unspecified
CPT/HCPCS: 36415; 74019-TC-FY; 74177-TC; 80053; 83690; 85025; 96360; 99285-25; Q9967

== ENCOUNTER 2021-11-30 08:06 | Inpatient (IN) | payer OTHER, MEDICARE ==
[2021-11-30] MEDS ORDERED: ALBUTEROL SO4 0.083% IH SOL 2.5 MG/3 ML VIAL.NEB. NEB ONE ×3 (08:11→08:42)
[2021-11-30] MEDS ORDERED: MAGNESIUM SULF 50% (8.12 MEQ/2 ML-1 GM VIAL) IVPB ONE (08:11)
[2021-11-30] MEDS ORDERED: MAGNESIUM SULFATE IN WATER 2 GM/50 ML IVPB IVPB ONE (08:23)
[2021-11-30] MEDS ORDERED: AZITHROMYCIN IVPB 500 MG in DEXTROSE 5%-WATER - 250 ML IVPB ONE (08:35)
[2021-11-30 08:56] LABS: VENOUS BASE EXCESS 2.1 mmol/L (-2-2); VENOUS O2 SATURATION 29.4 % (70-80); VENOUS PCO2 64.2 mmHg (38-52); VENOUS PH 7.287 (7.310-7.410)
[2021-11-30] MEDS ORDERED: AZITHROMYCIN IVPB 500 MG/250 ML BAG IVPB ONE (08:56)
[2021-11-30 09:06] LABS: BASO % 0.5 % (0-2.0); EOS % 0.1 % (0-4.5); HEMATOCRIT 32.6 % (32.4-45.2); HEMOGLOBIN 10.3 GM/dL (10.7-15.3); LYMPH % 5.3 % (8-40); MCH 28.8 pg (25.7-33.7); MCHC 31.7 g/dl (32.0-36.0); MEAN PLT VOLUME 7.1 fl (7.5-11.1); MONO % 4.4 % (3.8-10.2); NEUT % 89.7 % (42.8-82.8); PLATELET COUNT 262 10^3/uL (134-434); RBC 3.58 M/mm3 (3.60-5.2); WHITE BLOOD COUNT 6.7 K/mm3 (4.0-10.0)
[2021-11-30 09:07] LABS: INR 1.03 (0.83-1.09); PROTHROMBIN TIME (PATIENT) 11.9 SEC (9.7-13.0)
[2021-11-30 09:10] LABS: ACTIVATED PTT 25.8 SECONDS (25.2-36.5)
[2021-11-30] MEDS ORDERED: CEFTRIAXONE 1 GM in DEXTROSE 5%-WATER - 100 ML IVPB ONE (09:16)
[2021-11-30 09:26] LABS: CALCIUM 8.1 mg/dL (8.5-10.1)
[2021-11-30 09:27] LABS: ALBUMIN 2.5 g/dl (3.4-5.0); BLOOD UREA NITROGEN 21.5 mg/dL (7-18)
[2021-11-30] MEDS ORDERED: ACETAMINOPHEN 1000 MG/100 ML BAG IVPB ONE (09:27)
[2021-11-30 09:30] LABS: CREATININE 0.9 mg/dL (0.55-1.3)
[2021-11-30 09:32] LABS: BILIRUBIN,TOTAL 0.5 mg/dL (0.2-1); TOT PROT 5.6 g/dl (6.4-8.2)
[2021-11-30 09:33] LABS: N-TERMINAL BNP 2095.2 pg/ml (5-450)
[2021-11-30 09:34] LABS: LACTIC ACID 2.2 mmol/L (0.4-2.0)
[2021-11-30] MEDS ORDERED: CEFTRIAXONE 1 GM/50 ML BAG ONE (09:46)
[2021-11-30] MEDS ORDERED: ACETAMINOPHEN INJECTION 100 ML IVPB ONE (09:46)
[2021-11-30 11:45] LABS: EPI CELLS 18 /uL (0-25.1); HYALINE CASTS 3 /uL (0-3.1); URINE APPEARANCE CLEAR; URINE BACTERIA 5 /uL (0-1359); URINE BILIRUBIN NEGATIVE (NEGATIVE); URINE COLOR YELLOW; URINE GLUCOSE (UA) NEGATIVE (NEGATIVE); URINE KETONE NEGATIVE (NEGATIVE); URINE LEUK ESTERASE NEGATIVE (NEGATIVE); URINE NITRITE NEGATIVE (NEGATIVE); URINE PROTEIN 2+ (NEGATIVE); URINE RBC 4 /uL (0-23.9); URINE WBC 3 /uL (0-25.8)
[2021-11-30] MEDS ORDERED: ALBUTEROL SO4 HFA INHALER IH PRN (11:58)
[2021-11-30] MEDS ORDERED: ACETAMINOPHEN 325 MG TABLET (FP) PO PRN (11:58)
[2021-11-30] MEDS ORDERED: REMDESIVIR 200 MG in SODIUM CHLORIDE 250 ML IVPB ONE (14:00)
[2021-11-30] MEDS ORDERED: ALBUTEROL SO4 HFA INHALER IH ONE (16:00)
[2021-11-30] MEDS: BUDESONIDE/FORMETEROL FUMARATE 160/4.5 mcg INHALER IH SCH (23:08)
[2021-12-01] MEDS ORDERED: METOPROLOL TARTRATE 5 MG/5 ML VIAL IVPUSH ONE (05:43)
[2021-12-01] MEDS ORDERED: ALBUTEROL SO4 0.083% IH SOL 2.5 MG/3 ML VIAL.NEB. NEB ONE (05:57)
[2021-12-01 09:28] LABS: BASO % 0.2 % (0-2.0); EOS % 0.2 % (0-4.5); HEMATOCRIT 37.1 % (32.4-45.2); HEMOGLOBIN 11.6 GM/dL (10.7-15.3); LYMPH % 5.8 % (8-40); MCH 28.4 pg (25.7-33.7); MCHC 31.3 g/dl (32.0-36.0); MEAN CELL VOLUME 90.9 fl (80-96); MEAN PLT VOLUME 7.2 fl (7.5-11.1); MONO % 6.3 % (3.8-10.2); NEUT % 87.5 % (42.8-82.8); PLATELET COUNT 401 10^3/uL (134-434); RBC 4.08 M/mm3 (3.60-5.2); RDW 16.2 % (11.6-15.6); WHITE BLOOD COUNT 12.6 K/mm3 (4.0-10.0)
[2021-12-01 09:56] LABS: CREATININE 0.7 mg/dL (0.55-1.3)
[2021-12-01 09:57] LABS: BILIRUBIN,TOTAL 0.5 mg/dL (0.2-1); TOT PROT 5.9 g/dl (6.4-8.2)
[2021-12-01] MEDS ORDERED: ENOXAPARIN NA (PORCINE) 40 MG/0.4 ML DISP.SYRIN SQ SCH (10:00)
[2021-12-01] MEDS ORDERED: CEFTRIAXONE 1 GM in DEXTROSE 5%-WATER - 50 ML IVPB SCH (10:00)
[2021-12-01] MEDS ORDERED: AZITHROMYCIN IVPB 250 MG in DEXTROSE 5%-WATER - 250 ML IVPB SCH (10:00)
[2021-12-01] MEDS ORDERED: DEXAMETHASONE SOD PHOSPHATE 10 MG/1 ML VIAL IVPUSH SCH (10:00)
[2021-12-01 10:12] LABS: ALBUMIN 2.6 g/dl (3.4-5.0); CALCIUM 8.9 mg/dL (8.5-10.1)
[2021-12-01 10:13] LABS: BLOOD UREA NITROGEN 19.5 mg/dL (7-18); MAGNESIUM 2.4 mg/dL (1.8-2.4)
[2021-12-01] MEDS ORDERED: DEXTROSE 5%-WATER - 50 ML IVPB ONE (10:27)
[2021-12-01] MEDS ORDERED: cefTRIAXone SODIUM 1 GM VIAL ONE (10:27)
[2021-12-01] MEDS: BUDESONIDE/FORMETEROL FUMARATE 160/4.5 mcg INHALER IH SCH ×2 (10:54→21:34)
[2021-12-01] MEDS ORDERED: REMDESIVIR 100 MG in SODIUM CHLORIDE 250 ML IVPB SCH (14:00)
[2021-12-01] MEDS ORDERED: ALLOPURINOL 300 MG TABLET (FP) PO SCH (22:00)
[2021-12-01] MEDS ORDERED: CITALOPRAM HYDROBROMIDE 20 MG TABLET PO SCH (22:00)
[2021-12-01] MEDS ORDERED: ATORVASTATIN CA 40 MG TABLET (FP) PO SCH (22:00)
[2021-12-02] MEDS ORDERED: METOPROLOL TARTRATE 5 MG/5 ML VIAL ONE (01:05)
[2021-12-02] MEDS ORDERED: METOPROLOL TARTRATE 5 MG/5 ML VIAL IVPUSH ONE ×2 (01:07→03:41)
[2021-12-02 01:59] LABS: ARTERIAL BLD GAS O2 SATURATION 96.5 % (95-98); ARTERIAL BLOOD GAS BASE EXCESS 4.8 mmol/L (-2-2); ARTERIAL BLOOD GAS pH 7.321 (7.350-7.450)
[2021-12-02 02:10] LABS: ALLENS TEST POSITIVE
[2021-12-02 02:11] LABS: VENT MODE BIPAP; VENT RATE 17
[2021-12-02 02:55] LABS: HEMATOCRIT 30.8 % (32.4-45.2); MCHC 32.4 g/dl (32.0-36.0); MEAN CELL VOLUME 89.6 fl (80-96); MEAN PLT VOLUME 6.8 fl (7.5-11.1); PLATELET COUNT 312 10^3/uL (134-434); RBC 3.44 M/mm3 (3.60-5.2); RDW 15.7 % (11.6-15.6); WHITE BLOOD COUNT 7.8 K/mm3 (4.0-10.0)
[2021-12-02 03:24] LABS: CALCIUM 8.2 mg/dL (8.5-10.1)
[2021-12-02 03:26] LABS: ALBUMIN 2.4 g/dl (3.4-5.0); BLOOD UREA NITROGEN 23.1 mg/dL (7-18); MAGNESIUM 2.3 mg/dL (1.8-2.4)
[2021-12-02 03:29] LABS: CREATININE 0.6 mg/dL (0.55-1.3); PHOSPHOROUS 3.2 mg/dL (2.5-4.9); TOT PROT 5.3 g/dl (6.4-8.2)
[2021-12-02 03:31] LABS: BILIRUBIN,TOTAL 0.3 mg/dL (0.2-1)
[2021-12-02] MEDS: LEVOTHYROXINE NA 112 MCG TABLET (FP) PO SCH (06:15)
[2021-12-02 06:21] LABS: ARTERIAL BLD GAS O2 SATURATION 96.8 % (95-98); ARTERIAL BLOOD GAS BASE EXCESS 5.1 mmol/L (-2-2); ARTERIAL BLOOD GAS PO2 99.1 mmHg (80-100); ARTERIAL BLOOD GAS pH 7.312 (7.350-7.450)
[2021-12-02] MEDS ORDERED: LEVOTHYROXINE NA 112 MCG TABLET (FP) PO SCH (07:00)
[2021-12-02 08:33] LABS: BASO % 0.3 % (0-2.0); EOS % 0.1 % (0-4.5); HEMOGLOBIN 10.1 GM/dL (10.7-15.3); LYMPH % 6.3 % (8-40); MCH 28.7 pg (25.7-33.7); MCHC 31.6 g/dl (32.0-36.0); MEAN CELL VOLUME 90.9 fl (80-96); MEAN PLT VOLUME 6.9 fl (7.5-11.1); MONO % 9.2 % (3.8-10.2); NEUT % 84.1 % (42.8-82.8); PLATELET COUNT 314 10^3/uL (134-434); RBC 3.52 M/mm3 (3.60-5.2); RDW 15.6 % (11.6-15.6); WHITE BLOOD COUNT 7.2 K/mm3 (4.0-10.0)
[2021-12-02 09:14] LABS: ALBUMIN 2.5 g/dl (3.4-5.0); MAGNESIUM 2.4 mg/dL (1.8-2.4)
[2021-12-02 09:15] LABS: CALCIUM 8.6 mg/dL (8.5-10.1); CREATININE 0.6 mg/dL (0.55-1.3)
[2021-12-02 09:16] LABS: BILIRUBIN,TOTAL 0.3 mg/dL (0.2-1); TOT PROT 5.4 g/dl (6.4-8.2)
[2021-12-02] MEDS ORDERED: cefTRIAXone SODIUM 1 GM VIAL ONE (09:51)
[2021-12-02] MEDS ORDERED: DEXTROSE 5%-WATER - 50 ML IVPB ONE (09:51)
[2021-12-02] MEDS ORDERED: ASPIRIN 325 MG ENTERIC COATED TABLET (FP) PO SCH (10:00)
[2021-12-02] MEDS: ASPIRIN COATED 81 MG TABLET.EC PO SCH (10:10)
[2021-12-02] MEDS: CITALOPRAM HYDROBROMIDE 20 MG TABLET PO SCH (10:10)
[2021-12-02] MEDS: DEXAMETHASONE SOD PHOSPHATE 10 MG/1 ML VIAL IVPUSH SCH (10:11)
[2021-12-02] MEDS: ENOXAPARIN NA (PORCINE) 40 MG/0.4 ML DISP.SYRIN SQ SCH (10:11)
[2021-12-02] MEDS: AZITHROMYCIN IVPB 250 MG in DEXTROSE 5%-WATER - 250 ML IVPB SCH (10:12)
[2021-12-02] MEDS: BUDESONIDE/FORMETEROL FUMARATE 160/4.5 mcg INHALER IH SCH ×2 (11:07→21:46)
[2021-12-02] MEDS: CEFTRIAXONE 1 GM in DEXTROSE 5%-WATER - 50 ML IVPB SCH (12:45)
[2021-12-02] MEDS: REMDESIVIR 100 MG in SODIUM CHLORIDE 250 ML IVPB SCH (14:08)
[2021-12-02] MEDS ORDERED: LORazepam 0.5 MG TABLET PO ONE (15:39)
[2021-12-02] MEDS: ALBUTEROL SO4 HFA INHALER IH PRN (20:30)
[2021-12-02] MEDS: ALLOPURINOL 300 MG TABLET (FP) PO SCH (21:46)
[2021-12-02] MEDS: ATORVASTATIN CA 40 MG TABLET (FP) PO SCH (21:47)
[2021-12-02] MEDS ORDERED: LORazepam 2 MG/ML SDV VIAL IVPUSH ONE (22:51)
[2021-12-03] MEDS ORDERED: ACETAMINOPHEN 1000 MG/100 ML BAG IVPB ONE (02:51)
[2021-12-03] MEDS: LEVOTHYROXINE NA 112 MCG TABLET (FP) PO SCH (06:52)
[2021-12-03 07:27] LABS: BASO % 0.4 % (0-2.0); EOS % 0.1 % (0-4.5); HEMATOCRIT 32.1 % (32.4-45.2); HEMOGLOBIN 10.5 GM/dL (10.7-15.3); LYMPH % 4.8 % (8-40); MCH 29.3 pg (25.7-33.7); MCHC 32.8 g/dl (32.0-36.0); MEAN CELL VOLUME 89.2 fl (80-96); MEAN PLT VOLUME 6.8 fl (7.5-11.1); MONO % 9.5 % (3.8-10.2); NEUT % 85.2 % (42.8-82.8); PLATELET COUNT 352 10^3/uL (134-434); WHITE BLOOD COUNT 9.5 K/mm3 (4.0-10.0)
[2021-12-03 08:10] LABS: ALBUMIN 2.7 g/dl (3.4-5.0); CALCIUM 8.5 mg/dL (8.5-10.1)
[2021-12-03 08:11] LABS: BLOOD UREA NITROGEN 20.2 mg/dL (7-18); MAGNESIUM 2.3 mg/dL (1.8-2.4)
[2021-12-03 08:13] LABS: BILIRUBIN,TOTAL 0.4 mg/dL (0.2-1)
[2021-12-03 08:15] LABS: CREATININE 0.5 mg/dL (0.55-1.3); TOT PROT 5.5 g/dl (6.4-8.2)
[2021-12-03] MEDS ORDERED: DEXTROSE 5%-WATER - 50 ML IVPB ONE (09:15)
[2021-12-03] MEDS ORDERED: cefTRIAXone SODIUM 1 GM VIAL ONE (09:15)
[2021-12-03] MEDS: ACETAMINOPHEN 325 MG TABLET (FP) PO PRN (09:36)
[2021-12-03] MEDS: ENOXAPARIN NA (PORCINE) 40 MG/0.4 ML DISP.SYRIN SQ SCH (09:36)
[2021-12-03] MEDS: METOPROLOL TARTRATE 50 MG TABLET (FP) PO SCH ×2 (09:36→22:49)
[2021-12-03] MEDS: DEXAMETHASONE SOD PHOSPHATE 10 MG/1 ML VIAL IVPUSH SCH (09:37)
[2021-12-03] MEDS: ASPIRIN COATED 81 MG TABLET.EC PO SCH (09:37)
[2021-12-03] MEDS: CITALOPRAM HYDROBROMIDE 20 MG TABLET PO SCH (09:37)
[2021-12-03] MEDS: AZITHROMYCIN IVPB 250 MG in DEXTROSE 5%-WATER - 250 ML IVPB SCH ×2 (09:38→13:47)
[2021-12-03] MEDS: BUDESONIDE/FORMETEROL FUMARATE 160/4.5 mcg INHALER IH SCH (10:23)
[2021-12-03 11:38] LABS: ALLENS TEST POSITIVE; ARTERIAL BLD GAS O2 SATURATION 98.8 % (95-98); ARTERIAL BLOOD GAS BASE EXCESS 11.3 mmol/L (-2-2); ARTERIAL BLOOD GAS PO2 138.1 mmHg (80-100)
[2021-12-03] MEDS: CEFTRIAXONE 1 GM in DEXTROSE 5%-WATER - 50 ML IVPB SCH (14:47)
[2021-12-03] MEDS: REMDESIVIR 100 MG in SODIUM CHLORIDE 250 ML IVPB SCH (16:12)
[2021-12-03] MEDS: ATORVASTATIN CA 40 MG TABLET (FP) PO SCH (22:49)
[2021-12-04] MEDS ORDERED: METOPROLOL TARTRATE 5 MG/5 ML VIAL ONE (06:00)
[2021-12-04] MEDS: ALLOPURINOL 300 MG TABLET (FP) PO SCH ×2 (07:34→21:49)
[2021-12-04] MEDS: BUDESONIDE/FORMETEROL FUMARATE 160/4.5 mcg INHALER IH SCH ×3 (07:34→21:49)
[2021-12-04] MEDS ORDERED: REMDESIVIR 200 MG in SODIUM CHLORIDE 250 ML IVPB ONE (07:58)
[2021-12-04] MEDS ORDERED: DEXTROSE 5%-WATER - 50 ML IVPB ONE (08:38)
[2021-12-04] MEDS ORDERED: cefTRIAXone SODIUM 1 GM VIAL ONE (08:38)
[2021-12-04 08:43] LABS: BASO % 1.4 % (0-2.0); EOS % 0.3 % (0-4.5); HEMATOCRIT 32.9 % (32.4-45.2); HEMOGLOBIN 10.5 GM/dL (10.7-15.3); LYMPH % 6.3 % (8-40); MCH 28.9 pg (25.7-33.7); MEAN CELL VOLUME 90.2 fl (80-96); MEAN PLT VOLUME 7.4 fl (7.5-11.1); MONO % 8.9 % (3.8-10.2); NEUT % 83.1 % (42.8-82.8); PLATELET COUNT 408 10^3/uL (134-434); RBC 3.64 M/mm3 (3.60-5.2); RDW 15.9 % (11.6-15.6); WHITE BLOOD COUNT 9.2 K/mm3 (4.0-10.0)
[2021-12-04] MEDS: CEFTRIAXONE 1 GM in DEXTROSE 5%-WATER - 50 ML IVPB SCH ×2 (08:49→09:47)
[2021-12-04] MEDS: ENOXAPARIN NA (PORCINE) 40 MG/0.4 ML DISP.SYRIN SQ SCH ×2 (08:50→09:47)
[2021-12-04] MEDS: METOPROLOL TARTRATE 50 MG TABLET (FP) PO SCH ×3 (08:53→21:49)
[2021-12-04] MEDS: CITALOPRAM HYDROBROMIDE 20 MG TABLET PO SCH ×2 (08:53→10:52)
[2021-12-04] MEDS: LEVOTHYROXINE NA 112 MCG TABLET (FP) PO SCH (08:53)
[2021-12-04] MEDS: ASPIRIN COATED 81 MG TABLET.EC PO SCH ×2 (08:54→09:47)
[2021-12-04] MEDS: ALBUTEROL SO4 HFA INHALER IH PRN (09:17)
[2021-12-04] MEDS: DEXAMETHASONE SOD PHOSPHATE 10 MG/1 ML VIAL IVPUSH SCH (09:47)
[2021-12-04] MEDS: REMDESIVIR 100 MG in SODIUM CHLORIDE 250 ML IVPB SCH (12:31)
[2021-12-04] MEDS: LORazepam 0.5 MG TABLET PO PRN (13:59)
[2021-12-04] MEDS ORDERED: AZITHROMYCIN IVPB 500 MG/250 ML BAG IVPB ONE (15:00)
[2021-12-04] MEDS: ATORVASTATIN CA 40 MG TABLET (FP) PO SCH (21:49)
[2021-12-04] MEDS: APIXABAN 5 MG TABLET PO SCH (21:49)
[2021-12-04] MEDS ORDERED: ENOXAPARIN NA (PORCINE) 40 MG/0.4 ML DISP.SYRIN SQ SCH (22:00)
[2021-12-05] MEDS: LEVOTHYROXINE NA 112 MCG TABLET (FP) PO SCH (06:11)
[2021-12-05] MEDS: LORazepam 0.5 MG TABLET PO PRN ×3 (06:11→20:07)
[2021-12-05 07:27] LABS: BASO % 0.2 % (0-2.0); EOS % 0.1 % (0-4.5); HEMATOCRIT 32.1 % (32.4-45.2); HEMOGLOBIN 10.4 GM/dL (10.7-15.3); LYMPH % 5.8 % (8-40); MCH 29.2 pg (25.7-33.7); MCHC 32.2 g/dl (32.0-36.0); MEAN CELL VOLUME 90.4 fl (80-96); MEAN PLT VOLUME 7.2 fl (7.5-11.1); MONO % 10.8 % (3.8-10.2); NEUT % 83.1 % (42.8-82.8); PLATELET COUNT 394 10^3/uL (134-434); RBC 3.55 M/mm3 (3.60-5.2); RDW 15.5 % (11.6-15.6); WHITE BLOOD COUNT 10.3 K/mm3 (4.0-10.0)
[2021-12-05 07:36] LABS: CALCIUM 8.8 mg/dL (8.5-10.1)
[2021-12-05 07:37] LABS: ALBUMIN 2.7 g/dl (3.4-5.0); BLOOD UREA NITROGEN 31.6 mg/dL (7-18); MAGNESIUM 2.4 mg/dL (1.8-2.4)
[2021-12-05 07:44] LABS: PHOSPHOROUS 4.1 mg/dL (2.5-4.9)
[2021-12-05 07:45] LABS: BILIRUBIN,TOTAL 0.5 mg/dL (0.2-1); CREATININE 0.7 mg/dL (0.55-1.3); TOT PROT 5.3 g/dl (6.4-8.2)
[2021-12-05] MEDS ORDERED: CEFTRIAXONE 1 GM in DEXTROSE 5%-WATER - 50 ML IVPB ONE (10:00)
[2021-12-05] MEDS: DEXAMETHASONE SOD PHOSPHATE 10 MG/1 ML VIAL IVPUSH SCH (10:33)
[2021-12-05] MEDS: METOPROLOL TARTRATE 50 MG TABLET (FP) PO SCH ×2 (10:34→21:09)
[2021-12-05] MEDS: APIXABAN 5 MG TABLET PO SCH ×2 (10:34→21:08)
[2021-12-05] MEDS: CITALOPRAM HYDROBROMIDE 20 MG TABLET PO SCH (10:34)
[2021-12-05] MEDS: ASPIRIN COATED 81 MG TABLET.EC PO SCH (10:34)
[2021-12-05] MEDS ORDERED: cefTRIAXone SODIUM 1 GM VIAL ONE (10:35)
[2021-12-05] MEDS ORDERED: DEXTROSE 5%-WATER - 50 ML IVPB ONE (10:35)
[2021-12-05] MEDS: BUDESONIDE/FORMETEROL FUMARATE 160/4.5 mcg INHALER IH SCH ×2 (10:36→21:09)
[2021-12-05] MEDS: REMDESIVIR 100 MG in SODIUM CHLORIDE 250 ML IVPB SCH (11:24)
[2021-12-05 13:25] LABS: EPI CELLS 11 /uL (0-25.1); HYALINE CASTS 2 /uL (0-3.1); PH,URINE 6.5 (5.0-8.0); URINE APPEARANCE CLEAR; URINE BACTERIA 73 /uL (0-1359); URINE BILIRUBIN NEGATIVE (NEGATIVE); URINE COLOR YELLOW; URINE GLUCOSE (UA) NEGATIVE (NEGATIVE); URINE KETONE NEGATIVE (NEGATIVE); URINE LEUK ESTERASE NEGATIVE (NEGATIVE); URINE NITRITE NEGATIVE (NEGATIVE); URINE PROTEIN 1+ (NEGATIVE); URINE RBC 30 /uL (0-23.9); URINE UROBILINOGEN 0.2 mg/dL (0.2-1.0); URINE WBC 9 /uL (0-25.8)
[2021-12-05] MEDS: ACETAMINOPHEN 325 MG TABLET (FP) PO PRN (17:30)
[2021-12-05] MEDS: ATORVASTATIN CA 40 MG TABLET (FP) PO SCH (21:09)
[2021-12-05] MEDS: ALLOPURINOL 300 MG TABLET (FP) PO SCH (21:09)
[2021-12-06] MEDS: LEVOTHYROXINE NA 112 MCG TABLET (FP) PO SCH (06:18)
[2021-12-06] MEDS: ACETAMINOPHEN 325 MG TABLET (FP) PO PRN ×2 (07:30→18:41)
[2021-12-06 07:51] LABS: BASO % 0.4 % (0-2.0); EOS % 0.1 % (0-4.5); HEMOGLOBIN 10.7 GM/dL (10.7-15.3); LYMPH % 4.9 % (8-40); MCH 29.1 pg (25.7-33.7); MCHC 32.5 g/dl (32.0-36.0); MEAN CELL VOLUME 89.6 fl (80-96); MONO % 11.6 % (3.8-10.2); PLATELET COUNT 390 10^3/uL (134-434); RBC 3.69 M/mm3 (3.60-5.2); RDW 15.4 % (11.6-15.6); WHITE BLOOD COUNT 11.6 K/mm3 (4.0-10.0)
[2021-12-06 08:26] LABS: ALBUMIN 2.7 g/dl (3.4-5.0); CALCIUM 8.7 mg/dL (8.5-10.1)
[2021-12-06 08:27] LABS: BLOOD UREA NITROGEN 28.8 mg/dL (7-18); CREATININE 0.7 mg/dL (0.55-1.3); MAGNESIUM 2.3 mg/dL (1.8-2.4)
[2021-12-06 08:28] LABS: BILIRUBIN,TOTAL 0.5 mg/dL (0.2-1)
[2021-12-06 08:29] LABS: PHOSPHOROUS 3.7 mg/dL (2.5-4.9); TOT PROT 5.3 g/dl (6.4-8.2)
[2021-12-06] MEDS: METOPROLOL TARTRATE 50 MG TABLET (FP) PO SCH ×2 (10:12→21:16)
[2021-12-06] MEDS: ASPIRIN COATED 81 MG TABLET.EC PO SCH (10:12)
[2021-12-06] MEDS: LORazepam 0.5 MG TABLET PO PRN ×2 (10:12→20:35)
[2021-12-06] MEDS: CITALOPRAM HYDROBROMIDE 20 MG TABLET PO SCH (10:12)
[2021-12-06] MEDS: DEXAMETHASONE SOD PHOSPHATE 10 MG/1 ML VIAL IVPUSH SCH (10:13)
[2021-12-06] MEDS: APIXABAN 5 MG TABLET PO SCH ×2 (10:13→21:16)
[2021-12-06] MEDS: BUDESONIDE/FORMETEROL FUMARATE 160/4.5 mcg INHALER IH SCH ×2 (10:13→21:18)
[2021-12-06] MEDS: ATORVASTATIN CA 40 MG TABLET (FP) PO SCH (21:16)
[2021-12-06] MEDS: ALLOPURINOL 300 MG TABLET (FP) PO SCH (21:18)
[2021-12-07] MEDS: ACETAMINOPHEN 325 MG TABLET (FP) PO PRN (04:26)
[2021-12-07] MEDS: LEVOTHYROXINE NA 112 MCG TABLET (FP) PO SCH (06:27)
[2021-12-07] MEDS: CITALOPRAM HYDROBROMIDE 20 MG TABLET PO SCH (10:04)
[2021-12-07] MEDS: DEXAMETHASONE SOD PHOSPHATE 10 MG/1 ML VIAL IVPUSH SCH (10:04)
[2021-12-07] MEDS: METOPROLOL TARTRATE 50 MG TABLET (FP) PO SCH ×2 (10:04→20:40)
[2021-12-07] MEDS: LORazepam 0.5 MG TABLET PO PRN (10:04)
[2021-12-07] MEDS: APIXABAN 5 MG TABLET PO SCH (10:04)
[2021-12-07] MEDS: BUDESONIDE/FORMETEROL FUMARATE 160/4.5 mcg INHALER IH SCH (10:05)
[2021-12-07] MEDS ORDERED: LORazepam 2 MG/ML SDV VIAL IVPUSH PRN (12:18)
[2021-12-07 14:54] LABS: ARTERIAL BLD GAS O2 SATURATION 96.4 % (95-98); ARTERIAL BLOOD GAS BASE EXCESS 16.1 mmol/L (-2-2); ARTERIAL BLOOD GAS PO2 88.1 mmHg (80-100); ARTERIAL BLOOD GAS pH 7.412 (7.350-7.450)
[2021-12-07 14:56] LABS: ALLENS TEST POSITIVE
[2021-12-07] MEDS ORDERED: METOPROLOL TARTRATE 5 MG/5 ML VIAL IVPUSH ONE (20:57)
[2021-12-07] MEDS ORDERED: ACETAMINOPHEN 1000 MG/100 ML BAG IVPB ONE (21:24)
[2021-12-08] MEDS ORDERED: PROPOFOL 200 MG/20 ML VIAL IVPUSH ONE (00:26)
[2021-12-08] MEDS ORDERED: ROCURONIUM BROMIDE 50 MG/5 ML VIAL IV ONE (00:27)
[2021-12-08 01:01] LABS: ARTERIAL BLD GAS O2 SATURATION 96.7 % (95-98); ARTERIAL BLOOD GAS BASE EXCESS 10.6 mmol/L (-2-2); ARTERIAL BLOOD GAS pH 7.314 (7.350-7.450)
[2021-12-08 01:02] LABS: ALLENS TEST POSITIVE; VENT MODE S/T; VENT RATE 24
[2021-12-08 01:17] LABS: CHLORIDE 94 mmol/L (98-107); SODIUM 140 mmol/L (136-145)
[2021-12-08 01:19] LABS: ALBUMIN 2.9 g/dl (3.4-5.0); ANION GAP 3 MMOL/L (8-16); BLOOD UREA NITROGEN 44.1 mg/dL (7-18); CALCIUM 8.9 mg/dL (8.5-10.1); CO2 43 mmol/L (21-32); GLUCOSE,RANDOM 186 mg/dL (74-106)
[2021-12-08 01:22] LABS: CREATININE 1.4 mg/dL (0.55-1.3); SGOT/AST 49 U/L (15-37); SGPT/ALT 27 U/L (13-61)
[2021-12-08 01:24] LABS: BILIRUBIN,TOTAL 0.3 mg/dL (0.2-1); TOT PROT 5.9 g/dl (6.4-8.2)
[2021-12-08 01:25] LABS: ALK PHOS 92 U/L (45-117)
[2021-12-08 01:30] LABS: LACTIC ACID 4.1 mmol/L (0.4-2.0)
[2021-12-08 01:39] LABS: HEMATOCRIT 18.8 % (32.4-45.2); MCH 28.3 pg (25.7-33.7); MCHC 30.3 g/dl (32.0-36.0); MEAN CELL VOLUME 93.4 fl (80-96); MEAN PLT VOLUME 7.4 fl (7.5-11.1); PLATELET COUNT 167 10^3/uL (134-434); RBC 2.02 M/mm3 (3.60-5.2); RDW 15.9 % (11.6-15.6); WHITE BLOOD COUNT 18.6 K/mm3 (4.0-10.0)
[2021-12-08 01:43] LABS: INR 1.84 (0.83-1.09); PROTHROMBIN TIME (PATIENT) 21.3 SEC (9.7-13.0)
[2021-12-08 01:43] LABS: HEMOGLOBIN 5.7 GM/dL (10.7-15.3)
[2021-12-08 01:46] LABS: ACTIVATED PTT 25.2 SECONDS (25.2-36.5)
[2021-12-08] MEDS ORDERED: MIDAZOLAM HCL 2 MG/2 ML SINGLE DOSE VIAL IVPUSH ONE (02:47)
[2021-12-08] MEDS: APIXABAN 5 MG TABLET PO SCH ×3 (02:50→21:45)
[2021-12-08] MEDS: ATORVASTATIN CA 40 MG TABLET (FP) PO SCH ×2 (02:52→21:45)
[2021-12-08] MEDS: ALLOPURINOL 300 MG TABLET (FP) PO SCH (02:53)
[2021-12-08] MEDS: BUDESONIDE/FORMETEROL FUMARATE 160/4.5 mcg INHALER IH SCH ×3 (02:53→21:12)
[2021-12-08] MEDS: METOPROLOL TARTRATE 50 MG TABLET (FP) PO SCH ×3 (02:53→21:12)
[2021-12-08] MEDS ORDERED: MIDAZOLAM IN 0.9 % SOD.CHLORID 1 MG/1 ML PLAST..BAG ONE (02:53)
[2021-12-08] MEDS: FENTANYL NS IVPB 500 MCG/100 ML BAG IVPB SCH ×2 (03:00→21:46)
[2021-12-08] MEDS: NOREPINEPHRINE BITARTRATE 16,000 MCG in DEXTROSE 5%-WATER - 16,000 MCG/500 ML INFUS.BAG IVPB SCH (03:00)
[2021-12-08] MEDS: MIDAZOLAM IN 0.9 % SOD.CHLORID 100 MG/100 ML PLAST..BAG IVPB SCH ×2 (03:00→21:46)
[2021-12-08] MEDS ORDERED: INSULIN REGULAR HUMAN 100 UNITS/ML *VIAL IVPUSH ONE (03:18)
[2021-12-08] MEDS ORDERED: DEXTROSE 50%-WATER 25 GM/50 ML DISP.SYRIN IVPUSH ONE (03:18)
[2021-12-08] MEDS ORDERED: CALCIUM GLUCONATE 10% - 1,000 MG/10 ML VIAL IVPUSH ONE (03:20)
[2021-12-08] MEDS ORDERED: SODIUM ZIRCONIUM CYCLOSILICATE (LOKELMA) 5 GM PACKET PO ONE (03:21)
[2021-12-08 03:40] LABS: HEMATOCRIT 27.7 % (32.4-45.2); HEMOGLOBIN 8.6 GM/dL (10.7-15.3); MCH 28.5 pg (25.7-33.7); MCHC 31.3 g/dl (32.0-36.0); MEAN CELL VOLUME 91.1 fl (80-96); MEAN PLT VOLUME 8.3 fl (7.5-11.1); PLATELET COUNT 261 10^3/uL (134-434); RBC 3.04 M/mm3 (3.60-5.2); RDW 15.5 % (11.6-15.6)
[2021-12-08 03:48] LABS: WHITE BLOOD COUNT 34.3 K/mm3 (4.0-10.0)
[2021-12-08] MEDS ORDERED: LACTATED RINGERS SOLUTION 1000 ML INFUS.BAG IV ONE (04:05)
[2021-12-08] MEDS ORDERED: VANCOMYCIN 1 GRAM (PRE-DOCKED) 1,000 MG/250 ML BAG IVPB SCH ×2 (04:30→10:00)
[2021-12-08] MEDS ORDERED: MEROPENEM 1 GM in DEXTROSE 5%-WATER 100 ML IVPB SCH (04:30)
[2021-12-08] MEDS: MUPIROCIN 2% TOPICAL OINTMENT FOR DECOLONIZATION NS SCH ×3 (05:12→21:46)
[2021-12-08] MEDS ORDERED: MEROPENEM 1 GM VIAL (RESTRICTED TO ID) IVPB ONE ×2 (05:18→16:15)
[2021-12-08] MEDS ORDERED: DEXTROSE 5%-WATER 100 ML IVPB ONE ×2 (05:18→16:15)
[2021-12-08] MEDS ORDERED: DEXTROSE 50%-WATER 25 GM/50 ML DISP.SYRIN ONE (05:19)
[2021-12-08] MEDS: MEROPENEM 1 GM in DEXTROSE 5%-WATER 100 ML IVPB SCH ×2 (05:21→16:17)
[2021-12-08 05:26] LABS: ARTERIAL BLD GAS O2 SATURATION 90.1 % (95-98); ARTERIAL BLOOD GAS BASE EXCESS 3.7 mmol/L (-2-2); ARTERIAL BLOOD GAS PO2 60.2 mmHg (80-100); ARTERIAL BLOOD GAS pH 7.372 (7.350-7.450)
[2021-12-08 05:31] LABS: ALLENS TEST POSITIVE; VENT MODE A/C; VENT RATE 24
[2021-12-08 05:52] LABS: EPI CELLS >36 /uL (0-25.1); HYALINE CASTS 5 /uL (0-3.1); PH,URINE 5.5 (5.0-8.0); URINE BACTERIA 60 /uL (0-1359); URINE BILIRUBIN NEGATIVE (NEGATIVE); URINE COLOR YELLOW; URINE GLUCOSE (UA) NEGATIVE (NEGATIVE); URINE KETONE NEGATIVE (NEGATIVE); URINE LEUK ESTERASE NEGATIVE (NEGATIVE); URINE NITRITE NEGATIVE (NEGATIVE); URINE PROTEIN 1+ (NEGATIVE); URINE RBC 50 /uL (0-23.9); URINE UROBILINOGEN 0.2 mg/dL (0.2-1.0); URINE WBC 17 /uL (0-25.8)
[2021-12-08 06:03] LABS: HEMATOCRIT 27.9 % (32.4-45.2); HEMOGLOBIN 8.6 GM/dL (10.7-15.3); MCH 28.5 pg (25.7-33.7); MCHC 30.7 g/dl (32.0-36.0); MEAN CELL VOLUME 92.8 fl (80-96); MEAN PLT VOLUME 8.3 fl (7.5-11.1); PLATELET COUNT 229 10^3/uL (134-434); RBC 3.01 M/mm3 (3.60-5.2); WHITE BLOOD COUNT 25.9 K/mm3 (4.0-10.0)
[2021-12-08 06:12] LABS: CHLORIDE 103 mmol/L (98-107); SODIUM 141 mmol/L (136-145)
[2021-12-08 06:15] LABS: ANION GAP 4 MMOL/L (8-16); BLOOD UREA NITROGEN 38.9 mg/dL (7-18); CO2 34 mmol/L (21-32); GLUCOSE,RANDOM 165 mg/dL (74-106); MAGNESIUM 1.9 mg/dL (1.8-2.4)
[2021-12-08 06:18] LABS: PHOSPHOROUS 3.3 mg/dL (2.5-4.9); SGOT/AST 76 U/L (15-37); SGPT/ALT 26 U/L (13-61)
[2021-12-08 06:20] LABS: BILIRUBIN,TOTAL 0.5 mg/dL (0.2-1); TOT PROT 4.5 g/dl (6.4-8.2)
[2021-12-08 06:21] LABS: ALK PHOS 79 U/L (45-117)
[2021-12-08 06:30] LABS: ALBUMIN 2.2 g/dl (3.4-5.0); CALCIUM 7.5 mg/dL (8.5-10.1)
[2021-12-08] MEDS ORDERED: ALBUTEROL SO4 HFA INHALER IH PRN (07:27)
[2021-12-08 08:57] LABS: ANISOCYTOSIS 0; HELMET CELLS 0; HOWELL-JOLLY BODIES 0; MACROCYTOSIS 0; OVALOCYTE 0; PLATELET ESTIMATE NORMAL; ROULEAU 0; SICKELED CELLS 0; TARGET CELLS 0; TEAR DROP CELLS 0; TOXIC GRANULATION 0
[2021-12-08] MEDS: DEXAMETHASONE SOD PHOSPHATE 10 MG/1 ML VIAL IVPUSH SCH (09:16)
[2021-12-08] MEDS: PANTOPRAZOLE SODIUM 40 MG VIAL IVPUSH SCH (09:16)
[2021-12-08] MEDS ORDERED: VANCOMYCIN 1 GM in D5W (PRE-DOCKED) 1,000 MG/250 ML IVPB SCH (10:00)
[2021-12-08] MEDS ORDERED: LEVOTHYROXINE SODIUM 100 MCG VIAL IVPUSH SCH (10:00)
[2021-12-08 10:15] LABS: URINE APPEARANCE CLEAR
[2021-12-08] MEDS ORDERED: METOPROLOL TARTRATE 25 MG TABLET (FP) PO ONE (12:02)
[2021-12-08] MEDS: VASOPRESSIN 40 UNITS in SODIUM CHLORIDE 40 UNITS/100 ML INFUS.BAG IVPB SCH (14:45)
[2021-12-08] MEDS: CHLORHEXIDINE GLUCONATE 4% CLEANSER FOR DECOLONIZATION TP SCH (21:45)
[2021-12-08] MEDS ORDERED: ALLOPURINOL 300 MG TABLET (FP) PO SCH (22:00)
[2021-12-09] MEDS: MIDAZOLAM IN 0.9 % SOD.CHLORID 100 MG/100 ML PLAST..BAG IVPB SCH
[2021-12-09] MEDS: FENTANYL NS IVPB 500 MCG/100 ML BAG IVPB SCH ×2 (06:34→22:00)
[2021-12-09] MEDS: VASOPRESSIN 40 UNITS in SODIUM CHLORIDE 40 UNITS/100 ML INFUS.BAG IVPB SCH (06:35)
[2021-12-09] MEDS ORDERED: DEXTROSE 5%-WATER 100 ML IVPB ONE ×2 (06:36→16:32)
[2021-12-09] MEDS ORDERED: MEROPENEM 1 GM VIAL (RESTRICTED TO ID) IVPB ONE ×2 (06:36→16:32)
[2021-12-09] MEDS: MEROPENEM 1 GM in DEXTROSE 5%-WATER 100 ML IVPB SCH ×2 (06:36→16:36)
[2021-12-09] MEDS: NOREPINEPHRINE BITARTRATE 16,000 MCG in DEXTROSE 5%-WATER - 16,000 MCG/500 ML INFUS.BAG IVPB SCH (06:37)
[2021-12-09 07:15] LABS: CHLORIDE 100 mmol/L (98-107); SODIUM 140 mmol/L (136-145)
[2021-12-09 07:20] LABS: ALBUMIN 2.2 g/dl (3.4-5.0); BLOOD UREA NITROGEN 26.8 mg/dL (7-18); CALCIUM 7.5 mg/dL (8.5-10.1); CO2 32 mmol/L (21-32); GLUCOSE,RANDOM 86 mg/dL (74-106); MAGNESIUM 1.8 mg/dL (1.8-2.4)
[2021-12-09 07:23] LABS: CREATININE 0.6 mg/dL (0.55-1.3); PHOSPHOROUS 3.3 mg/dL (2.5-4.9); SGOT/AST 52 U/L (15-37); SGPT/ALT 24 U/L (13-61)
[2021-12-09 07:25] LABS: ALK PHOS 69 U/L (45-117); TOT PROT 4.6 g/dl (6.4-8.2)
[2021-12-09 07:41] LABS: ANION GAP 8 MMOL/L (8-16)
[2021-12-09] MEDS ORDERED: POTASSIUM CHLORIDE 20 MEQ PREMIX IVPB 100 ML IVPB ONE (07:53)
[2021-12-09] MEDS ORDERED: POTASSIUM CHLORIDE ORAL LIQUID 20 MEQ/15 ML PO ONE (07:55)
[2021-12-09 08:03] LABS: HEMATOCRIT 25.1 % (32.4-45.2); MCH 28.5 pg (25.7-33.7); MEAN CELL VOLUME 89.2 fl (80-96); MEAN PLT VOLUME 8.5 fl (7.5-11.1); PLATELET COUNT 107 10^3/uL (134-434); RBC 2.82 M/mm3 (3.60-5.2); RDW 15.8 % (11.6-15.6); WHITE BLOOD COUNT 12.9 K/mm3 (4.0-10.0)
[2021-12-09] MEDS: LEVOTHYROXINE NA 112 MCG TABLET (FP) NR SCH (08:57)
[2021-12-09] MEDS: DEXAMETHASONE SOD PHOSPHATE 10 MG/1 ML VIAL IVPUSH SCH (09:02)
[2021-12-09] MEDS: PANTOPRAZOLE SODIUM 40 MG VIAL IVPUSH SCH (09:02)
[2021-12-09] MEDS: APIXABAN 5 MG TABLET NGT SCH ×2 (09:03→21:16)
[2021-12-09] MEDS: BUDESONIDE/FORMETEROL FUMARATE 160/4.5 mcg INHALER IH SCH ×2 (09:03→21:18)
[2021-12-09] MEDS: METOPROLOL TARTRATE 50 MG TABLET (FP) NGT SCH ×2 (09:03→21:17)
[2021-12-09] MEDS: MUPIROCIN 2% TOPICAL OINTMENT FOR DECOLONIZATION NS SCH ×2 (09:03→21:16)
[2021-12-09 09:59] LABS: ANISOCYTOSIS 1+; MACROCYTOSIS 0; OVALOCYTE 1+; PLATELET ESTIMATE DECREASED
[2021-12-09 16:48] VITALS: BMI 23.3
[2021-12-09] MEDS: PROPOFOL 1,000,000 MCG/100 ML VIAL IVPB SCH ×2 (18:30→22:00)
[2021-12-09] MEDS: CHLORHEXIDINE GLUCONATE 4% CLEANSER FOR DECOLONIZATION TP SCH (21:17)
[2021-12-09] MEDS: ATORVASTATIN CA 40 MG TABLET (FP) PO SCH (21:17)
[2021-12-09] MEDS: ALLOPURINOL 300 MG TABLET (FP) NGT SCH (21:18)
[2021-12-09] MEDS: SODIUM CHLORIDE 1,000 ML IV SCH (21:19)
[2021-12-10] MEDS: FENTANYL NS IVPB 500 MCG/100 ML BAG IVPB SCH (03:00)
[2021-12-10] MEDS ORDERED: MEROPENEM 1 GM VIAL (RESTRICTED TO ID) IVPB ONE ×2 (05:23→17:03)
[2021-12-10] MEDS ORDERED: DEXTROSE 5%-WATER 100 ML IVPB ONE ×2 (05:23→17:03)
[2021-12-10] MEDS: MEROPENEM 1 GM in DEXTROSE 5%-WATER 100 ML IVPB SCH ×2 (05:26→17:06)
[2021-12-10] MEDS: NOREPINEPHRINE BITARTRATE 16,000 MCG in DEXTROSE 5%-WATER - 16,000 MCG/500 ML INFUS.BAG IVPB SCH (06:14)
[2021-12-10] MEDS: LEVOTHYROXINE NA 112 MCG TABLET (FP) NR SCH (06:15)
[2021-12-10] MEDS: VASOPRESSIN 40 UNITS in SODIUM CHLORIDE 40 UNITS/100 ML INFUS.BAG IVPB SCH (06:15)
[2021-12-10 07:04] LABS: HEMATOCRIT 23.9 % (32.4-45.2); HEMOGLOBIN 7.6 GM/dL (10.7-15.3); MCH 28.6 pg (25.7-33.7); MCHC 31.9 g/dl (32.0-36.0); MEAN CELL VOLUME 89.8 fl (80-96); MEAN PLT VOLUME 9.1 fl (7.5-11.1); PLATELET COUNT 99 10^3/uL (134-434); RBC 2.66 M/mm3 (3.60-5.2); RDW 16.1 % (11.6-15.6); WHITE BLOOD COUNT 10.6 K/mm3 (4.0-10.0)
[2021-12-10 07:23] LABS: ALBUMIN 2.1 g/dl (3.4-5.0); BLOOD UREA NITROGEN 25.9 mg/dL (7-18); CALCIUM 7.9 mg/dL (8.5-10.1)
[2021-12-10 07:26] LABS: CREATININE 0.5 mg/dL (0.55-1.3); PHOSPHOROUS 2.8 mg/dL (2.5-4.9)
[2021-12-10 07:28] LABS: BILIRUBIN,TOTAL 0.7 mg/dL (0.2-1); TOT PROT 4.3 g/dl (6.4-8.2)
[2021-12-10 09:08] LABS: ANISOCYTOSIS 1+; MACROCYTOSIS 1+; PLATELET ESTIMATE DECREASED
[2021-12-10] MEDS: PANTOPRAZOLE SODIUM 40 MG VIAL IVPUSH SCH (09:32)
[2021-12-10] MEDS: METOPROLOL TARTRATE 50 MG TABLET (FP) NGT SCH ×2 (09:32→22:13)
[2021-12-10] MEDS: DEXAMETHASONE SOD PHOSPHATE 10 MG/1 ML VIAL IVPUSH SCH (09:32)
[2021-12-10] MEDS: MUPIROCIN 2% TOPICAL OINTMENT FOR DECOLONIZATION NS SCH ×2 (09:32→22:12)
[2021-12-10] MEDS: KCL 10 MEQ IVPB 10 MEQ/100 ML INFUS.BAG IVPB SCH ×2 (09:32→10:54)
[2021-12-10] MEDS: APIXABAN 5 MG TABLET NGT SCH ×2 (09:33→22:13)
[2021-12-10] MEDS: BUDESONIDE/FORMETEROL FUMARATE 160/4.5 mcg INHALER IH SCH ×2 (09:33→22:13)
[2021-12-10] MEDS: methylPREDNISolone NA SUCC 40 MG/1 ML VIAL IVPUSH SCH ×2 (12:27→17:06)
[2021-12-10] MEDS ORDERED: ALPRAZolam 0.25 MG TABLET PO ONE (16:32)
[2021-12-10] MEDS: SODIUM CHLORIDE 1,000 ML IV SCH (22:12)
[2021-12-10] MEDS: ATORVASTATIN CA 40 MG TABLET (FP) PO SCH (22:13)
[2021-12-10] MEDS: CHLORHEXIDINE GLUCONATE 4% CLEANSER FOR DECOLONIZATION TP SCH (22:13)
[2021-12-10] MEDS: ALLOPURINOL 300 MG TABLET (FP) NGT SCH (22:14)
[2021-12-11] MEDS: methylPREDNISolone NA SUCC 40 MG/1 ML VIAL IVPUSH SCH ×3 (01:28→18:56)
[2021-12-11] MEDS ORDERED: DEXTROSE 5%-WATER 100 ML IVPB ONE ×2 (03:21→17:56)
[2021-12-11] MEDS ORDERED: MEROPENEM 1 GM VIAL (RESTRICTED TO ID) IVPB ONE ×2 (03:21→17:56)
[2021-12-11] MEDS: MEROPENEM 1 GM in DEXTROSE 5%-WATER 100 ML IVPB SCH ×2 (05:02→18:56)
[2021-12-11] MEDS: LEVOTHYROXINE NA 112 MCG TABLET (FP) NR SCH (06:25)
[2021-12-11 07:56] LABS: HEMATOCRIT 25.1 % (32.4-45.2); HEMOGLOBIN 8.1 GM/dL (10.7-15.3); MCH 28.8 pg (25.7-33.7); MCHC 32.3 g/dl (32.0-36.0); MEAN CELL VOLUME 89.2 fl (80-96); MEAN PLT VOLUME 8.9 fl (7.5-11.1); PLATELET COUNT 133 10^3/uL (134-434); RBC 2.81 M/mm3 (3.60-5.2); RDW 16.2 % (11.6-15.6); WHITE BLOOD COUNT 17.4 K/mm3 (4.0-10.0)
[2021-12-11 08:12] LABS: CALCIUM 8.8 mg/dL (8.5-10.1)
[2021-12-11 08:13] LABS: BLOOD UREA NITROGEN 22.8 mg/dL (7-18); MAGNESIUM 2.4 mg/dL (1.8-2.4)
[2021-12-11 08:15] LABS: CREATININE 0.5 mg/dL (0.55-1.3); PHOSPHOROUS 2.9 mg/dL (2.5-4.9)
[2021-12-11 08:17] LABS: BILIRUBIN,TOTAL 0.7 mg/dL (0.2-1); TOT PROT 5.2 g/dl (6.4-8.2)
[2021-12-11 08:25] LABS: ALBUMIN 2.6 g/dl (3.4-5.0)
[2021-12-11 08:53] LABS: ANISOCYTOSIS 0; HELMET CELLS 0; HOWELL-JOLLY BODIES 0; MACROCYTOSIS 0; OVALOCYTE 0; PLATELET ESTIMATE DECREASED; ROULEAU 0; SICKELED CELLS 0; TARGET CELLS 0; TEAR DROP CELLS 0; TOXIC GRANULATION 0
[2021-12-11] MEDS: BUDESONIDE/FORMETEROL FUMARATE 160/4.5 mcg INHALER IH SCH ×2 (10:00→21:48)
[2021-12-11] MEDS: METOPROLOL TARTRATE 50 MG TABLET (FP) NGT SCH ×2 (10:00→21:47)
[2021-12-11] MEDS: MUPIROCIN 2% TOPICAL OINTMENT FOR DECOLONIZATION NS SCH ×2 (10:00→21:47)
[2021-12-11] MEDS: PANTOPRAZOLE SODIUM 40 MG VIAL IVPUSH SCH (10:54)
[2021-12-11] MEDS: APIXABAN 5 MG TABLET NGT SCH ×2 (12:00→21:47)
[2021-12-11] MEDS: CITALOPRAM HYDROBROMIDE 20 MG TABLET NGT SCH (16:00)
[2021-12-11] MEDS: CHLORHEXIDINE GLUCONATE 4% CLEANSER FOR DECOLONIZATION TP SCH (21:47)
[2021-12-11] MEDS: ATORVASTATIN CA 40 MG TABLET (FP) PO SCH (21:47)
[2021-12-11] MEDS: ALLOPURINOL 300 MG TABLET (FP) NGT SCH (21:48)
[2021-12-12] MEDS ORDERED: DEXTROSE 5%-WATER 100 ML IVPB ONE ×2 (01:36→14:37)
[2021-12-12] MEDS ORDERED: MEROPENEM 1 GM VIAL (RESTRICTED TO ID) IVPB ONE ×2 (01:36→14:37)
[2021-12-12] MEDS: methylPREDNISolone NA SUCC 40 MG/1 ML VIAL IVPUSH SCH ×3 (03:36→18:26)
[2021-12-12] MEDS: MEROPENEM 1 GM in DEXTROSE 5%-WATER 100 ML IVPB SCH ×2 (05:36→17:24)
[2021-12-12] MEDS: LEVOTHYROXINE NA 112 MCG TABLET (FP) NR SCH (06:36)
[2021-12-12 08:08] LABS: HEMATOCRIT 24.9 % (32.4-45.2); HEMOGLOBIN 7.9 GM/dL (10.7-15.3); MCH 28.7 pg (25.7-33.7); MCHC 31.7 g/dl (32.0-36.0); MEAN CELL VOLUME 90.6 fl (80-96); MEAN PLT VOLUME 9.5 fl (7.5-11.1); PLATELET COUNT 122 10^3/uL (134-434); RBC 2.75 M/mm3 (3.60-5.2); RDW 15.7 % (11.6-15.6); WHITE BLOOD COUNT 18.3 K/mm3 (4.0-10.0)
[2021-12-12] MEDS: SODIUM CHLORIDE 1,000 ML IV SCH ×2 (09:00→20:58)
[2021-12-12] MEDS: METOPROLOL TARTRATE 50 MG TABLET (FP) NGT SCH ×2 (09:05→21:00)
[2021-12-12] MEDS: MUPIROCIN 2% TOPICAL OINTMENT FOR DECOLONIZATION NS SCH ×2 (09:05→20:59)
[2021-12-12] MEDS: APIXABAN 5 MG TABLET NGT SCH ×2 (09:05→20:59)
[2021-12-12] MEDS: CITALOPRAM HYDROBROMIDE 20 MG TABLET NGT SCH (09:05)
[2021-12-12] MEDS: PANTOPRAZOLE SODIUM 40 MG VIAL IVPUSH SCH (09:06)
[2021-12-12] MEDS: ACETAMINOPHEN 325 MG TABLET (FP) PO PRN ×2 (09:06→18:25)
[2021-12-12] MEDS: BUDESONIDE/FORMETEROL FUMARATE 160/4.5 mcg INHALER IH SCH ×2 (09:06→21:00)
[2021-12-12 09:27] LABS: ANISOCYTOSIS 1+; MACROCYTOSIS 0; PLATELET ESTIMATE DECREASED
[2021-12-12 11:48] LABS: ALBUMIN 2.8 g/dl (3.4-5.0); BILIRUBIN,TOTAL 0.6 mg/dL (0.2-1); BLOOD UREA NITROGEN 22.3 mg/dL (7-18); CALCIUM 8.7 mg/dL (8.5-10.1); CREATININE 0.5 mg/dL (0.55-1.3); MAGNESIUM 2.4 mg/dL (1.8-2.4); TOT PROT 5.5 g/dl (6.4-8.2)
[2021-12-12] MEDS: CHLORHEXIDINE GLUCONATE 4% CLEANSER FOR DECOLONIZATION TP SCH (20:59)
[2021-12-12] MEDS: ATORVASTATIN CA 40 MG TABLET (FP) PO SCH (21:00)
[2021-12-12] MEDS: ALLOPURINOL 300 MG TABLET (FP) NGT SCH (21:01)
[2021-12-13] MEDS ORDERED: DEXTROSE 5%-WATER 100 ML IVPB ONE ×2 (00:52→14:14)
[2021-12-13] MEDS ORDERED: MEROPENEM 1 GM VIAL (RESTRICTED TO ID) IVPB ONE ×2 (00:52→14:14)
[2021-12-13] MEDS: methylPREDNISolone NA SUCC 40 MG/1 ML VIAL IVPUSH SCH ×3 (00:59→21:30)
[2021-12-13] MEDS: MEROPENEM 1 GM in DEXTROSE 5%-WATER 100 ML IVPB SCH ×2 (05:14→17:56)
[2021-12-13] MEDS: LEVOTHYROXINE NA 112 MCG TABLET (FP) NR SCH (06:15)
[2021-12-13] MEDS: CITALOPRAM HYDROBROMIDE 20 MG TABLET NGT SCH (09:19)
[2021-12-13] MEDS: APIXABAN 5 MG TABLET NGT SCH ×2 (09:20→21:30)
[2021-12-13] MEDS: PANTOPRAZOLE SODIUM 40 MG VIAL IVPUSH SCH (09:20)
[2021-12-13] MEDS: ACETAMINOPHEN 325 MG TABLET (FP) PO PRN (09:20)
[2021-12-13] MEDS: METOPROLOL TARTRATE 50 MG TABLET (FP) NGT SCH ×2 (09:20→21:30)
[2021-12-13] MEDS: BUDESONIDE/FORMETEROL FUMARATE 160/4.5 mcg INHALER IH SCH ×2 (10:26→21:31)
[2021-12-13] MEDS ORDERED: ALBUTEROL SO4 HFA INHALER IH PRN (14:33)
[2021-12-13] MEDS ORDERED: methylPREDNISolone NA SUCC 40 MG/1 ML VIAL IVPUSH SCH (18:00)
[2021-12-13] MEDS: ATORVASTATIN CA 40 MG TABLET (FP) PO SCH (21:30)
[2021-12-13] MEDS: CHLORHEXIDINE GLUCONATE 4% CLEANSER FOR DECOLONIZATION TP SCH (21:30)
[2021-12-13] MEDS: ALLOPURINOL 300 MG TABLET (FP) NGT SCH (21:30)
[2021-12-14] MEDS ORDERED: DEXTROSE 5%-WATER 100 ML IVPB ONE ×2 (04:30→16:54)
[2021-12-14] MEDS ORDERED: MEROPENEM 1 GM VIAL (RESTRICTED TO ID) IVPB ONE ×2 (04:30→16:54)
[2021-12-14] MEDS: MEROPENEM 1 GM in DEXTROSE 5%-WATER 100 ML IVPB SCH ×2 (05:28→17:44)
[2021-12-14] MEDS: LEVOTHYROXINE NA 112 MCG TABLET (FP) NR SCH (06:25)
[2021-12-14 07:25] LABS: HEMATOCRIT 26.3 % (32.4-45.2); MCHC 30.6 g/dl (32.0-36.0); MEAN CELL VOLUME 91.5 fl (80-96); MEAN PLT VOLUME 8.5 fl (7.5-11.1); PLATELET COUNT 201 10^3/uL (134-434); RBC 2.88 M/mm3 (3.60-5.2); RDW 15.4 % (11.6-15.6); WHITE BLOOD COUNT 21.5 K/mm3 (4.0-10.0)
[2021-12-14 07:53] LABS: ALBUMIN 2.9 g/dl (3.4-5.0); BLOOD UREA NITROGEN 20.3 mg/dL (7-18); CALCIUM 9.1 mg/dL (8.5-10.1); MAGNESIUM 2.4 mg/dL (1.8-2.4)
[2021-12-14 07:56] LABS: CREATININE 0.5 mg/dL (0.55-1.3); PHOSPHOROUS 2.6 mg/dL (2.5-4.9)
[2021-12-14 07:58] LABS: BILIRUBIN,TOTAL 0.8 mg/dL (0.2-1); TOT PROT 5.9 g/dl (6.4-8.2)
[2021-12-14 08:54] LABS: ARTERIAL BLD GAS O2 SATURATION 98.7 % (95-98); ARTERIAL BLOOD GAS BASE EXCESS 13.9 mmol/L (-2-2); ARTERIAL BLOOD GAS PO2 136.1 mmHg (80-100); ARTERIAL BLOOD GAS pH 7.424 (7.350-7.450)
[2021-12-14 08:55] LABS: ALLENS TEST POSITIVE
[2021-12-14 08:59] LABS: ANISOCYTOSIS 0; HELMET CELLS 0; HOWELL-JOLLY BODIES 0; MACROCYTOSIS 0; OVALOCYTE 0; PLATELET ESTIMATE NORMAL; ROULEAU 0; SICKELED CELLS 0; TARGET CELLS 0; TEAR DROP CELLS 0; TOXIC GRANULATION 0
[2021-12-14] MEDS ORDERED: ALBUTEROL SO4 2.5/IPRATROPIUM 0.5 INH SOL 3 ML VIAL.NEB. NEB PRN (10:36)
[2021-12-14] MEDS: PANTOPRAZOLE SODIUM 40 MG VIAL IVPUSH SCH (10:49)
[2021-12-14] MEDS: methylPREDNISolone NA SUCC 40 MG/1 ML VIAL IVPUSH SCH ×2 (10:50→21:13)
[2021-12-14] MEDS: METOPROLOL TARTRATE 50 MG TABLET (FP) NGT SCH ×2 (10:51→21:14)
[2021-12-14] MEDS: APIXABAN 5 MG TABLET NGT SCH ×2 (10:51→21:14)
[2021-12-14] MEDS: ACETAMINOPHEN 325 MG TABLET (FP) PO PRN ×2 (10:52→17:43)
[2021-12-14] MEDS: BUDESONIDE/FORMETEROL FUMARATE 160/4.5 mcg INHALER IH SCH ×2 (10:53→21:16)
[2021-12-14] MEDS: CITALOPRAM HYDROBROMIDE 20 MG TABLET NGT SCH (10:53)
[2021-12-14] MEDS: ATORVASTATIN CA 40 MG TABLET (FP) PO SCH (21:14)
[2021-12-14] MEDS: CHLORHEXIDINE GLUCONATE 4% CLEANSER FOR DECOLONIZATION TP SCH (21:14)
[2021-12-14] MEDS: ALLOPURINOL 300 MG TABLET (FP) NGT SCH (21:14)
[2021-12-15] MEDS ORDERED: DEXTROSE 5%-WATER 100 ML IVPB ONE (05:08)
[2021-12-15] MEDS ORDERED: MEROPENEM 1 GM VIAL (RESTRICTED TO ID) IVPB ONE (05:08)
[2021-12-15] MEDS: LEVOTHYROXINE NA 112 MCG TABLET (FP) NR SCH (06:18)
[2021-12-15] MEDS: MEROPENEM 1 GM in DEXTROSE 5%-WATER 100 ML IVPB SCH (06:18)
[2021-12-15 06:40] LABS: HEMATOCRIT 28.6 % (32.4-45.2); MCH 28.8 pg (25.7-33.7); MCHC 31.6 g/dl (32.0-36.0); MEAN CELL VOLUME 91.1 fl (80-96); MEAN PLT VOLUME 8.6 fl (7.5-11.1); PLATELET COUNT 227 10^3/uL (134-434); RBC 3.14 M/mm3 (3.60-5.2); RDW 15.9 % (11.6-15.6)
[2021-12-15 07:28] LABS: BLOOD UREA NITROGEN 19.8 mg/dL (7-18)
[2021-12-15 07:29] LABS: MAGNESIUM 2.2 mg/dL (1.8-2.4); PHOSPHOROUS 2.5 mg/dL (2.5-4.9)
[2021-12-15 07:30] LABS: TOT PROT 6.2 g/dl (6.4-8.2)
[2021-12-15 07:31] LABS: BILIRUBIN,TOTAL 0.7 mg/dL (0.2-1); CREATININE 0.4 mg/dL (0.55-1.3)
[2021-12-15 09:57] LABS: ANISOCYTOSIS 0; MACROCYTOSIS 0; PLATELET ESTIMATE NORMAL
[2021-12-15] MEDS: APIXABAN 5 MG TABLET NGT SCH ×2 (10:55→21:36)
[2021-12-15] MEDS: methylPREDNISolone NA SUCC 40 MG/1 ML VIAL IVPUSH SCH ×2 (10:55→21:38)
[2021-12-15] MEDS: CITALOPRAM HYDROBROMIDE 20 MG TABLET NGT SCH (10:56)
[2021-12-15] MEDS: METOPROLOL TARTRATE 50 MG TABLET (FP) NGT SCH ×2 (10:56→21:37)
[2021-12-15] MEDS: ACETAMINOPHEN 325 MG TABLET (FP) PO PRN (10:56)
[2021-12-15] MEDS: PANTOPRAZOLE SODIUM 40 MG VIAL IVPUSH SCH (10:57)
[2021-12-15] MEDS: BUDESONIDE/FORMETEROL FUMARATE 160/4.5 mcg INHALER IH SCH ×2 (10:57→21:40)
[2021-12-15] MEDS: ALLOPURINOL 300 MG TABLET (FP) NGT SCH (21:37)
[2021-12-15] MEDS: CHLORHEXIDINE GLUCONATE 4% CLEANSER FOR DECOLONIZATION TP SCH (21:37)
[2021-12-15] MEDS: ATORVASTATIN CA 40 MG TABLET (FP) PO SCH (21:37)
[2021-12-16] MEDS: LEVOTHYROXINE NA 112 MCG TABLET (FP) NR SCH (06:45)
[2021-12-16] MEDS: PANTOPRAZOLE SODIUM 40 MG VIAL IVPUSH SCH (09:09)
[2021-12-16] MEDS: methylPREDNISolone NA SUCC 40 MG/1 ML VIAL IVPUSH SCH ×2 (09:09→22:01)
[2021-12-16] MEDS: APIXABAN 5 MG TABLET NGT SCH ×2 (09:09→22:00)
[2021-12-16] MEDS: CITALOPRAM HYDROBROMIDE 10 MG TABLET NGT SCH (09:09)
[2021-12-16] MEDS: METOPROLOL TARTRATE 50 MG TABLET (FP) NGT SCH ×2 (09:09→22:01)
[2021-12-16] MEDS: BUDESONIDE/FORMETEROL FUMARATE 160/4.5 mcg INHALER IH SCH ×2 (09:09→22:01)
[2021-12-16] MEDS: ACETAMINOPHEN 325 MG TABLET (FP) PO PRN (09:10)
[2021-12-16 15:55] LABS: ARTERIAL BLD GAS O2 SATURATION 90.9 % (95-98); ARTERIAL BLOOD GAS BASE EXCESS 15.7 mmol/L (-2-2); ARTERIAL BLOOD GAS PO2 54.6 mmHg (80-100); ARTERIAL BLOOD GAS pH 7.522 (7.350-7.450)
[2021-12-16 15:56] LABS: ALLENS TEST POSITIVE
[2021-12-16] MEDS: CHLORHEXIDINE GLUCONATE 4% CLEANSER FOR DECOLONIZATION TP SCH (22:00)
[2021-12-16] MEDS: ATORVASTATIN CA 40 MG TABLET (FP) PO SCH (22:01)
[2021-12-16] MEDS: ASCORBIC ACID 250 MG TABLET (FP) PO SCH (22:01)
[2021-12-16] MEDS: ALLOPURINOL 300 MG TABLET (FP) NGT SCH (22:01)
[2021-12-17] MEDS: LEVOTHYROXINE NA 112 MCG TABLET (FP) NR SCH (06:07)
[2021-12-17 08:10] LABS: HEMATOCRIT 23.7 % (32.4-45.2); HEMOGLOBIN 7.5 GM/dL (10.7-15.3); MCH 29.3 pg (25.7-33.7); MCHC 31.7 g/dl (32.0-36.0); MEAN CELL VOLUME 92.4 fl (80-96); MEAN PLT VOLUME 8.2 fl (7.5-11.1); PLATELET COUNT 190 10^3/uL (134-434); RBC 2.56 M/mm3 (3.60-5.2); RDW 16.6 % (11.6-15.6); WHITE BLOOD COUNT 12.6 K/mm3 (4.0-10.0)
[2021-12-17 08:38] LABS: ALBUMIN 2.7 g/dl (3.4-5.0); BLOOD UREA NITROGEN 27.2 mg/dL (7-18); MAGNESIUM 2.5 mg/dL (1.8-2.4)
[2021-12-17 08:41] LABS: CREATININE 0.5 mg/dL (0.55-1.3); PHOSPHOROUS 3.5 mg/dL (2.5-4.9)
[2021-12-17 08:42] LABS: TOT PROT 5.4 g/dl (6.4-8.2)
[2021-12-17 08:43] LABS: BILIRUBIN,TOTAL 0.6 mg/dL (0.2-1)
[2021-12-17] MEDS: ZINC SULFATE 220 MG CAPSULE (FP) PO SCH (09:17)
[2021-12-17] MEDS: PANTOPRAZOLE SODIUM 40 MG VIAL IVPUSH SCH (09:17)
[2021-12-17] MEDS: APIXABAN 5 MG TABLET NGT SCH ×2 (09:17→21:33)
[2021-12-17] MEDS: methylPREDNISolone NA SUCC 40 MG/1 ML VIAL IVPUSH SCH (09:17)
[2021-12-17] MEDS: METOPROLOL TARTRATE 50 MG TABLET (FP) NGT SCH ×2 (09:17→21:33)
[2021-12-17] MEDS: ASCORBIC ACID 250 MG TABLET (FP) PO SCH ×2 (09:18→21:33)
[2021-12-17] MEDS: CITALOPRAM HYDROBROMIDE 10 MG TABLET NGT SCH (09:18)
[2021-12-17] MEDS: MULTIVIT-MINERALS ORAL LIQUID PO SCH (09:18)
[2021-12-17] MEDS: BUDESONIDE/FORMETEROL FUMARATE 160/4.5 mcg INHALER IH SCH ×2 (10:15→21:33)
[2021-12-17 11:11] LABS: ANISOCYTOSIS 1+; MACROCYTOSIS 0; OVALOCYTE 2+; PLATELET ESTIMATE NORMAL
[2021-12-17 13:47] LABS: HEMATOCRIT 24.7 % (32.4-45.2); HEMOGLOBIN 7.7 GM/dL (10.7-15.3); MCH 29.2 pg (25.7-33.7); MCHC 31.3 g/dl (32.0-36.0); MEAN CELL VOLUME 93.4 fl (80-96); MEAN PLT VOLUME 8.5 fl (7.5-11.1); PLATELET COUNT 215 10^3/uL (134-434); RBC 2.65 M/mm3 (3.60-5.2); RDW 17.2 % (11.6-15.6); WHITE BLOOD COUNT 14.9 K/mm3 (4.0-10.0)
[2021-12-17 14:51] LABS: ANISOCYTOSIS 1+; MACROCYTOSIS 1+; OVALOCYTE 2+; PLATELET ESTIMATE NORMAL
[2021-12-17] MEDS ORDERED: DEXTROSE 5%-WATER - 1,000 ML IV SCH (15:15)
[2021-12-17] MEDS: AMINO ACIDS/PROTEIN HYDROLYS 30 ML LIQUID.PKT PO SCH (18:11)
[2021-12-17] MEDS: CHLORHEXIDINE GLUCONATE 4% CLEANSER FOR DECOLONIZATION TP SCH (21:33)
[2021-12-17] MEDS: ALLOPURINOL 300 MG TABLET (FP) NGT SCH (21:33)
[2021-12-17] MEDS: ATORVASTATIN CA 40 MG TABLET (FP) PO SCH (21:33)
[2021-12-18] MEDS: LEVOTHYROXINE NA 112 MCG TABLET (FP) NR SCH (06:16)
[2021-12-18 09:20] VITALS: TEMP 97.2
[2021-12-18] MEDS ORDERED: methylPREDNISolone NA SUCC 40 MG/1 ML VIAL IVPUSH SCH (10:00)
[2021-12-18] MEDS: AMINO ACIDS/PROTEIN HYDROLYS 30 ML LIQUID.PKT PO SCH (11:12)
[2021-12-18] MEDS: MULTIVIT-MINERALS ORAL LIQUID PO SCH (11:12)
[2021-12-18] MEDS: CITALOPRAM HYDROBROMIDE 10 MG TABLET NGT SCH (11:12)
[2021-12-18] MEDS: PANTOPRAZOLE SODIUM 40 MG VIAL IVPUSH SCH (11:13)
[2021-12-18] MEDS: METOPROLOL TARTRATE 50 MG TABLET (FP) NGT SCH (11:13)
[2021-12-18] MEDS: APIXABAN 5 MG TABLET NGT SCH (11:13)
[2021-12-18] MEDS: ZINC SULFATE 220 MG CAPSULE (FP) PO SCH (11:13)
[2021-12-18] MEDS: BUDESONIDE/FORMETEROL FUMARATE 160/4.5 mcg INHALER IH SCH (11:13)
[2021-12-18] MEDS: ASCORBIC ACID 250 MG TABLET (FP) PO SCH (11:14)
[2021-12-18 12:52] VITALS: BP 116/62; PULSE 65
== END 2021-12-18 13:30 | DRG 208 ==
LOC: JER 08:06 → JERBED 08:20 → J5S 20:33 → J4W 12-01 23:43 → JICU 12-08 02:42 → J2W 12-11 19:18
PROVIDERS: ADMIT Internal Medicine; ATTEND Internal Medicine
PROC: 0BH17EZ Insertion of Endotracheal Airway into Trachea, Via Natural or Artificial Opening (ICD-10-PCS; principal; 2021-12-08)
PROC: 5A1945Z Respiratory Ventilation, 24-96 Consecutive Hours (ICD-10-PCS; 2021-12-08)
PROC: 05HM33Z Insertion of Infusion Device into Right Internal Jugular Vein, Percutaneous Approach (ICD-10-PCS; 2021-12-08)
PROC: B543ZZA Ultrasonography of Right Jugular Veins, Guidance (ICD-10-PCS; 2021-12-08)
PROC: XW033E5 Introduction of Remdesivir Anti-infective into Peripheral Vein, Percutaneous Approach, New Technology Group 5 (ICD-10-PCS; 2021-12-08)
DX: U07.1 COVID-19 (principal); J12.82 Pneumonia due to coronavirus disease 2019; A41.9 Sepsis, unspecified organism; R65.21 Severe sepsis with septic shock; J96.01 Acute respiratory failure with hypoxia; J96.02 Acute respiratory failure with hypercapnia; E87.2 Acidosis; I48.20 Chronic atrial fibrillation, unspecified; E87.0 Hyperosmolality and hypernatremia; R64 Cachexia; Z68.1 Body mass index [BMI] 19.9 or less, adult; J44.1 Chronic obstructive pulmonary disease with (acute) exacerbation; N17.9 Acute kidney failure, unspecified; R00.0 Tachycardia, unspecified; I48.91 Unspecified atrial fibrillation; I25.10 Atherosclerotic heart disease of native coronary artery without angina pectoris; I10 Essential (primary) hypertension; I48.0 Paroxysmal atrial fibrillation; E78.5 Hyperlipidemia, unspecified; D69.6 Thrombocytopenia, unspecified; M10.9 Gout, unspecified; D63.8 Anemia in other chronic diseases classified elsewhere; K59.00 Constipation, unspecified; F41.9 Anxiety disorder, unspecified; Z90.2 Acquired absence of lung [part of]; Z95.5 Presence of coronary angioplasty implant and graft; Z99.81 Dependence on supplemental oxygen
CPT/HCPCS: 31500; 36415; 36600; 71045-TC-FY; 80053; 81003; 82550; 82553; 82728; 82803; 83605; 83735; 83880; 84100; 84132; 84439; 84443; 84484; 85025; 85027; 85379; 85610; 85730; 86140; 86850; 86900; 86901; 87040; 87086; 87899; 93005; 93010; 93306-TC; 94002; 94010; 94660; 94761; 97116-GP; 97162-GP; 99285-25; C9399; C9803; J0131; J1100; U0003; U0005

== ENCOUNTER 2021-12-28 01:37 | Inpatient (IN) | payer OTHER, MEDICARE ==
[2021-12-28] MEDS ORDERED: SODIUM CHLORIDE 0.9% 500 ML INFUS.BAG IV ONE ×3 (02:24→13:16)
[2021-12-28 02:46] LABS: EOS % 0.3 % (0-4.5); HEMATOCRIT 22.2 % (32.4-45.2); LYMPH % 8.7 % (8-40); MCH 30.4 pg (25.7-33.7); MCHC 30.5 g/dl (32.0-36.0); MEAN CELL VOLUME 99.6 fl (80-96); MEAN PLT VOLUME 8.7 fl (7.5-11.1); MONO % 5.6 % (3.8-10.2); NEUT % 84.4 % (42.8-82.8); PLATELET COUNT 136 10^3/uL (134-434); RBC 2.23 M/mm3 (3.60-5.2); RDW 20.6 % (11.6-15.6); WHITE BLOOD COUNT 9.5 K/mm3 (4.0-10.0)
[2021-12-28 02:47] LABS: HEMOGLOBIN 6.8 GM/dL (10.7-15.3)
[2021-12-28 02:49] LABS: VENOUS BASE EXCESS 9.7 mmol/L (-2-2); VENOUS O2 SATURATION 84.8 % (70-80); VENOUS PH 7.305 (7.310-7.410)
[2021-12-28 02:50] LABS: EPI CELLS 10 /uL (0-25.1); HYALINE CASTS 2 /uL (0-3.1); PH,URINE 5.5 (5.0-8.0); URINE APPEARANCE Error; URINE BACTERIA 4 /uL (0-1359); URINE BILIRUBIN NEGATIVE (NEGATIVE); URINE COLOR YELLOW; URINE GLUCOSE (UA) NEGATIVE (NEGATIVE); URINE KETONE NEGATIVE (NEGATIVE); URINE LEUK ESTERASE TRACE (NEGATIVE); URINE NITRITE NEGATIVE (NEGATIVE); URINE PROTEIN 1+ (NEGATIVE); URINE RBC 11 /uL (0-23.9); URINE WBC 8 /uL (0-25.8); VENOUS PCO2 76.5 mmHg (38-52)
[2021-12-28 03:06] LABS: ALBUMIN 2.7 g/dl (3.4-5.0); BLOOD UREA NITROGEN 34.7 mg/dL (7-18); CALCIUM 8.2 mg/dL (8.5-10.1)
[2021-12-28 03:09] LABS: CREATININE 0.8 mg/dL (0.55-1.3)
[2021-12-28 03:11] LABS: BILIRUBIN,TOTAL 0.5 mg/dL (0.2-1); TOT PROT 5.1 g/dl (6.4-8.2)
[2021-12-28 03:16] LABS: LACTIC ACID 2.4 mmol/L (0.4-2.0)
[2021-12-28 03:17] LABS: ACTIVATED PTT 24.9 SECONDS (25.2-36.5); INR 2.01 (0.83-1.09); PROTHROMBIN TIME (PATIENT) 23.3 SEC (9.7-13.0)
[2021-12-28 03:29] LABS: ANISOCYTOSIS 1+; MACROCYTOSIS 1+; OVALOCYTE 1+; PLATELET ESTIMATE DECREASED
[2021-12-28] MEDS ORDERED: ALBUTEROL SO4 2.5/IPRATROPIUM 0.5 INH SOL 3 ML VIAL.NEB. NEB ONE ×3 (03:33→13:28)
[2021-12-28 03:57] LABS: URINE CRYSTALS NONE SEEN /hpf
[2021-12-28 04:31] LABS: ARTERIAL BLD GAS O2 SATURATION 99.3 % (95-98); ARTERIAL BLOOD GAS BASE EXCESS 9.1 mmol/L (-2-2); ARTERIAL BLOOD GAS PO2 211.5 mmHg (80-100); ARTERIAL BLOOD GAS pH 7.337 (7.350-7.450)
[2021-12-28] MEDS ORDERED: LEVOTHYROXINE NA 112 MCG TABLET (FP) PO SCH (08:15)
[2021-12-28 09:04] LABS: HEMATOCRIT 22.8 % (32.4-45.2); MCH 30.8 pg (25.7-33.7); MCHC 30.4 g/dl (32.0-36.0); MEAN CELL VOLUME 101.3 fl (80-96); MEAN PLT VOLUME 8.7 fl (7.5-11.1); PLATELET COUNT 102 10^3/uL (134-434); RBC 2.25 M/mm3 (3.60-5.2); RDW 20.4 % (11.6-15.6); WHITE BLOOD COUNT 7.8 K/mm3 (4.0-10.0)
[2021-12-28 09:12] LABS: HEMOGLOBIN 6.9 GM/dL (10.7-15.3)
[2021-12-28 09:18] LABS: CHLORIDE 111 mmol/L (98-107); SODIUM 150 mmol/L (136-145)
[2021-12-28 09:20] LABS: CALCIUM 7.8 mg/dL (8.5-10.1)
[2021-12-28 09:21] LABS: ALBUMIN 2.7 g/dl (3.4-5.0); ANION GAP 2 MMOL/L (8-16); BLOOD UREA NITROGEN 33.3 mg/dL (7-18); CO2 37 mmol/L (21-32); GLUCOSE,RANDOM 87 mg/dL (74-106)
[2021-12-28 09:24] LABS: CREATININE 0.7 mg/dL (0.55-1.3); SGOT/AST 50 U/L (15-37); SGPT/ALT 41 U/L (13-61)
[2021-12-28 09:25] LABS: TOT PROT 4.9 g/dl (6.4-8.2)
[2021-12-28 09:26] LABS: ALK PHOS 99 U/L (45-117); BILIRUBIN,TOTAL 0.4 mg/dL (0.2-1)
[2021-12-28] MEDS ORDERED: BUDESONIDE/FORMETEROL FUMARATE 160/4.5 mcg INHALER IH SCH (10:00)
[2021-12-28] MEDS ORDERED: CITALOPRAM HYDROBROMIDE 10 MG TABLET NGT SCH (10:00)
[2021-12-28] MEDS ORDERED: SODIUM CHLORIDE 0.45% 1,000 ML IV SCH ×2 (10:00→19:31)
[2021-12-28] MEDS ORDERED: predniSONE 20 MG TABLET (UD) PO SCH (10:00)
[2021-12-28] MEDS ORDERED: PANTOPRAZOLE SODIUM 40 MG VIAL IVPUSH SCH (10:00)
[2021-12-28] MEDS: ALBUTEROL SO4 2.5/IPRATROPIUM 0.5 INH SOL 3 ML VIAL.NEB. NEB SCH ×3 (10:36→20:10)
[2021-12-28] MEDS ORDERED: CITALOPRAM HYDROBROMIDE 10 MG TABLET ONE (10:39)
[2021-12-28] MEDS ORDERED: PANTOPRAZOLE SODIUM 40 MG/100 ML BAG IVPB ONE (10:39)
[2021-12-28] MEDS ORDERED: predniSONE 20 MG TABLET (UD) ONE (10:39)
[2021-12-28 10:51] LABS: PHOSPHOROUS 3.9 mg/dL (2.5-4.9)
[2021-12-28] MEDS ORDERED: CITALOPRAM HYDROBROMIDE 10 MG TABLET PO SCH (11:00)
[2021-12-28 11:05] LABS: ARTERIAL BLOOD GAS BASE EXCESS 6.1 mmol/L (-2-2); ARTERIAL BLOOD GAS PO2 127.2 mmHg (80-100); ARTERIAL BLOOD GAS pH 7.276 (7.350-7.450)
[2021-12-28 11:10] LABS: ALLENS TEST POSITIVE
[2021-12-28 11:14] LABS: IRON SERUM 22 ug/dL (50-175); TOTAL IRON BINDING CAPACITY 271 ug/dL (250-450)
[2021-12-28] MEDS ORDERED: LACTATED RINGERS SOLUTION 1000 ML INFUS.BAG IV ONE (13:07)
[2021-12-28] MEDS ORDERED: ALBUTEROL SO4 0.083% IH SOL 2.5 MG/3 ML VIAL.NEB. NEB PRN ×2 (13:23→19:31)
[2021-12-28] MEDS ORDERED: PRAMIPEXOLE DIHYDROCHLORIDE 0.5 MG TABLET PO SCH (14:00)
[2021-12-28 16:07] LABS: HEMATOCRIT 44.1 % (32.4-45.2); HEMOGLOBIN 14.1 GM/dL (10.7-15.3); MCH 30.5 pg (25.7-33.7); MEAN CELL VOLUME 95.3 fl (80-96); MEAN PLT VOLUME 8.2 fl (7.5-11.1); PLATELET COUNT 244 10^3/uL (134-434); RBC 4.63 M/mm3 (3.60-5.2); RDW 14.4 % (11.6-15.6); WHITE BLOOD COUNT 7.3 K/mm3 (4.0-10.0)
[2021-12-28] MEDS ORDERED: DOCUSATE SODIUM 100 MG CAPSULE (FP) PO SCH (22:00)
[2021-12-28] MEDS ORDERED: METOPROLOL TARTRATE 50 MG TABLET (FP) PO SCH (22:00)
[2021-12-28] MEDS ORDERED: ATORVASTATIN CA 40 MG TABLET (FP) PO SCH (22:00)
[2021-12-28] MEDS: METOPROLOL TARTRATE 50 MG TABLET (FP) PO SCH (22:16)
[2021-12-28] MEDS: DOCUSATE SODIUM 100 MG CAPSULE (FP) PO SCH (22:16)
[2021-12-28] MEDS: ATORVASTATIN CA 40 MG TABLET (FP) PO SCH (22:16)
[2021-12-28] MEDS: BUDESONIDE/FORMETEROL FUMARATE 160/4.5 mcg INHALER IH SCH (22:17)
[2021-12-28] MEDS: MUPIROCIN 2% TOPICAL OINTMENT FOR DECOLONIZATION NS SCH (22:17)
[2021-12-28] MEDS: CHLORHEXIDINE GLUCONATE 4% CLEANSER FOR DECOLONIZATION TP SCH (22:17)
[2021-12-28 23:06] LABS: ARTERIAL BLD GAS O2 SATURATION 99.7 % (95-98); ARTERIAL BLOOD GAS BASE EXCESS 3.8 mmol/L (-2-2); ARTERIAL BLOOD GAS PO2 364.8 mmHg (80-100); ARTERIAL BLOOD GAS pH 7.239 (7.350-7.450)
[2021-12-29] MEDS: PRAMIPEXOLE DIHYDROCHLORIDE 0.5 MG TABLET PO SCH ×4 (00:38→22:05)
[2021-12-29] MEDS: ALBUTEROL SO4 2.5/IPRATROPIUM 0.5 INH SOL 3 ML VIAL.NEB. NEB SCH ×7 (00:48→20:10)
[2021-12-29 00:52] LABS: HEMATOCRIT 29.6 % (32.4-45.2); HEMOGLOBIN 9.3 GM/dL (10.7-15.3); MCH 30.7 pg (25.7-33.7); MCHC 31.3 g/dl (32.0-36.0); MEAN CELL VOLUME 98.4 fl (80-96); MEAN PLT VOLUME 9.3 fl (7.5-11.1); PLATELET COUNT 93 10^3/uL (134-434); RBC 3.01 M/mm3 (3.60-5.2); RDW 19.5 % (11.6-15.6); WHITE BLOOD COUNT 7.2 K/mm3 (4.0-10.0)
[2021-12-29] MEDS: methylPREDNISolone NA SUCC 40 MG/1 ML VIAL IVPUSH SCH ×5 (01:36→17:04)
[2021-12-29 03:25] LABS: BLOOD UREA NITROGEN 29.8 mg/dL (7-18); CALCIUM 7.7 mg/dL (8.5-10.1)
[2021-12-29 03:29] LABS: CREATININE 0.6 mg/dL (0.55-1.3)
[2021-12-29] MEDS: LACTATED RINGERS SOLUTION 1,000 ML/1,000 ML INFUS.BAG IV SCH ×2 (03:50→17:09)
[2021-12-29 06:04] LABS: ARTERIAL BLD GAS O2 SATURATION 99.3 % (95-98); ARTERIAL BLOOD GAS BASE EXCESS 2.7 mmol/L (-2-2); ARTERIAL BLOOD GAS pH 7.254 (7.350-7.450)
[2021-12-29 06:06] LABS: VENT MODE S/T
[2021-12-29 06:07] LABS: VENT RATE 22
[2021-12-29] MEDS: LEVOTHYROXINE NA 112 MCG TABLET (FP) PO SCH (06:23)
[2021-12-29 07:00] LABS: HEMATOCRIT 26.4 % (32.4-45.2); HEMOGLOBIN 8.3 GM/dL (10.7-15.3); MCH 30.8 pg (25.7-33.7); MCHC 31.4 g/dl (32.0-36.0); PLATELET COUNT 87 10^3/uL (134-434); RBC 2.69 M/mm3 (3.60-5.2); RDW 19.3 % (11.6-15.6)
[2021-12-29 07:43] LABS: CALCIUM 7.8 mg/dL (8.5-10.1)
[2021-12-29 07:44] LABS: ALBUMIN 2.9 g/dl (3.4-5.0)
[2021-12-29 07:47] LABS: CREATININE 0.6 mg/dL (0.55-1.3); PHOSPHOROUS 3.7 mg/dL (2.5-4.9)
[2021-12-29 07:48] LABS: BILIRUBIN,TOTAL 0.6 mg/dL (0.2-1); TOT PROT 5.4 g/dl (6.4-8.2)
[2021-12-29] MEDS: ALLOPURINOL 100 MG TABLET (FP) PO SCH (09:30)
[2021-12-29] MEDS: DOCUSATE SODIUM 100 MG CAPSULE (FP) PO SCH ×2 (09:30→21:09)
[2021-12-29] MEDS: METOPROLOL TARTRATE 50 MG TABLET (FP) PO SCH ×2 (09:31→21:10)
[2021-12-29] MEDS: CITALOPRAM HYDROBROMIDE 10 MG TABLET PO SCH (09:31)
[2021-12-29] MEDS: BUDESONIDE/FORMETEROL FUMARATE 160/4.5 mcg INHALER IH SCH ×2 (09:32→22:05)
[2021-12-29] MEDS: MUPIROCIN 2% TOPICAL OINTMENT FOR DECOLONIZATION NS SCH ×2 (09:32→21:09)
[2021-12-29] MEDS: PANTOPRAZOLE SODIUM 40 MG VIAL IVPUSH SCH (09:32)
[2021-12-29 09:56] LABS: ANISOCYTOSIS 3+; MACROCYTOSIS 0; OVALOCYTE 1+; PLATELET ESTIMATE DECREASED
[2021-12-29] MEDS ORDERED: ALLOPURINOL 100 MG TABLET (FP) PO SCH (10:00)
[2021-12-29 12:59] LABS: ALLENS TEST POSITIVE; ARTERIAL BLD GAS O2 SATURATION 93.2 % (95-98); ARTERIAL BLOOD GAS BASE EXCESS 4.9 mmol/L (-2-2); ARTERIAL BLOOD GAS PO2 65.1 mmHg (80-100); ARTERIAL BLOOD GAS pH 7.431 (7.350-7.450)
[2021-12-29] MEDS ORDERED: AZITHROMYCIN IVPB 500 MG/250 ML BAG IVPB ONE (13:00)
[2021-12-29] MEDS: ATORVASTATIN CA 40 MG TABLET (FP) PO SCH (21:09)
[2021-12-29] MEDS: CHLORHEXIDINE GLUCONATE 4% CLEANSER FOR DECOLONIZATION TP SCH (21:09)
[2021-12-30] MEDS: ALBUTEROL SO4 2.5/IPRATROPIUM 0.5 INH SOL 3 ML VIAL.NEB. NEB SCH ×4 (00:30→11:37)
[2021-12-30] MEDS: methylPREDNISolone NA SUCC 40 MG/1 ML VIAL IVPUSH SCH ×3 (01:18→22:40)
[2021-12-30] MEDS: LACTATED RINGERS SOLUTION 1,000 ML/1,000 ML INFUS.BAG IV SCH ×3 (03:45→23:02)
[2021-12-30] MEDS: PRAMIPEXOLE DIHYDROCHLORIDE 0.5 MG TABLET PO SCH ×3 (05:35→22:40)
[2021-12-30] MEDS: LEVOTHYROXINE NA 112 MCG TABLET (FP) PO SCH (06:16)
[2021-12-30 06:18] LABS: ARTERIAL BLD GAS O2 SATURATION 99.8 % (95-98); ARTERIAL BLOOD GAS pH 7.271 (7.350-7.450)
[2021-12-30 06:30] LABS: ALLENS TEST POSITIVE; VENT MODE S/T; VENT RATE 22
[2021-12-30 08:15] LABS: CALCIUM 8.6 mg/dL (8.5-10.1)
[2021-12-30 08:16] LABS: ALBUMIN 3.1 g/dl (3.4-5.0); BLOOD UREA NITROGEN 27.1 mg/dL (7-18); MAGNESIUM 2.2 mg/dL (1.8-2.4)
[2021-12-30 08:17] LABS: PHOSPHOROUS 3.3 mg/dL (2.5-4.9)
[2021-12-30 08:18] LABS: CREATININE 0.6 mg/dL (0.55-1.3)
[2021-12-30 08:19] LABS: BILIRUBIN,TOTAL 0.6 mg/dL (0.2-1); TOT PROT 5.6 g/dl (6.4-8.2)
[2021-12-30] MEDS ORDERED: ASCORBIC ACID 500 MG TABLET (FP) PO SCH (10:00)
[2021-12-30] MEDS ORDERED: AZITHROMYCIN 250 MG TABLET PO SCH (10:00)
[2021-12-30 10:08] LABS: SARS-CoV-2 NAA Detected (Not Detected)
[2021-12-30] MEDS: PANTOPRAZOLE SODIUM 40 MG VIAL IVPUSH SCH (10:21)
[2021-12-30] MEDS: DOCUSATE SODIUM 100 MG CAPSULE (FP) PO SCH ×2 (10:22→22:39)
[2021-12-30] MEDS: ALLOPURINOL 100 MG TABLET (FP) PO SCH (10:22)
[2021-12-30] MEDS: CITALOPRAM HYDROBROMIDE 10 MG TABLET PO SCH (10:22)
[2021-12-30] MEDS: BUDESONIDE/FORMETEROL FUMARATE 160/4.5 mcg INHALER IH SCH ×2 (10:22→23:01)
[2021-12-30] MEDS: METOPROLOL TARTRATE 50 MG TABLET (FP) PO SCH ×2 (10:22→22:40)
[2021-12-30] MEDS: MUPIROCIN 2% TOPICAL OINTMENT FOR DECOLONIZATION NS SCH (10:22)
[2021-12-30] MEDS: AMINO ACIDS/PROTEIN HYDROLYS 30 ML LIQUID.PKT PO SCH ×2 (10:22→17:19)
[2021-12-30] MEDS ORDERED: ACETAMINOPHEN 325 MG TABLET (FP) PO ONE (15:19)
[2021-12-30] MEDS ORDERED: ACETAMINOPHEN 500 MG TABLET (FP) PO ONE (15:19)
[2021-12-30] MEDS ORDERED: ALBUTEROL SO4 HFA INHALER IH PRN (15:20)
[2021-12-30] MEDS: ATORVASTATIN CA 40 MG TABLET (FP) PO SCH (22:40)
[2021-12-31] MEDS: PRAMIPEXOLE DIHYDROCHLORIDE 0.5 MG TABLET PO SCH ×3 (06:09→22:11)
[2021-12-31] MEDS: LEVOTHYROXINE NA 112 MCG TABLET (FP) PO SCH (06:09)
[2021-12-31 06:24] LABS: ARTERIAL BLD GAS O2 SATURATION 91.1 % (95-98); ARTERIAL BLOOD GAS BASE EXCESS 1.6 mmol/L (-2-2); ARTERIAL BLOOD GAS PO2 67.6 mmHg (80-100); ARTERIAL BLOOD GAS pH 7.299 (7.350-7.450)
[2021-12-31 06:31] LABS: ALLENS TEST POSITIVE
[2021-12-31 07:20] LABS: HEMATOCRIT 26.5 % (32.4-45.2); HEMOGLOBIN 8.3 GM/dL (10.7-15.3); MCH 30.3 pg (25.7-33.7); MCHC 31.5 g/dl (32.0-36.0); MEAN CELL VOLUME 96.3 fl (80-96); MEAN PLT VOLUME 8.5 fl (7.5-11.1); PLATELET COUNT 98 10^3/uL (134-434); RBC 2.75 M/mm3 (3.60-5.2); RDW 18.6 % (11.6-15.6); WHITE BLOOD COUNT 6.9 K/mm3 (4.0-10.0)
[2021-12-31 07:34] LABS: CALCIUM 8.3 mg/dL (8.5-10.1)
[2021-12-31 07:35] LABS: ALBUMIN 2.8 g/dl (3.4-5.0); BLOOD UREA NITROGEN 33.2 mg/dL (7-18)
[2021-12-31 07:38] LABS: CREATININE 0.6 mg/dL (0.55-1.3); PHOSPHOROUS 3.3 mg/dL (2.5-4.9)
[2021-12-31 07:39] LABS: BILIRUBIN,TOTAL 0.5 mg/dL (0.2-1); TOT PROT 5.1 g/dl (6.4-8.2)
[2021-12-31 09:57] LABS: ANISOCYTOSIS 1+; MACROCYTOSIS 0; PLATELET ESTIMATE DECREASED
[2021-12-31] MEDS ORDERED: PANTOPRAZOLE SODIUM 40 MG VIAL IVPUSH SCH (10:00)
[2021-12-31] MEDS ORDERED: AZITHROMYCIN 250 MG TABLET PO SCH (10:00)
[2021-12-31] MEDS ORDERED: CITALOPRAM HYDROBROMIDE 10 MG TABLET PO SCH (10:00)
[2021-12-31] MEDS: methylPREDNISolone NA SUCC 40 MG/1 ML VIAL IVPUSH SCH ×2 (10:25→22:11)
[2021-12-31] MEDS: ASCORBIC ACID 500 MG TABLET (FP) PO SCH (10:26)
[2021-12-31] MEDS: AMINO ACIDS/PROTEIN HYDROLYS 30 ML LIQUID.PKT PO SCH ×2 (10:26→18:41)
[2021-12-31] MEDS: METOPROLOL TARTRATE 50 MG TABLET (FP) PO SCH ×2 (10:27→22:10)
[2021-12-31] MEDS: DOCUSATE SODIUM 100 MG CAPSULE (FP) PO SCH ×2 (10:27→22:10)
[2021-12-31] MEDS: ALLOPURINOL 100 MG TABLET (FP) PO SCH (10:27)
[2021-12-31] MEDS: BUDESONIDE/FORMETEROL FUMARATE 160/4.5 mcg INHALER IH SCH ×2 (10:28→22:11)
[2021-12-31] MEDS ORDERED: ALBUTEROL SO4 2.5/IPRATROPIUM 0.5 INH SOL 3 ML VIAL.NEB. NEB PRN (12:22)
[2021-12-31] MEDS: ALBUTEROL SO4 2.5/IPRATROPIUM 0.5 INH SOL 3 ML VIAL.NEB. NEB SCH ×3 (16:34→20:18)
[2021-12-31] MEDS ORDERED: SODIUM CHLORIDE 0.45% 1,000 ML IV SCH (17:30)
[2021-12-31] MEDS: ATORVASTATIN CA 40 MG TABLET (FP) PO SCH (22:10)
[2022-01-01] MEDS: PRAMIPEXOLE DIHYDROCHLORIDE 0.5 MG TABLET PO SCH ×3 (06:08→21:10)
[2022-01-01] MEDS: LEVOTHYROXINE NA 112 MCG TABLET (FP) PO SCH (06:08)
[2022-01-01 06:33] LABS: ARTERIAL BLD GAS O2 SATURATION 86.7 % (95-98); ARTERIAL BLOOD GAS BASE EXCESS 3.1 mmol/L (-2-2); ARTERIAL BLOOD GAS PO2 61.5 mmHg (80-100); ARTERIAL BLOOD GAS pH 7.252 (7.350-7.450)
[2022-01-01 06:39] LABS: ALLENS TEST POSITIVE
[2022-01-01] MEDS: ALBUTEROL SO4 2.5/IPRATROPIUM 0.5 INH SOL 3 ML VIAL.NEB. NEB SCH ×4 (08:05→20:48)
[2022-01-01 08:43] LABS: CALCIUM 8.7 mg/dL (8.5-10.1)
[2022-01-01 08:44] LABS: ALBUMIN 3.1 g/dl (3.4-5.0); BLOOD UREA NITROGEN 26.2 mg/dL (7-18); MAGNESIUM 2.1 mg/dL (1.8-2.4)
[2022-01-01 08:47] LABS: CREATININE 0.5 mg/dL (0.55-1.3); PHOSPHOROUS 4.3 mg/dL (2.5-4.9)
[2022-01-01 08:48] LABS: TOT PROT 5.7 g/dl (6.4-8.2)
[2022-01-01 08:49] LABS: BILIRUBIN,TOTAL 0.4 mg/dL (0.2-1)
[2022-01-01] MEDS: methylPREDNISolone NA SUCC 40 MG/1 ML VIAL IVPUSH SCH ×2 (10:59→21:10)
[2022-01-01] MEDS: PANTOPRAZOLE 40 MG TABLET PO SCH (11:00)
[2022-01-01] MEDS: METOPROLOL TARTRATE 50 MG TABLET (FP) PO SCH ×2 (11:00→21:10)
[2022-01-01] MEDS: ASCORBIC ACID 500 MG TABLET (FP) PO SCH (11:00)
[2022-01-01] MEDS: ALLOPURINOL 100 MG TABLET (FP) PO SCH (11:01)
[2022-01-01] MEDS: DOCUSATE SODIUM 100 MG CAPSULE (FP) PO SCH (11:01)
[2022-01-01] MEDS: BUDESONIDE/FORMETEROL FUMARATE 160/4.5 mcg INHALER IH SCH ×2 (11:01→21:11)
[2022-01-01] MEDS: AMINO ACIDS/PROTEIN HYDROLYS 30 ML LIQUID.PKT PO SCH ×2 (11:01→17:59)
[2022-01-01 15:23] LABS: HEMATOCRIT 23.8 % (32.4-45.2); HEMOGLOBIN 7.3 GM/dL (10.7-15.3); MCH 30.1 pg (25.7-33.7); MCHC 30.5 g/dl (32.0-36.0); MEAN CELL VOLUME 98.7 fl (80-96); MEAN PLT VOLUME 8.9 fl (7.5-11.1); PLATELET COUNT 59 10^3/uL (134-434); RBC 2.41 M/mm3 (3.60-5.2); RDW 18.4 % (11.6-15.6)
[2022-01-01 16:06] VITALS: BMI 15.0
[2022-01-01 16:08] LABS: ANISOCYTOSIS 1+; MACROCYTOSIS 0; OVALOCYTE 1+
[2022-01-01] MEDS ORDERED: amLODIPine BESYLATE 2.5 MG TABLET (FP) PO ONE (17:56)
[2022-01-01] MEDS: POLYETHYLENE GLYCOL (HEALTHYLAX) 3350 17 GM PACKET PO SCH (21:09)
[2022-01-01] MEDS: ATORVASTATIN CA 40 MG TABLET (FP) PO SCH (21:10)
[2022-01-01 22:52] LABS: HEMATOCRIT 27.8 % (32.4-45.2); HEMOGLOBIN 8.8 GM/dL (10.7-15.3); MCH 30.6 pg (25.7-33.7); MCHC 31.8 g/dl (32.0-36.0); MEAN CELL VOLUME 96.2 fl (80-96); MEAN PLT VOLUME 8.2 fl (7.5-11.1); PLATELET COUNT 96 10^3/uL (134-434); RBC 2.89 M/mm3 (3.60-5.2); RDW 18.5 % (11.6-15.6)
[2022-01-02] MEDS: LEVOTHYROXINE NA 112 MCG TABLET (FP) PO SCH (06:23)
[2022-01-02] MEDS: PRAMIPEXOLE DIHYDROCHLORIDE 0.5 MG TABLET PO SCH ×3 (06:23→21:50)
[2022-01-02] MEDS: POLYETHYLENE GLYCOL (HEALTHYLAX) 3350 17 GM PACKET PO SCH ×3 (06:23→21:50)
[2022-01-02 07:07] LABS: ARTERIAL BLD GAS O2 SATURATION 97.2 % (95-98); ARTERIAL BLOOD GAS BASE EXCESS 3.1 mmol/L (-2-2); ARTERIAL BLOOD GAS pH 7.309 (7.350-7.450)
[2022-01-02 07:17] LABS: ALLENS TEST POSITIVE
[2022-01-02 07:26] LABS: HEMOGLOBIN 8.8 GM/dL (10.7-15.3); MCH 30.2 pg (25.7-33.7); MCHC 31.5 g/dl (32.0-36.0); MEAN CELL VOLUME 96.1 fl (80-96); MEAN PLT VOLUME 8.7 fl (7.5-11.1); PLATELET COUNT 99 10^3/uL (134-434); RBC 2.91 M/mm3 (3.60-5.2); RDW 18.5 % (11.6-15.6); WHITE BLOOD COUNT 6.7 K/mm3 (4.0-10.0)
[2022-01-02 07:42] LABS: ALBUMIN 2.9 g/dl (3.4-5.0); BLOOD UREA NITROGEN 21.1 mg/dL (7-18); CALCIUM 8.2 mg/dL (8.5-10.1); MAGNESIUM 2.2 mg/dL (1.8-2.4)
[2022-01-02 07:45] LABS: CREATININE 0.4 mg/dL (0.55-1.3)
[2022-01-02 07:46] LABS: PHOSPHOROUS 2.5 mg/dL (2.5-4.9)
[2022-01-02 07:47] LABS: BILIRUBIN,TOTAL 0.5 mg/dL (0.2-1); TOT PROT 5.1 g/dl (6.4-8.2)
[2022-01-02] MEDS: AMINO ACIDS/PROTEIN HYDROLYS 30 ML LIQUID.PKT PO SCH ×2 (09:34→18:37)
[2022-01-02] MEDS: METOPROLOL TARTRATE 50 MG TABLET (FP) PO SCH ×2 (09:35→21:49)
[2022-01-02] MEDS: methylPREDNISolone NA SUCC 40 MG/1 ML VIAL IVPUSH SCH ×2 (09:35→21:49)
[2022-01-02] MEDS: PANTOPRAZOLE 40 MG TABLET PO SCH (09:35)
[2022-01-02] MEDS: BUDESONIDE/FORMETEROL FUMARATE 160/4.5 mcg INHALER IH SCH ×2 (09:36→21:50)
[2022-01-02] MEDS: ASCORBIC ACID 500 MG TABLET (FP) PO SCH (09:36)
[2022-01-02] MEDS: ALLOPURINOL 100 MG TABLET (FP) PO SCH (09:37)
[2022-01-02 10:23] LABS: ANISOCYTOSIS 2+; MACROCYTOSIS 0; OVALOCYTE 1+
[2022-01-02] MEDS ORDERED: FONDAPARINUX SODIUM 2.5 MG/0.5 ML DISP.SYRIN SQ SCH (11:00)
[2022-01-02] MEDS: FONDAPARINUX SODIUM 2.5 MG/0.5 ML DISP.SYRIN SQ SCH (15:25)
[2022-01-02] MEDS: ALBUTEROL SO4 2.5/IPRATROPIUM 0.5 INH SOL 3 ML VIAL.NEB. NEB SCH ×2 (18:38→20:43)
[2022-01-02] MEDS: ATORVASTATIN CA 40 MG TABLET (FP) PO SCH (21:50)
[2022-01-03] MEDS: LEVOTHYROXINE NA 112 MCG TABLET (FP) PO SCH (06:28)
[2022-01-03] MEDS: POLYETHYLENE GLYCOL (HEALTHYLAX) 3350 17 GM PACKET PO SCH ×3 (06:28→21:13)
[2022-01-03] MEDS: PRAMIPEXOLE DIHYDROCHLORIDE 0.5 MG TABLET PO SCH ×3 (06:29→21:13)
[2022-01-03 07:10] LABS: HEMATOCRIT 27.5 % (32.4-45.2); HEMOGLOBIN 8.6 GM/dL (10.7-15.3); MCH 30.2 pg (25.7-33.7); MCHC 31.3 g/dl (32.0-36.0); MEAN CELL VOLUME 96.6 fl (80-96); MEAN PLT VOLUME 8.2 fl (7.5-11.1); PLATELET COUNT 90 10^3/uL (134-434); RBC 2.85 M/mm3 (3.60-5.2); RDW 18.4 % (11.6-15.6)
[2022-01-03 07:20] LABS: ALBUMIN 2.9 g/dl (3.4-5.0); BLOOD UREA NITROGEN 19.8 mg/dL (7-18); CALCIUM 8.7 mg/dL (8.5-10.1)
[2022-01-03 07:21] LABS: MAGNESIUM 2.1 mg/dL (1.8-2.4)
[2022-01-03 07:23] LABS: CREATININE 0.4 mg/dL (0.55-1.3); PHOSPHOROUS 3.1 mg/dL (2.5-4.9)
[2022-01-03 07:24] LABS: BILIRUBIN,TOTAL 0.5 mg/dL (0.2-1); TOT PROT 5.3 g/dl (6.4-8.2)
[2022-01-03] MEDS: AMINO ACIDS/PROTEIN HYDROLYS 30 ML LIQUID.PKT PO SCH ×2 (07:45→16:45)
[2022-01-03] MEDS: ALBUTEROL SO4 2.5/IPRATROPIUM 0.5 INH SOL 3 ML VIAL.NEB. NEB SCH ×2 (08:18→20:39)
[2022-01-03 10:30] LABS: ANISOCYTOSIS 0; HELMET CELLS 0; HOWELL-JOLLY BODIES 0; MACROCYTOSIS 0; OVALOCYTE 0; ROULEAU 0; SICKELED CELLS 0; TARGET CELLS 0; TEAR DROP CELLS 0; TOXIC GRANULATION 0
[2022-01-03] MEDS: BUDESONIDE/FORMETEROL FUMARATE 160/4.5 mcg INHALER IH SCH ×2 (10:37→21:13)
[2022-01-03] MEDS: ASCORBIC ACID 500 MG TABLET (FP) PO SCH (10:37)
[2022-01-03] MEDS: PANTOPRAZOLE 40 MG TABLET PO SCH (10:37)
[2022-01-03] MEDS: methylPREDNISolone NA SUCC 40 MG/1 ML VIAL IVPUSH SCH ×2 (10:37→21:13)
[2022-01-03] MEDS: METOPROLOL TARTRATE 50 MG TABLET (FP) PO SCH ×2 (10:37→21:13)
[2022-01-03] MEDS: ALLOPURINOL 100 MG TABLET (FP) PO SCH (10:40)
[2022-01-03] MEDS: FONDAPARINUX SODIUM 2.5 MG/0.5 ML DISP.SYRIN SQ SCH (10:55)
[2022-01-03] MEDS ORDERED: DEXTROSE 5%-WATER 100 ML IVPB IVPB ONE (15:15)
[2022-01-03] MEDS: ATORVASTATIN CA 40 MG TABLET (FP) PO SCH (21:13)
[2022-01-04] MEDS: PRAMIPEXOLE DIHYDROCHLORIDE 0.5 MG TABLET PO SCH ×3 (06:15→21:54)
[2022-01-04] MEDS: POLYETHYLENE GLYCOL (HEALTHYLAX) 3350 17 GM PACKET PO SCH ×3 (06:15→21:15)
[2022-01-04] MEDS: LEVOTHYROXINE NA 112 MCG TABLET (FP) PO SCH (06:15)
[2022-01-04 07:45] LABS: HEMATOCRIT 25.3 % (32.4-45.2); HEMOGLOBIN 8.1 GM/dL (10.7-15.3); MCH 30.5 pg (25.7-33.7); MCHC 32.1 g/dl (32.0-36.0); MEAN CELL VOLUME 94.8 fl (80-96); MEAN PLT VOLUME 7.8 fl (7.5-11.1); PLATELET COUNT 82 10^3/uL (134-434); RBC 2.67 M/mm3 (3.60-5.2); RDW 18.3 % (11.6-15.6); WHITE BLOOD COUNT 5.7 K/mm3 (4.0-10.0)
[2022-01-04 08:08] LABS: ALBUMIN 2.8 g/dl (3.4-5.0); BLOOD UREA NITROGEN 19.7 mg/dL (7-18); CALCIUM 8.2 mg/dL (8.5-10.1); MAGNESIUM 1.9 mg/dL (1.8-2.4)
[2022-01-04 08:11] LABS: CREATININE 0.4 mg/dL (0.55-1.3); PHOSPHOROUS 3.1 mg/dL (2.5-4.9)
[2022-01-04 08:12] LABS: BILIRUBIN,TOTAL 0.6 mg/dL (0.2-1)
[2022-01-04] MEDS: ALBUTEROL SO4 2.5/IPRATROPIUM 0.5 INH SOL 3 ML VIAL.NEB. NEB SCH ×2 (08:35→20:18)
[2022-01-04 09:01] LABS: ANISOCYTOSIS 0; HELMET CELLS 0; HOWELL-JOLLY BODIES 0; MACROCYTOSIS 0; OVALOCYTE 0; ROULEAU 0; SICKELED CELLS 0; TARGET CELLS 0; TEAR DROP CELLS 0; TOXIC GRANULATION 0
[2022-01-04] MEDS: AMINO ACIDS/PROTEIN HYDROLYS 30 ML LIQUID.PKT PO SCH ×2 (09:32→21:44)
[2022-01-04] MEDS: FONDAPARINUX SODIUM 2.5 MG/0.5 ML DISP.SYRIN SQ SCH (10:00)
[2022-01-04] MEDS: BUDESONIDE/FORMETEROL FUMARATE 160/4.5 mcg INHALER IH SCH ×2 (10:00→21:17)
[2022-01-04] MEDS: PANTOPRAZOLE 40 MG TABLET PO SCH (10:18)
[2022-01-04] MEDS: ASCORBIC ACID 500 MG TABLET (FP) PO SCH (10:19)
[2022-01-04] MEDS: ALLOPURINOL 100 MG TABLET (FP) PO SCH (10:19)
[2022-01-04] MEDS: METOPROLOL TARTRATE 50 MG TABLET (FP) PO SCH ×2 (11:18→21:15)
[2022-01-04] MEDS: methylPREDNISolone NA SUCC 40 MG/1 ML VIAL IVPUSH SCH ×2 (11:18→21:16)
[2022-01-04] MEDS: ATORVASTATIN CA 40 MG TABLET (FP) PO SCH (21:15)
[2022-01-05] MEDS: LEVOTHYROXINE NA 112 MCG TABLET (FP) PO SCH (07:01)
[2022-01-05] MEDS: PRAMIPEXOLE DIHYDROCHLORIDE 0.5 MG TABLET PO SCH ×3 (07:01→21:40)
[2022-01-05] MEDS: POLYETHYLENE GLYCOL (HEALTHYLAX) 3350 17 GM PACKET PO SCH ×3 (07:02→21:40)
[2022-01-05 07:31] LABS: HEMATOCRIT 25.6 % (32.4-45.2); HEMOGLOBIN 8.1 GM/dL (10.7-15.3); MCH 30.2 pg (25.7-33.7); MCHC 31.6 g/dl (32.0-36.0); MEAN CELL VOLUME 95.6 fl (80-96); MEAN PLT VOLUME 8.4 fl (7.5-11.1); PLATELET COUNT 109 10^3/uL (134-434); RBC 2.68 M/mm3 (3.60-5.2); RDW 18.1 % (11.6-15.6); WHITE BLOOD COUNT 7.7 K/mm3 (4.0-10.0)
[2022-01-05 07:47] LABS: CALCIUM 8.2 mg/dL (8.5-10.1)
[2022-01-05 07:49] LABS: BLOOD UREA NITROGEN 24.2 mg/dL (7-18)
[2022-01-05 07:50] LABS: ALBUMIN 2.8 g/dl (3.4-5.0); CREATININE 0.5 mg/dL (0.55-1.3); PHOSPHOROUS 2.5 mg/dL (2.5-4.9)
[2022-01-05 07:52] LABS: BILIRUBIN,TOTAL 0.7 mg/dL (0.2-1); TOT PROT 5.2 g/dl (6.4-8.2)
[2022-01-05] MEDS: ALBUTEROL SO4 2.5/IPRATROPIUM 0.5 INH SOL 3 ML VIAL.NEB. NEB SCH ×2 (08:30→12:10)
[2022-01-05 09:18] LABS: ANISOCYTOSIS 0; HELMET CELLS 0; HOWELL-JOLLY BODIES 0; MACROCYTOSIS 0; OVALOCYTE 0; ROULEAU 0; SICKELED CELLS 0; TARGET CELLS 0; TEAR DROP CELLS 0; TOXIC GRANULATION 0
[2022-01-05] MEDS: AMINO ACIDS/PROTEIN HYDROLYS 30 ML LIQUID.PKT PO SCH ×2 (10:30→16:33)
[2022-01-05] MEDS: ASCORBIC ACID 500 MG TABLET (FP) PO SCH (10:54)
[2022-01-05] MEDS: METOPROLOL TARTRATE 50 MG TABLET (FP) PO SCH ×2 (10:54→21:40)
[2022-01-05] MEDS: methylPREDNISolone NA SUCC 40 MG/1 ML VIAL IVPUSH SCH ×2 (10:55→21:40)
[2022-01-05] MEDS: ALLOPURINOL 100 MG TABLET (FP) PO SCH (10:55)
[2022-01-05] MEDS: PANTOPRAZOLE 40 MG TABLET PO SCH (10:55)
[2022-01-05] MEDS: BUDESONIDE/FORMETEROL FUMARATE 160/4.5 mcg INHALER IH SCH ×2 (11:00→21:40)
[2022-01-05] MEDS: FONDAPARINUX SODIUM 2.5 MG/0.5 ML DISP.SYRIN SQ SCH (11:20)
[2022-01-05 13:07] LABS: GLIADIN ANTIBODY IGA 2 units (0-19); GLIADIN ANTIBODY IGG 2 units (0-19); TRANSGLUTAMINASE IGG < 2 U/mL (0-5)
[2022-01-05] MEDS ORDERED: ACETAMINOPHEN 650 MG/20.3 ML ORAL SOLUTION (CUPS) PO PRN (18:12)
[2022-01-05] MEDS: ATORVASTATIN CA 40 MG TABLET (FP) PO SCH (21:40)
[2022-01-06] MEDS: POLYETHYLENE GLYCOL (HEALTHYLAX) 3350 17 GM PACKET PO SCH ×3 (05:37→21:28)
[2022-01-06] MEDS: PRAMIPEXOLE DIHYDROCHLORIDE 0.5 MG TABLET PO SCH ×3 (05:37→21:28)
[2022-01-06] MEDS: LEVOTHYROXINE NA 112 MCG TABLET (FP) PO SCH (06:04)
[2022-01-06 07:06] LABS: HEMOGLOBIN 7.5 GM/dL (10.7-15.3); MEAN CELL VOLUME 96.5 fl (80-96); MEAN PLT VOLUME 8.6 fl (7.5-11.1); PLATELET COUNT 101 10^3/uL (134-434); RBC 2.49 M/mm3 (3.60-5.2); RDW 18.8 % (11.6-15.6); WHITE BLOOD COUNT 7.4 K/mm3 (4.0-10.0)
[2022-01-06 07:17] LABS: CHLORIDE 102 mmol/L (98-107); SODIUM 147 mmol/L (136-145)
[2022-01-06 07:27] LABS: ALBUMIN 2.6 g/dl (3.4-5.0); CALCIUM 8.3 mg/dL (8.5-10.1); GLUCOSE,RANDOM 105 mg/dL (74-106); SGPT/ALT 36 U/L (13-61)
[2022-01-06 07:28] LABS: MAGNESIUM 2.3 mg/dL (1.8-2.4)
[2022-01-06 07:30] LABS: CREATININE 0.5 mg/dL (0.55-1.3); PHOSPHOROUS 3.3 mg/dL (2.5-4.9)
[2022-01-06 07:31] LABS: SGOT/AST 34 U/L (15-37)
[2022-01-06 07:32] LABS: BILIRUBIN,TOTAL 0.5 mg/dL (0.2-1); TOT PROT 4.7 g/dl (6.4-8.2)
[2022-01-06 07:33] LABS: ALK PHOS 83 U/L (45-117)
[2022-01-06 07:42] LABS: ANION GAP -1 MMOL/L (8-16); CO2 > 45 mmol/L (21-32)
[2022-01-06 09:00] LABS: ANISOCYTOSIS 1+; MACROCYTOSIS 0
[2022-01-06] MEDS: AMINO ACIDS/PROTEIN HYDROLYS 30 ML LIQUID.PKT PO SCH ×2 (10:14→18:23)
[2022-01-06] MEDS: ASCORBIC ACID 500 MG TABLET (FP) PO SCH (10:16)
[2022-01-06] MEDS: ALLOPURINOL 100 MG TABLET (FP) PO SCH (10:16)
[2022-01-06] MEDS: METOPROLOL TARTRATE 50 MG TABLET (FP) PO SCH ×2 (10:16→21:28)
[2022-01-06] MEDS: PANTOPRAZOLE 40 MG TABLET PO SCH (10:16)
[2022-01-06] MEDS: BUDESONIDE/FORMETEROL FUMARATE 160/4.5 mcg INHALER IH SCH ×2 (10:17→21:28)
[2022-01-06] MEDS: methylPREDNISolone NA SUCC 40 MG/1 ML VIAL IVPUSH SCH ×2 (10:17→21:28)
[2022-01-06] MEDS: FONDAPARINUX SODIUM 2.5 MG/0.5 ML DISP.SYRIN SQ SCH (10:44)
[2022-01-06 17:09] LABS: ARTERIAL BLD GAS O2 SATURATION 90.3 % (95-98); ARTERIAL BLOOD GAS BASE EXCESS 12.3 mmol/L (-2-2); ARTERIAL BLOOD GAS PO2 56.4 mmHg (80-100); ARTERIAL BLOOD GAS pH 7.462 (7.350-7.450)
[2022-01-06 17:19] LABS: ALLENS TEST POSITIVE
[2022-01-06 18:37] LABS: EPI CELLS 1 /uL (0-25.1); HYALINE CASTS 0 /uL (0-3.1); PH,URINE 7.5 (5.0-8.0); URINE APPEARANCE CLEAR; URINE BACTERIA 3112 /uL (0-1359); URINE BILIRUBIN NEGATIVE (NEGATIVE); URINE COLOR YELLOW; URINE GLUCOSE (UA) NEGATIVE (NEGATIVE); URINE KETONE NEGATIVE (NEGATIVE); URINE LEUK ESTERASE TRACE (NEGATIVE); URINE NITRITE NEGATIVE (NEGATIVE); URINE PROTEIN NEGATIVE (NEGATIVE); URINE RBC 9 /uL (0-23.9); URINE WBC 9 /uL (0-25.8)
[2022-01-06] MEDS: ATORVASTATIN CA 40 MG TABLET (FP) PO SCH (21:28)
[2022-01-07 00:49] LABS: BASO % 0.2 % (0-2.0); EOS % 0.1 % (0-4.5); HEMATOCRIT 30.5 % (32.4-45.2); HEMOGLOBIN 10.1 GM/dL (10.7-15.3); LYMPH % 3.8 % (8-40); MCH 30.9 pg (25.7-33.7); MEAN CELL VOLUME 93.5 fl (80-96); MEAN PLT VOLUME 8.5 fl (7.5-11.1); MONO % 4.9 % (3.8-10.2); PLATELET COUNT 102 10^3/uL (134-434); RBC 3.26 M/mm3 (3.60-5.2); WHITE BLOOD COUNT 8.6 K/mm3 (4.0-10.0)
[2022-01-07 03:08] LABS: ANISOCYTOSIS 1+; MACROCYTOSIS 1+; OVALOCYTE 1+
[2022-01-07] MEDS: POLYETHYLENE GLYCOL (HEALTHYLAX) 3350 17 GM PACKET PO SCH ×3 (06:18→21:16)
[2022-01-07] MEDS: PRAMIPEXOLE DIHYDROCHLORIDE 0.5 MG TABLET PO SCH ×3 (06:18→21:16)
[2022-01-07] MEDS: LEVOTHYROXINE NA 112 MCG TABLET (FP) PO SCH (06:18)
[2022-01-07 06:53] LABS: HEMATOCRIT 28.9 % (32.4-45.2); HEMOGLOBIN 9.5 GM/dL (10.7-15.3); MCH 30.9 pg (25.7-33.7); MCHC 32.9 g/dl (32.0-36.0); MEAN CELL VOLUME 93.9 fl (80-96); MEAN PLT VOLUME 8.3 fl (7.5-11.1); PLATELET COUNT 93 10^3/uL (134-434); RBC 3.08 M/mm3 (3.60-5.2); RDW 17.2 % (11.6-15.6); WHITE BLOOD COUNT 7.2 K/mm3 (4.0-10.0)
[2022-01-07 07:08] LABS: CALCIUM 7.8 mg/dL (8.5-10.1)
[2022-01-07 07:09] LABS: ALBUMIN 2.5 g/dl (3.4-5.0); BLOOD UREA NITROGEN 25.8 mg/dL (7-18); MAGNESIUM 2.4 mg/dL (1.8-2.4)
[2022-01-07 07:12] LABS: CREATININE 0.5 mg/dL (0.55-1.3); PHOSPHOROUS 3.9 mg/dL (2.5-4.9)
[2022-01-07 07:13] LABS: TOT PROT 4.6 g/dl (6.4-8.2)
[2022-01-07 07:14] LABS: BILIRUBIN,TOTAL 0.7 mg/dL (0.2-1)
[2022-01-07] MEDS: AMINO ACIDS/PROTEIN HYDROLYS 30 ML LIQUID.PKT PO SCH ×2 (09:09→17:29)
[2022-01-07] MEDS: METOPROLOL TARTRATE 50 MG TABLET (FP) PO SCH ×2 (09:10→21:16)
[2022-01-07] MEDS: ALLOPURINOL 100 MG TABLET (FP) PO SCH (09:11)
[2022-01-07] MEDS: methylPREDNISolone NA SUCC 40 MG/1 ML VIAL IVPUSH SCH ×2 (09:11→21:16)
[2022-01-07] MEDS: BUDESONIDE/FORMETEROL FUMARATE 160/4.5 mcg INHALER IH SCH ×2 (09:11→21:16)
[2022-01-07] MEDS: PANTOPRAZOLE 40 MG TABLET PO SCH (09:11)
[2022-01-07] MEDS: ASCORBIC ACID 500 MG TABLET (FP) PO SCH (11:00)
[2022-01-07] MEDS: FONDAPARINUX SODIUM 2.5 MG/0.5 ML DISP.SYRIN SQ SCH (11:00)
[2022-01-07 12:19] LABS: ANISOCYTOSIS 0; MACROCYTOSIS 0
[2022-01-07 18:10] LABS: SARS-CoV-2 NAA Not Detected (Not Detected)
[2022-01-07] MEDS: ATORVASTATIN CA 40 MG TABLET (FP) PO SCH (21:16)
[2022-01-08] MEDS: PRAMIPEXOLE DIHYDROCHLORIDE 0.5 MG TABLET PO SCH ×3 (06:28→21:40)
[2022-01-08] MEDS: POLYETHYLENE GLYCOL (HEALTHYLAX) 3350 17 GM PACKET PO SCH (06:28)
[2022-01-08] MEDS: LEVOTHYROXINE NA 112 MCG TABLET (FP) PO SCH (06:28)
[2022-01-08] MEDS ORDERED: POLYETHYLENE GLYCOL (HEALTHYLAX) 3350 17 GM PACKET PO PRN (07:41)
[2022-01-08] MEDS: AMINO ACIDS/PROTEIN HYDROLYS 30 ML LIQUID.PKT PO SCH ×2 (08:33→17:41)
[2022-01-08] MEDS: BUDESONIDE/FORMETEROL FUMARATE 160/4.5 mcg INHALER IH SCH ×2 (11:00→21:40)
[2022-01-08] MEDS: METOPROLOL TARTRATE 50 MG TABLET (FP) PO SCH ×2 (11:00→21:39)
[2022-01-08] MEDS: ALLOPURINOL 100 MG TABLET (FP) PO SCH (11:00)
[2022-01-08] MEDS: methylPREDNISolone NA SUCC 40 MG/1 ML VIAL IVPUSH SCH ×2 (11:00→21:39)
[2022-01-08] MEDS: FONDAPARINUX SODIUM 2.5 MG/0.5 ML DISP.SYRIN SQ SCH (11:00)
[2022-01-08] MEDS: ASCORBIC ACID 500 MG TABLET (FP) PO SCH (11:00)
[2022-01-08] MEDS: PANTOPRAZOLE 40 MG TABLET PO SCH (11:00)
[2022-01-08 12:21] LABS: HEMATOCRIT 36.7 % (32.4-45.2); HEMOGLOBIN 11.7 GM/dL (10.7-15.3); MCH 30.3 pg (25.7-33.7); MCHC 31.9 g/dl (32.0-36.0); MEAN CELL VOLUME 94.8 fl (80-96); MEAN PLT VOLUME 8.3 fl (7.5-11.1); PLATELET COUNT 131 10^3/uL (134-434); RBC 3.87 M/mm3 (3.60-5.2); RDW 17.3 % (11.6-15.6); WHITE BLOOD COUNT 7.5 K/mm3 (4.0-10.0)
[2022-01-08 12:49] LABS: CALCIUM 8.5 mg/dL (8.5-10.1)
[2022-01-08 12:51] LABS: ALBUMIN 2.9 g/dl (3.4-5.0); BLOOD UREA NITROGEN 29.6 mg/dL (7-18); MAGNESIUM 2.4 mg/dL (1.8-2.4)
[2022-01-08 12:54] LABS: CREATININE 0.5 mg/dL (0.55-1.3); PHOSPHOROUS 3.1 mg/dL (2.5-4.9)
[2022-01-08 12:55] LABS: BILIRUBIN,TOTAL 0.8 mg/dL (0.2-1)
[2022-01-08 12:56] LABS: TOT PROT 5.4 g/dl (6.4-8.2)
[2022-01-08 13:40] LABS: ANISOCYTOSIS 1+; MACROCYTOSIS 0
[2022-01-08 13:42] LABS: PLATELET ESTIMATE SLT DECREASE
[2022-01-08] MEDS: ATORVASTATIN CA 40 MG TABLET (FP) PO SCH (21:40)
[2022-01-09] MEDS: PRAMIPEXOLE DIHYDROCHLORIDE 0.5 MG TABLET PO SCH ×3 (06:26→21:38)
[2022-01-09] MEDS: LEVOTHYROXINE NA 112 MCG TABLET (FP) PO SCH (06:26)
[2022-01-09 07:30] LABS: CALCIUM 7.9 mg/dL (8.5-10.1)
[2022-01-09 07:32] LABS: ALBUMIN 2.7 g/dl (3.4-5.0); BLOOD UREA NITROGEN 27.2 mg/dL (7-18); MAGNESIUM 2.3 mg/dL (1.8-2.4)
[2022-01-09 07:34] LABS: CREATININE 0.5 mg/dL (0.55-1.3); PHOSPHOROUS 3.5 mg/dL (2.5-4.9)
[2022-01-09 07:36] LABS: BILIRUBIN,TOTAL 0.5 mg/dL (0.2-1); TOT PROT 4.7 g/dl (6.4-8.2)
[2022-01-09 07:46] LABS: HEMATOCRIT 30.2 % (32.4-45.2); HEMOGLOBIN 9.9 GM/dL (10.7-15.3); MCH 30.9 pg (25.7-33.7); MCHC 32.8 g/dl (32.0-36.0); MEAN CELL VOLUME 94.1 fl (80-96); PLATELET COUNT 118 10^3/uL (134-434); RBC 3.21 M/mm3 (3.60-5.2); RDW 16.7 % (11.6-15.6); WHITE BLOOD COUNT 7.7 K/mm3 (4.0-10.0)
[2022-01-09] MEDS: FONDAPARINUX SODIUM 2.5 MG/0.5 ML DISP.SYRIN SQ SCH (09:54)
[2022-01-09] MEDS: AMINO ACIDS/PROTEIN HYDROLYS 30 ML LIQUID.PKT PO SCH ×2 (09:54→17:56)
[2022-01-09] MEDS: methylPREDNISolone NA SUCC 40 MG/1 ML VIAL IVPUSH SCH ×2 (09:55→21:44)
[2022-01-09] MEDS: BUDESONIDE/FORMETEROL FUMARATE 160/4.5 mcg INHALER IH SCH ×2 (09:55→21:39)
[2022-01-09] MEDS: PANTOPRAZOLE 40 MG TABLET PO SCH (09:55)
[2022-01-09] MEDS: METOPROLOL TARTRATE 50 MG TABLET (FP) PO SCH ×2 (09:55→21:38)
[2022-01-09] MEDS: ASCORBIC ACID 500 MG TABLET (FP) PO SCH (09:56)
[2022-01-09] MEDS: ALLOPURINOL 100 MG TABLET (FP) PO SCH (09:57)
[2022-01-09 10:07] LABS: ANISOCYTOSIS 1+; MACROCYTOSIS 1+; OVALOCYTE 1+
[2022-01-09] MEDS: ATORVASTATIN CA 40 MG TABLET (FP) PO SCH (21:38)
[2022-01-10] MEDS: METOPROLOL TARTRATE 50 MG TABLET (FP) PO SCH ×2 (06:14→21:54)
[2022-01-10] MEDS: LEVOTHYROXINE NA 112 MCG TABLET (FP) PO SCH (06:14)
[2022-01-10] MEDS: PRAMIPEXOLE DIHYDROCHLORIDE 0.5 MG TABLET PO SCH ×3 (06:14→21:54)
[2022-01-10] MEDS: AMINO ACIDS/PROTEIN HYDROLYS 30 ML LIQUID.PKT PO SCH ×2 (08:13→17:46)
[2022-01-10] MEDS ORDERED: SIMETHICONE 40 MG/0.6 ML BOTTLE PO ONE (10:00)
[2022-01-10] MEDS: PANTOPRAZOLE 40 MG TABLET PO SCH (10:10)
[2022-01-10] MEDS: FONDAPARINUX SODIUM 2.5 MG/0.5 ML DISP.SYRIN SQ SCH (10:50)
[2022-01-10] MEDS: ALLOPURINOL 100 MG TABLET (FP) PO SCH (10:52)
[2022-01-10] MEDS: methylPREDNISolone NA SUCC 40 MG/1 ML VIAL IVPUSH SCH (10:59)
[2022-01-10] MEDS: predniSONE 20 MG TABLET (UD) PO SCH (10:59)
[2022-01-10] MEDS: BUDESONIDE/FORMETEROL FUMARATE 160/4.5 mcg INHALER IH SCH ×2 (10:59→21:54)
[2022-01-10] MEDS: ATORVASTATIN CA 40 MG TABLET (FP) PO SCH (21:54)
[2022-01-11] MEDS: PRAMIPEXOLE DIHYDROCHLORIDE 0.5 MG TABLET PO SCH ×3 (06:50→21:04)
[2022-01-11] MEDS: METOPROLOL TARTRATE 50 MG TABLET (FP) PO SCH ×2 (06:50→21:04)
[2022-01-11] MEDS: LEVOTHYROXINE NA 112 MCG TABLET (FP) PO SCH (06:50)
[2022-01-11 07:06] LABS: HEMATOCRIT 35.7 % (32.4-45.2); HEMOGLOBIN 11.3 GM/dL (10.7-15.3); MCH 30.4 pg (25.7-33.7); MCHC 31.7 g/dl (32.0-36.0); MEAN CELL VOLUME 95.9 fl (80-96); MEAN PLT VOLUME 8.4 fl (7.5-11.1); PLATELET COUNT 140 10^3/uL (134-434); RBC 3.72 M/mm3 (3.60-5.2); RDW 16.6 % (11.6-15.6); WHITE BLOOD COUNT 9.2 K/mm3 (4.0-10.0)
[2022-01-11 07:30] LABS: BLOOD UREA NITROGEN 28.3 mg/dL (7-18); CALCIUM 8.5 mg/dL (8.5-10.1); MAGNESIUM 2.3 mg/dL (1.8-2.4)
[2022-01-11 07:34] LABS: CREATININE 0.5 mg/dL (0.55-1.3)
[2022-01-11] MEDS: PANTOPRAZOLE 40 MG TABLET PO SCH (09:55)
[2022-01-11] MEDS: ALLOPURINOL 100 MG TABLET (FP) PO SCH (09:55)
[2022-01-11] MEDS: predniSONE 20 MG TABLET (UD) PO SCH (09:55)
[2022-01-11] MEDS: AMINO ACIDS/PROTEIN HYDROLYS 30 ML LIQUID.PKT PO SCH ×2 (09:56→18:07)
[2022-01-11] MEDS: FONDAPARINUX SODIUM 2.5 MG/0.5 ML DISP.SYRIN SQ SCH (12:33)
[2022-01-11] MEDS: BUDESONIDE/FORMETEROL FUMARATE 160/4.5 mcg INHALER IH SCH ×2 (12:33→21:05)
[2022-01-11] MEDS: COLLAGENASE CLOSTRIDIUM HIST. 30 GRAMS TUBE TP SCH (18:07)
[2022-01-11] MEDS: ATORVASTATIN CA 40 MG TABLET (FP) PO SCH (21:04)
[2022-01-12] MEDS: LEVOTHYROXINE NA 112 MCG TABLET (FP) PO SCH (06:01)
[2022-01-12] MEDS: METOPROLOL TARTRATE 50 MG TABLET (FP) PO SCH ×2 (06:01→21:12)
[2022-01-12] MEDS: PRAMIPEXOLE DIHYDROCHLORIDE 0.5 MG TABLET PO SCH ×3 (06:01→21:56)
[2022-01-12 07:19] LABS: HEMATOCRIT 34.1 % (32.4-45.2); HEMOGLOBIN 11.2 GM/dL (10.7-15.3); MCH 31.1 pg (25.7-33.7); MCHC 32.7 g/dl (32.0-36.0); MEAN CELL VOLUME 95.2 fl (80-96); MEAN PLT VOLUME 8.1 fl (7.5-11.1); PLATELET COUNT 143 10^3/uL (134-434); RBC 3.58 M/mm3 (3.60-5.2); RDW 16.9 % (11.6-15.6); WHITE BLOOD COUNT 8.6 K/mm3 (4.0-10.0)
[2022-01-12 07:38] LABS: BLOOD UREA NITROGEN 30.1 mg/dL (7-18); CALCIUM 8.7 mg/dL (8.5-10.1); MAGNESIUM 2.3 mg/dL (1.8-2.4)
[2022-01-12 07:42] LABS: CREATININE 0.5 mg/dL (0.55-1.3)
[2022-01-12 09:56] LABS: ANISOCYTOSIS 1+; MACROCYTOSIS 0; OVALOCYTE 1+
[2022-01-12 10:03] LABS: PLATELET ESTIMATE ADEQUATE
[2022-01-12] MEDS: ALLOPURINOL 100 MG TABLET (FP) PO SCH (10:16)
[2022-01-12] MEDS: predniSONE 20 MG TABLET (UD) PO SCH (10:16)
[2022-01-12] MEDS: PANTOPRAZOLE 40 MG TABLET PO SCH (10:16)
[2022-01-12] MEDS: FONDAPARINUX SODIUM 2.5 MG/0.5 ML DISP.SYRIN SQ SCH (10:18)
[2022-01-12] MEDS: COLLAGENASE CLOSTRIDIUM HIST. 30 GRAMS TUBE TP SCH (10:19)
[2022-01-12] MEDS: BUDESONIDE/FORMETEROL FUMARATE 160/4.5 mcg INHALER IH SCH ×2 (10:19→21:12)
[2022-01-12] MEDS: AMINO ACIDS/PROTEIN HYDROLYS 30 ML LIQUID.PKT PO SCH ×2 (11:18→17:13)
[2022-01-12] MEDS ORDERED: SODIUM CHLORIDE 250 ML IV STA (18:06)
[2022-01-12] MEDS: ATORVASTATIN CA 40 MG TABLET (FP) PO SCH (21:11)
[2022-01-13] MEDS: PRAMIPEXOLE DIHYDROCHLORIDE 0.5 MG TABLET PO SCH ×2 (06:29→14:00)
[2022-01-13] MEDS: LEVOTHYROXINE NA 112 MCG TABLET (FP) PO SCH (06:29)
[2022-01-13] MEDS: METOPROLOL TARTRATE 50 MG TABLET (FP) PO SCH (06:29)
[2022-01-13 07:34] LABS: HEMATOCRIT 31.8 % (32.4-45.2); HEMOGLOBIN 10.6 GM/dL (10.7-15.3); MCH 31.4 pg (25.7-33.7); MCHC 33.3 g/dl (32.0-36.0); MEAN CELL VOLUME 94.2 fl (80-96); MEAN PLT VOLUME 7.9 fl (7.5-11.1); PLATELET COUNT 149 10^3/uL (134-434); RBC 3.37 M/mm3 (3.60-5.2); RDW 16.8 % (11.6-15.6); WHITE BLOOD COUNT 8.7 K/mm3 (4.0-10.0)
[2022-01-13 07:57] LABS: CHLORIDE 96 mmol/L (98-107); SODIUM 143 mmol/L (136-145)
[2022-01-13 08:01] LABS: BLOOD UREA NITROGEN 26.3 mg/dL (7-18); GLUCOSE,RANDOM 99 mg/dL (74-106)
[2022-01-13 08:04] LABS: CALCIUM 8.5 mg/dL (8.5-10.1); CREATININE 0.5 mg/dL (0.55-1.3); PHOSPHOROUS 3.2 mg/dL (2.5-4.9)
[2022-01-13 08:05] LABS: MAGNESIUM 2.5 mg/dL (1.8-2.4)
[2022-01-13 08:34] LABS: ANION GAP 2 MMOL/L (8-16); CO2 > 45 mmol/L (21-32)
[2022-01-13 09:55] LABS: ANISOCYTOSIS 0; HELMET CELLS 0; HOWELL-JOLLY BODIES 0; MACROCYTOSIS 0; OVALOCYTE 0; ROULEAU 0; SICKELED CELLS 0; TARGET CELLS 0; TEAR DROP CELLS 0; TOXIC GRANULATION 0
[2022-01-13] MEDS: predniSONE 20 MG TABLET (UD) PO SCH (09:55)
[2022-01-13] MEDS: AMINO ACIDS/PROTEIN HYDROLYS 30 ML LIQUID.PKT PO SCH (09:55)
[2022-01-13] MEDS: PANTOPRAZOLE 40 MG TABLET PO SCH (09:56)
[2022-01-13] MEDS: ALLOPURINOL 100 MG TABLET (FP) PO SCH (09:56)
[2022-01-13] MEDS: BUDESONIDE/FORMETEROL FUMARATE 160/4.5 mcg INHALER IH SCH (09:57)
[2022-01-13] MEDS: FONDAPARINUX SODIUM 2.5 MG/0.5 ML DISP.SYRIN SQ SCH (09:57)
[2022-01-13] MEDS: COLLAGENASE CLOSTRIDIUM HIST. 30 GRAMS TUBE TP SCH (09:57)
[2022-01-13 15:39] VITALS: TEMP 97.6
[2022-01-13 17:44] VITALS: BP 117/84; PULSE 101
== END 2022-01-13 18:20 | disposition short-term general hospital (02) | DRG 189 ==
LOC: JER 01:37 → JERBED 06:09 → JICU 19:12 → J2W 12-30 17:08
PROVIDERS: ADMIT Internal Medicine; ATTEND Internal Medicine
PROC: 30233N1 Transfusion of Nonautologous Red Blood Cells into Peripheral Vein, Percutaneous Approach (ICD-10-PCS; principal; 2021-12-28)
DX: J96.22 Acute and chronic respiratory failure with hypercapnia (principal); U07.1 COVID-19; G93.41 Metabolic encephalopathy; E43 Unspecified severe protein-calorie malnutrition; J44.1 Chronic obstructive pulmonary disease with (acute) exacerbation; E87.2 Acidosis; E87.0 Hyperosmolality and hypernatremia; R64 Cachexia; Z68.1 Body mass index [BMI] 19.9 or less, adult; I24.8 Other forms of acute ischemic heart disease; J96.21 Acute and chronic respiratory failure with hypoxia; D64.9 Anemia, unspecified; D69.6 Thrombocytopenia, unspecified; L89.152 Pressure ulcer of sacral region, stage 2; E03.9 Hypothyroidism, unspecified; I25.10 Atherosclerotic heart disease of native coronary artery without angina pectoris; I48.91 Unspecified atrial fibrillation; E86.0 Dehydration
CPT/HCPCS: 36415; 36430; 36511; 36600; 70450-TC; 71045-TC-FY; 76700-TC; 80048; 80053; 81003; 82272; 82550; 82553; 82607; 82728; 82746; 82784; 82803; 82962; 83010; 83516; 83540; 83550; 83605; 83615; 83735; 84100; 84155; 84165; 84439; 84443; 84484; 85025; 85027; 85045; 85610; 85730; 86022; 86334; 86850; 86880; 86900; 86901; 86922; 87040; 87086; 87899; 93005; 93010; 94640; 94660; 99285-25; C9803; P9038; P9058; U0003; U0005